=== PATIENT | male | born 1945 | race Caucasian/White ===

== ENCOUNTER → 2017-11-12 09:51 | Outpatient (CLI) | payer MEDICARE, SELFPAY ==
[2017-11-12 12:45] LABS: Amphetamine/Metha Screen,Urine Negative ng/mL (<1000); Barbiturates Screen,Urine Negative ng/mL (<200); Benzodiazepines Screen,Urine Negative ng/mL (200); Cannabinoid Screen,Urine Negative ng/mL (<50); Cocaine Screen,Urine Negative ng/g (<300); Methadone Screen,Urine Negative ng/mL (<300); Opiate Screen,Urine Positive ng/mL (<300); Phencyclidine Screen,Urine Negative ng/mL (<25)
[2017-11-21 16:10] LABS: Oxycodone (GC/MS) 2660 ng/mL (Cutoff=100)
[2017-11-21 17:25] LABS: Opiates Negative (Cutoff=100); Oxymorphone (GC/MS) 2400 ng/mL (Cutoff=100)
== END ==
PROVIDERS: PCP Internal Medicine; Visit Provider Anesthesiology
DX: Z79.899 Other long term (current) drug therapy (principal)
CPT/HCPCS: 80305; 80361; G0480

== ENCOUNTER → 2017-12-06 09:34 | Outpatient (POV) | payer MEDICARE, SELFPAY ==
[2017-12-06 09:44] VITALS: BP 174/79; PULSE 82; RESP 16; O2SAT 96; BMI 29.0
--- NOTE | 2017-12-06 10:11 | HMH.PAINSOAP ---
[facility] Pain Management SOAP Note Subjective:: She is a very pleasant 72-year-old white male who presents today to discuss the possibility of injections along with medication refills. Patient is having some right shoulder pain. He has had this in the past with good relief from and shoulder injections. He is also having some increased lumbar back pain with radiation into his left leg to the knee. Patient has had lumbar epidural steroid injection in the past with good relief for this. Patient rates his pain a 4 out of 10 today. Patient has had physical therapy for his back and shoulders and completed this. Patient is also medically managed on oxycodone 15 mg 1 p.o. 5 times a day as well as gabapentin 100 mg 1 p.o. 3 times daily. He states that he is having no side effects to either medication. He would also like to discuss the possibility of increasing his gabapentin at this time. Patient Kaspar #[id number] reviewed and appropriate. Patient's UDS in the past which was appropriate. ROS General: no recent weight change, no fever, no sleep disturbances Respiratory: no cough, no shortness of air, no recurring pulmonary infections Cardiovascular/Peripheral Vascular: No chest pain, No palpitations, no edema, no shortness of breath. Gastrointestinal: no incontinence, normal bowel movements reported Genitourinary: no incontinence Musculoskeletal: Lumbar back pain, shoulder pain bilaterally Psychiatric: normal mood/ affect, [denies depression], [denies anxiety] Neurological: [denies weakness in extremities], [denies balance issues] Objective:: Physical Exam General: Alert and oriented x3, no acute distress, pleasant and cooperative, [on room air] Lungs: Resps E/U, Symmetrical chest expansion Musculoskeletal: Flexion and extension of lumbar spine somewhat guarded secondary to pain, deep tendon reflexes normal, strength in upper and lower extremities [5/5], slightly antalgic gait noted Neurological: speech clear, shredder tender peat equal, no gross sensory deficits Assessment:: Degenerative disc disease of the lumbar spine, lumbar radiculopathy, degenerative joint disease of bilateral shoulders, Plan:: We will refill this patient's medication oxycodone 15 mg 1 p.o. 5 times daily. Also we will increase his gabapentin from 100 mg to 300 mg 1 p.o. 3 times daily. I discussed this with Dr. Dukes and has reviewed the chart and agrees with this plan. We will also ask for insurance approval of lumbar epidural steroid injection at L4-L5. I believe that this would be advantageous for the patient due to its efficacy in the past. Patient's Dot #[id number] reviewed and appropriate. His urine drug screen has been appropriate in the past we will continue to monitor. Patient has been prescribed a controlled substance after being counseled on the medication, medication safety, and possible side effects. DOT report has been obtained and reviewed prior to prescription and found to be appropriate. Opioid contract was reviewed and signed by the patient, and that they have agreed to all of the terms set forth by our compliance program. This note was dictated using voice recognition software and may contain omissions or errors.
--- NOTE | 2017-12-06 10:16 | P.CONS_ITS ---
[facility] Pain Management SOAP Note Subjective:: She is a very pleasant 72-year-old white male who presents today to discuss the possibility of injections along with medication refills. Patient is having some right shoulder pain. He has had this in the past with good relief from and shoulder injections. He is also having some increased lumbar back pain with radiation into his left leg to the knee. Patient has had lumbar epidural steroid injection in the past with good relief for this. Patient rates his pain a 4 out of 10 today. Patient has had physical therapy for his back and shoulders and completed this. Patient is also medically managed on oxycodone 15 mg 1 p.o. 5 times a day as well as gabapentin 100 mg 1 p.o. 3 times daily. He states that he is having no side effects to either medication. He would also like to discuss the possibility of increasing his gabapentin at this time. Patient Kaspar #[id number] reviewed and appropriate. Patient's UDS in the past which was appropriate. ROS General: no recent weight change, no fever, no sleep disturbances Respiratory: no cough, no shortness of air, no recurring pulmonary infections Cardiovascular/Peripheral Vascular: No chest pain, No palpitations, no edema, no shortness of breath. Gastrointestinal: no incontinence, normal bowel movements reported Genitourinary: no incontinence Musculoskeletal: Lumbar back pain, shoulder pain bilaterally Psychiatric: normal mood/ affect, [denies depression], [denies anxiety] Neurological: [denies weakness in extremities], [denies balance issues] Objective:: Physical Exam General: Alert and oriented x3, no acute distress, pleasant and cooperative, [ on room air] Lungs: Resps E/U, Symmetrical chest expansion Musculoskeletal: Flexion and extension of lumbar spine somewhat guarded secondary to pain, deep tendon reflexes normal, strength in upper and lower extremities [5/5], slightly antalgic gait noted Neurological: speech clear, 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 5 times daily. Also we will increase his gabapentin from 100 mg to 300 mg 1 p.o. 3 times daily. I discussed this with Dr. Dueks and has reviewed the chart and agrees with this plan. We will also ask for insurance approval of lumbar epidural steroid injection at L4-L5. I believe that this would be advantageous for the patient due to its efficacy in the past. Patient's Dot #[id number] reviewed and appropriate. His urine drug screen has been appropriate in the past we will continue to monitor. Patient has been prescribed a controlled substance after being counseled on the medication, medication safety, and possible side effects. DOT report has been obtained and reviewed prior to prescription and found to be appropriate. Opioid contract was reviewed and signed by the patient, and that they have agreed to all of the terms set forth by our compliance program. This note was dictated using voice recognition software and may contain omissions or errors.
--- NOTE | 2017-12-06 15:17 | PC.PHONENOTE ---
called in Rx for gabapentin 300mg TID with two refills to pt pharmacy per provider order
== END ==
PROVIDERS: Family Provider Internal Medicine; PCP Internal Medicine; Visit Provider Clinical Nurse Specialist Family Health
DX: M19.012 Primary osteoarthritis, left shoulder (principal); M19.011 Primary osteoarthritis, right shoulder; M54.16 Radiculopathy, lumbar region
CPT/HCPCS: 99212

== ENCOUNTER 2017-12-24 10:54 | Day surgery (SDC) | payer MEDICARE, SELFPAY ==
[2017-12-24 11:38] VITALS: BP 152/74; PULSE 44; TEMP 36.5; O2SAT 98; BMI 29.0
[2017-12-24 11:45] LABS: POC Glucose,Bedside 249 mg/dL (70-110)
--- NOTE | 2017-12-24 11:55 | HMH.PMPROC ---
- Procedure Date: 12/24/17 Time: 11:55 Anesthesiologist:: Isaac Dukes MD Complications:: None Pre-procedure Diagnosis:: Degenerative disc disease of lumbar spine with lumbar radiculopathy symptoms Post-procedure Diagnosis:: Same Indications for Procedure:: This patient is a pleasant 72-year-old white male who we are treating for low back pain with lumbar radiculopathy symptoms. He is also having some bilateral shoulder pain. Most of his pain is in the low back with radiation to the left leg. We will do a lumbar epidural steroid injection at L4-L5 today to see if this will give him some relief. Procedure Details:: Lumbar epidural steroid injection informed consent was obtained and the risk and benefits of the procedure was explained to the patient. The patient was taken to the procedure room. The patient was placed prone on the procedure table. The patient was prepped and draped in sterile fashion. C-arm fluoroscopy was used to view the lumbar spine. Skin and subcutaneous tissues were anesthetized using lidocaine. I placed an 18-gauge epidural needle and advanced into the L4-L5 interspace using fluoroscopic guidance and [id number] to air. After confirmation of needle placement in the epidural space with dye I injected 2 mL of lidocaine 1.5% with Depo-Medrol 80 mg. Patient tolerated the procedure well with no complications. Plan and Disposition:: Follow-up with this patient in 2 weeks. We will reevaluate his symptoms at that time.
[2017-12-24 11:56] VITALS: BP 167/89; PULSE 82; RESP 18
[2017-12-24 11:58] VITALS: BP 148/86; PULSE 83; RESP 18
--- NOTE | 2017-12-24 12:00 | P.PCN_ITS ---
- Procedure Date: 12/24/17 Time: 11:55 Anesthesiologist:: Isaac Dukes MD Complications:: None Pre-procedure Diagnosis:: Degenerative disc disease of lumbar spine with lumbar radiculopathy symptoms Post-procedure Diagnosis:: Same Indications for Procedure:: This patient is a pleasant 72-year-old white male who we are treating for low back pain with lumbar radiculopathy symptoms. He is also having some bilateral shoulder pain. Most of his pain is in the low back with radiation to the left leg. We will do a lumbar epidural steroid injection at L4-L5 today to see if this will give him some relief. Procedure Details:: Lumbar epidural steroid injection informed consent was obtained and the risk and benefits of the procedure was explained to the patient. The patient was taken to the procedure room. The patient was placed prone on the procedure table. The patient was prepped and draped in sterile fashion. C-arm fluoroscopy was used to view the lumbar spine. Skin and subcutaneous tissues were anesthetized using lidocaine. I placed an 18-gauge epidural needle and advanced into the L4-L5 interspace using fluoroscopic guidance and [id number] to air. After confirmation of needle placement in the epidural space with dye I injected 2 mL of lidocaine 1.5 % with Depo-Medrol 80 mg. Patient tolerated the procedure well with no complications. Plan and Disposition:: Follow-up with this patient in 2 weeks. We will reevaluate his symptoms at that time.
[2017-12-24 12:29] VITALS: BP 157/74; PULSE 80; RESP 18; TEMP 36.4; O2SAT 96
== END 2017-12-24 12:35 | disposition home or self-care (01) ==
PROVIDERS: Family Provider Internal Medicine; PCP Internal Medicine; Visit Provider Anesthesiology
DX: M51.16 Intervertebral disc disorders with radiculopathy, lumbar region (principal); Z79.899 Other long term (current) drug therapy
CPT/HCPCS: 62323; 82962; J1040; Q9966

== ENCOUNTER → 2018-01-10 11:05 | Outpatient (POV) | payer MEDICARE, SELFPAY ==
[2018-01-10 11:11] VITALS: BP 163/73; PULSE 83; RESP 18; TEMP 36.5; O2SAT 96; BMI 28.2
--- NOTE | 2018-01-10 11:33 | HMH.PAINSOAP ---
[facility] Pain Management SOAP Note Subjective:: This patient is a pleasant 72-year-old white male who presents today for follow-up after his most recent lumbar epidural steroid injection. Patient is having 90% relief of his symptoms at this time. Most pain today being in his bilateral shoulders. Patient does have injections in his shoulders however the pain relief does not last fpc. Patient is also being medically managed on [place] do not 15 mg 1 p.o. 5 times daily. Patient denies any side effects to this medication. We recently increased his gabapentin to 300 mg 3 times a day and he states that this is done very well for him. Patient states he is having increased pain and would like to discuss changing his medication regimen. Patient and I had a long discussion about his morphine equivalent. We will change his medication today to oxycodone 30 mg 1 tab p.o. 3 times daily. I will follow-up with him in a month and see how this is doing for him patient's DOT #[id number] reviewed and appropriate. Patient's urine drug screens appropriate in the past. Patient rates his pain a 7 out of 10 today. ROS General: no recent weight change, no fever, no sleep disturbances Respiratory: no cough, no shortness of air, no recurring pulmonary infections Cardiovascular/Peripheral Vascular: No chest pain, No palpitations, no edema, no shortness of breath. Gastrointestinal: no incontinence, normal bowel movements reported Genitourinary: no incontinence Musculoskeletal: Bilateral shoulder pain, back pain Psychiatric: normal mood/ affect, [denies depression], [denies anxiety] Neurological: [denies weakness in extremities], [denies balance issues] Objective:: Physical Exam General: Alert and oriented x3, no acute distress, pleasant and cooperative, [on room air] Lungs: Resps E/U, Symmetrical chest expansion, Eyes: PERRL Musculoskeletal: Flexion and extension of lumbar spine somewhat guarded secondary to pain, deep tendon reflexes normal, strength in upper and lower extremities [5/5], slightly antalgic gait noted, decreased range of motion bilateral shoulders secondary to pain. Negative drop arm test bilaterally Neurological: speech clear, psych sales specialist equal, no gross sensory deficits Assessment:: Osteoarthritis of bilateral shoulders, degenerative disc disease of the lumbar spine with lumbar radiculopathy Plan:: We will schedule the patient for bilateral intra-articular shoulder injections. Patient has done extremely well with this in the past. We will also change his medicine from oxycodone 15 mg 1 p.o. 5 times a day to oxycodone 30 mg 1 p.o. 3 times daily. Patient's Dot and urine drug screen have both been reviewed. Dr. Dukes is reviewed this chart and agrees with this plan of care. I will see him back in 1 month and reassess his symptoms at that. Patient has been instructed of potential side effects and has been instructed to call the office if he experiences any of them. This note was dictated using voice recognition software may contain errors or omissions
--- NOTE | 2018-01-10 11:36 | P.CONS_ITS ---
[facility] Pain Management SOAP Note Subjective:: This patient is a pleasant 72-year-old white male who presents today for follow- up after his most recent lumbar epidural steroid injection. Patient is having 90% relief of his symptoms at this time. Most pain today being in his bilateral shoulders. 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 Patient is also being medically managed on [place] do not 15 mg 1 p.o. 5 times daily. Patient denies any side effects to this medication. We recently increased his gabapentin to 300 mg 3 times a day and he states that this is done very well for him. Patient states he is having increased pain and would like to discuss changing his medication regimen. Patient and I had a long discussion about his morphine equivalent. We will change his medication today to oxycodone 30 mg 1 tab p.o. 3 times daily. I will follow-up with him in a month and see how this is doing for him patient's DOT #[id number] reviewed and appropriate. Patient's urine drug screens appropriate in the past. Patient rates his pain a 7 out of 10 today. ROS General: no recent weight change, no fever, no sleep disturbances Respiratory: no cough, no shortness of air, no recurring pulmonary infections Cardiovascular/Peripheral Vascular: No chest pain, No palpitations, no edema, no shortness of breath. Gastrointestinal: no incontinence, normal bowel movements reported Genitourinary: no incontinence Musculoskeletal: Bilateral shoulder pain, back pain Psychiatric: normal mood/ affect, [denies depression], [denies anxiety] Neurological: [denies weakness in extremities], [denies balance issues] Objective:: Physical Exam General: Alert and oriented x3, no acute distress, pleasant and cooperative, [ on room air] Lungs: Resps E/U, Symmetrical chest expansion, Eyes: PERRL Musculoskeletal: Flexion and extension of lumbar spine somewhat guarded secondary to pain, deep tendon reflexes normal, strength in upper and lower extremities [5/5], slightly antalgic gait noted, decreased range of motion bilateral shoulders secondary to pain. Negative drop arm test bilaterally Neurological: speech clear, zoning engineer equal, no gross sensory deficits Assessment:: Osteoarthritis of bilateral shoulders, degenerative disc disease of the lumbar spine with lumbar radiculopathy Plan:: We will schedule the patient for bilateral intra-articular shoulder injections. Patient has done extremely well with this in the past. We will also change his medicine from oxycodone 15 mg 1 p.o. 5 times a day to oxycodone 30 mg 1 p.o. 3 times daily. Patient's Dot and urine drug screen have both been reviewed. Dr. Dukes is reviewed this chart and agrees with this plan of care. I will see him back in 1 month and reassess his symptoms at that. Patient has been instructed of potential side effects and has been instructed to call the office if he experiences any of them. This note was dictated using voice recognition software may contain errors or omissions
== END ==
PROVIDERS: Family Provider Internal Medicine; PCP Internal Medicine; Visit Provider Clinical Nurse Specialist Family Health
DX: M19.011 Primary osteoarthritis, right shoulder (principal); M54.16 Radiculopathy, lumbar region; M19.012 Primary osteoarthritis, left shoulder
CPT/HCPCS: 99212

== ENCOUNTER 2018-01-12 14:53 | Day surgery (SDC) | payer MEDICARE, SELFPAY ==
[2018-01-12 15:38] VITALS: BP 166/76; PULSE 90; RESP 18; TEMP 36.8; O2SAT 93; BMI 28.2
--- NOTE | 2018-01-12 16:02 | HMH.PMPROC ---
- Procedure Date: 01/12/18 Time: 16:02 Anesthesiologist:: Isaac Dukes MD Complications:: None Pre-procedure Diagnosis:: Osteoarthritis of both shoulders with bilateral shoulder pain Post-procedure Diagnosis:: Same Indications for Procedure:: This patient is a 2-year-old white male who we are treating for low back with lumbar radiculopathy symptoms. He did well with previous lumbar epidural steroid injections with relief of his back pain and leg pain. He also has significant osteoarthritis of both shoulders with bilateral shoulder pain. We will do bilateral shoulder intra-articular injections today. His blood sugar is 301 today. We will decrease his steroid to 20 mg in each shoulder for a total of 40 mg. Procedure Details:: Procedure: Bilateral shoulder intra-articular injection and suprascapular nerve block Informed consent was obtained and the risk and benefits of the procedure was explained to the patient. Patient was taken to the procedure room. Both shoulders were prepped using ChloraPrep. A 25-gauge needle was used and we injected 10 mL bupivacaine 0.25% and Depo-Medrol 20 mg into each shoulder into the joint and into the area of the suprascapular nerve. The patient tolerated the procedure well with no complication. Plan and Disposition:: We will follow-up with him in 2 weeks. We will reevaluate his symptoms at that time.
[2018-01-12 16:06] VITALS: BP 154/85; PULSE 76; RESP 18
[2018-01-12 16:10] VITALS: BP 155/86; PULSE 82; RESP 18
[2018-01-12 16:41] VITALS: BP 133/68; PULSE 79; RESP 18; O2SAT 97
[2018-01-12 16:45] LABS: POC Glucose,Bedside 301 mg/dL (70-110)
== END 2018-01-12 16:08 | disposition home or self-care (01) ==
LOC: SC.PAINP 14:54
PROVIDERS: Family Provider Internal Medicine; PCP Internal Medicine; Visit Provider Anesthesiology
DX: M19.011 Primary osteoarthritis, right shoulder (principal); M19.012 Primary osteoarthritis, left shoulder; R73.9 Hyperglycemia, unspecified
CPT/HCPCS: 64450; 82962; J1030

== ENCOUNTER → 2018-01-31 10:10 | Outpatient (POV) | payer MEDICARE, SELFPAY ==
[2018-01-31 11:07] VITALS: BP 115/67; PULSE 66; RESP 20; BMI 28.2
--- NOTE | 2018-01-31 12:14 | HMH.PAINSOAP ---
[facility] Pain Management SOAP Note Subjective:: Patient is a pleasant 72-year-old white male who we are treating for low back pain with lumbar radiculopathy, bilateral osteoarthritis in the shoulders and knees. Patient has done well with shoulder injections in the past along with bilateral SI joint injections and lumbar epidural steroid injection. Patient is following up after bilateral injections in the shoulders. Patient states most of his pain is gone however he did lift suitcases with his right arm and flare up his right shoulder pain. Patient states most of his pain today is in his bilateral SI joints. Patient is interested in a SI joint injection. Patient is also due for medication refills. We have changed his medication to 30 mg 3 times daily however he said that his previous regimen was more effective. So we will change him back to oxycodone 50 mg 1 tab p.o. 5 times a day I discussed with him that if in the future we need to start increasing him there may be other options available such as intrathecal therapies. Patient's [facility] #[id number] reviewed and appropriate. Patient's UDS is appropriate in the Past. ROS General: no recent weight change, no fever, no sleep disturbances Respiratory: no cough, no shortness of air, no recurring pulmonary infections Cardiovascular/Peripheral Vascular: No chest pain, No palpitations, no edema, no shortness of breath. Gastrointestinal: no incontinence, normal bowel movements reported Genitourinary: no incontinence Musculoskeletal: Bilateral shoulder pain, back pain, bilateral SI joint pain, bilateral knee pain Psychiatric: normal mood/ affect, Neurological: [denies weakness in extremities], [denies balance issues] Objective:: Physical Exam General: Alert and oriented x3, no acute distress, pleasant and cooperative, [on room air] Lungs: Resps E/U, Symmetrical chest expansion, Eyes: PERRL Musculoskeletal: Flexion and extension of lumbar spine somewhat guarded secondary to pain, deep tendon reflexes normal, strength in upper and lower extremities [5/5], antalgic gait noted, extreme point tenderness over bilateral SI joints, positive Sayra's test bilaterally Neurological: speech clear, 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 Plan:: We will schedule bilateral SI joint injection with the patient. he has tried and failed physical therapy, anti-inflammatory therapy, medications. We will refill his oxycodone 15 milligrams 1 p.o. 5 times a day. I will give him 1 month prescription in order to determine if this is effective. Dr. Dukes has reviewed this chart and agrees with this plan of care. Patient's UDS and DOT appropriate. Patient has been prescribed a controlled substance after being counseled on the medication, medication safety, and possible side effects. DOT report has been obtained and reviewed prior to prescription and found to be appropriate. Opioid contract was reviewed and signed by the patient, and that they have agreed to all of the terms set forth by our compliance program. This note was dictated using voice recognition software and may contain errors or omissions
--- NOTE | 2018-01-31 12:17 | P.CONS_ITS ---
[facility] Pain Management SOAP Note Subjective:: Patient is a pleasant 72-year-old white male who we are treating for low back pain with lumbar radiculopathy, bilateral osteoarthritis in the shoulders and knees. Patient has done well with shoulder injections in the past along with bilateral SI joint injections and lumbar epidural steroid injection. Patient is following up after bilateral injections in the shoulders. Patient states most of his pain is gone however he did lift suitcases with his right arm and flare up his right shoulder pain. Patient states most of his pain today is in his bilateral SI joints. Patient is interested in a SI joint injection. Patient is also due for medication refills. We have changed his medication to 30 mg 3 times daily however he said that his previous regimen was more effective. So we will change him back to oxycodone 50 mg 1 tab p.o. 5 times a day I discussed with him that if in the future we need to start increasing him there may be other options available such as intrathecal therapies. Patient's [facility] #[id number] reviewed and appropriate. Patient's UDS is appropriate in the Past. ROS General: no recent weight change, no fever, no sleep disturbances Respiratory: no cough, no shortness of air, no recurring pulmonary infections Cardiovascular/Peripheral Vascular: No chest pain, No palpitations, no edema, no shortness of breath. Gastrointestinal: no incontinence, normal bowel movements reported Genitourinary: no incontinence Musculoskeletal: Bilateral shoulder pain, back pain, bilateral SI joint pain, bilateral knee pain Psychiatric: normal mood/ affect, Neurological: [denies weakness in extremities], [denies balance issues] Objective:: Physical Exam General: Alert and oriented x3, no acute distress, pleasant and cooperative, [ on room air] Lungs: Resps E/U, Symmetrical chest expansion, Eyes: PERRL Musculoskeletal: Flexion and extension of lumbar spine somewhat guarded secondary to pain, deep tendon reflexes normal, strength in upper and lower extremities [5/5], antalgic gait noted, extreme point tenderness over bilateral SI joints, positive Sayra's test bilaterally Neurological: 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 Plan:: We will schedule bilateral SI joint injection with the patient. he has tried and failed physical therapy, anti-inflammatory therapy, medications. We will refill his oxycodone 15 milligrams 1 p.o. 5 times a day. I will give him 1 month prescription in order to determine if this is effective. Dr. Dukes has reviewed this chart and agrees with this plan of care. Patient's UDS and DOT appropriate. Patient has been prescribed a controlled substance after being counseled on the medication, medication safety, and possible side effects. DOT report has been obtained and reviewed prior to prescription and found to be appropriate. Opioid contract was reviewed and signed by the patient, and that they have agreed to all of the terms set forth by our compliance program. This note was dictated using voice recognition software and may contain errors or omissions
[2018-01-31 13:48] LABS: Amphetamine/Metha Screen,Urine Negative ng/mL (<1000); Barbiturates Screen,Urine Negative ng/mL (<200); Benzodiazepines Screen,Urine Negative ng/mL (200); Cannabinoid Screen,Urine Negative ng/mL (<50); Cocaine Screen,Urine Negative ng/g (<300); Methadone Screen,Urine Negative ng/mL (<300); Opiate Screen,Urine Positive ng/mL (<300); Phencyclidine Screen,Urine Negative ng/mL (<25)
[2018-02-07 07:22] LABS: Oxycodone (GC/MS) 6688 ng/mL (Cutoff=100)
[2018-02-08 06:01] LABS: Opiates Negative (Cutoff=100); Oxymorphone (GC/MS) 5599 ng/mL (Cutoff=100)
== END ==
PROVIDERS: Family Provider Internal Medicine; PCP Internal Medicine; Visit Provider Clinical Nurse Specialist Family Health
DX: M19.012 Primary osteoarthritis, left shoulder (principal); M19.011 Primary osteoarthritis, right shoulder; M17.0 Bilateral primary osteoarthritis of knee; Z79.891 Long term (current) use of opiate analgesic; M54.16 Radiculopathy, lumbar region
CPT/HCPCS: 80305; 80361; 80365; 99212; G0480

== ENCOUNTER → 2018-03-07 14:19 | Outpatient (POV) | payer MEDICARE, SELFPAY ==
[2018-03-07 14:32] VITALS: BP 147/79; PULSE 72; RESP 20; O2SAT 96; BMI 27.9
--- NOTE | 2018-03-07 15:12 | HMH.PAINSOAP ---
[facility] Pain Management SOAP Note Subjective:: Patient is a pleasant 72-year-old white male who is presents today for follow-up after bilateral SI joint injections. Patient states he has 80% relief in his SI joint pain. Patient is currently being medically managed for degenerative disc disease of the lumbar spine with lumbar radiculopathy, sacroiliitis, osteoarthritis of bilateral shoulders. Patient is currently on oxycodone 15 mg 1 p.o. 5 times a day. Patient is interested in changing this prescription. He states that it does not last long enough for him. Patient's urine drug screens have been appropriate. Patient's DOT #[id number] reviewed and appropriate. Patient rates his pain a 5 out of 10 today. Mostly in his back today. ROS General: no recent weight change, no fever, no sleep disturbances Respiratory: no cough, no shortness of air, no recurring pulmonary infections Cardiovascular/Peripheral Vascular: No chest pain, No palpitations, no edema, no shortness of breath. Gastrointestinal: no incontinence, normal bowel movements reported Genitourinary: no incontinence Musculoskeletal: Back pain, bilateral shoulder pain, SI joint pain Psychiatric: normal mood/ affect Neurological: [denies weakness in extremities], [denies balance issues] Objective:: Physical Exam General: Alert and oriented x3, no acute distress, pleasant and cooperative, [on room air] Lungs: Resps E/U, Symmetrical chest expansion, Eyes: PERRL Musculoskeletal: Flexion and extension of lumbar spine somewhat guarded secondary to pain, deep tendon reflexes normal, strength in upper and lower extremities [5/5], slightly antalgic gait noted Neurological: speech clear, pest control chemical technician equal, no gross sensory deficits Assessment:: Degenerative disc disease of lumbar spine, lumbar radiculopathy, sacroiliitis, bilateral osteoarthritis in the shoulders Plan:: We will change the patient's medication oxycodone 20 mg 1 p.o. 4 times daily. Will give him 1 month worth of medication. Dot and urine drug screen both reviewed and appropriate. Dr. Dukes has reviewed this chart and agrees with this plan. I will follow-up with this patient in 2 months. Patient has been prescribed a controlled substance after being counseled on the medication, medication safety, and possible side effects. DOT report has been obtained and reviewed prior to prescription and found to be appropriate. Opioid contract was reviewed and signed by the patient, and that they have agreed to all of the terms set forth by our compliance program. This note was dictated using voice recognition software and may contain errors or omissions
--- NOTE | 2018-03-07 15:15 | P.CONS_ITS ---
[facility] Pain Management SOAP Note Subjective:: Patient is a pleasant 72-year-old white male who is presents today for follow- up after bilateral SI joint injections. Patient states he has 80% relief in his SI joint pain. Patient is currently being medically managed for degenerative disc disease of the lumbar spine with lumbar radiculopathy, sacroiliitis, osteoarthritis of bilateral shoulders. Patient is currently on oxycodone 15 mg 1 p.o. 5 times a day. Patient is interested in changing this prescription. He states that it does not last long enough for him. Patient's urine drug screens have been appropriate. Patient's ODT #[id number] reviewed and appropriate. Patient rates his pain a 5 out of 10 today. Mostly in his back today. ROS General: no recent weight change, no fever, no sleep disturbances Respiratory: no cough, no shortness of air, no recurring pulmonary infections Cardiovascular/Peripheral Vascular: No chest pain, No palpitations, no edema, no shortness of breath. Gastrointestinal: no incontinence, normal bowel movements reported Genitourinary: no incontinence Musculoskeletal: Back pain, bilateral shoulder pain, SI joint pain Psychiatric: normal mood/ affect Neurological: [denies weakness in extremities], [denies balance issues] Objective:: Physical Exam General: Alert and oriented x3, no acute distress, pleasant and cooperative, [ on room air] Lungs: Resps E/U, Symmetrical chest expansion, Eyes: PERRL Musculoskeletal: Flexion and extension of lumbar spine somewhat guarded secondary to pain, deep tendon reflexes normal, strength in upper and lower extremities [5/5], slightly antalgic gait noted Neurological: speech clear, garden consultant equal, no gross sensory deficits Assessment:: Degenerative disc disease of lumbar spine, lumbar radiculopathy, sacroiliitis, bilateral osteoarthritis in the shoulders Plan:: We will change the patient's medication oxycodone 20 mg 1 p.o. 4 times daily. Will give him 1 month worth of medication. Dot and urine drug screen both reviewed and appropriate. Dr. Dukes has reviewed this chart and agrees with this plan. I will follow-up with this patient in 2 months. Patient has been prescribed a controlled substance after being counseled on the medication, medication safety, and possible side effects. DOT report has been obtained and reviewed prior to prescription and found to be appropriate. Opioid contract was reviewed and signed by the patient, and that they have agreed to all of the terms set forth by our compliance program. This note was dictated using voice recognition software and may contain errors or omissions
== END ==
PROVIDERS: Family Provider Internal Medicine; PCP Internal Medicine; Visit Provider Clinical Nurse Specialist Family Health
DX: M19.012 Primary osteoarthritis, left shoulder (principal); M19.011 Primary osteoarthritis, right shoulder; M54.16 Radiculopathy, lumbar region
CPT/HCPCS: 99212

== ENCOUNTER → 2018-04-11 09:54 | Outpatient (POV) | payer MEDICARE, SELFPAY ==
[2018-04-11 10:00] VITALS: BP 157/69; PULSE 80; RESP 18; TEMP 36.6; O2SAT 95; BMI 26.6
--- NOTE | 2018-04-11 10:22 | P.CONS_ITS ---
[facility] Pain Management SOAP Note Subjective:: Patient is a pleasant 73-year-old white male who presents today for follow-up. Patient at his last visit was changed to oxycodone 20 mg 1 p.o. 4 times daily for pain secondary to degenerative disc disease of lumbar spine, lumbar radiculopathy, sacroiliitis bilateral osteoarthritis in the shoulders. Patient states this change is done very well for him. He denies any side effects the medication. Patient's morphine equivalent has dropped to 120. Patient [place] and urine drug screen both reviewed and appropriate. Patient's DOT # [id number] reviewed. Patient states that this decreases his pain 70-80%. Patient has had multiple injections in the past. Patient has good relief with these. Patient states he does not need any injections at this time. ROS General: no recent weight change, no fever, no sleep disturbances Respiratory: no cough, no shortness of air, no recurring pulmonary infections Cardiovascular/Peripheral Vascular: No chest pain, No palpitations, no edema, no shortness of breath. Gastrointestinal: no incontinence, normal bowel movements reported Genitourinary: no incontinence Musculoskeletal: Back pain, SI joint pain, shoulder pain Psychiatric: normal mood/ affect Neurological: [denies weakness in extremities], [denies balance issues] Objective:: Physical Exam General: Alert and oriented x3, no acute distress, pleasant and cooperative, [ on room air] Lungs: Resps E/U, Symmetrical chest expansion, Eyes: PERRL Musculoskeletal: Flexion and extension of lumbar spine somewhat guarded secondary to pain, deep tendon reflexes normal, strength in upper and lower extremities [5/5], slightly antalgic gait noted Neurological: speech clear, aircraft worker equal, no gross sensory deficits Assessment:: Degenerative disc disease of the lumbar spine, lumbar radiculopathy, sacroiliitis, bilateral osteoarthritis in the shoulders Plan:: We will refill the patient's medication oxycodone 20 mg 1 p.o. 4 times daily we will give him 2 months worth of medication. 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 Patient's Dot and urine drug screen both reviewed and appropriate. Dr. Dukes has reviewed this chart and agrees with this current plan of care. If the patient needs injections or anything prior to his next appointment he has been instructed to call the office. Patient has been prescribed a controlled substance after being counseled on the medication, medication safety, and possible side effects. DOT report has been obtained and reviewed prior to prescription and found to be appropriate. Opioid contract was reviewed and signed by the patient, and that they have agreed to all of the terms set forth by our compliance program. This note was dictated using voice recognition software and may contain errors or omissions
== END ==
PROVIDERS: Family Provider Internal Medicine; PCP Internal Medicine; Visit Provider Clinical Nurse Specialist Family Health
DX: M19.012 Primary osteoarthritis, left shoulder (principal); M19.011 Primary osteoarthritis, right shoulder; M54.16 Radiculopathy, lumbar region
CPT/HCPCS: 99212

== ENCOUNTER → 2018-04-27 14:16 | Outpatient (CLI) | payer MEDICARE, SELFPAY | PROVIDERS: PCP Internal Medicine; Visit Provider Internal Medicine | DX: G47.33 Obstructive sleep apnea (adult) (pediatric) (principal); R40.0 Somnolence; R06.83 Snoring; E66.9 Obesity, unspecified; G47.00 Insomnia, unspecified | CPT/HCPCS: G0399 ==

== ENCOUNTER → 2018-05-23 11:34 | Outpatient (POV) | payer MEDICARE, SELFPAY ==
--- NOTE | 2018-05-23 11:54 | HMH.PAINSOAP ---
[facility] Pain Management SOAP Note Subjective:: Patient is a pleasant 73-year-old white male who presents today for follow-up. Patient is doing well other than his low back pain. He rates his pain an 8 out of 10 today. Patient has had lumbar epidural steroid injections in the past with good relief. He states he gets up to 80% relief for several months. Patient would like to repeat this. Patient is not on any anticoagulation therapy. Patient does have pain going down both of his legs. Patient is diabetic. She does not need refills of his medication however he is currently being medically managed with oxycodone 20 mg 1 p.o. 4 times daily. ROS General: no recent weight change, no fever, no sleep disturbances Respiratory: no cough, no shortness of air, no recurring pulmonary infections Cardiovascular/Peripheral Vascular: No chest pain, No palpitations, no edema, no shortness of breath. Gastrointestinal: no incontinence, normal bowel movements reported Genitourinary: no incontinence Musculoskeletal: Back pain, leg pain Psychiatric: normal mood/ affect, [denies depression], [denies anxiety] Neurological: [denies weakness in extremities], [denies balance issues] Objective:: Physical Exam General: Alert and oriented x3, no acute distress, pleasant and cooperative, [on room air] Lungs: Resps E/U, Symmetrical chest expansion, Eyes: PERRL Musculoskeletal: Flexion and extension of lumbar spine somewhat guarded secondary to pain, deep tendon reflexes normal, strength in upper and lower extremities [5/5], slightly antalgic gait noted, positive straight leg raise test bilaterally at 30?. Neurological: speech clear, morning show producer equal, no gross sensory deficits Assessment:: Degenerative disc disease lumbar spine with lumbar radiculopathy symptoms Plan:: We will schedule L4-L5 lumbar epidural steroid injection for the patient this is been beneficial for him in the past. I will follow-up with the patient 2 weeks after his injection. Patient did not do medication refills today This note was dictated using voice recognition software and may contain errors or omissions
--- NOTE | 2018-05-23 11:57 | P.CONS_ITS ---
[facility] Pain Management SOAP Note Subjective:: Patient is a pleasant 73-year-old white male who presents today for follow-up. Patient is doing well other than his low back pain. He rates his pain an 8 out of 10 today. Patient has had lumbar epidural steroid injections in the past with good relief. He states he gets up to 80% relief for several months. Patient would like to repeat this. Patient is not on any anticoagulation therapy. Patient does have pain going down both of his legs. Patient is diabetic. She does not need refills of his medication however he is currently being medically managed with oxycodone 20 mg 1 p.o. 4 times daily. ROS General: no recent weight change, no fever, no sleep disturbances Respiratory: no cough, no shortness of air, no recurring pulmonary infections Cardiovascular/Peripheral Vascular: No chest pain, No palpitations, no edema, no shortness of breath. Gastrointestinal: no incontinence, normal bowel movements reported Genitourinary: no incontinence Musculoskeletal: Back pain, leg pain Psychiatric: normal mood/ affect, [denies depression], [denies anxiety] Neurological: [denies weakness in extremities], [denies balance issues] Objective:: Physical Exam General: Alert and oriented x3, no acute distress, pleasant and cooperative, [ on room air] Lungs: Resps E/U, Symmetrical chest expansion, Eyes: PERRL Musculoskeletal: Flexion and extension of lumbar spine somewhat guarded secondary to pain, deep tendon reflexes normal, strength in upper and lower extremities [5/5], slightly antalgic gait noted, positive straight leg raise test bilaterally at 30?. Neurological: speech clear, mall plant caretaker equal, no gross sensory deficits Assessment:: Degenerative disc disease lumbar spine with lumbar radiculopathy symptoms Plan:: We will schedule L4-L5 lumbar epidural steroid injection for the patient this is been beneficial for him in the past. I will follow-up with the patient 2 weeks after his injection. Patient did not do medication refills today This note was dictated using voice recognition software and may contain errors or omissions
[2018-05-23 11:59] VITALS: BP 114/78; PULSE 98; RESP 18; O2SAT 98; BMI 27.4
[2018-05-23 12:59] LABS: Amphetamine/Metha Screen,Urine Negative ng/mL (<1000); Barbiturates Screen,Urine Negative ng/mL (<200); Benzodiazepines Screen,Urine Negative ng/mL (<200); Cannabinoid Screen,Urine Negative ng/mL (<50); Cocaine Screen,Urine Negative ng/mL (<300); Methadone Screen,Urine Negative ng/mL (<300); Opiate Screen,Urine Positive ng/mL (<300); Phencyclidine Screen,Urine Negative ng/mL (<25)
[2018-05-29 19:07] LABS: Oxycodone (GC/MS) >3000 ng/mL (Cutoff=100)
[2018-05-30 05:31] LABS: Opiates Negative (Cutoff=100); Oxymorphone (GC/MS) >3000 ng/mL (Cutoff=100)
== END ==
PROVIDERS: Family Provider Internal Medicine; PCP Internal Medicine; Visit Provider Clinical Nurse Specialist Family Health
DX: M54.16 Radiculopathy, lumbar region (principal); Z79.899 Other long term (current) drug therapy
CPT/HCPCS: 80305; 80361; 80365; 99212; G0480

== ENCOUNTER → 2018-07-12 08:58 | Outpatient (POV) | payer MEDICARE, SELFPAY ==
[2018-07-12 09:35] VITALS: BP 138/80; PULSE 80; RESP 18; O2SAT 98; BMI 28.3
--- NOTE | 2018-07-12 09:47 | HMH.PAINSOAP ---
[facility] Pain Management SOAP Note Subjective:: Patient is a pleasant 73-year-old white male who presents today for follow-up after his lumbar epidural steroid injection. Patient is doing extremely rates his pain a 4 out of 10 today. Patient has been doing well with his oxycodone 20 mg 1 p.o. 4 times daily. Patient is currently on gabapentin 300 mg 1 p.o. 3 times daily however he states he is having some increased burning. Patient is only due one prescription. Patient has been doing well. Patient's DOT #[id number] reviewed and appropriate. Patient's urine drug screen has been appropriate in the past. ROS General: no recent weight change, no fever, no sleep disturbances Respiratory: no cough, no shortness of air, no recurring pulmonary infections Cardiovascular/Peripheral Vascular: No chest pain, No palpitations, no edema, no shortness of breath. Gastrointestinal: no incontinence, normal bowel movements reported Genitourinary: no incontinence Musculoskeletal: Back pain Psychiatric: normal mood/ affect Neurological: [denies weakness in extremities], [denies balance issues] Objective:: Physical Exam General: Alert and oriented x3, no acute distress, pleasant and cooperative, [on room air] Lungs: Resps E/U, Symmetrical chest expansion, Eyes: PERRL Musculoskeletal: Flexion and extension of lumbar spine somewhat guarded secondary to pain, deep tendon reflexes normal, strength in upper and lower extremities [5/5], [abnormal gait noted] Neurological: speech clear, cellulose insulation helper equal, no gross sensory deficits Assessment:: Degenerative disc disease lumbar spine with lumbar radiculopathy Plan:: We will refill the patient's oxycodone 20 mg 1 p.o. 4 times daily increase his gabapentin to 300 mg 1 p.o. 4 times daily. We will follow-up with the patient in [address] Dukes is reviewed this chart and agrees with this plan of care. Patient's been instructed to call the office if he has any issues prior to his next appointment. Patient has been prescribed a controlled substance after being counseled on the medication, medication safety, and possible side effects. DOT report has been obtained and reviewed prior to prescription and found to be appropriate. Opioid contract was reviewed and signed by the patient, and that they have agreed to all of the terms set forth by our compliance program. This note was dictated using voice recognition software and may contain errors or omissions
--- NOTE | 2018-07-12 09:51 | P.CONS_ITS ---
[facility] Pain Management SOAP Note Subjective:: Patient is a pleasant 73-year-old white male who presents today for follow-up after his lumbar epidural steroid injection. Patient is doing extremely rates his pain a 4 out of 10 today. Patient has been doing well with his oxycodone 20 mg 1 p.o. 4 times daily. Patient is currently on gabapentin 300 mg 1 p.o. 3 times daily however he states he is having some increased burning. Patient is only due one prescription. Patient has been doing well. Patient's DOT #[id number] reviewed and appropriate. Patient's urine drug screen has been appropriate in the past. ROS General: no recent weight change, no fever, no sleep disturbances Respiratory: no cough, no shortness of air, no recurring pulmonary infections Cardiovascular/Peripheral Vascular: No chest pain, No palpitations, no edema, no shortness of breath. Gastrointestinal: no incontinence, normal bowel movements reported Genitourinary: no incontinence Musculoskeletal: Back pain Psychiatric: normal mood/ affect Neurological: [denies weakness in extremities], [denies balance issues] Objective:: Physical Exam General: Alert and oriented x3, no acute distress, pleasant and cooperative, [on room air] Lungs: Resps E/U, Symmetrical chest expansion, Eyes: PERRL Musculoskeletal: Flexion and extension of lumbar spine somewhat guarded secondary to pain, deep tendon reflexes normal, strength in upper and lower extremities [5/5], [abnormal gait noted] Neurological: speech clear, furnace puncher equal, no gross sensory deficits Assessment:: Degenerative disc disease lumbar spine with lumbar radiculopathy Plan:: We will refill the patient's oxycodone 20 mg 1 p.o. 4 times daily increase his gabapentin to 300 mg 1 p.o. 4 times daily. We will follow-up with the patient in [address] Dukes is reviewed this chart and agrees with this plan of care. Patient's been instructed to call the office if he has any issues prior to his next appointment. Patient has been prescribed a controlled substance after being counseled on the medication, medication safety, and possible side effects. DOT report has been obtained and reviewed prior to prescription and found to be appropriate. Opioid contract was reviewed and signed by the patient, and that they have agreed to all of the terms set forth by our compliance program. This note was dictated using voice recognition software and may contain errors or omissions
== END ==
PROVIDERS: Family Provider Internal Medicine; PCP Internal Medicine; Visit Provider Clinical Nurse Specialist Family Health
DX: M51.16 Intervertebral disc disorders with radiculopathy, lumbar region (principal)
CPT/HCPCS: 99213

== ENCOUNTER → 2018-09-05 09:56 | Outpatient (POV) | payer MEDICARE, SELFPAY ==
--- NOTE | 2018-09-05 10:23 | HMH.PAINSOAP ---
[facility] Pain Management SOAP Note Subjective:: Patient is a pleasant 73-year-old white male who presents today for follow-up for medication refills. Patient is currently on oxycodone 20 million p.o. 4 times daily and is doing well with this regimen. Patient states most of his pain is his in his bilateral SI joints. Patient has had injections in the past with 80-90% relief up to 3 months. Patient would like to repeat this. Patient is also on gabapentin 300 p.o. 4 times daily. Patient's DOT [id number] reviewed and appropriate. ROS General: no recent weight change, no fever, no sleep disturbances Respiratory: no cough, no shortness of air, no recurring pulmonary infections Cardiovascular/Peripheral Vascular: No chest pain, No palpitations, no edema, no shortness of breath. Gastrointestinal: no incontinence, normal bowel movements reported Genitourinary: no incontinence Musculoskeletal: Bilateral SI joint pain Psychiatric: normal mood/ affect Neurological: [denies weakness in extremities], [denies balance issues] Objective:: Physical Exam General: Alert and oriented x3, no acute distress, pleasant and cooperative, [on room air] Lungs: Resps E/U, Symmetrical chest expansion, Eyes: PERRL Musculoskeletal: Flexion and extension of lumbar spine somewhat guarded secondary to pain, deep tendon reflexes normal, strength in upper and lower extremities [5/5], slightly antalgic gait noted, positive Sayra's test bilaterally Neurological: speech clear, 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 4 times daily and his gabapentin 300 mg 1 p.o. 4 times daily. We will follow-up with him in 3 months. Patient will receive 2 prescriptions today and can on in the interim. We will also schedule him bilateral SI joint intense given the efficacy of this in the past. Dr. Dukes is reviewed this chart and agrees with this plan of care. Patient has been prescribed a controlled substance after being counseled on the medication, medication safety, and possible side effects. DOT report has been obtained and reviewed prior to prescription and found to be appropriate. Opioid contract was reviewed and signed by the patient, and that they have agreed to all of the terms set forth by our compliance program. This note was dictated using voice recognition software and may contain errors or omissions
[2018-09-05 10:25] VITALS: BP 165/66; PULSE 84; RESP 18; O2SAT 98; BMI 28.2
--- NOTE | 2018-09-05 10:27 | P.CONS_ITS ---
[facility] Pain Management SOAP Note Subjective:: Patient is a pleasant 73-year-old white male who presents today for follow-up for medication refills. Patient is currently on oxycodone 20 million p.o. 4 times daily and is doing well with this regimen. Patient states most of his pain is his in his bilateral SI joints. Patient has had injections in the past with 80-90% relief up to 3 months. Patient would like to repeat this. Patient is also on gabapentin 300 p.o. 4 times daily. Patient's DOT [id number] reviewed and appropriate. ROS General: no recent weight change, no fever, no sleep disturbances Respiratory: no cough, no shortness of air, no recurring pulmonary infections Cardiovascular/Peripheral Vascular: No chest pain, No palpitations, no edema, no shortness of breath. Gastrointestinal: no incontinence, normal bowel movements reported Genitourinary: no incontinence Musculoskeletal: Bilateral SI joint pain Psychiatric: normal mood/ affect Neurological: [denies weakness in extremities], [denies balance issues] Objective:: Physical Exam General: Alert and oriented x3, no acute distress, pleasant and cooperative, [on room air] Lungs: Resps E/U, Symmetrical chest expansion, Eyes: PERRL Musculoskeletal: Flexion and extension of lumbar spine somewhat guarded secondary to pain, deep tendon reflexes normal, strength in upper and lower extremities [5/5], slightly antalgic gait noted, positive Sayra's test bilaterally Neurological: speech clear, crossword puzzle maker equal, no gross sensory deficits Assessment:: Sacroiliitis, degenerative disc disease lumbar spine with lumbar radiculopathy Plan:: We will refill the patient's oxycodone 20 mg 1 p.o. 4 times daily and his gabapentin 300 mg 1 p.o. 4 times daily. We will follow-up with him in 3 months. Patient will receive 2 prescriptions today and can on in the interim. We will also schedule him bilateral SI joint intense given the efficacy of this in the past. Dr. Dukes is reviewed this chart and agrees with this plan of care. Patient has been prescribed a controlled substance after being counseled on the medication, medication safety, and possible side effects. DOT report has been obtained and reviewed prior to prescription and found to be appropriate. Opioid contract was reviewed and signed by the patient, and that they have agreed to all of the terms set forth by our compliance program. This note was dictated using voice recognition software and may contain errors or omissions
== END ==
PROVIDERS: PCP Internal Medicine; Visit Provider Clinical Nurse Specialist Family Health
DX: M46.1 Sacroiliitis, not elsewhere classified (principal); M51.16 Intervertebral disc disorders with radiculopathy, lumbar region
CPT/HCPCS: 99213

== ENCOUNTER → 2018-10-04 09:47 | Outpatient (POV) | payer MEDICARE, SELFPAY ==
--- NOTE | 2018-10-04 09:59 | P.CONS_ITS ---
[facility] Pain Management SOAP Note Subjective:: Patient is a pleasant 73-year-old white male who presents today for follow-up after bilateral SI joint injections. Patient states that it helped him immensely rated his pain a 4 out of 10 today. Patient is currently medically managed with oxycodone 20 mg 1 p.o. 4 times daily and doing well with this. We will refill 1 month of this. Patient Janae reviewed the point. Urine drug screen has been appropriate. ROS General: no recent weight change, no fever, no sleep disturbances Respiratory: no cough, no shortness of air, no recurring pulmonary infections Cardiovascular/Peripheral Vascular: No chest pain, No palpitations, no edema, no shortness of breath. Gastrointestinal: no incontinence, normal bowel movements reported Genitourinary: no incontinence Musculoskeletal: Back pain, neck pain, shoulder pain at time Psychiatric: normal mood/ affect Neurological: [denies weakness in extremities], [denies balance issues] Objective:: Physical Exam General: Alert and oriented x3, no acute distress, pleasant and cooperative, [on room air] Lungs: Resps E/U, Symmetrical chest expansion, Eyes: PERRL Musculoskeletal: Flexion and extension of lumbar spine somewhat guarded secondary to pain, deep tendon reflexes normal, strength in upper and lower extremities [5/5], slightly antalgic gait noted Neurological: speech clear, modern and contemporary art curator equal, no gross sensory deficits Assessment:: 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 4 times daily we will see him back in 2 months and reassess his symptoms at that time. Patient's been instructed to call the office if he has any issues prior to his next appointment. Dr. Dukes is reviewed this chart and agrees with this plan of care. Patient has been prescribed a controlled substance after being counseled on the medication, medication safety, and possible side effects. DOT report has been obtained and reviewed prior to prescription and found to be appropriate. Opioid contract was reviewed and signed by the patient, and that they have agreed to all of the terms set forth by our compliance program. This note was dictated using voice recognition software and may contain errors or omissions
[2018-10-04 10:17] VITALS: BP 167/75; PULSE 77; RESP 18; O2SAT 98; BMI 27.5
[2018-10-04 10:57] LABS: Amphetamine/Metha Screen,Urine Negative ng/mL (<1000); Barbiturates Screen,Urine Negative ng/mL (<200); Benzodiazepines Screen,Urine Negative ng/mL (<200); Cannabinoid Screen,Urine Negative ng/mL (<50); Cocaine Screen,Urine Negative ng/mL (<300); Methadone Screen,Urine Negative ng/mL (<300); Opiate Screen,Urine Positive ng/mL (<300); Phencyclidine Screen,Urine Negative ng/mL (<25)
[2018-10-10 14:11] LABS: Oxycodone (GC/MS) >3000 ng/mL (Cutoff=100)
[2018-10-10 14:12] LABS: Opiates Negative (Cutoff=100); Oxymorphone (GC/MS) >3000 ng/mL (Cutoff=100)
== END ==
PROVIDERS: PCP Internal Medicine; Visit Provider Clinical Nurse Specialist Family Health
DX: M51.16 Intervertebral disc disorders with radiculopathy, lumbar region (principal); M46.1 Sacroiliitis, not elsewhere classified; Z79.899 Other long term (current) drug therapy
CPT/HCPCS: 80305; 80361; 80365; 99213; G0480

== ENCOUNTER → 2018-11-29 10:31 | Outpatient (POV) | payer MEDICARE, SELFPAY ==
[2018-11-29 10:45] VITALS: BP 130/59; PULSE 87; RESP 18; O2SAT 98; BMI 27.4
--- NOTE | 2018-11-29 10:55 | HMH.PAINSOAP ---
[facility] Pain Management SOAP Note Subjective:: Patient is a pleasant 73-year-old white male who presents today for medication refills. Patient states that he is having worsening back pain especially when he standing and walking. Patient is getting numbness down his legs. He has not had a recent MRI. I believe it would be beneficial for him. Patient is currently being medically managed with oxycodone 20 mg 1 p.o. 4 times daily. He is doing well. He denies side effects. Dot reviewed and appropriate. ROS General: no recent weight change, no fever, no sleep disturbances Respiratory: no cough, no shortness of air, no recurring pulmonary infections Cardiovascular/Peripheral Vascular: No chest pain, No palpitations, no edema, no shortness of breath. Gastrointestinal: no incontinence, normal bowel movements reported Genitourinary: no incontinence Musculoskeletal: Back pain, leg pain Psychiatric: normal mood/ affect Neurological: [denies weakness in extremities], [denies balance issues] Objective:: Physical Exam General: Alert and oriented x3, no acute distress, pleasant and cooperative, [on room air] Lungs: Resps E/U, Symmetrical chest expansion, Eyes: PERRL Musculoskeletal: Flexion and extension of lumbar spine somewhat guarded secondary to pain, deep tendon reflexes normal, strength in upper and lower extremities [5/5], [abnormal gait noted] Neurological: speech clear, policy services representative equal, no gross sensory deficits Assessment:: 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 I believe this would be beneficial he may be a mild candidate. We will refill his oxycodone 20 mg 1 p.o. 4 times daily and give him 2 months worth of medication. We will follow-up with him after his MRI. Patient has been prescribed a controlled substance after being counseled on the medication, medication safety, and possible side effects. DOT report has been obtained and reviewed prior to prescription and found to be appropriate. Opioid contract was reviewed and signed by the patient, and that they have agreed to all of the terms set forth by our compliance program. Dr. Dukes has reviewed this note and agrees with this plan of care. This note was dictated using voice recognition software and may contain errors or omissions
== END ==
PROVIDERS: PCP Internal Medicine; Visit Provider Clinical Nurse Specialist Family Health
DX: M51.36 Other intervertebral disc degeneration, lumbar region (principal); M48.061 Spinal stenosis, lumbar region without neurogenic claudication
CPT/HCPCS: 99213

== ENCOUNTER → 2018-12-08 14:28 | Outpatient (CLI) | payer MEDICARE, SELFPAY ==
--- NOTE | 2018-12-08 14:31 | MR_ITS ---
MR lumbar spine wo con, MR 3-d myelogram/MRCP HISTORY: Constant LBP worse on LT side. Tingling down LT X YRS. No trauma. No History Back surgery. ITS.REASON: WORSENING BACK PAIN ORDERING PHYSICIAN: Nicci Giron PATIENT AGE: 73 years Comparison: MRI 04-23-14 TECHNIQUE: Standard multiplanar multiecho sequences are performed without contrast. 3-D MIP and myelographic images are also rendered and reviewed FINDINGS: There is mild lower lumbar scoliosis convex left. The spinal cord ends at the L2-L3 level. T11-T12: Unremarkable. T12-L1: Unremarkable. L1-L2: Mild degenerative disc disease with bulging disc along facet and ligamentum flavum hypertrophy. L2-L3: Mild degenerative disc disease. L3-L4: Unremarkable. L4-5: Degenerative disc disease with anterolisthesis of L4 on L5 which is greater along the right aspect secondary to some clockwise rotation of L4 on L5. There is 10 mm anterolisthesis of L4 on right aspect and 5 mm centrally. There is moderate to severe narrowing of the right foramen at L4-L5. These findings are not significantly changed. L5-S1: Unremarkable. No extruded herniated disc or canal stenosis. Multiple small bilateral renal cysts. IMPRESSION: 1. L4-5: Degenerative disc disease with anterolisthesis of L4 on L5 which is greater along the right aspect secondary to some clockwise rotation of L4 on L5. There is 10 mm anterolisthesis of L4 on right aspect and 5 mm centrally. There is moderate to severe narrowing of the right foramen at L4-L5. These findings are not significantly changed 2. Mild degenerative disc disease at L1-L2 and L2-L3. 3. No disc herniation or canal stenosis. There is mild lumbar scoliosis convex left. Overall no significant change from 04/23/2014
== END ==
PROVIDERS: PCP Internal Medicine; Visit Provider Clinical Nurse Specialist Family Health
DX: M54.5 Low back pain (principal)
CPT/HCPCS: 72148; 76376

== ENCOUNTER → 2018-12-12 14:01 | Outpatient (POV) | payer MEDICARE, SELFPAY ==
[2018-12-12 14:12] VITALS: BP 149/89; PULSE 85; RESP 18; O2SAT 99; BMI 27.4
--- NOTE | 2018-12-12 15:03 | P.CONS_ITS ---
[facility] Pain Management SOAP Note Subjective:: Patient is a pleasant 73-year-old white male who presents today for MRI follow- up. Patient MRI has not changed significantly since last time he has had one. He is currently being medically managed with oxycodone 20 mg 1 p.o. 4 times daily. He denies side effects. He does not need refills today. Patient states that his shoulder on the right side is bothering him. He would like to set up for a right shoulder injection. He has had these in the past with up to 80% relief of his symptoms. ROS General: no recent weight change, no fever, no sleep disturbances Respiratory: no cough, no shortness of air, no recurring pulmonary infections Cardiovascular/Peripheral Vascular: No chest pain, No palpitations, no edema, no shortness of breath. Gastrointestinal: no incontinence, normal bowel movements reported Genitourinary: no incontinence Musculoskeletal: Back pain, right shoulder pain Psychiatric: normal mood/ affect Neurological: [denies weakness in extremities], [denies balance issues] Objective:: Physical Exam General: Alert and oriented x3, no acute distress, pleasant and cooperative, [on room air] Lungs: Resps E/U, Symmetrical chest expansion, Eyes: PERRL Musculoskeletal: Flexion and extension of lumbar spine somewhat guarded secondary to pain, deep tendon reflexes normal, strength in upper and lower extremities [5/5], antalgic gait noted, decreased range of motion right shoulder Neurological: speech clear, strategic planning analyst equal, no gross sensory deficits Assessment:: Degenerative disc disease lumbar spine with lumbar radiculopathy, lumbar spinal stenosis, right shoulder pain secondary to arthritis Plan:: We will set the patient up for right shoulder injection. Patient is not in any need of medication refills at this time. I will follow-up with the patient after his injection. Dr. Dukes has reviewed this note and agrees with this plan of care. This note was dictated using voice recognition software and may contain errors or omissions
== END ==
PROVIDERS: PCP Internal Medicine; Visit Provider Clinical Nurse Specialist Family Health
DX: M51.16 Intervertebral disc disorders with radiculopathy, lumbar region (principal); M48.061 Spinal stenosis, lumbar region without neurogenic claudication; M19.011 Primary osteoarthritis, right shoulder
CPT/HCPCS: 99213

== ENCOUNTER → 2019-01-03 12:01 | Outpatient (POV) | payer MEDICARE, SELFPAY ==
[2019-01-03 12:33] VITALS: BP 151/74; PULSE 75; RESP 18; O2SAT 96; BMI 27.4
--- NOTE | 2019-01-03 12:54 | HMH.PAINSOAP ---
[facility] Pain Management SOAP Note Subjective:: Patient is a very pleasant 73-year-old white male who presents today for medication refills and follow-up. Patient is currently being medically managed for pain secondary to degenerative disc disease, sacroiliitis, osteoarthritis. And lumbar spinal stenosis. Patient is currently being treated with oxycodone 20 mg 1 p.o. 4 times daily. He denies side effects. Patient states that he gets up to 80% relief with his medication. Dot and urine drug screens have been appropriate. Patient has been out of his medication for several days. Patient is in need of bilateral SI joint injections. He is gotten good relief with these from the past. Patient is continuing a home stretching program. ROS General: no recent weight change, no fever, no sleep disturbances Respiratory: no cough, no shortness of air, no recurring pulmonary infections Cardiovascular/Peripheral Vascular: No chest pain, No palpitations, no edema, no shortness of breath. Gastrointestinal: no incontinence, normal bowel movements reported Genitourinary: no incontinence Musculoskeletal: Back pain, SI joint pain Psychiatric: normal mood/ affect, Neurological: [denies weakness in extremities], [denies balance issues] Objective:: Physical Exam General: Alert and oriented x3, no acute distress, pleasant and cooperative, [on room air] Lungs: Resps E/U, Symmetrical chest expansion, Eyes: PERRL Musculoskeletal: Flexion and extension of lumbar spine somewhat guarded secondary to pain, deep tendon reflexes normal, strength in upper and lower extremities [5/5], [abnormal gait noted] positive Rell's test, positive thigh thrust test positive SI joint compression test bilaterally Neurological: speech clear, sports psychologist equal, no gross sensory deficits Assessment:: Degenerative disc disease lumbar spine with lumbar radiculopathy, lumbar spinal stenosis, shoulder pain secondary to arthritis, sacroiliitis Plan:: We will refill the patient's oxycodone 20 mg 1 p.o. 4 times daily and give him 2 months worth of medication. We will follow-up with the patient in 2 months reassess his symptoms at that time. Patient can picker / packer the third month in the interim. We will also set him up for bilateral SI joint injections given the efficacy of this in the past. Patient is been instructed to call the office if he has any issues prior to his next appointment. Patient has been prescribed a controlled substance after being counseled on the medication, medication safety, and possible side effects. DOT report has been obtained and reviewed prior to prescription and found to be appropriate. Opioid contract was reviewed and signed by the patient, and that they have agreed to all of the terms set forth by our compliance program. Dr. Dukes has reviewed this note and agrees with this plan of care. This note was dictated using voice recognition software and may contain errors or omissions
--- NOTE | 2019-01-03 12:57 | P.CONS_ITS ---
[facility] Pain Management SOAP Note Subjective:: Patient is a very pleasant 73-year-old white male who presents today for medication refills and follow-up. Patient is currently being medically managed for pain secondary to degenerative disc disease, sacroiliitis, osteoarthritis. And lumbar spinal stenosis. Patient is currently being treated with oxycodone 20 mg 1 p.o. 4 times daily. He denies side effects. Patient states that he gets up to 80% relief with his medication. Dot and urine drug screens have been appropriate. Patient has been out of his medication for several days. Patient is in need of bilateral SI joint injections. He is gotten good relief with these from the past. Patient is continuing a home stretching program. ROS General: no recent weight change, no fever, no sleep disturbances Respiratory: no cough, no shortness of air, no recurring pulmonary infections Cardiovascular/Peripheral Vascular: No chest pain, No palpitations, no edema, no shortness of breath. Gastrointestinal: no incontinence, normal bowel movements reported Genitourinary: no incontinence Musculoskeletal: Back pain, SI joint pain Psychiatric: normal mood/ affect, Neurological: [denies weakness in extremities], [denies balance issues] Objective:: Physical Exam General: Alert and oriented x3, no acute distress, pleasant and cooperative, [on room air] Lungs: Resps E/U, Symmetrical chest expansion, Eyes: PERRL Musculoskeletal: Flexion and extension of lumbar spine somewhat guarded secondary to pain, deep tendon reflexes normal, strength in upper and lower extremities [5/5], [abnormal gait noted] positive Rell's test, positive thigh thrust test positive SI joint compression test bilaterally Neurological: speech clear, automobile body worker equal, no gross sensory deficits Assessment:: Degenerative disc disease lumbar spine with lumbar radiculopathy, lumbar spinal stenosis, shoulder pain secondary to arthritis, sacroiliitis Plan:: We will refill the patient's oxycodone 20 mg 1 p.o. 4 times daily and give him 2 months worth of medication. We will follow-up with the patient in 2 months reassess his symptoms at that time. Patient can lease picker the third month in the interim. We will also set him up for bilateral SI joint injections given the efficacy of this in the past. Patient is been instructed to call the office if he has any issues prior to his next appointment. Patient has been prescribed a controlled substance after being counseled on the medication, medication safety, and possible side effects. DOT report has been obtained and reviewed prior to prescription and found to be appropriate. Opioid contract was reviewed and signed by the patient, and that they have agreed to all of the terms set forth by our compliance program. Dr. Dukes has reviewed this note and agrees with this plan of care. This note was dictated using voice recognition software and may contain errors or omissions
[2019-01-03 14:03] LABS: Amphetamine/Metha Screen,Urine Negative ng/mL (<1000); Barbiturates Screen,Urine Negative ng/mL (<200); Benzodiazepines Screen,Urine Negative ng/mL (<200); Cannabinoid Screen,Urine Negative ng/mL (<50); Cocaine Screen,Urine Negative ng/mL (<300); Methadone Screen,Urine Negative ng/mL (<300); Opiate Screen,Urine Positive ng/mL (<300); Phencyclidine Screen,Urine Negative ng/mL (<25)
[2019-01-08 15:08] LABS: Oxycodone (GC/MS) 1354 ng/mL (Cutoff=100)
[2019-01-09 08:25] LABS: Opiates Negative (Cutoff=100); Oxymorphone (GC/MS) 671 ng/mL (Cutoff=100)
== END ==
PROVIDERS: PCP Internal Medicine; Visit Provider Clinical Nurse Specialist Family Health
DX: Z79.899 Other long term (current) drug therapy (principal); M51.16 Intervertebral disc disorders with radiculopathy, lumbar region; M46.1 Sacroiliitis, not elsewhere classified; M48.061 Spinal stenosis, lumbar region without neurogenic claudication; M19.019 Primary osteoarthritis, unspecified shoulder
CPT/HCPCS: 80305; 80361; 80365; 99213; G0480

== ENCOUNTER → 2019-02-14 08:56 | Outpatient (POV) | payer MEDICARE, SELFPAY ==
[2019-02-14 09:14] VITALS: BP 136/70; PULSE 85; RESP 18; O2SAT 98; BMI 27.4
--- NOTE | 2019-02-14 14:17 | P.CONS_ITS ---
[facility] Pain Management SOAP Note Subjective:: he is a very pleasant 73-year-old white male who presents today for follow-up after his latest injection. Patient is just not having the same relief from injections as he has. He is also not getting the relief from his oral medications he has in the past. Patient is currently on oxycodone 20 mg 1 p.o. 4 times daily. Patient and I discussed weaning this and potentially doing an intrathecal pain pump. I do believe it would be the best thing for him. Patient rates his pain a 7 out of 10 today. Patient is having a lot of pain in his low back and legs. ROS General: no recent weight change, no fever, no sleep disturbances Respiratory: no cough, no shortness of air, no recurring pulmonary infections Cardiovascular/Peripheral Vascular: No chest pain, No palpitations, no edema, no shortness of breath. Gastrointestinal: no incontinence, normal bowel movements reported Genitourinary: no incontinence Musculoskeletal: Back pain, leg pain Psychiatric: normal mood/ affect Neurological: [denies weakness in extremities], [denies balance issues] Objective:: Physical Exam General: Alert and oriented x3, no acute distress, pleasant and cooperative, [on room air] Lungs: Resps E/U, Symmetrical chest expansion, Eyes: PERRL Musculoskeletal: Flexion and extension of lumbar spine somewhat guarded secondary to pain, deep tendon reflexes normal, strength in upper and lower extremities [5/5], slightly antalgic gait noted Neurological: speech clear, rugby union footballer equal, no gross sensory deficits Assessment:: Degenerative disc disease lumbar spine with lumbar radiculopathy, arthritis, sacral ileitis Plan:: We will start weaning the patient off we will work towards him getting an intrathecal pain pump trial. I believe it would be beneficial for him. Patient understands that he will have to be weaned off of his oral oxycodone and he will not have any after his implant. Dr. Dukes has reviewed this note and agrees with this plan of care. This note was dictated using voice recognition software and may contain errors or omissions
== END ==
PROVIDERS: PCP Internal Medicine; Visit Provider Clinical Nurse Specialist Family Health
DX: M51.16 Intervertebral disc disorders with radiculopathy, lumbar region (principal); M19.90 Unspecified osteoarthritis, unspecified site
CPT/HCPCS: 99212

== ENCOUNTER → 2019-04-03 11:13 | Outpatient (CLI) | payer MEDICARE, SELFPAY ==
[2019-04-03 13:00] LABS: Anion Gap 13.3 mEq/L (5-15); Blood Urea Nitrogen 19 mg/dL (7-18); Carbon Dioxide 30 mmol/L (21.0-32.0); Chloride 99 mmol/L (98-107); Estimated Glomerular Filt Rate 73 ml/min (>60); GFR (African American) 88 ML/MIN (>60); Glucose 297 mg/dL (74-106); Potassium 4.3 mmoL/L (3.5-5.1); Sodium 138 mmol/L (136-145)
[2019-04-03 13:11] LABS: Basophils % 0.6 % (0.1-2.0); Eosinophils # 0.1 K/mm3 (0.0-0.4); Eosinophils % 1.5 % (0.1-12.0); Hematocrit 40.9 % (42.0-52.0); Lymphocytes # 1.5 K/mm3 (0.7-4.5); Lymphocytes % 28.7 % (10-50); Mean Corpuscular HGB Conc 29.3 g/dL (31.8-35.4); Mean Corpuscular Hemoglobin 23.7 pg (27.0-31.2); Mean Corpuscular Volume 81.1 fl (80-94); Mean Platelet Volume 7.9 fl (7.4-10.4); Monocytes # 0.4 K/mm3 (0.1-1.0); Monocytes % 6.7 % (1.7-9.3); Neutrophils # 3.3 K/mm3 (1.8-7.8); Neutrophils % 62.5 % (37.0-80.0); Platelet Count 206 K/mm3 (142-424); Red Blood Count 5.04 M/mm3 (4.60-6.20); Red Cell Distribution Width 15.7 % (11.5-17.5); White Blood Count 5.2 K/mm3 (4.8-10.8)
== END ==
PROVIDERS: Visit Provider Anesthesiology
DX: Z01.818 Encounter for other preprocedural examination (principal)
CPT/HCPCS: 36415; 80048; 85025

== ENCOUNTER → 2019-04-11 14:34 | Outpatient (POV) | payer MEDICARE, SELFPAY ==
[2019-04-11 15:08] VITALS: BP 140/65; PULSE 94; RESP 18; O2SAT 93; BMI 27.4
--- NOTE | 2019-04-11 15:15 | HMH.PAINSOAP ---
[facility] Pain Management SOAP Note Subjective:: Patient is a very pleasant 73-year-old white male who presents today for follow-up after intrathecal pain pump placement. Patient says that he is doing well overall, stating pain in the legs is 100% better . He does rate his pain a 4 out of 10 to his incisional area. Otherwise the patient is doing well. He denies any side effects to the medication. ROS General: no recent weight change, no fever, no sleep disturbances Respiratory: no cough, no shortness of air, no recurring pulmonary infections Cardiovascular/Peripheral Vascular: No chest pain, No palpitations, no edema, no shortness of breath. Gastrointestinal: no incontinence, normal bowel movements reported Genitourinary: no incontinence Musculoskeletal: Back pain, bilateral foot pain Psychiatric: normal mood/ affect, [denies depression], [denies anxiety] Neurological: [denies weakness in extremities], [denies balance issues] Objective:: Physical Exam General: Alert and oriented x3, no acute distress, pleasant and cooperative, [on room air] Lungs: Resps E/U, Symmetrical chest expansion, Eyes: PERRL Musculoskeletal: Flexion and extension of lumbar spine somewhat guarded secondary to pain, deep tendon reflexes normal, strength in upper and lower extremities [5/5], [abnormal gait noted] Neurological: speech clear, swimming pool cleaner equal, no gross sensory deficits Assessment:: Degenerative disc disease lumbar spine with lumbar radiculopathy, arthritis Plan:: Wound VAC was removed today and tolerated well by the patient. Incision is well approximated, no redness, no drainage, no infection noted to site. Patient will take as needed ibuprofen and Tylenol for incisional pain. See the patient back in 2 weeks and reassess his symptoms at that time. He is been instructed to call the office if he has any concerns prior to the next appointment. Dr. Dukes has reviewed this note and agrees with this plan of care. This note was dictated using voice recognition software and may contain errors or omissions
--- NOTE | 2019-04-11 15:19 | P.CONS_ITS ---
[facility] Pain Management SOAP Note Subjective:: Patient is a very pleasant 73-year-old white male who presents today for follow- up after intrathecal pain pump placement. Patient says that he is doing well overall, stating pain in the legs is 100% better . He does rate his pain a 4 out of 10 to his incisional area. Otherwise the patient is doing well. He denies any side effects to the medication. ROS General: no recent weight change, no fever, no sleep disturbances Respiratory: no cough, no shortness of air, no recurring pulmonary infections Cardiovascular/Peripheral Vascular: No chest pain, No palpitations, no edema, no shortness of breath. Gastrointestinal: no incontinence, normal bowel movements reported Genitourinary: no incontinence Musculoskeletal: Back pain, bilateral foot pain Psychiatric: normal mood/ affect, [denies depression], [denies anxiety] Neurological: [denies weakness in extremities], [denies balance issues] Objective:: Physical Exam General: Alert and oriented x3, no acute distress, pleasant and cooperative, [on room air] Lungs: Resps E/U, Symmetrical chest expansion, Eyes: PERRL Musculoskeletal: Flexion and extension of lumbar spine somewhat guarded secondary to pain, deep tendon reflexes normal, strength in upper and lower extremities [5/5], [abnormal gait noted] Neurological: speech clear, enrollment consultant equal, no gross sensory deficits Assessment:: Degenerative disc disease lumbar spine with lumbar radiculopathy, arthritis Plan:: Wound VAC was removed today and tolerated well by the patient. Incision is well approximated, no redness, no drainage, no infection noted to site. Patient will take as needed ibuprofen and Tylenol for incisional pain. See the patient back in 2 weeks and reassess his symptoms at that time. He is been instructed to call the office if he has any concerns prior to the next appointment. Dr. Dukes has reviewed this note and agrees with this plan of care. This note was dictated using voice recognition software and may contain errors or omissions
== END ==
PROVIDERS: PCP Internal Medicine; Visit Provider Clinical Nurse Specialist Family Health
DX: M51.16 Intervertebral disc disorders with radiculopathy, lumbar region (principal); M19.90 Unspecified osteoarthritis, unspecified site
CPT/HCPCS: 99212

== ENCOUNTER → 2019-04-28 09:08 | Outpatient (POV) | payer MEDICARE, SELFPAY ==
[2019-04-28 10:00] VITALS: BP 145/75; PULSE 75; RESP 20; O2SAT 95; BMI 28.3
--- NOTE | 2019-04-28 10:11 | P.CONS_ITS ---
[facility] Pain Management SOAP Note Subjective:: This patient is a pleasant 74-year-old white male who has an intrathecal morphine pain pump in place. This pump was placed approximately 3 weeks ago. He is doing very well. His incisions have healed very nicely. The only complaint is that he has some diarrhea which may be due to the antibiotics. I told him to follow-up with his primary care physician to rule out C. difficile. Overall he is doing very well at this point. He is starting to be more active. Pain score is at 0-1 out of 10. He would like to try to wean off his gabapentin. He is taking this 4 times a day. I told him to wean 1 pill/week. He continues had intrathecal morphine at 0.5 mg/day. We will set up his PTC today at 0.05 mg up to 4 times a day. Objective:: Alert and oriented x3 no acute distress. Patient does have an antalgic gait. Motor strength of the lower extremities is 5/5. There is no gross sensory deficit. His incisions have healed very nicely. Assessment:: Degenerative disc disease of lumbar spine with lumbar radiculopathy symptoms Plan:: We will continue him with intrathecal morphine 0.5 mg/day. I told him to follow-up with his primary care provider regarding his diarrhea as he may have C. difficile from his postop antibiotic use. He was on Bactrim DS for 10 days. We will start his PTC today. He will have boluses available at 0.05 mg up to 4 times a day. He is doing very well. We will follow-up with him in 1 month. We will also follow-up on recommendations from his primary care physician regarding his diarrhea.
== END ==
PROVIDERS: PCP Internal Medicine; Visit Provider Anesthesiology
DX: M51.16 Intervertebral disc disorders with radiculopathy, lumbar region (principal)
CPT/HCPCS: 62368

== ENCOUNTER → 2019-05-22 09:38 | Outpatient (POV) | payer MEDICARE, SELFPAY ==
--- NOTE | 2019-05-22 09:48 | P.CONS_ITS ---
[facility] Pain Management SOAP Note Subjective:: Patient is a pleasant 74-year-old white male who presents today for follow-up after intrathecal pain pump adjustment. Patient is doing extremely well rating his pain a 1 out of 10 he denies any side effects and states this is much better than his medication that he was on previously. He is currently on intrathecal morphine infusion and 0.5 mg/day and he has a PTC he utilizes it at times at 0.05 mg up to 4 times a day. ROS General: no recent weight change, no fever, no sleep disturbances Respiratory: no cough, no shortness of air, no recurring pulmonary infections Cardiovascular/Peripheral Vascular: No chest pain, No palpitations, no edema, no shortness of breath. Gastrointestinal: no incontinence, normal bowel movements reported Genitourinary: no incontinence Musculoskeletal: Back pain, leg pain Psychiatric: normal mood/ affect Neurological: [denies weakness in extremities], [denies balance issues] Objective:: Physical Exam General: Alert and oriented x3, no acute distress, pleasant and cooperative, [on room air] Lungs: Resps E/U, Symmetrical chest expansion, Eyes: PERRL Musculoskeletal: Flexion and extension of lumbar spine somewhat guarded secondary to pain, deep tendon reflexes normal, strength in upper and lower extremities [5/5], [abnormal gait noted] Neurological: speech clear, cook italian style food equal, no gross sensory deficits Assessment:: Degenerative disc disease lumbar spine with lumbar radiculopathy symptoms Plan:: We will see him back at his next intrathecal pain pump refill and reprogram he is been instructed to call the office if he has any issues prior to his next kristy ointment. Dr. Dukes has reviewed this note and agrees with this plan of care. This note was dictated using voice recognition software and may contain errors or omissions Pain Management Hx Components *Have you ever received a pneumonia vaccine?: Yes *Have you received a flu vaccine this season?: Yes - *Social History *Occupational Status:: retired *Travel in the last 8 weeks: None
[2019-05-22 10:10] VITALS: BP 176/77; PULSE 82; RESP 18; O2SAT 98; BMI 25.8
== END ==
PROVIDERS: PCP Internal Medicine; Visit Provider Clinical Nurse Specialist Family Health
DX: M51.16 Intervertebral disc disorders with radiculopathy, lumbar region (principal)
CPT/HCPCS: 99212

== ENCOUNTER → 2019-06-22 09:54 | Outpatient (CLI) | payer MEDICARE, SELFPAY ==
--- NOTE | 2019-06-22 09:58 | XR_ITS ---
PROCEDURE: XR HIP RT 2-3V W/PELVIS CLINICAL INDICATION: RT LATERAL HIP PAIN COMPARISON: No exams were available for comparison FINDINGS: Minimal osteoarthritic changes are present involving the right hip. No fracture or dislocation. No lytic or blastic change. Prostate seed implants are noted. There is a pain pump along the right lower quadrant with intrathecal tubular extension at the L4-5 region. Generalized vascular calcification noted IMPRESSION: Minimal osteoarthritic change of the right hip Dictated by: Raul Harkins MD 06/22/2019 11:07 Electronically signed by Raul Harkins MD in [place] 06/22/2019 11:07
== END ==
PROVIDERS: PCP Internal Medicine; Visit Provider Internal Medicine
DX: M25.551 Pain in right hip (principal)
CPT/HCPCS: 73502

== ENCOUNTER 2019-10-26 07:47 | Day surgery (SDC) | payer MEDICARE, SELFPAY ==
[2019-10-26] VITALS (8 sets, daily range): BP systolic 94–160; BP diastolic 67–92; PULSE 63–93; RESP 18; TEMP 36.1–36.7; O2SAT 92–98; BMI 27.4
[2019-10-26 08:15] LABS: POC Glucose,Bedside 172 (70-110)
--- NOTE | 2019-10-26 08:17 | P.PN_ITS ---
[facility] Anesthesia Checklist - Patient Identification Patient Identification: Arm Band, Verbal (Name & ) - Structural Data Admitted From: Home Planned Operative Procedure/s: EGD/Colonoscopy Consent for Planned Operative Procedure(s) Verified: Yes Verified Documents: Surgical Consent, History and Physical - NPO Status Verified Time NPO: 00:00 - Chart Verification Results Verified: None - Additional verifications Fingerstick Blood Glucose: 167 Anesthesia Reactions: No Hx Blood Transfusions: No Blood Transfusion Reaction: No - Airway Assessment C-Spine Mobility Assessed: Yes TMJ Mobility Assessed: Yes Dentition: Edentulous (Dentures removed) - Neurological Assessment Level of Consciousness: Awake, Alert, Appropriate, Follows Commands Hx Seizures: No Numbness or tingling in extremities: No - Anesthesia Plan Anesthesia Risk discussed: Yes Anesthesia Plan: Verified ASA Class: III Anesthesia Type: MAC [facility] History I have reviewed the patient's past medical history: Yes Medical History: Reports:: Asthma, Cancer (Prostate CA), Chronic Obstructive Pulmonary Disease (COPD), Coronary Artery Disease, Diabetes Mellitus Type 2, Gastroesophageal Reflux Disease(GERD), Hyperlipidemia, Hypertension Denies:: Diabetes Mellitus Type 1, Internal Pacemaker, Lung Disease, MRSA, Seizures *Have you ever received a pneumonia vaccine?: Yes *Have you received a flu vaccine this season?: Yes Other Medical History: Reports: Arthritis. Denies: Blood Transfusion Reaction Comment:: MARCELLA Anesthesia experience/problems:: no complications Laterality Cases: Left: Total Knee Replacement Other Surgeries: Yes: CABG, Cholecystectomy, Other (Prostate Radiation, pain pump insertion). No: Pacemaker Amputation: No Fractures: No - *Social History Educational Level: Completed High School Smoking Status: Never smoker Tobacco Type: cigarettes # Packs/Day (cigarettes): 0 Alcohol Intake: never Substance Use Type: denies use *Occupational Status:: retired Housing: house Household Members: spouse *Travel in the last 8 weeks: None Family Hx:: Cancer, Coronary Artery Disease
--- NOTE | 2019-10-26 09:19 | HMH.SCOPE ---
- Procedure: Date: 10/26/19 Procedure Performed:: Esophagogastroduodenoscopy with biopsy Colonoscopy with polypectomy Indications:: Melena Screening colonoscopy Performing Provider:: Josr Arroyo MD Referring Provider:: . Sedation:: Monitored anesthesia care Procedure:: After informed consent was obtained the patient was taken to the endoscopy suite. Sedation ensued after the patient was transferred to the left lateral decubitus position. Pulse, blood pressure, and oxygen saturation were monitored throughout the procedure. The endoscope was advanced beyond the duodenal bulb. Retroflexion within the gastric lumen was accomplished. The gastroscope was carefully removed. Digital rectal exam revealed no significant abnormality. The colonoscope was placed in position. The entire colon was evaluated. The colonoscope was carefully removed and the patient was transferred to recovery in stable condition. Please see findings and specimens below for detail. 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 No sign of active bleeding or recent hemorrhage. Bowel preparation moderate to poor Fairly severe spasticity with lack of relaxation (particularly sigmoid) Sigmoid diverticulosis Polyps (see specimens) Specimens:: Biopsy of antrum Periappendiceal polyp Complex lobulated transverse colon polyp (snare) Polyp at 50 cm (snare) Polyp at 30 cm (snare) Recommendations:: May require therapy for isolated varix; however, with no sign of active or recent hemorrhage the risk of intervention deemed greater than the benefit currently. Repeat colonoscopy timing will be dependent upon pathology; however, fairly short-term reevaluation (6-12 months) warranted secondary to limited preparation and significant lack of relaxation. Consider barium enema for better evaluation of sigmoid colon (severe lack of relaxation). Complications:: No immediate Estimated blood obtained (mL): 1
[2019-10-26 09:52] LABS: Basophils % 0.5 % (0.1-2.0); Eosinophils # 0.1 K/mm3 (0.0-0.4); Eosinophils % 1.1 % (0.1-12.0); Hematocrit 35.6 % (42.0-52.0); Hemoglobin 11.2 g/dL (14.1-18.0); Lymphocytes # 1.3 K/mm3 (0.7-4.5); Lymphocytes % 28.4 % (10-50); Mean Corpuscular HGB Conc 31.5 g/dL (31.8-35.4); Mean Corpuscular Hemoglobin 27.4 pg (27.0-31.2); Mean Platelet Volume 9.7 fl (7.4-10.4); Monocytes # 0.3 K/mm3 (0.1-1.0); Monocytes % 6.5 % (1.7-9.3); Neutrophils # 2.8 K/mm3 (1.8-7.8); Neutrophils % 63.5 % (37.0-80.0); Platelet Count 194 K/mm3 (142-424); Red Blood Count 4.09 M/mm3 (4.60-6.20); Red Cell Distribution Width 14.7 % (11.5-17.5); White Blood Count 4.5 K/mm3 (4.8-10.8)
== END 2019-10-26 10:55 | disposition home or self-care (01) ==
LOC: OUTP 07:48
PROVIDERS: PCP Internal Medicine; Visit Provider Surgery
PROC: 0DJ08ZZ Inspection of Upper Intestinal Tract, Via Natural or Artificial Opening Endoscopic (ICD-10-PCS; CPT 43235; principal; 2019-10-26 09:00)
DX: Z12.11 Encounter for screening for malignant neoplasm of colon (principal); K29.90 Gastroduodenitis, unspecified, without bleeding; K57.30 Diverticulosis of large intestine without perforation or abscess without bleeding; K63.5 Polyp of colon; I85.00 Esophageal varices without bleeding; K58.9 Irritable bowel syndrome, unspecified
CPT/HCPCS: 43239; 45380; 45385; 36415; 82962; 85025; 88305

== ENCOUNTER → 2019-11-13 08:46 | Outpatient (CLI) | payer MEDICARE, SELFPAY ==
--- NOTE | 2019-11-13 08:55 | FL_ITS ---
PROCEDURE: FL UPPER GI SMALL BOWEL CLINICAL INDICATION: anemia Abdominal pain and bloating COMPARISON: No exams were available for comparison TECHNIQUE: FLUOROSCOPY TIME : 1 minutes and 59 seconds FINDINGS: Occupational Health Physician exam demonstrates mild amount of retained colonic feces. A pain is present with the generator over the right lower quadrant. Surgical clips right upper quadrant. There is a small hiatal hernia. No annular constricting lesions of the esophagus. There is some mild esophageal spasm stomach and duodenum have an unremarkable appearance. Unremarkable appearing small bowel. No obstructing lesions masses or mucosal abnormalities. IMPRESSION: Small 1. Small hiatal hernia with mild esophageal spasm 2. Otherwise negative upper GI and small-bowel follow-through Dictated by: Raul Harkins MD 11/13/2019 10:28 Electronically signed by Raul Harkins MD in [place] 11/13/2019 10:28
== END ==
PROVIDERS: PCP Internal Medicine; Visit Provider Surgery
DX: D12.6 Benign neoplasm of colon, unspecified (principal); D64.9 Anemia, unspecified
CPT/HCPCS: 74246; 74248

== ENCOUNTER → 2019-11-14 10:41 | Outpatient (CLI) | payer MEDICARE, SELFPAY ==
[2019-11-14 11:11] LABS: Hematocrit 37.6 % (42.0-52.0); Hemoglobin 11.5 g/dL (14.1-18.0)
== END ==
PROVIDERS: Visit Provider Surgery
DX: D64.9 Anemia, unspecified (principal)
CPT/HCPCS: 36415; 85014; 85018

== ENCOUNTER → 2019-12-12 08:50 | Outpatient (CLI) | payer MEDICARE, SELFPAY ==
--- NOTE | 2019-12-12 08:50 | FL_ITS ---
PROCEDURE: FL BARIUM ENEMA CLINICAL INDICATION: evaluation of sigmoid colon lack of relaxation COMPARISON: No exams were available for comparison FINDINGS: Fluoroscopy time: 2 minutes and 36 seconds Mold Design Engineer exam demonstrates and a pain pump with a reservoir in the right lower quadrant. The catheter tip is at the T12-L1 level. There are prostate implants present. The colon is visualized from rectum to cecum including filling of the appendix. There is a moderate amount of retained colonic feces. This does precludes a diagnosis of polyps. No annular constricting lesions are evident. No spasm was evident during the exam. There are few diverticula within the sigmoid colon. IMPRESSION: 1. Scant diverticulosis of the sigmoid colon. 2. Moderate amount of retained colonic feces precluding the diagnosis of polyps. No large fixed polypoid filling defects were apparent Dictated by: Raul Harkins MD 12/12/2019 16:41 Electronically signed by Raul Harkins MD in [place] 12/12/2019 16:41
== END ==
PROVIDERS: PCP Internal Medicine; Visit Provider Surgery
DX: Q43.8 Other specified congenital malformations of intestine (principal)
CPT/HCPCS: 74270

== ENCOUNTER → 2020-02-18 08:23 | Outpatient (CLI) | payer MEDICARE, SELFPAY ==
[2020-02-19 17:15] LABS: Covid-19 Nasal PCR Sendout Lex Not Detected
--- NOTE | 2020-02-19 17:42 | PC.NURSE ---
Notified PM manager lvn of negative COVID results. Attempted to reach patient by phone to give results, no answer, left message for pt to return call.
== END ==
PROVIDERS: PCP Internal Medicine; Visit Provider Anesthesiology
DX: Z03.818 Encounter for observation for suspected exposure to other biological agents ruled out (principal)
CPT/HCPCS: U0003

== ENCOUNTER 2020-02-20 12:44 | Day surgery (SDC) | payer MEDICARE, SELFPAY ==
[2020-02-20 13:02] VITALS: BP 127/56; PULSE 74; RESP 18; O2SAT 96; BMI 27.4
[2020-02-20 13:18] VITALS: BP 138/61; PULSE 62; RESP 18
[2020-02-20 13:19] VITALS: BP 140/62; PULSE 64; RESP 18; O2SAT 94
--- NOTE | 2020-02-20 13:23 | HMH.PMPROC ---
- Procedure Date: 02/20/20 Time: 13:24 Anesthesiologist:: Nicci Giron APRN Complications:: None Pre-procedure Diagnosis:: Degenerative disc disease lumbar spine with lumbar radiculopathy Post-procedure Diagnosis:: Same Indications for Procedure:: patient is a very pleasant 74-year-old white male who presents today for intrathecal pain pump refill and reprogram. He is currently 8.8 mg of morphine a day. He would like a slight increase he rates his pain today 6 out of 10. Denies any side effects to his medication. [facility] #[id number] reviewed and appropriate. Urine drug screens have been appropriate. Physical Exam General: Alert and oriented x3, no acute distress, pleasant and cooperative, [on room air] Lungs: Resps E/U, Symmetrical chest expansion, Eyes: PERRL Musculoskeletal: Flexion and extension of lumbar spine somewhat guarded secondary to pain, deep tendon reflexes normal, strength in upper and lower extremities [5/5], [abnormal gait noted] Neurological: speech clear, motel manager equal, no gross sensory deficits Procedure Details:: Informed consent was obtained and the risk and benefits of the procedure were explained to the patient. The patient was taken to the procedure room where noninvasive monitoring was placed including noninvasive blood pressure cuff and pulse oximeter. Patient's pump was interrogated. The area over the pump was cleansed with chlorhexidine as a cleansing solution. In sterile fashion the pump was accessed with a 22-gauge needle. Approximately 6 mL's were removed of the pump solution and discarded appropriately. The pump was then refilled with 20 mL's of morphine 7 mg/mL. The needle was withdrawn and a bandage was placed over the puncture site. The infusion rate was reprogrammed to increase to 1.1 mg/day. The patient tolerated the procedure well. Plan and Disposition:: We will see the patient back at his next medical pain pump refill and reprogram he has been instructed to call the office if he has any issues prior to his next appointment. Dr. Dukes has reviewed this note and agrees with this plan of care. This note was dictated using voice recognition software and may contain errors or omissions
[2020-02-20 13:26] VITALS: BP 134/59; PULSE 58; RESP 18; O2SAT 96
== END 2020-02-20 13:26 | disposition home or self-care (01) ==
LOC: SC.PAINP 12:44
PROVIDERS: PCP Internal Medicine; Visit Provider Clinical Nurse Specialist Family Health
DX: M51.16 Intervertebral disc disorders with radiculopathy, lumbar region (principal)
CPT/HCPCS: 62370

== ENCOUNTER → 2020-03-04 09:21 | Outpatient (POV) | payer MEDICARE, SELFPAY ==
[2020-03-04 09:38] VITALS: BP 154/82; PULSE 93; RESP 18; O2SAT 98; BMI 27.4
--- NOTE | 2020-03-04 09:51 | HMH.PAINSOAP ---
[facility] Pain Management SOAP Note Subjective:: Patient is a pleasant 74-year-old white male who presents today for consultation in regards to his bilateral hip pain. Patient has an intrathecal pain pump which is managing his back pains and doing well with that however he does have extreme tenderness over his bilateral hips. Patient rates his pain a 6 out of 10. Has had injections in the past with extremely good relief up to 80% for 5 months. Patient and I discussed repeating greater trochanteric bursa injections. He would like to move forward with that. ROS General: no recent weight change, no fever, no sleep disturbances Respiratory: no cough, no shortness of air, no recurring pulmonary infections Cardiovascular/Peripheral Vascular: No chest pain, No palpitations, no edema, no shortness of breath. Gastrointestinal: no new onset incontinence, normal bowel movements reported Genitourinary: no new onset incontinence Musculoskeletal: Bilateral hip pain Psychiatric: normal mood/ affect Neurological: [denies new onset weakness in extremities], [denies new onset balance issues] Objective:: Physical Exam General: Alert and oriented x3, no acute distress, pleasant and cooperative, [on room air] Lungs: Resps E/U, Symmetrical chest expansion, Eyes: PERRL Musculoskeletal: Flexion and extension of lumbar spine somewhat guarded secondary to pain, deep tendon reflexes normal, strength in upper and lower extremities [5/5], [abnormal gait noted] Neurological: speech clear, business department chair equal, no gross sensory deficits Assessment:: degenerative disc disease lumbar spine lumbar radiculopathy osteoarthritis bilateral hips, greater trochanteric bursitis Plan:: We will schedule patient for bilateral greater trochanteric bursa injections. He is been instructed to call the office if he has any issues prior to his next appointment. I will follow-up with him after his injections reassess his symptoms at that time. Dr. Dukes has reviewed this note and agrees with this plan of care. This note was dictated using voice recognition software and may contain errors or omissions [facility] History I have reviewed the patient's past medical history: Yes Medical History: Reports:: Asthma, Cancer (prostate), Chronic Obstructive Pulmonary Disease (COPD), Coronary Artery Disease, Diabetes Mellitus Type 1, Diabetes Mellitus Type 2, Gastroesophageal Reflux Disease(GERD), Hyperlipidemia, Hypertension Denies:: Internal Pacemaker, Lung Disease, MRSA, Seizures *Have you ever received a pneumonia vaccine?: Yes *Have you received a flu vaccine this season?: Yes Other Medical History: Reports: Arthritis. Denies: Blood Transfusion Reaction Other Surgeries: Yes: CABG, Cardiac Surgery, Cholecystectomy, Colonoscopy, Other. No: Pacemaker Amputation: No Fractures: No - *Social History Smoking Status: Never smoker Tobacco Type: cigarettes # Packs/Day (cigarettes): 0 Alcohol Intake: never Substance Use Type: denies use *Occupational Status:: other Housing: house Household Members: spouse *Travel in the last 8 weeks: None Family Hx:: Cancer, Coronary Artery Disease
== END ==
PROVIDERS: PCP Internal Medicine; Visit Provider Clinical Nurse Specialist Family Health
DX: M51.16 Intervertebral disc disorders with radiculopathy, lumbar region (principal); M16.0 Bilateral primary osteoarthritis of hip; M70.60 Trochanteric bursitis, unspecified hip
CPT/HCPCS: 99212

== ENCOUNTER 2020-03-08 14:10 | Day surgery (SDC) | payer MEDICARE, SELFPAY ==
[2020-03-08 14:23] VITALS: BP 143/76; PULSE 76; RESP 18; TEMP 36.7; O2SAT 95; BMI 27.4
[2020-03-08 14:57] VITALS: BP 132/85; BP 142/78; PULSE 85; PULSE 88; RESP 18; O2SAT 99
--- NOTE | 2020-03-08 15:00 | P.PCN_ITS ---
- Procedure Date: 03/08/20 Time: 15:00 Anesthesiologist:: Isaac Dukes MD Complications:: None Pre-procedure Diagnosis:: Bilateral trochanteric bursitis Post-procedure Diagnosis:: Same Indications for Procedure:: This patient is a pleasant 74-year-old white male who we are treating for bilateral hip pain. He is tender over both trochanteric bursa's. We will do bilateral trochanteric bursa injections under fluoroscopy today. Procedure Details:: My bilateral trochanteric bursa injection Informed consent was obtained and the risk and benefits of the procedure was explained to the patient. The patient was taken to the procedure room and placed prone on the procedure table. Both hips were prepped using ChloraPrep. The skin and subcutaneous tissues were anesthetized using lidocaine. A 22-gauge spinal needle was inserted and advanced into the greater trochanter on the left side. Needle placement was confirmed with dye. We then injected 5 mL bupiv acaine 0.25% Depo-Medrol 40 mg into the left trochanteric bursa. The same was done for the right side. A 22-gauge spinal needle was inserted and advanced into the greater trochanter on the right side. Needle placement was confirmed with dye. We then injected 5 mL bupivacaine 0.25% Depo-Medrol 40 mg into the right trochanteric bursa. Patient tolerated the procedure well with no complications. Plan and Disposition:: We will follow-up with him in 2 weeks. Will reevaluate symptoms at that time.
[2020-03-08 15:08] VITALS: BP 138/70; PULSE 66; RESP 18; O2SAT 95
== END 2020-03-08 15:09 | disposition home or self-care (01) ==
LOC: SC.PAINP 14:11
PROVIDERS: PCP Internal Medicine; Visit Provider Anesthesiology
DX: I10 Essential (primary) hypertension (principal); M70.61 Trochanteric bursitis, right hip; M70.62 Trochanteric bursitis, left hip; M51.16 Intervertebral disc disorders with radiculopathy, lumbar region; J45.909 Unspecified asthma, uncomplicated; Z85.46 Personal history of malignant neoplasm of prostate; J44.9 Chronic obstructive pulmonary disease, unspecified; I25.10 Atherosclerotic heart disease of native coronary artery without angina pectoris; K21.9 Gastro-esophageal reflux disease without esophagitis; E78.5 Hyperlipidemia, unspecified; Z80.9 Family history of malignant neoplasm, unspecified; Z82.49 Family history of ischemic heart disease and other diseases of the circulatory system
CPT/HCPCS: 20610; 77002; J1030; Q9966

== ENCOUNTER → 2020-04-01 10:04 | Outpatient (POV) | payer MEDICARE, SELFPAY ==
[2020-04-01 10:24] VITALS: BP 132/85; PULSE 65; RESP 18; O2SAT 98; BMI 27.4
--- NOTE | 2020-04-01 11:01 | HMH.PAINSOAP ---
[facility] Pain Management SOAP Note Subjective:: Patient is a pleasant 75-year-old white male who presents today for follow-up after bilateral trochanteric bursa injections. He is done extremely well stating that he is 80% better. Patient rates his pain a 3 out of 10 overall doing well. He does have an intrathecal pain pump. He is scheduled for a refill later on this month. ROS General: no recent weight change, no fever, no sleep disturbances Respiratory: no cough, no shortness of air, no recurring pulmonary infections Cardiovascular/Peripheral Vascular: No chest pain, No palpitations, no edema, no shortness of breath. Gastrointestinal: no new onset incontinence, normal bowel movements reported Genitourinary: no new onset incontinence Musculoskeletal: [Back pain, leg pain Psychiatric: normal mood/ affect Neurological: [denies new onset weakness in extremities], [denies new onset balance issues] Objective:: Physical Exam General: Alert and oriented x3, no acute distress, pleasant and cooperative, [on room air] Lungs: Resps E/U, Symmetrical chest expansion, Eyes: PERRL Musculoskeletal: Flexion and extension of lumbar spine somewhat guarded secondary to pain, deep tendon reflexes normal, strength in upper and lower extremities [5/5], [abnormal gait noted] Neurological: speech clear, physics technician equal, no gross sensory deficits Assessment:: Degenerative disc disease lumbar spine lumbar radiculopathy and bilateral hip pain Plan:: I will see the patient back at his next intrathecal pain pump refill and reprogram. He has been instructed to call the office if he has any issues prior to his next appointment. Dr. Dukes has reviewed this note and agrees with this plan of care. This note was dictated using voice recognition software and may contain errors or omissions [facility] History I have reviewed the patient's past medical history: Yes Medical History: Reports:: Asthma, Cancer (prostate), Chronic Obstructive Pulmonary Disease (COPD), Coronary Artery Disease, Diabetes Mellitus Type 1, Diabetes Mellitus Type 2, Gastroesophageal Reflux Disease(GERD), Hyperlipidemia, Hypertension Denies:: Internal Pacemaker, Lung Disease, MRSA, Seizures *Have you ever received a pneumonia vaccine?: Yes *Have you received a flu vaccine this season?: Yes Other Medical History: Reports: Arthritis. Denies: Blood Transfusion Reaction Other Surgeries: Yes: CABG, Cardiac Surgery, Cholecystectomy, Colonoscopy, Other. No: Pacemaker Amputation: No Fractures: No - *Social History Smoking Status: Never smoker Tobacco Type: cigarettes # Packs/Day (cigarettes): 0 Alcohol Intake: never Substance Use Type: denies use *Occupational Status:: other Housing: house Household Members: spouse *Travel in the last 8 weeks: None Family Hx:: Cancer, Coronary Artery Disease
== END ==
PROVIDERS: PCP Internal Medicine; Visit Provider Clinical Nurse Specialist Family Health
DX: M51.16 Intervertebral disc disorders with radiculopathy, lumbar region (principal); M70.61 Trochanteric bursitis, right hip; M70.62 Trochanteric bursitis, left hip
CPT/HCPCS: 99212

== ENCOUNTER 2020-05-13 14:31 | Day surgery (SDC) | payer MEDICARE, SELFPAY ==
[2020-05-13 14:59] VITALS: BP 144/69; PULSE 70; RESP 18; TEMP 36.7; O2SAT 95; BMI 27.4
[2020-05-13 15:30] VITALS: BP 152/78; PULSE 89; RESP 18; O2SAT 98
[2020-05-13 15:32] VITALS: BP 145/88; PULSE 89; RESP 18; O2SAT 98
--- NOTE | 2020-05-13 15:34 | P.PCN_ITS ---
- Procedure Date: 05/13/20 Time: 15:34 Anesthesiologist:: Radha Dent APRN Complications:: None Pre-procedure Diagnosis:: Degenerative disc disease lumbar spine with lumbar radiculopathy symptoms Post-procedure Diagnosis:: Same Indications for Procedure:: Patient is a pleasant 75-year-old white male who presents today for intrathecal pain pump refill and reprogram. He has been treated for low back pain with lumbar radiculopathy symptoms. Patient says he is having some increased low back and hip pain. He did undergo injections for which he did not get any relief. He rates his pain a 7 out of 10 today. Patient tested positive for THC on his last drug screen. He was informed that if he continues to test positive for THC we will need to wean him on his intrathecal therapy. He understands he cannot continue with recreational drugs with intrathecal therapy. Patient did express a desire for oral opiates, however, he is also been informed that we will not be providing any type of oral medications with his intrathecal pump. He is currently on morphine at 1.1 mg/day. He denies any side effects to the medication. Physical exam General: Alert and oriented x3, no acute distress, pleasant and cooperative, [on room air] Lungs: Respirations even and unlabored, symmetrical chest expansion Eyes: PERRL Musculoskeletal: Flexion and extension of lumbar spine somewhat guarded secondary to pain, deep tendon reflexes normal, strength in upper and lower extremities [5/5], [abnormal gait noted] Neurological: Speech clear, seismic interpreter equal, no gross sensory deficit Procedure Details:: Informed consent was obtained and the risk and benefits of the procedure were explained to the patient. The patient was taken to the procedure room where non invasive monitoring was placed including noninvasive blood pressure cuff and pulse oximeter. Patient's pump was interrogated. The area over the pump was cleansed with chlorhexidine as a cleansing solution. In sterile fashion the pump was accessed with a 22-gauge needle. Approximately 1 Mls of the pump solution was removed and discarded appropriately. The pump was then refilled with 20 mL's of morphine 7 mg/mL. The needle was withdrawn and a bandage was placed over the puncture site. The infusion rate was reprogrammed at morphine at 1.1 mg/day. The patient tolerated well with no complication. Plan and Disposition:: We will see the patient back at next intrathecal pain pump refill and reprogram. He has been instructed to contact clinic if he has any concerns for his next appointment. We will also order the patient Pennsaid cream for his continued low back pain and hip pain. The patient and I specifically discussed risk factors for COVID19. These risks include, but are not limited to age greater than 60, heart or lung disease, diabetes, immunosuppression, and travel. We also discussed NSAIDs may worsen COVID19 infection or symptoms. Patient should not use NSAIDs to treat COVID19 signs or symptoms. Patient was also informed that any type of corticosteroid of any form (oral or injection) will decrease the patient's immune system response and may increase the likelihood of COVID19 infection and symptoms[address]. Dukes has reviewed this note and agrees with this plan of care. This note was dictated using voice recognition software and make contain errors or omissions.
[2020-05-13 15:40] VITALS: BP 158/56; PULSE 66; RESP 20; O2SAT 95
== END 2020-05-13 15:41 | disposition home or self-care (01) ==
LOC: SC.PAINP 14:33
PROVIDERS: PCP Internal Medicine; Visit Provider Clinical Nurse Specialist Family Health
DX: M51.16 Intervertebral disc disorders with radiculopathy, lumbar region (principal); E78.5 Hyperlipidemia, unspecified; I10 Essential (primary) hypertension; J45.909 Unspecified asthma, uncomplicated; E11.9 Type 2 diabetes mellitus without complications; Z90.49 Acquired absence of other specified parts of digestive tract; Z79.82 Long term (current) use of aspirin; Z79.84 Long term (current) use of oral hypoglycemic drugs; Z79.4 Long term (current) use of insulin; Z79.899 Other long term (current) drug therapy; K21.9 Gastro-esophageal reflux disease without esophagitis; I25.10 Atherosclerotic heart disease of native coronary artery without angina pectoris
CPT/HCPCS: 95991

== ENCOUNTER → 2020-07-25 11:16 | Outpatient (POV) | payer MEDICARE, SELFPAY ==
[2020-07-25 11:27] VITALS: BP 144/77; PULSE 88; RESP 20; TEMP 36.6; O2SAT 97; BMI 27.4
--- NOTE | 2020-07-25 11:39 | HMH.PMPROC ---
- Procedure Date: 07/25/20 Time: 11:39 Anesthesiologist:: Radha Detn APRN Complications:: None Pre-procedure Diagnosis:: Degenerative disc disease lumbar spine with lumbar radiculopathy symptoms, low back pain, sacroiliitis Post-procedure Diagnosis:: Same Indications for Procedure:: Patient is a 75-year-old white male who presents today for intrathecal pain pump adjustment. He has been treated for chronic low back pain with lumbar radiculopathy symptoms. Patient is having some notable low back pain today that is radiating into his bilateral hips. He does undergo injective therapy every couple months for pain relief. He also has intrathecal pain pump with morphine at 1.1 mg/day. He denies any side effects to the medication. He would like an increase in his intrathecal therapy as well as scheduled for injections. Patient was noted to have a positive drug screen of THC at his last urine drug screen. He and I did discuss this today. Patient does use CBD oil with THC. I have advised him to change to CBD oil THC free. He is in agreement that he will do this. We will increase him today to see if he gets relief. He has notable tenderness over bilateral SI joints with a positive Perry, Sayra, distraction test. Patient rates his pain a 6 out of 10 today. His pain is worse with standing and walking and improves with sitting. Physical exam General: Alert and oriented x3, no acute distress, pleasant and cooperative, [on room air] Lungs: Respirations even and unlabored, symmetrical chest expansion Eyes: PERRL Musculoskeletal: Flexion and extension of lumbar spine somewhat guarded secondary to pain, deep tendon reflexes normal, strength in upper and lower extremities [5/5], [abnormal gait noted], positive [place]'s test, positive Sayra's test, positive distraction test Neurological: Speech clear, movie stunt performer equal, no gross sensory deficit Procedure Details:: Informed consent was obtained and the risk and benefits of the procedure were explained to the patient. Patient was taken to the procedure room where noninvasive monitoring was placed including noninvasive blood pressure cuff and pulse oximeter. Patient's pump was interrogated and was reprogrammed to morphine at 1.56 mg/day. The patient tolerated the procedure well with no complications. Plan and Disposition:: We will schedule the patient for bilateral SI joint injections. We will see him back in the clinic after his injections to reassess his symptoms. He has been instructed to contact clinic if he has any concerns before his next appointment. The patient and I specifically discussed risk factors for COVID19. These risks include, but are not limited to age greater than 60, heart or lung disease, diabetes, immunosuppression, and travel. We also discussed NSAIDs may worsen COVID19 infection or symptoms. Patient should not use NSAIDs to treat COVID19 signs or symptoms. Patient was also informed that any type of corticosteroid of any form (oral or injection) will decrease the patient's immune system response and may increase the likelihood of COVID19 infection and symptoms.
== END ==
PROVIDERS: PCP Internal Medicine; Visit Provider Clinical Nurse Specialist Family Health
DX: M51.16 Intervertebral disc disorders with radiculopathy, lumbar region (principal); M46.1 Sacroiliitis, not elsewhere classified
CPT/HCPCS: 62368

== ENCOUNTER 2020-07-26 10:36 | Day surgery (SDC) | payer MEDICARE, SELFPAY ==
[2020-07-26 10:47] VITALS: BP 135/61; PULSE 77; RESP 20; TEMP 35.9; O2SAT 94; BMI 26.6
[2020-07-26 11:12] VITALS: BP 125/85; BP 129/78; PULSE 88; PULSE 89; RESP 18; O2SAT 99
--- NOTE | 2020-07-26 11:15 | HMH.PMPROC ---
- Procedure Date: 07/26/20 Time: 11:15 Anesthesiologist:: Isaac Dukes MD Complications:: None Pre-procedure Diagnosis:: Sacroiliitis Post-procedure Diagnosis:: Same Indications for Procedure:: This patient is a pleasant 75-year-old white male who we have been treating for bilateral hip pain. He also has an intrathecal pain pump with morphine 0.1 0.1 mg/day. He does well with his pain pump. He is tender over both SI joints. Is positive SI joint compression test bilaterally. He has a positive Sayra's test bilaterally. He has a positive Perry test bilaterally. We will do bilateral SI joint injections today to help with his pain symptoms. Procedure Details:: B/L SI joint injection under fluoroscopy Informed consent was obtained and the risks and benefits of the procedure was explained to the patient. The patient was taken to the procedure room and placed prone on the procedure table. The patient was prepped using ChloraPrep. The skin and subcutaneous tissues overlying the SI joints were anesthetized using lidocaine. I placed a 22-gauge needle first in the left SI joint and second in the right SI joint. Needle placement was confirmed with dye. After this we injected 5 mL bupivacaine 0.25% and Depo-Medrol 40 mg into each SI joint. Patient tolerated the procedure well with no complication. Plan and Disposition:: We will follow-up with him in 2 weeks. Will reevaluate symptoms at that time.
[2020-07-26 11:26] VITALS: BP 130/52; PULSE 69; RESP 20; O2SAT 95
== END 2020-07-26 11:27 | disposition home or self-care (01) ==
LOC: SC.PAINP 10:38
PROVIDERS: PCP Internal Medicine; Visit Provider Anesthesiology
DX: M46.1 Sacroiliitis, not elsewhere classified (principal); I10 Essential (primary) hypertension; E11.9 Type 2 diabetes mellitus without complications; I25.10 Atherosclerotic heart disease of native coronary artery without angina pectoris; Z85.46 Personal history of malignant neoplasm of prostate
CPT/HCPCS: 27096; G0260; J1030; Q9966

== ENCOUNTER 2020-08-05 12:50 | Day surgery (SDC) | payer MEDICARE, SELFPAY ==
[2020-08-05 12:54] VITALS: BP 112/52; PULSE 70; RESP 20; TEMP 36.1; O2SAT 93; BMI 27.4
[2020-08-05 13:32] VITALS: BP 122/71; BP 123/74; PULSE 65; PULSE 69; RESP 18; O2SAT 95
--- NOTE | 2020-08-05 13:36 | P.PCN_ITS ---
- Procedure Date: 08/05/20 Time: 13:36 Anesthesiologist:: Nicci Giron APRN Complications:: None Pre-procedure Diagnosis:: Degenerative disc disease lumbar spine lumbar radiculopathy Post-procedure Diagnosis:: Same Indications for Procedure:: Patient is a very pleasant 75-year-old white male who presents today for intrathecal pain pump refill and reprogram. Patient has recently had SI joint injections which have significantly helped his pain. He rates his pain today 5 out of 10. Patient would like a slight increases in his intrathecal morphine infusion of 1.45 mg/day. He denies side effects to his medication. Chucho reviewed and appropriate. 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 The patient was taken to the procedure room where noninvasive monitoring was placed including noninvasive blood pressure cuff and pulse oximeter. Patient's pump was interrogated. The area over the pump was cleansed with chlorhexidine as a cleansing solution. In sterile fashion the pump was accessed with a 22-gauge needle. Approximately 5 mL's were removed of the pump solution and discarded appropriately. The pump was then refilled with 20 mL's of morphine 7 mg/mL. The needle was withdrawn and a bandage was placed over the puncture site. The infusion rate was reprogrammed to 1.7 mg/day. The patient tolerated the procedure well. Plan and Disposition:: The patient at his next in her thecal pain pump refill and reprogram he has been instructed to call the office if he has any issues prior to his next appointment. Dr. Dukes has reviewed this note and agrees with this plan of care. This note was dictated using voice recognition software and may contain errors or omissions
[2020-08-05 13:46] VITALS: BP 117/56; PULSE 55; RESP 20; O2SAT 93
== END 2020-08-05 13:47 | disposition home or self-care (01) ==
LOC: SC.PAINP 12:52
PROVIDERS: PCP Internal Medicine; Visit Provider Clinical Nurse Specialist Family Health
DX: Z45.1 Encounter for adjustment and management of infusion pump (principal); M51.16 Intervertebral disc disorders with radiculopathy, lumbar region; I25.10 Atherosclerotic heart disease of native coronary artery without angina pectoris; E78.5 Hyperlipidemia, unspecified; I10 Essential (primary) hypertension; J45.909 Unspecified asthma, uncomplicated; K21.9 Gastro-esophageal reflux disease without esophagitis; Z87.19 Personal history of other diseases of the digestive system; F41.9 Anxiety disorder, unspecified; F32.9 Major depressive disorder, single episode, unspecified; Z85.46 Personal history of malignant neoplasm of prostate; Z90.49 Acquired absence of other specified parts of digestive tract
CPT/HCPCS: 62370

== ENCOUNTER → 2020-09-10 09:37 | Outpatient (CLI) | payer MEDICARE, SELFPAY ==
--- NOTE | 2020-09-10 09:43 | XR_ITS ---
PROCEDURE: XR KNEE LT 3V CLINICAL INDICATION: FALL W/ LT KNEE INJURY AND LT LATERAL CHEST PAIN Posttraumatic pain COMPARISON: No exams were available for comparison FINDINGS: Prior total knee replacement with good alignment. No fracture or dislocation. There is some mild soft tissue swelling in the pre patellar region IMPRESSION: Status post total knee replacement, no acute finding Dictated by: Raul Harkins MD 09/10/2020 14:36 Raul Harkins MD in [place] 09/10/2020 14:36
--- NOTE | 2020-09-10 09:44 | XR_ITS ---
PROCEDURE: XR CHEST 2V CLINICAL HISTORY: FALL W/ LT KNEE INJURY AND LT LATERAL CHEST PAIN Chest pain COMPARISON: CR CXR1 CHEST-PORTABLE from 10/10/2013 CR CXR CHEST(2 VIEWS-NOT PORTABLE) from 09/10/2015 CR ABDACU ABD ACUTE(MUL VIEWS) from 02/22/2017 FINDINGS: Cardiomegaly without failure. Prior CABG. There is chronic increased density in the left lower lobe having a similar appearance on [address] 2415. The right lung is clear. No acute bony abnormalities. IMPRESSION: No acute findings. Dictated by: Raul Harkins MD 09/10/2020 14:35 Raul Harkins MD in [place] 09/10/2020 14:35
== END ==
PROVIDERS: PCP Internal Medicine; Visit Provider Internal Medicine
DX: R07.89 Other chest pain (principal); M25.562 Pain in left knee
CPT/HCPCS: 71046; 73562

== ENCOUNTER 2020-09-30 12:56 | Day surgery (SDC) | payer MEDICARE, SELFPAY ==
[2020-09-30 12:58] VITALS: BP 137/55; PULSE 65; RESP 18; TEMP 36.6; O2SAT 98; BMI 27.4
--- NOTE | 2020-09-30 13:14 | HMH.PMPROC ---
- Procedure Date: 09/30/20 Time: 13:25 Anesthesiologist:: Nicci Giron APRN Complications:: None Pre-procedure Diagnosis:: Degenerative disc disease lumbar spine lumbar radiculopathy Post-procedure Diagnosis:: Same Indications for Procedure:: Patient is a pleasant 75-year-old white male who presents today for intrathecal pain pump refill and reprogram. Patient rates his pain today 7 out of 10 he would like a slight increase in his intrathecal infusion he is currently going at 1.7 mg/day. He denies side effects to his medication. He is currently on morphine. Patient [facility] #[id number] reviewed and appropriate. Patient is also on gabapentin 300 mg 1 p.o. 4 times daily. Physical Exam General: Alert and oriented x3, no acute distress, pleasant and cooperative, [on room air] Lungs: Resps E/U, Symmetrical chest expansion, Eyes: PERRL Musculoskeletal: Flexion and extension of lumbar spine somewhat guarded secondary to pain, deep tendon reflexes normal, strength in upper and lower extremities [5/5], [abnormal gait noted] Neurological: speech clear, home manager equal, no gross sensory deficits Procedure Details:: Informed consent was obtained and the risk and benefits of the procedure were explained to the patient. The patient was taken to the procedure room where noninvasive monitoring was placed including noninvasive blood pressure cuff and pulse oximeter. Patient's pump was interrogated. The area over the pump was cleansed with chlorhexidine as a cleansing solution. In sterile fashion the pump was accessed with a 22-gauge needle. Approximately 6 mL's were removed of the pump solution and discarded appropriately. The pump was then refilled with 20 mL's of morphine 7 mg/mL. The needle was withdrawn and a bandage was placed over the puncture site. The infusion rate was reprogrammed to increase to 2 mg/day. The patient tolerated the procedure well. Plan and Disposition:: We will see the patient back at his next intrathecal pain pump refill and reprogram he has been instructed to call the office if he has any issues prior to his next appointment. Dr. Dukes has reviewed this note and agrees with this plan of care. This note was dictated using voice recognition software and may contain errors or omissions
[2020-09-30 13:20] VITALS: BP 119/50; PULSE 65; RESP 18
[2020-09-30 13:21] VITALS: BP 120/52; PULSE 80; RESP 18; O2SAT 93
[2020-09-30 13:30] VITALS: BP 148/57; PULSE 54; RESP 20; O2SAT 98
== END 2020-09-30 13:30 | disposition home or self-care (01) ==
LOC: SC.PAINP 12:57
PROVIDERS: PCP Internal Medicine; Visit Provider Clinical Nurse Specialist Family Health
DX: M51.16 Intervertebral disc disorders with radiculopathy, lumbar region (principal); Z45.1 Encounter for adjustment and management of infusion pump; J44.9 Chronic obstructive pulmonary disease, unspecified; K21.9 Gastro-esophageal reflux disease without esophagitis; Z85.46 Personal history of malignant neoplasm of prostate
CPT/HCPCS: 62370

== ENCOUNTER → 2020-10-08 08:57 | Outpatient (CLI) | payer MEDICARE, SELFPAY ==
--- NOTE | 2020-10-08 09:20 | CT_ITS ---
PROCEDURE: CT HEAD/BRAIN WO CON CLINICAL INDICATION: CONFUSION DELIRIUM COMPARISON: CT HDWO CT HEAD W/O CONTRAST from 03/24/2017 TECHNIQUE: Axial images obtained. All CT scans at the facility use one or more dose reduction, viz: automated exposure control, ma/kV adjustment per patient size (including targeted exams where dose is matched to indication, i.e. head), or iterative reconstruction technique. FINDINGS: No midline shift, mass effect, intracranial hemorrhage, hydrocephalus, or extra-axial fluid collection is evident. There is generalized atrophy with hypoattenuation of the periventricular white matter consistent with microangiopathic changes.. The calvarium has an unremarkable appearance. No mastoid effusion. No sinus air-fluid level. IMPRESSION: No acute intracranial finding Dictated by: Raul Harkins MD 10/08/2020 18:02 Raul Harkins MD in [place] 10/08/2020 18:02
[2020-10-08 10:55] VITALS: PULSE 55; PULSE 60
== END ==
PROVIDERS: PCP Internal Medicine; Visit Provider Internal Medicine Pulmonary Disease
DX: R41.0 Disorientation, unspecified (principal); R06.09 Other forms of dyspnea
CPT/HCPCS: 70450; 94060; 94618; 94640; 94727; 94729

== ENCOUNTER 2020-10-29 12:55 | Outpatient (RCR) | payer MEDICARE, SELFPAY | END 2021-01-29 09:42 | disposition home or self-care (01) | LOC: PT 12:55 | PROVIDERS: Visit Provider Internal Medicine Pulmonary Disease | DX: J44.9 Chronic obstructive pulmonary disease, unspecified (principal) | CPT/HCPCS: G0424 ==

== ENCOUNTER → 2020-11-18 11:31 | Outpatient (CLI) | payer MEDICARE, SELFPAY ==
[2020-11-18 12:24] LABS: ABG Base Excess 0.5 mmol/L (-2.4-2.3); ABG HCO3 26.2 mmhg (22.0-26.0); ABG Oxygen Saturation 93 % (90-100); ABG PCO2 48.6 mmhg (35.0-45.0); ABG PH 7.35 mmol/L (7.35-7.45); ABG PO2 72.7 mmhg (80-100); ABG TCO2 27.7 mmhg (23-27)
[2020-11-18 12:26] LABS: Allen's Test Acceptable; Oxygen ROOM AIR %; Source Left Radial
[2020-11-18 14:32] LABS: Folate 7.75 ng/mL
[2020-11-19 11:24] LABS: Rapid Plasma Reagin Ab Titer Non Reactive (NonRea<1:1)
[2020-11-25 18:09] LABS: Methylmalonic Acid 297 nmol/L (0-378)
[2020-12-21 21:52] LABS: Antinuclear Antibodies (ANA) NEGATIVE
== END ==
PROVIDERS: Visit Provider Specialist
DX: G93.40 Encephalopathy, unspecified (principal); R06.02 Shortness of breath; R41.3 Other amnesia; R94.2 Abnormal results of pulmonary function studies; G47.31 Primary central sleep apnea
CPT/HCPCS: 36415; 82131; 82746; 82803; 86038; 86225; 86235; 86592

== ENCOUNTER 2020-11-22 11:50 | Day surgery (SDC) | payer MEDICARE, SELFPAY ==
[2020-11-22 12:08] VITALS: BP 142/45; PULSE 65; RESP 18; TEMP 36.7; O2SAT 98; BMI 25.1
[2020-11-22 12:24] VITALS: BP 149/66; PULSE 76; RESP 18; O2SAT 98
[2020-11-22 12:31] VITALS: BP 148/67; PULSE 74; RESP 18; O2SAT 97
--- NOTE | 2020-11-22 12:39 | HMH.PMPROC ---
- Procedure Date: 11/22/20 Time: 12:39 Anesthesiologist:: Isaac Dukes MD Complications:: None Pre-procedure Diagnosis:: Degenerative disc disease of lumbar spine with lumbar radiculopathy symptoms Post-procedure Diagnosis:: Same Indications for Procedure:: The patient is a pleasant 75-year-old white male who we are treating for low back pain with lumbar radiculopathy symptoms. He has increasing low back pain with lumbar radicular symptoms. He is currently on a intrathecal morphine pain pump. He is currently going at 2 mg/day. We will refill his pump and decrease his infusion to 1.8 mg/day. He has had some confusion and we will decrease his pump to hopefully help with these symptoms. We are also changing concentration today. Chucho and drug screen are all appropriate Chucho [phone]. He does have an antalgic gait he is also using wheelchair. Motor strength of lower extremities is 5/5. There is no gross sensory deficit. Procedure Details:: Pain pump refill informed consent was obtained and the risks and benefits of the procedure was explained to the patient. The patient was taken to the procedure room. The pump was interrogated. The area over the pump was prepped using ChloraPrep. The pump was accessed with a 22-gauge needle. Approximately 5 mL's of the intrathecal solution was withdrawn and discarded. The pump was then refilled with 20 mL's of intrathecal morphine 10 mg per ml. The pump was interrogated and the infusion was decreased to 1.8 mg/day. PTC boluses remains at 0.05 mg up to 4 times a day. The patient tolerated the procedure well with no complication. Plan and Disposition:: We will follow-up with him in 2 weeks. Will reevaluate symptoms at that time.
[2020-11-22 12:41] VITALS: BP 149/61; PULSE 61; RESP 20; O2SAT 98
== END 2020-11-22 12:42 | disposition home or self-care (01) ==
LOC: SC.PAINP 11:51
PROVIDERS: PCP Internal Medicine; Visit Provider Anesthesiology
DX: M51.16 Intervertebral disc disorders with radiculopathy, lumbar region (principal); I10 Essential (primary) hypertension; E11.9 Type 2 diabetes mellitus without complications; N40.0 Benign prostatic hyperplasia without lower urinary tract symptoms; Z45.1 Encounter for adjustment and management of infusion pump; Z88.6 Allergy status to analgesic agent
CPT/HCPCS: 62370

== ENCOUNTER → 2020-12-14 11:04 | Outpatient (CLI) | payer MEDICARE, SELFPAY ==
[2020-12-14 12:34] LABS: Coronavirus 19 IgG Antibody Positive (Negative); Coronavirus 19 IgM Antibody Negative (Negative)
== END ==
PROVIDERS: Visit Provider Specialist
DX: Z01.818 Encounter for other preprocedural examination (principal); Z20.822 Contact with and (suspected) exposure to COVID-19; G47.33 Obstructive sleep apnea (adult) (pediatric)
CPT/HCPCS: 36415; 86328

== ENCOUNTER → 2020-12-16 20:18 | Outpatient (CLI) | payer MEDICARE, SELFPAY | PROVIDERS: PCP Internal Medicine; Visit Provider Specialist | DX: G47.33 Obstructive sleep apnea (adult) (pediatric) (principal) | CPT/HCPCS: 95811 ==

== ENCOUNTER → 2020-12-25 12:50 | Outpatient (CLI) | payer MEDICARE, SELFPAY ==
[2020-12-25 14:10] VITALS: PULSE 60; PULSE 66
== END ==
PROVIDERS: PCP Internal Medicine; Visit Provider Internal Medicine Pulmonary Disease
DX: R06.09 Other forms of dyspnea (principal)
CPT/HCPCS: 94060; 94640; 94726; 94729

== ENCOUNTER → 2021-01-21 09:02 | Outpatient (CLI) | payer MEDICARE, SELFPAY | PROVIDERS: PCP Internal Medicine; Visit Provider Nurse Practitioner Family | DX: J96.91 Respiratory failure, unspecified with hypoxia (principal) | CPT/HCPCS: 94618 ==

== ENCOUNTER 2021-02-10 14:18 | Day surgery (SDC) | payer MEDICARE, SELFPAY ==
[2021-02-10 14:24] VITALS: BP 156/81; PULSE 70; RESP 18; TEMP 36.6; O2SAT 98; BMI 27.4
--- NOTE | 2021-02-10 14:59 | P.PCN_ITS ---
- Procedure Date: 02/10/21 Time: 14:59 Anesthesiologist:: Nicci Giron APRN Complications:: None Pre-procedure Diagnosis:: Degenerative disc disease lumbar spine lumbar radiculopathy and back pain Post-procedure Diagnosis:: Same Indications for Procedure:: Patient is a very pleasant 75-year-old white male who we are treating for low back pain with lumbar radiculopathy currently has an intrathecal morphine pump going at 1.8 mg/day. Patient has had no issues with confusion or any side effects. Patient would like a slight increase in his pump today he is currently at 1.8 mg. [facility] #[id number] reviewed and appropriate. Procedure Details:: Informed consent was obtained and the risk and benefits of the procedure were explained to the patient. The patient was taken to the procedure room where noninvasive monitoring was placed including noninvasive blood pressure cuff and pulse oximeter. Patient's pump was interrogated. The area over the pump was cleansed with chlorhexidine as a cleansing solution. In sterile fashion the pump was accessed with a 22-gauge needle. Approximately 5 mL's were removed of the pump solution and discarded appropriately. The pump was then refilled with 20 mL's of morphine 10 mg/mL. The needle was withdrawn and a bandage was placed over the puncture site. The infusion rate was reprogrammed to 2 mg/day. The patient tolerated the procedure well. Plan and Disposition:: See the patient back at his next intrathecal pain pump refill and reprogram he has been instructed to call the office if he has any issues prior to his next appointment. Dr. Dukes has reviewed this note and agrees with this plan of care. This note was dictated using voice recognition software and may contain errors or omissions
[2021-02-10 15:21] VITALS: BP 145/67; PULSE 68; RESP 18; O2SAT 98
== END 2021-02-10 15:23 | disposition home or self-care (01) ==
LOC: SC.PAINP 14:19
PROVIDERS: PCP Internal Medicine; Visit Provider Clinical Nurse Specialist Family Health
DX: M51.16 Intervertebral disc disorders with radiculopathy, lumbar region (principal); Z45.1 Encounter for adjustment and management of infusion pump; J44.9 Chronic obstructive pulmonary disease, unspecified; K21.9 Gastro-esophageal reflux disease without esophagitis; E11.9 Type 2 diabetes mellitus without complications; M81.0 Age-related osteoporosis without current pathological fracture; F41.9 Anxiety disorder, unspecified; F03.90 Unspecified dementia, unspecified severity, without behavioral disturbance, psychotic disturbance, mood disturbance, and anxiety; I25.10 Atherosclerotic heart disease of native coronary artery without angina pectoris; I10 Essential (primary) hypertension; E78.5 Hyperlipidemia, unspecified; F32.9 Major depressive disorder, single episode, unspecified
CPT/HCPCS: 62370

== ENCOUNTER → 2021-02-19 08:12 | Outpatient (CLI) | payer MEDICARE, SELFPAY ==
[2021-02-18 14:13] LABS: Vitamin B12 248 pg/mL (239-931)
== END ==
PROVIDERS: Visit Provider Nurse Practitioner Family
DX: E53.8 Deficiency of other specified B group vitamins (principal); G31.84 Mild cognitive impairment of uncertain or unknown etiology
CPT/HCPCS: 36415; 82607

== ENCOUNTER → 2021-03-04 12:07 | Outpatient (CLI) | payer MEDICARE, SELFPAY ==
[2021-03-04 12:31] LABS: ABG Base Excess -2.6 mmol/L (-2.4-2.3); ABG Oxygen Saturation 93 % (90-100); ABG PCO2 42.4 mmhg (35.0-45.0); ABG PH 7.35 mmol/L (7.35-7.45); ABG PO2 75.6 mmhg (80-100); ABG TCO2 24.3 mmhg (23-27)
[2021-03-04 12:33] LABS: Allen's Test Acceptable; Oxygen RA %; Source Right Radial
== END ==
PROVIDERS: PCP Internal Medicine; Visit Provider Internal Medicine Pulmonary Disease
DX: J44.9 Chronic obstructive pulmonary disease, unspecified (principal)
CPT/HCPCS: 82803

== ENCOUNTER 2021-04-21 15:20 | Day surgery (SDC) | payer MEDICARE, SELFPAY ==
[2021-04-21 15:23] VITALS: BP 160/67; PULSE 64; RESP 18; TEMP 36.4; O2SAT 97; BMI 27.1
--- NOTE | 2021-04-21 15:33 | P.PCN_ITS ---
- Procedure Date: 04/21/21 Time: 15:33 Anesthesiologist:: Radha Dent APRN Complications:: None Pre-procedure Diagnosis:: Degenerative disc disease lumbar spine with lumbar radiculopathy symptoms, chronic back pain Post-procedure Diagnosis:: Same Indications for Procedure:: Patient is a 76-year-old white male who presents today for intrathecal pain pump refill and reprogram. He has been treated for degenerative disc disease lumbar spine with lumbar radiculopathy symptoms and chronic back pain. He is currently on intrathecal therapy of morphine at 2 mg/day. He would like an increase today. He rates his pain a 6 out of 10. We will increase him today to see if he gets relief. His drug screen and Chucho have been appropriate. 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 The patient was taken to the procedure room where noninvasive monitoring was placed including noninvasive blood pressure cuff and pulse oximeter. Patient's pump was interrogated. The area over the pump was cleansed with chlorhexidine as a cleansing solution. In sterile fashion the pump was accessed with a 22-gauge needle. Approximately 5 mls of the pump solution was removed and discarded appropriately. The pump was then refilled with 20 mL's of morphine 10 mg/mL. The needle was withdrawn and a bandage was placed over the puncture site. The infusion rate was reprogrammed at morphine at 2.35 mg/day. The patient tolerated well with no complication. Plan and Disposition:: We will plan to see the patient back at his next intrathecal refill. Patient has been instructed to contact the clinic with any concerns before the next appointment. Dr. Dukes has reviewed this note and agrees with this plan of care. This note was dictated using voice recognition software and make contain errors or omissions.
[2021-04-21 15:43] VITALS: BP 119/58; PULSE 64; RESP 18; O2SAT 94
[2021-04-21 15:48] VITALS: BP 119/58; PULSE 70; RESP 18; O2SAT 94
[2021-04-21 15:59] VITALS: BP 124/61; PULSE 64; RESP 20; O2SAT 97
== END 2021-04-21 16:01 | disposition home or self-care (01) ==
PROVIDERS: PCP Internal Medicine; Visit Provider Clinical Nurse Specialist Family Health
DX: M51.16 Intervertebral disc disorders with radiculopathy, lumbar region (principal); G89.29 Other chronic pain; Z45.1 Encounter for adjustment and management of infusion pump
CPT/HCPCS: 62370

== ENCOUNTER → 2021-05-28 15:14 | Outpatient (CLI) | payer MEDICARE, SELFPAY ==
--- NOTE | 2021-05-28 15:19 | XR_ITS ---
PROCEDURE: XR KNEE LT 3V CLINICAL INDICATION: LT KNEE INJURY 05/27/21, UNABLE TO BEAR WEIGHT COMPARISON: CR XR KNEE LT 3V from 09/10/2020 FINDINGS: Status post total left knee arthroplasty. Good alignment. No orthopedic complication parent. There is diffuse increased density in the suprapatellar region consistent knee joint effusion.. There are 2 different densities of the knee joint effusion with the more denser area posteriorly with a fluid fluid level consistent with hemarthrosis. There is generalized vascular calcification. Other findings:None. IMPRESSION: 1. No acute fracture. Status post knee replacement with good alignment. 2. Prominent knee joint effusion with fluid fluid level consistent with intra-articular hemarthrosis Dictated by: Raul Harkins MD 05/28/2021 15:59 Raul Harkins MD in [place] 05/28/2021 15:59
== END ==
PROVIDERS: PCP Internal Medicine; Visit Provider Internal Medicine
DX: S89.92XA Unspecified injury of left lower leg, initial encounter
CPT/HCPCS: 73562

== ENCOUNTER 2021-06-16 14:17 | Day surgery (SDC) | payer MEDICARE, SELFPAY ==
[2021-06-16 14:30] VITALS: BP 139/64; PULSE 80; RESP 20; TEMP 36.7; O2SAT 95; BMI 23.5
[2021-06-16 14:36] VITALS: BP 104/50; BP 140/70; PULSE 73; PULSE 79; RESP 18; O2SAT 94
--- NOTE | 2021-06-16 14:45 | P.PCN_ITS ---
- Procedure Date: 06/16/21 Time: 14:45 Anesthesiologist:: Radha Dent APRN Complications:: None Pre-procedure Diagnosis:: Disease lumbar spine with lumbar radiculopathy symptoms Post-procedure Diagnosis:: Same Indications for Procedure:: Patient is a pleasant 76-year-old white male who presents today for intrathecal pain pump refill and reprogram. Patient is being treated for degenerative disc disease lumbar spine with lumbar radiculopathy symptoms. Patient rates his pain an 8 out of 10 today. He says that he fell this week and hit his knee. He says he did undergo imaging to rule out any fractures. He does say that it was initially swollen with some residual edema at this time to the left knee. He was negative for fractures to the area. He does have morphine at 2.35 mg/day in his intrathecal pump which is working for him, but he would like an increase. He denies any side effects. Chucho and drug screen are appropriate. Physical exam General: Alert and oriented x3, no acute distress, pleasant and cooperative, [on room air] Lungs: Respirations even and unlabored, symmetrical chest expansion Eyes: PERRL Musculoskeletal: Flexion and extension of bar [spine] left lower extremity somewhat guarded secondary to pain, strength in upper and lower extremities [5/5], [antalgic gait noted] Neurological: Speech clear, [visual education director equal], no gross sensory deficit Procedure Details:: Informed consent was obtained and the risk and benefits of the procedure were explained to the patient. The patient was taken to the procedure room where noninvasive monitoring was placed including noninvasive blood pressure cuff and pulse oximeter. Patient's pump was interrogated. The area over the pump was cleansed with chlorhexidine as a cleansing solution. In sterile fashion the pump was accessed with a 22-gauge needle. Approximately 7 mls of the pump solution was removed and discarded appropriately. The pump was then refilled with 20 mL's of morphine 10 mg per ml. The needle was withdrawn and a bandage was placed over the puncture site. The infusion rate was reprogrammed at morphine 2.56 mg/day. The patient tolerated well with no complication. Plan and Disposition:: We will see the patient back in the clinic at the next intrathecal refill. Patient has been instructed to contact the clinic with any concerns before the next appointment. Dr. Dukes has reviewed this note and agrees with this plan of care. This note was dictated using voice recognition software and make contain errors or omissions.
[2021-06-16 14:52] VITALS: BP 141/56; PULSE 71; RESP 20; O2SAT 94
== END 2021-06-16 14:53 | disposition home or self-care (01) ==
LOC: SC.PAINP 14:17
PROVIDERS: PCP Internal Medicine; Visit Provider Clinical Nurse Specialist Family Health
DX: M51.16 Intervertebral disc disorders with radiculopathy, lumbar region (principal); Z45.1 Encounter for adjustment and management of infusion pump
CPT/HCPCS: 62370; J1040

== ENCOUNTER → 2021-07-09 09:54 | Outpatient (CLI) | payer MEDICARE, SELFPAY ==
[2021-07-09 11:01] LABS: Alanine Aminotransferase 15 U/L (12-78); Albumin Level 3.9 g/dl (3.5-5.0); Albumin/Globulin Ratio 1.6 (1.1-1.8); Alkaline Phosphatase 107 U/L (38-126); Anion Gap 14.4 mEq/L (5-15); Aspartate Amino Transferase 21 U/L (17-59); Bilirubin,Total 0.2 mg/dl (0.2-1.3); Blood Urea Nitrogen 25 mg/dl (9-20); Calcium 9.3 mg/dl (8.4-10.2); Carbon Dioxide 31 mmol/L (22.0-30.0); Chloride 99 mmol/L (98-107); Chol/HDL Ratio 3.2 (1-3.5); Cholesterol 132 mg/dl (140-200); Estimated Glomerular Filt Rate 72 ml/min (>60); GFR (African American) 87 ML/MIN (>60); Globulin 2.5 g/dL (1.3-3.2); Glucose 130 mg/dl (74-100); HDL Cholesterol 41 mg/dl (40-60); Potassium 4.4 mmoL/L (3.5-5.1); Sodium 140 mmol/L (136-145); Total Protein,Serum 6.4 g/dl (6.3-8.2); Triglycerides 142 mg/dl (30-150); VLDL Cholesterol 28 mg/dL (0-40)
[2021-07-09 11:14] LABS: Direct LDL Cholesterol 60.31 mg/dL (100-129)
[2021-07-09 11:34] LABS: Prostate Specific Ag, Diagnost < 0.064 ng/ml (0.0-4.0)
[2021-07-09 11:51] LABS: Hemoglobin A1C 10.2 % (4.0-6.0)
== END ==
PROVIDERS: Visit Provider Internal Medicine
DX: E11.59 Type 2 diabetes mellitus with other circulatory complications (principal); E78.5 Hyperlipidemia, unspecified; I10 Essential (primary) hypertension; J44.9 Chronic obstructive pulmonary disease, unspecified; Z85.46 Personal history of malignant neoplasm of prostate
CPT/HCPCS: 36415; 80053; 80061; 83036; 84153

== ENCOUNTER → 2021-07-18 20:29 | Outpatient (CLI) | payer MEDICARE, SELFPAY | PROVIDERS: Visit Provider Nurse Practitioner Family | DX: Z20.822 Contact with and (suspected) exposure to COVID-19 (principal) | CPT/HCPCS: C9803; U0003; U0005 ==

== ENCOUNTER 2021-08-11 13:22 | Day surgery (SDC) | payer MEDICARE, SELFPAY ==
[2021-08-11 13:41] VITALS: BP 130/45; PULSE 67; RESP 20; TEMP 36.5; O2SAT 96; BMI 25.8
[2021-08-11 14:08] VITALS: BP 123/52; PULSE 58; RESP 18; O2SAT 92
[2021-08-11 14:09] VITALS: BP 123/52; PULSE 57; RESP 18; O2SAT 93
--- NOTE | 2021-08-11 14:12 | HMH.PMPROC ---
- Procedure Date: 08/11/21 Time: 14:13 Anesthesiologist:: Radha Dent APRN Complications:: None Pre-procedure Diagnosis:: Degenerative disc disease lumbar spine with lumbar radiculopathy symptoms Post-procedure Diagnosis:: Same Indications for Procedure:: Patient is a 76-year-old white male who presents today for intrathecal pain pump refill and reprogram. Patient rates his pain a 4 out of 10 and is doing well with his intrathecal therapy at this time. He denies any side effects. He is currently on morphine at 2.56 mg/day. Chucho and drug screen are appropriate. He is doing well overall with his medicine and does not need any changes. Physical exam General: Alert and oriented x3, no acute distress, pleasant and cooperative Lungs: Respirations even and unlabored, symmetrical chest expansion Eyes: PERRL Musculoskeletal: Flexion and extension of lumbar [spine] somewhat guarded secondary to pain, [antalgic gait noted] Neurological: Speech clear, no gross sensory deficit Procedure Details:: Informed consent was obtained and the risk and benefits of the procedure were explained to the patient. The patient was taken to the procedure room where noninvasive monitoring was placed including noninvasive blood pressure cuff and pulse oximeter. Patient's pump was interrogated. The area over the pump was cleansed with chlorhexidine as a cleansing solution. In sterile fashion the pump was accessed with a 22-gauge needle. Approximately 1.5 mls of the pump solution was removed and discarded appropriately. The pump was then refilled with 20 mL's of morphine 15 mg per male. The needle was withdrawn and a bandage was placed over the puncture site. The infusion rate was reprogrammed at morphine at 2.56 mg/day. The patient tolerated well with no complication. Plan and Disposition:: We will see the patient back in the clinic at the next intrathecal refill. Patient has been instructed to contact the clinic with any concerns before the next appointment. Dr. Dukes has reviewed this note and agrees with this plan of care. This note was dictated using voice recognition software and make contain errors or omissions.
[2021-08-11 14:20] VITALS: BP 133/60; PULSE 61; RESP 20; O2SAT 96
== END 2021-08-11 14:20 | disposition home or self-care (01) ==
LOC: SC.PAINP 13:23
PROVIDERS: PCP Internal Medicine; Visit Provider Clinical Nurse Specialist Family Health
DX: M51.16 Intervertebral disc disorders with radiculopathy, lumbar region (principal); Z45.1 Encounter for adjustment and management of infusion pump; I50.9 Heart failure, unspecified; I25.10 Atherosclerotic heart disease of native coronary artery without angina pectoris; I73.9 Peripheral vascular disease, unspecified; E78.5 Hyperlipidemia, unspecified; I10 Essential (primary) hypertension; J44.9 Chronic obstructive pulmonary disease, unspecified; K21.9 Gastro-esophageal reflux disease without esophagitis; E11.9 Type 2 diabetes mellitus without complications; F32.9 Major depressive disorder, single episode, unspecified; F03.90 Unspecified dementia, unspecified severity, without behavioral disturbance, psychotic disturbance, mood disturbance, and anxiety
CPT/HCPCS: 62370

== ENCOUNTER → 2021-09-23 14:40 | Outpatient (CLI) | payer MEDICARE, SELFPAY ==
--- NOTE | 2021-09-23 14:46 | XR_ITS ---
PROCEDURE: XR SHOULDER LT MIN 2V CLINICAL INDICATION: S/P FALL,LT SHOULDER PAIN COMPARISON: CR SHOU3R [id number] VIEWS from 08/06/2016 CR SHOU3L [id number] VIEWS from 08/06/2016 FINDINGS: No fracture or dislocation. No lytic or blastic change. There is normal mineralization. The joint spaces are well-preserved. No significant degenerative/arthritic changes. No erosive changes evident. Other findings:None. IMPRESSION: No acute findings. Dictated by: Raul Harkins MD 09/23/2021 15:48 Raul Harkins MD in [place] 09/23/2021 15:48
== END ==
PROVIDERS: PCP Internal Medicine; Visit Provider Internal Medicine
DX: M25.512 Pain in left shoulder (principal)
CPT/HCPCS: 73030

== ENCOUNTER 2021-10-06 14:51 | Day surgery (SDC) | payer MEDICARE, SELFPAY ==
[2021-10-06 14:54] VITALS: BP 158/77; PULSE 66; RESP 18; TEMP 36.4; O2SAT 100; BMI 25.0
[2021-10-06 15:08] VITALS: BP 155/67; PULSE 68; RESP 18
[2021-10-06 15:15] VITALS: RESP 18; O2SAT 97
--- NOTE | 2021-10-06 15:22 | P.PCN_ITS ---
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 The patient is being treated for degenerative disc disease of the lumbar spine with lumbar radiculopathy symptoms. Patient is currently being managed with morphine 10 mg/mL at a rate of 2.56 mg/day. Patient denies any side effects from this medication. Patient also states that he fell a few days ago on his left shoulder. He is still complaining of pain on it today. His x-ray is negative for any fracture. We will also do give him intra-articular joint injection to his left shoulder. Patient rates pain a 8 out of 10. Drug screen is appropriate. Chucho [id number] has been reviewed and is appropriate. Physical exam General: Alert and oriented x3, no acute distress, pleasant and cooperative, [on room air] Lungs: Respirations even and unlabored, symmetrical chest expansion Eyes: PERRL Musculoskeletal: Flexion and extension of lumbar [spine] somewhat guarded secondary to pain; limited ROM of left shoulder Neurological: Speech clear, no gross sensory deficit Procedure Details:: Informed consent was obtained and the risk and benefits of the procedure were explained to the patient. The patient was taken to the procedure room where non invasive monitoring was placed including noninvasive blood pressure cuff and pulse oximeter. Patient's pump was interrogated. The area over the pump was cleansed with chlorhexidine as a cleansing solution. In sterile fashion the pump was accessed with a 22-gauge needle. Approximately [5.5] mls of the pump solution was removed and discarded appropriately. The pump was then refilled with 20 mL's of [morphine 15 mg/mL]. The needle was withdrawn and a bandage was placed over the puncture site. The infusion rate was reprogrammed and continued at morphine 2.56 mg/day. The patient tolerated well with no complication. Procedure was explained to the patient in detail, all questions were answered. Informed consent was obtained. We also obtained his blood sugar prior to the injection due to history of diabetes. The patient was positioned, the shoulder was draped appropriately. Anatomical landmarks were identified. The skin was prepped with ChloraPrep in the usual fashion. Using strict sterile technique, a 25-gauge 1-1/2 inch needle was inserted using the anterior, lateral, and posterior approach into the left shoulder joint space. After negative aspiration, 10 mL's of 0.25% Marcaine along with 1 mL's of Depo-Medrol 40 mg/mL was injected into the joint space. The needle was removed and a sterile bandage was applied. Patient noted [70%] improvement after the procedure. Patient tolerated the procedure well. Plan and Disposition:: Intraarticular injection of the left shoulder went well. We will see the patient back in the clinic at the next intrathecal refill. Patient has been instructed to contact the clinic with any concerns before the next appointment. Dr. Dukes has reviewed this note and agrees with this plan of care. This note was d ictated using voice recognition software and make contain errors or omissions.
[2021-10-06 15:24] LABS: POC Glucose,Bedside 124 (70-110)
[2021-10-06 15:30] VITALS: BP 185/80; PULSE 70; RESP 20; O2SAT 94
== END 2021-10-06 15:30 | disposition home or self-care (01) ==
LOC: SC.PAINP 14:52
PROVIDERS: PCP Internal Medicine; Visit Provider Clinical Nurse Specialist Family Health
DX: M51.16 Intervertebral disc disorders with radiculopathy, lumbar region (principal); M19.012 Primary osteoarthritis, left shoulder; Z45.1 Encounter for adjustment and management of infusion pump; E78.5 Hyperlipidemia, unspecified; I10 Essential (primary) hypertension; J44.9 Chronic obstructive pulmonary disease, unspecified; K21.9 Gastro-esophageal reflux disease without esophagitis; E11.9 Type 2 diabetes mellitus without complications; I73.9 Peripheral vascular disease, unspecified; I50.9 Heart failure, unspecified; Z95.5 Presence of coronary angioplasty implant and graft; Z88.8 Allergy status to other drugs, medicaments and biological substances
CPT/HCPCS: 20610; 82962; 95991; J1040

== ENCOUNTER → 2021-10-21 09:44 | Outpatient (CLI) | payer MEDICARE, SELFPAY ==
[2021-10-21 10:55] VITALS: PULSE 89; PULSE 90
== END ==
PROVIDERS: PCP Internal Medicine; Visit Provider Internal Medicine Pulmonary Disease
DX: R06.02 Shortness of breath (principal)
CPT/HCPCS: 94060; 94640; 94726; 94729

== ENCOUNTER 2021-12-17 13:00 | Outpatient (RCR) | payer MEDICARE, SELFPAY ==
--- NOTE | 2021-11-05 08:28 | HMH.OTOPEV ---
OT Inpatient Evaluation Rehab OT Outpatient Eval Start: 11/05/21 08:14 Freq: Status: Active Protocol: Document 11/04/21 03:55 RMALBARO (Rec: 11/05/21 08:28 [facility]ITAL[facility] [id number]) Electronically Signed By Simón Pretty OT 11/04/21 03:55 Outpatient Therapy Subjective History Subjective History Pt is a 76 year old male who reports to therapy for initial evaluation to left shoulder. Pt was accompanied by his . Pt reports on August, he fell on L shoulder while getting out of bed. He did not fx shoulder with this fall, but continued to have difficulty moving the joint. He wore a sling for ~3 weeks. At this time, pt has not had a MRI completed. Pt and report pt falls often . Within this past year patient has had 10-15 falls. Therapist recommends he see physical therapy for his decreased balance and frequent falls. Upon evaluation, pt does demonstrate with limited AROM and strength at left shoulder. He has most difficulty when moving arm in Abduction. Pt will continue to be seen twice a week in order to address all deficits. Chief Complaint Pain,Stiff,Weakness Symptom Type Ache,Throb,Sharp,Dull Symptoms Relieved By Rest/Positioning Symptoms Aggravated By Physical Activity,Lifting Prior Functional Limitations None Current Functional Limitations Reaching,Lifting,Housework, Sleeping Symptom Description Intermittent,Activity Dependent Level of pain today (0-10) 3 Pain scale - at its best (0-10) 0 Pain scale - at its worst (0-10) 8 Shoulder/Elbow Eval Shoulder Objective Measurements Shoulder ROM Left Shoulder Abduction Active Range of 70 degrees Motion (degrees) Shoulder Flexion Active Range of Motion 110 degrees (degrees) Query Text: Shoulder External Rotation Active Range 50 degrees of Motion (degrees) Shoulder Internal Rotation Active Range 30 degrees of Motion (degrees) Shoulder MMT Shoulder A
--- NOTE | 2021-12-02 14:43 | HMH.RHREAS ---
Rehab Reassessment Rehab OP Re-assessment Start: 12/02/21 13:55 Freq: Status: Active Protocol: Document 12/02/21 13:55 JUAN DANIEL (Rec: 12/02/21 14:43 RMANNEMARIEL [id number]) Electronically Signed By Simón Pretty OT 12/02/21 13:55 Rehab Re-assessment Subjective Subjective It just doesn't feel normal like it did before. Objective Objective Notes Pt continues to be seen twice a week in order to address L shoulder deficits. Each session, pt engages in AROM, AAROM, and strengthening exercises. Pt also receives gentle therapeutic stretching to left shoulder in all planes . Modalities are provided in order to decrease pain/ inflammation. Assessment Progress Assessment Progressing as Expected Assessment Notes Pt reports he feels his left shoulder is doing some better. He reports his worst pain at a 3/10 since starting therapy. However, pt reports he still has difficulty moving the arm above head. He also has a difficult time lifting anything with weight to it. Pt has not returned to the doctor since starting therapy. Pt also still reports grinding/popping in the shoulder. Curret AROM L shoulder Flex: 115 degrees Abd: 105 degrees ER: 75 degrees IR: 60 degrees Patient goals met [address], 4, and 5 Goals Not Met see below Revised Goals ST and 2 LT-5 Plan Plan Continue with OT plan of care at this time Pt recommends patient return to doctor for re-evalaution and possible order for MRI due to continued weakness and decreased AROM. Frequency of Therapy 2'xs a week Duration of therapy 4 more weeks Time and Billing Re-Eval Time 10 Re-Eval Billing Units
== END 2021-12-17 13:05 | disposition home or self-care (01) ==
LOC: OT 13:00
PROVIDERS: PCP Internal Medicine; Visit Provider Internal Medicine
DX: M25.512 Pain in left shoulder (principal)
CPT/HCPCS: 97010; 97014; 97110; 97140; 97164; 97166; G0283

== ENCOUNTER 2021-12-17 14:00 | Outpatient (RCR) | payer MEDICARE, SELFPAY | END 2021-12-17 14:05 | disposition home or self-care (01) | LOC: PT 14:00 | PROVIDERS: PCP Internal Medicine; Visit Provider Internal Medicine | DX: R26.89 Other abnormalities of gait and mobility (principal) | CPT/HCPCS: 97110; 97112; 97163 ==

== ENCOUNTER 2021-12-29 12:59 | Day surgery (SDC) | payer MEDICARE, SELFPAY ==
[2021-12-29 13:05] VITALS: BP 128/63; PULSE 57; RESP 20; TEMP 36.4; O2SAT 57; BMI 25.8
[2021-12-29 13:10] VITALS: BP 107/39; BP 134/47; PULSE 49; PULSE 61; RESP 20; O2SAT 95
[2021-12-29 13:22] VITALS: BP 114/40; PULSE 50; RESP 18; O2SAT 96
--- NOTE | 2021-12-29 13:38 | HMH.PMPROC ---
- Procedure Date: 12/29/21 Time: 13:38 Anesthesiologist:: Rell Trejo CRNA Complications:: None Pre-procedure Diagnosis:: Generative disc disease lumbar spine multilevels. With lumbar radiculopathy symptoms. Osteoarthritis left shoulder. Post-procedure Diagnosis:: Same Indications for Procedure:: Patient is a pleasant 76-year-old male who presents today for pain pump refill. We are treating the patient for degenerative disc disease lumbar spine multilevels with lumbar radiculopathy symptoms. Patient is currently being managed with morphine 10 mg/mL at 2.56 mg/day. He denies any side effects from the medication at this time. He also states this current rate seems to keep him with minimal pain. The patient's Chucho [id number] has been reviewed and is appropriate. Procedure Details:: Details of the procedure were explained to the patient. Risk and benefits were discussed. Patient was taken to the procedure room and placed in the prone position. The area over the pain pump was cleansed using chlorhexidine as a cleansing solution. 5 mL of medication was removed from the pump. The pump was then filled with morphine sulfate 15 mg/mL. The rate was continued at 2.56 mg/day. Patient tolerated procedure without difficulty. There were no complications. Plan and Disposition:: Patient will return to see us in 3 months for additional pain pump refill.
[2021-12-29 17:03] LABS: Amphetamine/Metha Screen,Urine Negative ng/ml (<1000); Barbiturates Screen,Urine Negative ng/ml (<200)
[2021-12-29 17:04] LABS: Benzodiazepines Screen,Urine Negative ng/ml (<200)
[2021-12-29 17:05] LABS: Cannabinoid Screen,Urine Negative ng/ml (<50); Cocaine Screen,Urine Negative ng/ml (<300)
[2021-12-29 17:06] LABS: Methadone Screen,Urine Negative ng/ml (<300)
[2021-12-29 17:07] LABS: Opiate Screen,Urine Positive ng/ml (<300); Phencyclidine Screen,Urine Negative ng/ml (<25)
[2022-01-14 11:13] LABS: Codeine Negative (Cutoff=100); Hydrocodone Negative (Cutoff=100); Hydromorphone Negative (Cutoff=100); Morphine Positive (.); Opiates Positive (.)
== END 2021-12-29 13:38 | disposition home or self-care (01) ==
LOC: SC.PAINP 13:00
PROVIDERS: PCP Internal Medicine; Visit Provider Nurse Anesthetist, Certified Registered
DX: M51.16 Intervertebral disc disorders with radiculopathy, lumbar region (principal); M19.012 Primary osteoarthritis, left shoulder; Z45.1 Encounter for adjustment and management of infusion pump
CPT/HCPCS: 80305; 80361; 80365; 95991; G0480

== ENCOUNTER → 2022-02-17 13:13 | Outpatient (CLI) | payer MEDICARE, SELFPAY ==
[2022-02-17 14:33] LABS: Microalbumin/Creatinine Ratio 72.8
[2022-02-17 14:35] LABS: Alanine Aminotransferase 19 U/L (12-78); Albumin Level 4.4 g/dl (3.5-5.0); Albumin/Globulin Ratio 1.9 (1.1-1.8); Alkaline Phosphatase 76 U/L (38-126); Anion Gap 14.5 mEq/L (5-15); Aspartate Amino Transferase 18 U/L (17-59); Bilirubin,Total 0.5 mg/dl (0.2-1.3); Blood Urea Nitrogen 37 mg/dl (9-20); Carbon Dioxide 34 mmol/L (22.0-30.0); Chloride 95 mmol/L (98-107); Cholesterol 129 mg/dl (140-200); Estimated Glomerular Filt Rate 72 ml/min (>60); GFR (African American) 87 ML/MIN (>60); Globulin 2.3 g/dL (1.3-3.2); Glucose 182 mg/dl (74-100); HDL Cholesterol 43 mg/dl (40-60); Potassium 4.5 mmoL/L (3.5-5.1); Sodium 139 mmol/L (136-145); Total Protein,Serum 6.7 g/dl (6.3-8.2); Triglycerides 88 mg/dl (30-150); VLDL Cholesterol 18 mg/dL (0-40)
[2022-02-17 14:45] LABS: Direct LDL Cholesterol 62.26 mg/dL (100-129)
[2022-02-17 15:01] LABS: Creatinine,Urine Random 45 mg/dL (Not Estab.)
[2022-02-17 16:55] LABS: Hemoglobin A1C 8.9 % (4.0-6.0)
== END ==
PROVIDERS: PCP Internal Medicine; Visit Provider Internal Medicine
DX: E11.59 Type 2 diabetes mellitus with other circulatory complications (principal); I25.10 Atherosclerotic heart disease of native coronary artery without angina pectoris; I10 Essential (primary) hypertension; E78.5 Hyperlipidemia, unspecified; J44.9 Chronic obstructive pulmonary disease, unspecified; Z79.4 Long term (current) use of insulin
CPT/HCPCS: 80053; 80061; 82043; 82570; 83036

== ENCOUNTER 2022-02-28 13:34 | Observation (INO) | payer MEDICARE, SELFPAY ==
[2022-02-28] VITALS (11 sets, daily range): BP systolic 101–120; BP diastolic 48–64; PULSE 58–90; RESP 14–21; TEMP 36.7–37; O2SAT 91–100; BMI 25.8; BMI 24.0
--- NOTE | 2022-02-28 13:48 | HMH.EDGENADL ---
ED Disposition Clinical Impression: Pneumonia Qualifiers: Pneumonia type: due to unspecified organism Laterality: bilateral Lung location: unspecified part of lung Qualified Code(s): J18.9 - Pneumonia, unspecified organism Disposition: Admitted As Inpatient Condition on Discharge: Good - Critical Care Critical Care Time: No Attestation: On 02/28/22, the high probability of a clinically significant, sudden or life threatening deterioration of the following system(s) required my full and direct attention, intervention and personal management. The time I documented below is in addition to time spent performing reported procedures but includes the following listed in this critical care notation. Medical Decision Making - Medical Records Medical records reviewed: Yes: I reviewed the patient's medical records. - Chucho Inquiry Pt receiving controlled substance: No Vital Signs: 02/28/22 13:35 02/28/22 13:45 02/28/22 14:30 Temperature 98.6 F Temperature Source Oral Pulse Rate 90 87 Pulse Rate [Left Radial] 88 Respiratory Rate 20 18 18 Blood Pressure 120/64 109/48 L Blood Pressure [Right Arm] 120/64 Blood Pressure Mean 80 72 Blood Pressure Mean [Right Arm] 82 Blood Pressure Source [Right Arm] Automatic Cuff Blood Pressure Position [Right Arm] Sitting 02 Sat by Pulse Oximetry 98 95 93 L Oxygen Delivery Method Room Air 02/28/22 15:00 02/28/22 15:15 02/28/22 16:00 Temperature Temperature Source Pulse Rate 70 74 58 L Pulse Rate [Left Radial] Respiratory Rate 15 17 21 Blood Pressure 103/53 L 110/58 L 112/57 L Blood Pressure [Right Arm] Blood Pressure Mean Blood Pressure Mean [Right Arm] Blood Pressure Source [Right Arm] Blood Pressure Position [Right Arm] 02 Sat by Pulse Oximetry 93 L 94 L 96 Oxygen Delivery Method 02/28/22 16:30 02/28/22 17:00 02/28/22 17:25 Temperature 98.6 F Temperature Source Oral Pulse Rate 70 72 72 Pulse Rate [Left Radial] Respiratory Rate 16 14 14 Blood Pressure 108/52 L 101/53 L 101/53 L Blood Pressure [Right Arm] Blood Pressure Mean Blood Pressure Mean [Right Arm] Blood Pressure Source [Right Arm] Blood Pressure Position [Right Arm] 02 Sat by Pulse Oximetry 100 100 Oxygen Delivery Method Room Air - Lab Data Lab Results 02/28/22 13:46: WBC 15.2 H, RBC 4.84, Hgb 12.1 L, Hct 37.5 L, MCV 77.6 L, MCH 25.0 L, MCHC 32.2, RDW 18.3 H, Plt Count 264, MPV 8.2, Neut % (Auto) 91.3 H, Lymph % (Auto) 4.7 L, Logan % (Auto) 3.5, Eos % (Auto) 0.1, Baso % (Auto) 0.3, Neut # (Auto) 13.9 H, Lymph # (Auto) 0.7, Logan # (Auto) 0.5, Eos # (Auto) 0.0, Baso # (Auto) 0.1, Total Counted 100, Neutrophils % (Manual) 93 H, Lymphocytes % (Manual) 7 L, Platelet Estimate Normal, Hypochromasia 2+, Microcytosis 1+ 02/28/22 13:46: Sodium 140, Potassium 3.6, Chloride 104, Carbon Dioxide 27, Anion Gap 12.6, BUN 25 H, Creatinine 1.10, Estimated GFR 65, Est GFR ( Amer) 78, Glucose 86, Calcium 9.0, Total Bilirubin 0.5, AST 26, ALT 20, Alkaline Phosphatase 74, Total Protein 6.5, Albumin 3.7, Globulin 2.8, Albumin/Globulin Ratio 1.3 02/28/22 13:46: Lactate 1.0 02/28/22 14:35: Urine Color Yellow, Urine Appearance Clear, Urine pH 5.5, Ur Specific [place] 1.015, Urine Protein Negative, Urine Glucose (UA) 2+, Urine Ketones Trace, Urine Blood Negative, Urine Nitrate Negative, Urine Bilirubin Negative, Urine Urobilinogen 0.2, Ur Leukocyte Esterase Negative, Urine RBC Occasional, Urine WBC 5-10, Ur Squamous Epith Cells 3-5, Urine Bacteria Trace 02/28/22 15:34: SARS-CoV-2 (PCR) Not detected, Influenza A Untype (PCR) Not detected, Influenza Type B (PCR) Not detected Result diagrams: 02/28/22 13:46 02/28/22 13:46 Orders (Tests/Meds): ED MEDICATIONS Generic Name Dose Route Start Last Admin Trade Name Freq PRN Reason Stop Dose Admin Acetaminophen 650 mg 02/28/22 17:57 Acetaminophen 325mg Tab PO 03/30/22 15:34 Q4HP PRN Fever or Mild Pa
[2022-02-28 14:00] LABS: Chloride 104 mmol/L (98-107); Potassium 3.6 mmoL/L (3.5-5.1); Sodium 140 mmol/L (136-145)
[2022-02-28 14:03] LABS: Alanine Aminotransferase 20 U/L (12-78); Albumin Level 3.7 g/dl (3.5-5.0); Albumin/Globulin Ratio 1.3 (1.1-1.8); Alkaline Phosphatase 74 U/L (38-126); Anion Gap 12.6 mEq/L (5-15); Aspartate Amino Transferase 26 U/L (17-59); Bilirubin,Total 0.5 mg/dl (0.2-1.3); Blood Urea Nitrogen 25 mg/dl (9-20); Carbon Dioxide 27 mmol/L (22.0-30.0); Estimated Glomerular Filt Rate 65 ml/min (>60); GFR (African American) 78 ML/MIN (>60); Globulin 2.8 g/dL (1.3-3.2); Total Protein,Serum 6.5 g/dl (6.3-8.2)
[2022-02-28 14:04] LABS: Basophils # 0.1 K/mm3 (0-0.2); Basophils % 0.3 % (0.1-2.0); Eosinophils % 0.1 % (0.1-12.0); Glucose 86 mg/dl (74-100); Hematocrit 37.5 % (42.0-52.0); Hemoglobin 12.1 g/dL (14.1-18.0); Lymphocytes # 0.7 K/mm3 (0.7-4.5); Lymphocytes % 4.7 % (10-50); Mean Corpuscular HGB Conc 32.2 g/dL (31.8-35.4); Mean Corpuscular Volume 77.6 fl (80-94); Mean Platelet Volume 8.2 fl (7.4-10.4); Monocytes # 0.5 K/mm3 (0.1-1.0); Monocytes % 3.5 % (1.7-9.3); Neutrophils # 13.9 K/mm3 (1.8-7.8); Neutrophils % 91.3 % (37.0-80.0); Platelet Count 264 K/mm3 (142-424); Red Blood Count 4.84 M/mm3 (4.60-6.20); Red Cell Distribution Width 18.3 % (11.5-17.5); White Blood Count 15.2 K/mm3 (4.8-10.8)
[2022-02-28 14:27] LABS: MANUAL DIFFERENTIAL MANUAL DIFFERENTIAL (MANUAL DIFF)
--- NOTE | 2022-02-28 14:42 | XR_ITS ---
PROCEDURE INFORMATION: Exam: XR Chest Exam date and time: 02/28/2022 2:49 PM Age: 76 years old Clinical indication: Other: Weakness; Additional info: Weakness, elev wbc TECHNIQUE: Imaging protocol: XR of the chest. Views: 1 view. COMPARISON: CR XR CHEST 2V 09/10/2020 10:16 AM FINDINGS: Airway: Patent Lungs: Low lung volumes causes crowding of the bronchovascular structures. Patchy and platelike airspace consolidations in the right lung base. Ground-glass consolidations in the left lung base. Remainder of the lungs are clear. Pleural spaces: No large pleural effusions or pneumothorax. Heart/Mediastinum: Cardiomediastinal silhouette is magnified due to technique. Vasculature: Calcified aortic knob. Bones/joints: Sternotomy wires and mediastinal surgical clips are present, consistent with previous coronary arterial bypass grafting. No acute skeletal abnormality or aggressive osseous lesion. IMPRESSION: Bilateral basal acute airspace disease, worse on the right. This is concerning for infectious pneumonia or atelectasis.
[2022-02-28 14:48] LABS: Hypochromasia 2+; Lymphocytes % 7 % (10-50); Microcytosis 1+; Neutrophils % 93 % (42-76); Platelet Estimate Normal; Total Cells Counted 100
--- NOTE | 2022-02-28 14:52 | PC.NURSE ---
xray in room
--- NOTE | 2022-02-28 15:26 | PC.NURSE ---
Service doctor paged.
[2022-02-28 15:39] LABS: Coronavirus 19, PCR Not Detected (NotDetected); Influenza A, PCR Not Detected (NotDetected); Influenza B, PCR Not Detected (NotDetected)
[2022-02-28 15:49] LABS: Microscopic, Urine URINE MICROSCOPIC (MICROSCOPIC)
[2022-02-28 15:56] LABS: Appearance,Urine CLEAR (Clear); Bilirubin,Urine Negative (Negative); Blood, Urine Negative (Negative); Color,Urine YELLOW (Yellow); Glucose,Urine (UA) 2+ (Negative); Ketones,Urine TRACE (Negative); Leukocyte Esterase,Urine Negative (Negative); Nitrate,Urine Negative (Negative); PH,Urine 5.5 (5.0-8.5); Protein,Urine Negative (Negative); Specific Gravity, Urine 1.015 (1.005-1.030); Urobilinogen,Urine 0.2 EU/dl (0.2)
[2022-02-28 16:04] LABS: Bacteria,Urine Trace /lpf; RBC,Urine Occasional #/hpf (0-3)
--- NOTE | 2022-02-28 17:03 | PC.NURSE ---
called report to oh mcelroy
[2022-02-28 21:42] LABS: POC Glucose,Bedside 87 (70-110)
[2022-03-01 04:00] VITALS: BP 93/55; PULSE 86; RESP 16; TEMP 37.1; O2SAT 91
--- NOTE | 2022-03-01 05:06 | PC.NURSE ---
No acute changes. Pt has not voiced any concerns to staff. Pt has been incontinent of his bladder. Brief in place. Pt has worn his bipap he brought from home during night. Able to make needs known to staff. Call light within reach.
[2022-03-01 05:10] VITALS: BMI 23.9
[2022-03-01 06:36] LABS: POC Glucose,Bedside 100 (70-110)
[2022-03-01 06:55] LABS: Basophils # 0.1 K/mm3 (0-0.2); Basophils % 0.9 % (0.1-2.0); Eosinophils # 0.1 K/mm3 (0.0-0.4); Eosinophils % 0.6 % (0.1-12.0); Lymphocytes # 0.8 K/mm3 (0.7-4.5); Lymphocytes % 9.8 % (10-50); Mean Corpuscular HGB Conc 32.6 g/dL (31.8-35.4); Mean Corpuscular Volume 76.6 fl (80-94); Mean Platelet Volume 8.7 fl (7.4-10.4); Monocytes # 0.4 K/mm3 (0.1-1.0); Monocytes % 4.3 % (1.7-9.3); Neutrophils # 7.2 K/mm3 (1.8-7.8); Neutrophils % 84.5 % (37.0-80.0); Platelet Count 224 K/mm3 (142-424); Red Blood Count 3.87 M/mm3 (4.60-6.20); Red Cell Distribution Width 18.5 % (11.5-17.5); White Blood Count 8.5 K/mm3 (4.8-10.8)
[2022-03-01 07:04] LABS: Hematocrit 29.7 % (42.0-52.0); Hemoglobin 9.7 g/dL (14.1-18.0)
[2022-03-01 07:05] LABS: Alanine Aminotransferase 15 U/L (12-78); Albumin Level 2.9 g/dl (3.5-5.0); Albumin/Globulin Ratio 1.3 (1.1-1.8); Alkaline Phosphatase 68 U/L (38-126); Aspartate Amino Transferase 23 U/L (17-59); Blood Urea Nitrogen 20 mg/dl (9-20); Calcium 7.9 mg/dl (8.4-10.2); Carbon Dioxide 25 mmol/L (22.0-30.0); Chloride 101 mmol/L (98-107); Creatinine Clearance Estimated 58 mL/min (50-200); Estimated Glomerular Filt Rate 82 ml/min (>60); GFR (African American) 99 ML/MIN (>60); Globulin 2.2 g/dL (1.3-3.2); Glucose 94 mg/dl (74-100); Magnesium 1.5 mg/dl (1.6-2.3); Sodium 133 mmol/L (136-145); Total Protein,Serum 5.1 g/dl (6.3-8.2)
[2022-03-01 07:10] LABS: Bilirubin,Total < 0.1 mg/dl (0.2-1.3)
[2022-03-01 08:00] VITALS: BP 109/47; PULSE 91; RESP 20; TEMP 37.4; O2SAT 91
--- NOTE | 2022-03-01 08:10 | P.CONPHA_ITS ---
[facility] Pharmacy VTE Monitoring - Patient Demographics Admission date: 02/28/22 Report Date: 03/01/22 Time: 08:10 Allergies/Adverse Reactions: Patient Allergies naproxen [NAPROXEN] Allergy (Unknown, Verified 10/29/21 11:02) NA-NAUSEA/VOMITING Height: 1.68 m Weight: 67.642 kg Patient Problems: Current Active Problems Pneumonia (Acute) - VTE Risk Labs: VTE Related Lab Results Hgb 9.7 g/dL (14.1-18.0) L D 03/01/22 06:00 Hct 29.7 % (42.0-52.0) L 03/01/22 06:00 Plt Count 224 K/mm3 (142-424) 03/01/22 06:00 BUN 20 mg/dl (9-20) 03/01/22 06:00 Creatinine 0.90 mg/dl (0.66-1.25) 03/01/22 06:00 Estimated Creat Clear 58 mL/min (50-200) 03/01/22 06:00 Was VTE Risk Assessment Performed: Yes VTE Score: 3 VTE Risk Level: Low Risk - Prophylaxis VTE Prophylaxis Ordered?: Yes Types of VTE Prophylaxis: TEDS Knee High Location of Applied Device: Bilateral Lower Extremeties
--- NOTE | 2022-03-01 08:27 | HMH.PHAINT ---
MEDICATION RECONCILIATION COMPLETED ON PATIENT USING EXTERNAL FILL HISTORY FROM PHARMACY AND OFFICE NOTE FROM PULMONOLOGY. -ALINA BRASWELLD
--- NOTE | 2022-03-01 08:37 | HMH.HP ---
*Admission Date: 02/28/22 *Chief complaint: Nausea/vomiting/weakness *History of present illness: 76-year-old white male who lives at home with his , who over the past 2 or 3 days has had some vague feelings of weakness, nausea and vomiting and malaise. He really does not remember much about the last couple of days but notes that he became very sick. Was brought to the emergency department. In the emergency department work-up revealed evidence of bilateral lower lobe pneumonia. He was placed on community-acquired pneumonia protocols with oxygen, macrolide and cephalosporin antibiotics and admitted to hospital. This morning on rounds he states that he feels much better. [facility] History Medical History: Reports:: Anxiety, Asthma, Congestive Heart Failure, Chronic Obstructive Pulmonary Disease (COPD), Coronary Artery Disease, Dementia, Depression, Diabetes Mellitus Type 2, Gastroesophageal Reflux Disease(GERD), Hiatal Hernia, Hyperlipidemia, Hypertension, Lung Disease, Kidney Stones, Osteoporosis, Peripheral Vascular Disease Denies:: Cancer, Diabetes Mellitus Type 1, Internal Pacemaker, MRSA, Seizures *Have you ever received a pneumonia vaccine?: Yes *Have you received a flu vaccine this season?: Yes Other Medical History: Reports: Arthritis, Cataracts, Osteoporosis, Other (hanna). Denies: Blood Transfusion Reaction Other Surgeries: Yes: CABG, Cancer Surgery, Cardiac Catheterization, Cardiac Surgery, Cholecystectomy, Colonoscopy, Open Heart Surgery, Other (pain pump implant). No: Pacemaker Amputation: No Fractures: No - *Social History Smoking Status: Former smoker Tobacco Type: cigarettes # Packs/Day (cigarettes): 0 Alcohol Intake: never Substance Use Type: denies use *Occupational Status:: retired Housing: house Household Members: spouse *Travel in the last 8 weeks: Inside the [facility] - Psychiatric History Pschychiatric History:: Reports:: Anxiety, Depression Family Hx:: Diabetes Review of Systems - Review of Systems Review of systems:: pertinent systems reviewed and negative unless documented below Meds Home Medications Medication Instructions Recorded Confirmed Type Aspirin [Aspirin 81mg EC Tab] 81 mg PO DAILY 12/24/17 02/28/22 History Atorvastatin Calcium [Atorvastatin 80 mg PO DAILY 12/24/17 02/28/22 History 80mg Tab] Gemfibrozil 600 mg PO BID 12/24/17 02/28/22 History Metformin HCl 1,000 mg PO BIDWMEAL 12/24/17 03/01/22 History Metoprolol Succinate 25 mg PO DAILY 12/24/17 02/28/22 History Tamsulosin HCl [Flomax] 0.4 mg PO DAILY 12/24/17 02/28/22 History duloxetine 60 mg capsule,delayed 60 mg PO DAILY 11/18/20 02/28/22 History release furosemide 40 mg tablet 40 mg PO DAILYP PRN tab 11/18/20 03/01/22 History insulin glargine U-300 conc 300 90 unit SQ DAILY ml 11/18/20 02/28/22 History unit/mL (1.5 mL) subcutaneous pen Tiotropium Br/Olodaterol HCl 2 puff IH DAILY 02/10/21 03/01/22 History [Stiolto Respimat] Memantine HCl 10 mg PO BID 04/21/21 02/28/22 History Morphine Sulfate 2.35 mg IT CONT 06/16/21 02/28/22 History Gabapentin [Neurontin 300mg 300 mg PO QID 12/29/21 03/01/22 History capsule] Albuterol Sulfate [Albuterol 1 puff IH QIDP PRN 02/28/22 03/01/22 History Sulfate Hfa] Meclizine HCl 25 mg PO TIDP PRN 03/01/22 03/01/22 History Allergies Allergy/AdvReac Type Severity Reaction Status Date / Time naproxen [NAPROXEN] Allergy Unknown NA-NAUSEA/V Verified 10/29/21 11:02 OMITING Exam Vital signs and Labs for Last 24 Hours: Temp Pulse Resp BP Pulse Ox 98.8 F 86 16 93/55 L 91 L 03/01/22 04:00 03/01/22 04:00 03/01/22 04:00 03/01/22 04:00 03/01/22 04:00 Laboratory Results - last 24 hr 02/28/22 13:46: WBC 15.2 H, RBC 4.84, Hgb 12.1 L, Hct 37.5 L, MCV 77.6 L, MCH 25.0 L, MCHC 32.2, RDW 18.3 H, Plt Count 264, MPV 8.2, Neut % (Auto) 91.3 H, Lymph % (Auto) 4.7 L, Carter % (Auto) 3.5, Eos % (Auto) 0.1, Baso % (Auto) 0.3, Neut # (Auto) 13.9 H, Lymph # (A
[2022-03-01 10:58] LABS: POC Glucose,Bedside 243 (70-110)
[2022-03-01 16:00] VITALS: BP 98/51; PULSE 99; RESP 20; TEMP 36.7; O2SAT 96
[2022-03-01 16:23] LABS: POC Glucose,Bedside 131 (70-110)
[2022-03-01 20:00] VITALS: BP 121/55; PULSE 66; RESP 16; TEMP 36.8; O2SAT 96
[2022-03-01 20:59] LABS: POC Glucose,Bedside 174 (70-110)
[2022-03-02 04:00] VITALS: BP 158/68; PULSE 79; RESP 17; TEMP 36.5; O2SAT 94
[2022-03-02 05:00] VITALS: BMI 23.9
[2022-03-02 05:18] LABS: ABG Base Excess 0.8 mmol/L (-2.4-2.3); ABG HCO3 25.9 mmhg (22.0-26.0); ABG Oxygen Saturation 93 % (90-100); ABG PCO2 44.3 mmhg (35.0-45.0); ABG PH 7.38 mmol/L (7.35-7.45); ABG TCO2 27.2 mmhg (23-27)
[2022-03-02 05:20] LABS: Allen's Test Acceptable; Oxygen 2L %; Source Right Radial
[2022-03-02 05:27] LABS: POC Glucose,Bedside 64 (70-110)
[2022-03-02 05:33] LABS: Basophils % 0.5 % (0.1-2.0); Eosinophils # 0.2 K/mm3 (0.0-0.4); Eosinophils % 2.8 % (0.1-12.0); Hematocrit 31.7 % (42.0-52.0); Hemoglobin 10.1 g/dL (14.1-18.0); Lymphocytes # 1.2 K/mm3 (0.7-4.5); Lymphocytes % 21.6 % (10-50); Mean Corpuscular HGB Conc 31.9 g/dL (31.8-35.4); Mean Corpuscular Volume 78.2 fl (80-94); Mean Platelet Volume 7.8 fl (7.4-10.4); Monocytes # 0.3 K/mm3 (0.1-1.0); Monocytes % 5.5 % (1.7-9.3); Neutrophils # 3.9 K/mm3 (1.8-7.8); Neutrophils % 69.6 % (37.0-80.0); Platelet Count 195 K/mm3 (142-424); Red Blood Count 4.05 M/mm3 (4.60-6.20); Red Cell Distribution Width 18.3 % (11.5-17.5); White Blood Count 5.5 K/mm3 (4.8-10.8)
[2022-03-02 05:49] LABS: Alanine Aminotransferase 19 U/L (12-78); Albumin Level 3.2 g/dl (3.5-5.0); Albumin/Globulin Ratio 1.2 (1.1-1.8); Alkaline Phosphatase 64 U/L (38-126); Aspartate Amino Transferase 28 U/L (17-59); Blood Urea Nitrogen 15 mg/dl (9-20); Carbon Dioxide 28 mmol/L (22.0-30.0); Chloride 107 mmol/L (98-107); Creatinine Clearance Estimated 58 mL/min (50-200); Estimated Glomerular Filt Rate 93 ml/min (>60); GFR (African American) 113 ML/MIN (>60); Globulin 2.6 g/dL (1.3-3.2); Sodium 140 mmol/L (136-145); Total Protein,Serum 5.8 g/dl (6.3-8.2)
[2022-03-02 05:51] LABS: Bilirubin,Total < 0.1 mg/dl (0.2-1.3); Glucose 64 mg/dl (74-100)
--- NOTE | 2022-03-02 06:34 | PC.NURSE ---
Ivette notified RN of pt change in mental status. On assessment, pt is mumbling and repeating words, talking in jibberish, trying to get out of bed, and being very inappropriate with staff. Pt is unable to say his correct name and birthday. Pt states he is seeing blue worms on the bed and continuously laughs. Blood pressure slightly elevated from baseline at 158/68 but otherwise vital signs show little change. Pt is able to follow commands. No signs of facial droop, extremity weakness, city assessor strength. Blood sugar checked and was 64. Pt was given a cup of juice, able to swallow well. Pt was helped to get comfortable in bed with bed alarm in place. notified. orders for ABG and order entry administrator labs. Orders read back, verified, and carried out. notified of results. No new orders at this time.
[2022-03-02 08:00] VITALS: BP 115/57; PULSE 78; RESP 16; TEMP 37; O2SAT 92
[2022-03-02 08:24] LABS: POC Glucose,Bedside 147 (70-110)
--- NOTE | 2022-03-02 09:03 | HMH.DCSUM ---
General - General Admission date:: 02/28/22 Discharge date: 03/02/22 HPI HPI: 76-year-old white male who lives at home with his , who over the past 2 or 3 days has had some vague feelings of weakness, nausea and vomiting and malaise. He really does not remember much about the last couple of days but notes that he became very sick. Was brought to the emergency department. In the emergency department work-up revealed evidence of bilateral lower lobe pneumonia. He was placed on community-acquired pneumonia protocols with oxygen, macrolide and cephalosporin antibiotics and admitted to hospital. This morning on rounds he states that he feels much better. Hospital Course Hospital Course: Patient was admitted, IV antibiotics for community-acquired pneumonia were given. Patient improved very nicely over the next 48 hours. He was able to sit up, do his own bathroom activities and have very minimal coughing. He did not cough up a significant of COPD and sample to be analyzed for culture. Blood cultures were negative. Leukocytosis improved. His electrolytes remained normal. This morning he was up in a chair, wished to go home, oxygen requirement had resolved, and he will be discharged home with antibiotics for community-acquired pneumonia. Given his weakness and hospitalization we will have PT and OT see him for home health evaluation. And he can follow-up with his regular physician this week. Please note that based on my [id number] evaluation of patient today he warrants home health evaluation for PT/OT/nursing care evaluation given his difficulty leaving home because of global weakness and recent hospitalization. Objective Vital signs: Temp Pulse Resp BP Pulse Ox 98.6 F 78 16 115/57 L 92 L 03/02/22 08:00 03/02/22 08:00 03/02/22 08:00 03/02/22 08:00 03/02/22 08:00 no acute distress - *Routine HEENT Exam Head: Present: normocephalic Eye: Present: EOMI, PERRL ENT: Present: mucous membranes moist - *Routine Neck Exam Present: supple - *Routine Respiratory Exam Present: rales Comments: Crackles in both bases, left slightly worse than right but improved over baseline from yesterday - *Routine Cardiovascular Exam Present: RRR - *Routine Abdominal Exam Present: soft, normoactive bowel sounds. Absent: tenderness - *Routine Extremities Exam Absent: cyanosis, clubbing, edema Comments: Old brawny skin changes but no active edema - *Routine Skin Exam Present: warm. Absent: rash - Detailed Eye Exam Eyelids: Bilateral normal inspection Results Labs on day of discharge: Labs from last 24 hours 03/02/22 03/02/22 03/02/22 08:16 05:22 05:22 WBC 5.5 D RBC 4.05 L Hgb 10.1 L Hct 31.7 L MCV 78.2 L MCH 25.0 L MCHC 31.9 RDW 18.3 H Plt Count 195 MPV 7.8 Neut % (Auto) 69.6 Lymph % (Auto) 21.6 [place] % (Auto) 5.5 Eos % (Auto) 2.8 Baso % (Auto) 0.5 Neut # (Auto) 3.9 Lymph # (Auto) 1.2 [place] # (Auto) 0.3 Eos # (Auto) 0.2 Baso # (Auto) 0.0 Specimen Source O2 % ABG pH ABG pCO2 ABG pO2 ABG HCO3 ABG Total CO2 ABG O2 Saturation ABG Base Excess Raul Test Sodium 140 Potassium 4.0 D Chloride 107 Carbon Dioxide 28 Anion Gap 9.0 BUN 15 Creatinine 0.80 Estimated Creat Clear 58 Estimated GFR 93 Est GFR ( Amer) 113 Glucose 64 L D POC Glucose 147 H Calcium 9.0 Total Bilirubin < 0.1 L AST 28 ALT 19 D Alkaline Phosphatase 64 Total Protein 5.8 L Albumin 3.2 L D Globulin 2.6 Albumin/Globulin Ratio 1.2 03/02/22 03/02/22 03/01/22 05:19 05:12 20:53 WBC RBC Hgb Hct MCV MCH MCHC RDW Plt Count MPV Neut % (Auto) Lymph % (Auto) [place] % (Auto) Eos % (Auto) Baso % (Auto) Neut # (Auto) Lymph # (Auto) [place] # (Auto) Eos # (Auto) Baso # (Auto)
--- NOTE | 2022-03-02 09:15 | HMH.PTEV ---
Physical Therapy Evaluation Rehab PT IP Evaluation Start: 03/02/22 09:07 Freq: ONCE Status: Active Protocol: Document 03/02/22 09:10 ERICFARNAZ (Rec: 03/02/22 09:14 [id number][facility] Subjective/History History History This is the initial IP PT evalaution for Montana Haynes. Pt is a 76 y/o male admitted to [facility] for pneumonia. Subjective Subjective Pt has no complaints Rehab PT IP Eval Objective Appearance Patient Behavior Appropriate,Cooperative Patient Orientation Person,Place,Birthday,Year Difficulty following instructions none Speech Pattern Clear,Appropriate Ambulation Patient Able to Ambulate Yes Ambulation Observation IP General Gait Pattern Observation No Deviations/Normal Ambulation Distance (feet) 75 Ambulation Assistive Device None Ambulation Ability Supervision/Stand by,Contact Guard/Hand Hold Balance Ability to Arise Able, uses arms to help Sitting Balance Steady, safe Standing Balance Narrow stance w/o support Dynamic Sitting Balance Ability Normal Dynamic Standing Balance Ability Good Transfers Chair Transfer Ability Independent Sit to Stand Chair Transfer Ability Independent Rehab PT IP prob,goals,plan Problems Date of Evaluation: 03/02/22 Rehab Potential Rehab Potential Innapropriate for Skilled Therapy Discharge Plan PT Discharge Plan Pt at baseline function. Safe to return home once medically stable. No skilled therapy needed at this time. G -code Required Yes Eval Complexity Eval Charge Codes 61031 - Low Complexity G Codes PT Current Status Mobility PT Current Status Modifier CJ-At least 20% but less than 40% impaired, limited or restricted PT Goal Status Mobility PT Goal Status Modifer CJ-At least 20% but less than 40% impaired, limited or restricted PHYSICIAN CERTIFICATION: I certify the specified therapy services for Montana Haynes are required, authorized, and reviewed every 30 days.
--- NOTE | 2022-03-02 09:38 | HMH.OTEV ---
OT Inpatient Evaluation Rehab OT IP Evaluation Start: 03/02/22 09:07 Freq: ONCE Status: Complete Protocol: Document 03/02/22 09:33 RANDYANGIE (Rec: 03/02/22 09:38 RAMÓNDIOGO [id number]) Rehab OT IP Assessment Subjective History 76-year-old white male who lives at home with his , who over the past 2 or 3 days has had some vague feelings of weakness, nausea and vomiting and malaise. He really does not remember much about the last couple of days but notes that he became very sick. Was brought to the emergency department. In the emergency department work-up revealed evidence of bilateral lower lobe pneumonia. He was placed on community-acquired pneumonia protocols with oxygen, macrolide and cephalosporin antibiotics and admitted to hospital. This morning on rounds he states that he feels much better. [facility] History Medical History: Reports:: Anxiety, Asthma, Congestive Heart Failure, Chronic Obstructive Pulmonary Disease (COPD), Coronary Artery Disease, Dementia, Depression, Diabetes Mellitus Type 2, Gastroesophageal Reflux Disease(GERD), Hiatal Hernia, Hyperlipidemia, Hypertension, Lung Disease, Kidney Stones, Osteoporosis, Peripheral Vascular Disease Patient lives in 2 story home with who is in good mental and physical health per patient. Patient ambulated with cane as needed at home. 1 -2 BRANDI home and 10-12 steps to get upstairs. Patient appears to be at baseline with needing hand held assistance for transfers and ambulation. Patient able to d/
--- NOTE | 2022-03-02 10:49 | SW/DCPLANNER ---
Addendum entered by Yari Mulligan 03/02/22 11:24: Radha rosenberg/ [facility] stated that services will begin Wednesday03/04/22. Original Note: I received an order for this patient for home health services (PT/OT/custodial). Patient and were present in room at time of my visit and has expressed an interest in [facility] home health services. Patient information/order has been faxed to [facility]. Patient will discharge home later today.
--- NOTE | 2022-03-04 15:01 | CARE MANAGER ---
Contacted patient's related to discharge from hospital. States he is feeling much better. He is taking medication as prescribed. They have follow up appt. with PCP next week. Denies any questions or concerns.
== END 2022-03-02 11:34 | disposition home health service (06) ==
LOC: ER 13:40 → 2ND 19:05
PROVIDERS: Internal Medicine Adolescent Medicine; Admitting Provider Internal Medicine Adolescent Medicine; Emergency Provider Emergency Medicine; PCP Internal Medicine; Visit Provider Internal Medicine Adolescent Medicine
DX: J18.9 Pneumonia, unspecified organism (principal); Z79.899 Other long term (current) drug therapy; Z79.4 Long term (current) use of insulin; I11.0 Hypertensive heart disease with heart failure; I50.9 Heart failure, unspecified; J44.9 Chronic obstructive pulmonary disease, unspecified; E11.9 Type 2 diabetes mellitus without complications; K21.9 Gastro-esophageal reflux disease without esophagitis; Z95.1 Presence of aortocoronary bypass graft; Z87.891 Personal history of nicotine dependence; E87.6 Hypokalemia; E83.51 Hypocalcemia; Z20.822 Contact with and (suspected) exposure to COVID-19
CPT/HCPCS: G0378; 36415; 71045; 80053; 81001; 82803; 82962; 83605; 83735; 85007; 85025; 87040; 93306; 96375; 97161; 97165; 99285; C9803; J0456; J0696; J2405; U0003; U0005

== ENCOUNTER 2022-03-23 13:18 | Day surgery (SDC) | payer MEDICARE, SELFPAY ==
[2022-03-23 13:50] VITALS: BP 128/63; PULSE 69; RESP 20; TEMP 36.6; O2SAT 94; BMI 23.8
[2022-03-23 14:00] VITALS: BP 129/66; BP 141/69; PULSE 90; RESP 18; O2SAT 97; O2SAT 98
--- NOTE | 2022-03-23 14:06 | P.PCN_ITS ---
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 The patient is being treated for degenerative disc disease of lumbar spine with lumbar radiculopathy symptoms, osteoarthritis of the left shoulder. Patient is currently being managed with morphine 15 mg/mL at a rate of 2.56 mg/day. Patient denies any side effects from this medication. Patient is stable on this dose. Patient is also being prescribed gabapentin 200 mg 4 times a day. Denies any side effect from this medication. Patient is wanting refills on this medication. Patient rates pain a 6 out of 10. Drug screen is appropriate. Chucho [id number] with an active morphine equivalent of 0 has been reviewed and is appropriate. Physical exam General: Alert and oriented x3, no acute distress, pleasant and cooperative Lungs: Respirations even and unlabored, symmetrical chest expansion Eyes: PERRL Musculoskeletal: Flexion and extension of lumbar [spine] somewhat guarded secondary to pain, [antalgic gait noted] Neurological: Speech clear, no gross sensory deficit Procedure Details:: Informed consent was obtained and the risk and benefits of the procedure were explained to the patient. The patient was taken to the procedure room where no ninvasive monitoring was placed including noninvasive blood pressure cuff and pulse oximeter. Patient's pump was interrogated. The area over the pump was cleansed with chlorhexidine as a cleansing solution. [Fluoroscopy was used to access the pump]. In sterile fashion the pump was accessed with a 22-gauge needle. Approximately 5.5 mls of the pump solution was removed and discarded appropriately. The pump was then refilled with 20 mL's of morphine 15 mg/mL. The needle was withdrawn and a bandage was placed over the puncture site. The infusion rate was reprogrammed and continued at morphine 2.56 mg/day. The patient tolerated well with no complication. Plan and Disposition:: We will continue the patient's gabapentin 300 mg 4 times a day. We will provide the patient with 3 months worth of refill. We will see the patient back in the clinic at the next intrathecal refill. Patient has been instructed to contact the clinic with any concerns before the next appointment. Dr. Dukes has reviewed this note and agrees with this plan of care. This note was dictated using voice recognition software and make contain errors or omissions.
[2022-03-23 14:08] VITALS: BP 135/69; PULSE 74; RESP 18; O2SAT 94
[2022-03-23 16:13] LABS: Amphetamine/Metha Screen,Urine Negative ng/ml (<1000)
[2022-03-23 16:14] LABS: Barbiturates Screen,Urine Negative ng/ml (<200); Benzodiazepines Screen,Urine Negative ng/ml (<200)
[2022-03-23 16:15] LABS: Cannabinoid Screen,Urine Negative ng/ml (<50); Cocaine Screen,Urine Negative ng/ml (<300)
[2022-03-23 16:16] LABS: Methadone Screen,Urine Negative ng/ml (<300)
[2022-03-23 16:17] LABS: Opiate Screen,Urine Positive ng/ml (<300); Phencyclidine Screen,Urine Negative ng/ml (<25)
[2022-04-08 09:13] LABS: Codeine Negative (Cutoff=100); Hydrocodone Negative (Cutoff=100); Hydromorphone Negative (Cutoff=100); Morphine Positive (.); Opiates Positive (.)
== END 2022-03-23 14:09 | disposition home or self-care (01) ==
LOC: SC.PAINP 13:19
PROVIDERS: PCP Internal Medicine; Visit Provider Student in an Organized Health Care Education/Training Program
DX: M51.16 Intervertebral disc disorders with radiculopathy, lumbar region (principal); M19.012 Primary osteoarthritis, left shoulder
CPT/HCPCS: 62370; 80305; 80361; 80365; G0480

== ENCOUNTER → 2022-05-06 15:19 | Outpatient (CLI) | payer MEDICARE, SELFPAY ==
--- NOTE | 2022-05-06 15:27 | XR_ITS ---
FINAL REPORT CLINICAL HISTORY: LT SHOULDER PAIN..fell 3 days ago FINDINGS: LEFT SHOULDER Three views demonstrate no acute fracture or dislocation. There is mild degenerative change. The visualized bony structures are well aligned. No soft tissue abnormality is seen. IMPRESSION: No acute process. Reviewed, Interpreted and Dictated by Mann Vieira III, MD Transcribed by Jemima Hinds Authenticated and [facility]
== END ==
PROVIDERS: PCP Internal Medicine; Visit Provider Internal Medicine
DX: M25.512 Pain in left shoulder (principal)
CPT/HCPCS: 73030

== ENCOUNTER 2022-05-15 13:36 | Emergency (ER) | payer MEDICARE, SELFPAY ==
[2022-05-15 13:53] VITALS: BP 134/73; PULSE 63; RESP 18; TEMP 36.6; O2SAT 96; BMI 26.9
--- NOTE | 2022-05-15 14:00 | HMH.EDUTC ---
[facility] Disposition Clinical Impression: Pneumonia Qualifiers: Pneumonia type: due to unspecified organism Laterality: bilateral Lung location: lower lobe of lung Qualified Code(s): J18.9 - Pneumonia, unspecified organism Disposition: Home, Self-Care Condition on Discharge: Good Instructions: Pneumonia-Adult, Ceftriaxone Injection Additional Instructions: Drink plenty of fluids. Take tylenol or ibuprofen for pain or fever. Take the medications as directed. Follow up with your regular doctor. GO TO THE ER FOR ANY WORSENING SYMPTOMS Quarantine until you know the results of your covid-19 test. Notify your school or workplace of your results and follow their instructions regarding return to work/school. Prescriptions: Amoxicillin/Potassium Clav [Amox-Clav 875-125 mg Tablet] 1 tab PO BID #20 tab Transmission Status: Received by [facility] Benzonatate [Benzonatate 100mg cap] 100 mg PO TIDP PRN #30 cap PRN Reason: Cough Transmission Status: Received by [facility] predniSONE [Deltasone 10mg tablet] 10 mg PO DAILY 9 Days #21 tab Transmission Status: Received by [facility] Azithromycin [Z-Luis 250mg Tab*] 250 mg PO UD DOSE PK #6 tab Transmission Status: Received by [facility] Referrals: Bryon Velazquez MD [Primary Care Provider] - Time of Disposition: 15:11 Medical Decision Making - Medical Records Medical records reviewed: No: I reviewed the patient's medical records. - Chucho Inquiry Pt receiving controlled substance: No Vital Signs: 05/15/22 13:53 05/15/22 15:12 Temperature 97.8 F 97.8 F Temperature Source Oral Pulse Rate 63 Pulse Rate [Left] 63 Respiratory Rate 18 18 Blood Pressure 134/73 Blood Pressure [Right Arm] 134/73 Blood Pressure Mean [Right Arm] 93 02 Sat by Pulse Oximetry 96 - Lab Data Lab Results 05/15/22 14:57: Chlamy pneumoniae PCR Not detected, Adenovirus (PCR) Not detected, B. pertussis DNA (PCR) Not detected, Coronavirus OC43 (PCR) Not detected, Coronavirus HKU1 (PCR) Not detected, Coronavirus 229E (PCR) Not detected, SARS-CoV-2 (PCR) Not detected, Coronavirus NL63 (PCR) Not detected, Human Metapneumovir PCR Not detected, Influenza A (H1) PCR Not detected, Influ A (H1N1/09) PCR Not detected, Influenza A (H3) PCR Not detected, Influenza Type A (PCR) Not detected, Influenza Type B (PCR) Not detected, M. pneumoniae (PCR) Not detected, Parainfluenza 1 (PCR) Not detected, Parainfluenza 2 (PCR) Not detected, Parainfluenza 3 (PCR) Not detected, Parainfluenza 4 (PCR) Not detected, RSV (PCR) Not detected, Entero/Rhino (PCR) Not detected Orders (Tests/Meds): ED MEDICATIONS Discontinued Medications Generic Name Dose Route Start Last Admin Trade Name Freq PRN Reason Stop Dose Admin Ceftriaxone Sodium 1 gm 05/15/22 15:05 05/15/22 15:06 Ceftriaxone 1gm Vial IM 05/15/22 15:06 1 gm ONCE ONE Administration Lidocaine HCl 0 ml 05/15/22 15:05 05/15/22 15:06 Lidocaine 1% 5ml Pf Vial IM 05/15/22 15:06 2 ml ONCE ONE Administration [facility] HPI - General Stated complaint: congestion Time Seen by Provider: 05/15/22 14:00 Mode of Arrival: Wheelchair Source of Information: Patient, Relative Limitations: No Limitations Description of Symptoms (Recalled from Triage Doc. by RN): patient comes in today with complaints of congestion. patient states that he is coughing up mucus. patient states symptoms began 3 days ago. HEENT Symptoms (Recalled from RN notes): No Resp Symptoms (Recalled from RN notes): Yes Skin Symptoms (Recalled from RN notes): No MS Symptoms (Recalled from RN notes): No Functional Status (Recalled from RN notes): n/a - History of Present Illness Provider Complaint: He states that for the past 3 days he has had worsening chest congestion and a productive cough. He has had a low grade fever at times. - Related Data Home Medications Medication Instruction
--- NOTE | 2022-05-15 14:08 | XR_ITS ---
PROCEDURE INFORMATION: Exam: XR Chest Exam date and time: 05/15/2022 2:28 PM Age: 77 years old Clinical indication: Cough; Additional info: Cough, congestion TECHNIQUE: Imaging protocol: Radiologic exam of the chest. Views: 2 views. COMPARISON: CR XR CHEST PORTABLE 02/28/2022 2:49 PM FINDINGS: Lungs: Mild opacities in both bases may represent atelectasis or pneumonia.. Pleural spaces: Unremarkable. No pleural effusion. No pneumothorax. Heart/Mediastinum: Unremarkable. No cardiomegaly. Bones/joints: Median sternotomy IMPRESSION: Mild opacities in both bases may represent atelectasis or pneumonia..
[2022-05-15 15:06] LABS: Adenovirus,PCR Not Detected (NotDetected); Bordetella Pertussis Not Detected (NotDetected); Chlamydophila Pneumoniae, PCR Not Detected (NotDetected); Coronavirus 19, PCR Not Detected (NotDetected); Coronavirus 229E Not Detected (NotDetected); Coronavirus NL63 Not Detected (NotDetected); Coronavirus OC43 Not Detected (NotDetected); Coronovirus HKU1,PCR Not Detected (NotDetected); Human Metapneumovirus Not Detected (NotDetected); Influenza A, PCR Not Detected (NotDetected); Influenza AH1, 2009 Not Detected (NotDetected); Influenza AH1, PCR Not Detected (NotDetected); Influenza AH3,PCR Not Detected (NotDetected); Influenza B, PCR Not Detected (NotDetected); Mycoplasma Pneumoniae, PCR Not Detected (NotDetected); Parainfluenza 1, PCR Not Detected (NotDetected); Parainfluenza 2, PCR Not Detected (NotDetected); Parainfluenza 3, PCR Not Detected (NotDetected); Parainfluenza 4, PCR Not Detected (NotDetected); Respiratory Syncytial Virus Not Detected (NotDetected); Rhinovirus/Enterovirus Not Detected (NotDetected)
[2022-05-15 15:12] VITALS: BP 134/73; PULSE 63; RESP 18; TEMP 36.6
== END 2022-05-15 15:18 | disposition home or self-care (01) ==
PROVIDERS: Emergency Provider Nurse Practitioner Family; PCP Internal Medicine
DX: J18.9 Pneumonia, unspecified organism (principal); Z20.822 Contact with and (suspected) exposure to COVID-19; I11.0 Hypertensive heart disease with heart failure; I50.9 Heart failure, unspecified; I25.10 Atherosclerotic heart disease of native coronary artery without angina pectoris; K21.9 Gastro-esophageal reflux disease without esophagitis; E78.5 Hyperlipidemia, unspecified; E11.9 Type 2 diabetes mellitus without complications; I73.9 Peripheral vascular disease, unspecified; M81.0 Age-related osteoporosis without current pathological fracture; M19.90 Unspecified osteoarthritis, unspecified site; H26.9 Unspecified cataract; J98.4 Other disorders of lung; F03.90 Unspecified dementia, unspecified severity, without behavioral disturbance, psychotic disturbance, mood disturbance, and anxiety; F32.A Depression, unspecified; F41.9 Anxiety disorder, unspecified; Z79.4 Long term (current) use of insulin; Z79.51 Long term (current) use of inhaled steroids; Z79.82 Long term (current) use of aspirin; Z79.84 Long term (current) use of oral hypoglycemic drugs; Z79.899 Other long term (current) drug therapy; Z88.6 Allergy status to analgesic agent; Z95.1 Presence of aortocoronary bypass graft; Z87.442 Personal history of urinary calculi; Z87.891 Personal history of nicotine dependence; Z83.3 Family history of diabetes mellitus
CPT/HCPCS: 71046; 87581; 87632; 87798; 96372; 99213; C9803; G0463; J0696; U0003; U0005

== ENCOUNTER → 2022-05-20 12:53 | Outpatient (CLI) | payer MEDICARE, SELFPAY ==
[2022-05-20 14:00] LABS: Anion Gap 13.6 mEq/L (5-15); Blood Urea Nitrogen 25 mg/dl (9-20); Calcium 9.4 mg/dl (8.4-10.2); Carbon Dioxide 30 mmol/L (22.0-30.0); Chloride 99 mmol/L (98-107); Estimated Glomerular Filt Rate 72 ml/min (>60); GFR (African American) 87 ML/MIN (>60); Glucose 185 mg/dl (74-100); Potassium 4.6 mmoL/L (3.5-5.1); Sodium 138 mmol/L (136-145)
[2022-05-20 14:04] LABS: Basophils % 0.4 % (0.1-2.0); Eosinophils # 0.1 K/mm3 (0.0-0.4); Eosinophils % 0.7 % (0.1-12.0); Hematocrit 34.4 % (42.0-52.0); Hemoglobin 10.5 g/dL (14.1-18.0); Lymphocytes # 1.2 K/mm3 (0.7-4.5); Lymphocytes % 17.5 % (10-50); Mean Corpuscular HGB Conc 30.6 g/dL (31.8-35.4); Mean Corpuscular Hemoglobin 25.2 pg (27.0-31.2); Mean Corpuscular Volume 82.5 fl (80-94); Mean Platelet Volume 8.9 fl (7.4-10.4); Monocytes # 0.3 K/mm3 (0.1-1.0); Monocytes % 4.4 % (1.7-9.3); Neutrophils # 5.3 K/mm3 (1.8-7.8); Neutrophils % 77.1 % (37.0-80.0); Platelet Count 274 K/mm3 (142-424); Red Blood Count 4.18 M/mm3 (4.60-6.20); Red Cell Distribution Width 17.9 % (11.5-17.5); White Blood Count 6.9 K/mm3 (4.8-10.8)
[2022-05-20 14:47] LABS: Hemoglobin A1C 7.7 % (4.0-6.0)
== END ==
PROVIDERS: PCP Internal Medicine; Visit Provider Internal Medicine
DX: E11.59 Type 2 diabetes mellitus with other circulatory complications (principal); I25.10 Atherosclerotic heart disease of native coronary artery without angina pectoris; J18.9 Pneumonia, unspecified organism; J44.9 Chronic obstructive pulmonary disease, unspecified; G30.9 Alzheimer's disease, unspecified; G47.33 Obstructive sleep apnea (adult) (pediatric); Z79.4 Long term (current) use of insulin
CPT/HCPCS: 80048; 83036; 85025

== ENCOUNTER → 2022-06-02 11:20 | Outpatient (CLI) | payer MEDICARE, SELFPAY ==
--- NOTE | 2022-06-02 11:25 | XR_ITS ---
FINAL REPORT CLINICAL HISTORY: FALL FINDINGS: Right shoulder Three views were obtained. There is no acute fracture or dislocation. The joint spaces appear normal. No soft tissue abnormality is identified. IMPRESSION: No acute process. Reviewed, Interpreted and Dictated by Mann Vieira III, MD Transcribed by Sarah Nguyễn Authenticated and [facility]
[2022-06-02 14:17] LABS: Reticulocyte % (Auto) 1.7 % (0.9-3.2)
[2022-06-02 14:36] LABS: Iron 44 ug/dL (49-181)
[2022-06-02 14:45] LABS: Total Iron Binding Capacity 425 ug/dL (261-462)
[2022-06-02 15:17] LABS: Vitamin B12 426 pg/mL (239-931)
[2022-06-04 15:24] LABS: Albumin 3.4 g/dL (2.9-4.4); Alpha-1-Globulin 0.3 g/dL (0.0-0.4); Alpha-2-Globulin 0.8 g/dL (0.4-1.0); Gamma Globulin 0.3 g/dL (0.4-1.8); Protein, Total 5.8 g/dL (6.0-8.5)
== END ==
PROVIDERS: PCP Internal Medicine; Visit Provider Internal Medicine
DX: M25.511 Pain in right shoulder (principal); R23.3 Spontaneous ecchymoses; W19.XXXA Unspecified fall, initial encounter
CPT/HCPCS: 73030; 82607; 83540; 83550; 84155; 84165; 85044

== ENCOUNTER → 2022-06-15 15:06 | Outpatient (CLI) | payer MEDICARE, SELFPAY ==
--- NOTE | 2022-06-15 15:10 | XR_ITS ---
FINAL REPORT CLINICAL HISTORY: FEVER,COUGH, -COVID TEST,COPD COMPARISON: May 15, 2022 FINDINGS: Cardiomegaly is noted. Postoperative changes are seen from median sternotomy. There are mild bibasilar opacities which may represent atelectasis or pneumonia. There is no pneumothorax. The bony thorax is intact. IMPRESSION: Mild bibasilar opacities which may represent atelectasis or pneumonia, overall improved. Reviewed, Interpreted and Dictated by Mann Vieira III, MD Transcribed by Jemima Hinds Authenticated and [facility]
== END ==
PROVIDERS: PCP Internal Medicine; Visit Provider Internal Medicine
DX: Z20.822 Contact with and (suspected) exposure to COVID-19 (principal); R50.9 Fever, unspecified; R05.9 Cough, unspecified; J44.9 Chronic obstructive pulmonary disease, unspecified
CPT/HCPCS: 71046

== ENCOUNTER 2022-06-16 10:18 | Day surgery (SDC) | payer MEDICARE, SELFPAY ==
[2022-06-16 10:29] VITALS: BP 143/83; BP 145/82; PULSE 55; PULSE 60; RESP 20; TEMP 36.7; O2SAT 92; O2SAT 95; BMI 24.2
[2022-06-16 10:43] VITALS: BP 138/55; PULSE 50; RESP 18
--- NOTE | 2022-06-16 10:43 | EXP.PAIN.PRO ---
Procedure Date: 06/16/22 Time: 10:43 Anesthesiologist:: Rell Trejo CRNA Complications:: None Pre-procedure Diagnosis:: Degenerative disc disease of lumbar spine with lumbar radiculopathy symptoms, osteoarthritis of the left shoulder Post-procedure Diagnosis:: Same Indications for Procedure:: Patient is a pleasant 77-year-old male who presents today for intrathecal pain pump refill. Patient is currently being treated for degenerative disc disease of lumbar spine with lumbar radiculopathy symptoms, osteoarthritis of the left shoulder. We are currently managing the patient with morphine 15 mg/mL at a rate of 2.56 mg/day. Patient denies any side effects from this medication. Patient states this medication is helping provide adequate pain relief. He is also managed with gabapentin 300 mg 4 times a day. Patient rates his pain today a 5 out of 10. His Chucho is [id number]. It has been reviewed and appropriate. Physical exam General: Alert and oriented x3, no acute distress, pleasant and cooperative on room air Lungs: Respirations even and unlabored, symmetrical chest expansion Eyes: PERRL Musculoskeletal: Flexion and extension of lumbar spine somewhat guarded secondary to pain, antalgic gait noted Neurologic: Speech clear no gross sensory deficit Procedure Details:: Informed consent was obtained and the risk and benefits of the procedure were explained to the patient. The patient was taken to the procedure room where noninvasive monitoring was placed including noninvasive blood pressure cuff and pulse oximeter. Patient's pump was interrogated. The area over the pump was cleansed with a chlorhexidine as a cleansing solution. In a sterile fashion the pump was accessed with a 22-gauge needle. From the interrogation of the system 5 mL was expected. Approximately 5.4 mL of the pump solution was removed and discarded appropriately. The pump was then refilled with 20 mL of morphine 15 mg/mL with a daily dose of 2.56 mg/day. The patient tolerated the procedure well with no complications. Plan and Disposition:: Patient was discharged with no complications. We will see the patient back at the next intrathecal refill. If the patient has any questions they have been instructed to contact the clinic. Dr. Dukes has reviewed this note and agrees with this plan of care. The note was dictated using voice recognition software and may contain errors and omissions.
[2022-06-16 10:45] VITALS: BP 139/56; PULSE 52; RESP 18; O2SAT 90
== END 2022-06-16 10:50 | disposition home or self-care (01) ==
LOC: SC.PAINP 10:18
PROVIDERS: PCP Internal Medicine; Visit Provider Nurse Anesthetist, Certified Registered
DX: M51.16 Intervertebral disc disorders with radiculopathy, lumbar region (principal); M19.012 Primary osteoarthritis, left shoulder
CPT/HCPCS: 95991

== ENCOUNTER 2022-06-22 15:12 | Emergency (ER) | payer MEDICARE, SELFPAY ==
--- NOTE | 2022-06-22 17:06 | EXP.UTC ---
Discharge Plan Disposition Patient Disposition: Home, Self-Care Condition: Good Prescriptions Prescriptions: New cephalexin [cephalexin] 500 mg capsule 500 mg PO Q6H 10 Days Qty: 40 0RF mupirocin 2 % ointment 1 applic topical TID 7 Days Qty: 22 5RF No Action duloxetine 60 mg capsule,delayed release(DR/EC) 60 mg PO DAILY furosemide 40 mg tablet 40 mg PO DAILYP PRN (Reason: Edema) memantine 10 mg tablet 10 mg PO BID 90 Days Qty: 180 3RF morphine 10 MG/ML solution 2.35 mg IT CONT Rx Instructions: medication delivered via intrathecal pain pump. concentration of medication is 10mg/ml, total volume of pump is 20ml. total daily dose is 2.35mg/day cefdinir 300 MG capsule 300 mg PO BID gabapentin 300 MG capsule 300 mg PO QID Qty: 120 2RF benzonatate 100 MG capsule 100 mg PO TIDP PRN (Reason: Cough) Qty: 30 0RF atorvastatin 80 MG tablet 80 mg PO DAILY aspirin 81 MG tablet,delayed release (DR/EC) 81 mg PO DAILY tamsulosin 0.4 MG capsule 0.4 mg PO DAILY gemfibrozil 600 MG tablet 600 mg PO BID metformin 1,000 MG tablet 1,000 mg PO BIDWMEAL metoprolol succinate 25 MG tablet extended release 24 hr 25 mg PO DAILY insulin glargine U-300 conc 300 unit/mL (1.5 mL) insulin pen 90 unit SQ DAILY tiotropium-olodaterol 4 GM mist 2 puff IH DAILY albuterol sulfate 8.5 GM HFA aerosol inhaler 1 puff IH QIDP PRN (Reason: shortness of breath or wheezing) meclizine 25 MG tablet 25 mg PO TIDP PRN (Reason: Dizziness) Referrals Follow up/Referrals: Bryon Velazquez MD [Primary Care Provider] - See instructions Activity Restrictions/Add. Instructions Additional Instructions/Restrictions: Keep the wound clean and dry. Keep a dressing on it you are going to be getting it dirty. Watch the for signs of infection, such as redness, swelling, drainage, fever. etc. Take tylenol for pain. Follow up with your regular doctor. GO TO THE ER FOR ANY WORSENING SYMPTOMS OR CONCERNS. Clinical Impressions Clinical Impression: Skin tear of left forearm without complication, Skin tear of left upper arm without complication Instructions Patient Instructions: DI for Avulsion Laceration (Not Requiring Sutures), Mupirocin Discharge ED Provider: Biju Saeed [facility] General Stated complaint: AO 06-22-22 1445 fell opened would Time Seen by Provider: 06/22/22 17:12 History of Present Illness Provider Complaint: He states that he fell this morning and hit his left forearm against the wall. He has 3 skin tears on his left fore arm. He denies any other complaints. His tetanus immunization is up to date. Related Data Home Medications Medication Instructions Recorded Confirmed aspirin 81 mg tablet,delayed 81 mg PO DAILY HEART HEALTH 12/24/17 06/16/22 release atorvastatin 80 mg tablet 80 mg PO DAILY Cholesterol 12/24/17 06/16/22 gemfibrozil 600 mg tablet 600 mg PO BID Cholesterol 12/24/17 06/16/22 metformin 1,000 mg tablet 1,000 mg PO BIDWMEAL Diabetes 12/24/17 06/16/22 metoprolol succinate 25 mg 25 mg PO DAILY Hypertension 12/24/17 06/16/22 tablet,extended release 24 hr tamsulosin 0.4 mg capsule 0.4 mg PO DAILY PROSTATE 12/24/17 06/16/22 duloxetine 60 mg capsule,delayed 60 mg PO DAILY Depression 11/18/20 06/16/22 release furosemide 40 mg tablet 40 mg PO DAILYP PRN Edema 11/18/20 06/16/22 insulin glargine U-300 conc 300 90 unit SQ DAILY Diabetes 11/18/20 06/16/22 unit/mL (1.5 mL) subcutaneous pen tiotropium 2.5 mcg-olodaterol 2.5 2 puff inhalation DAILY Breathing 02/10/21 06/16/22 mcg/actuation mist for inhalation problems morphine 10 mg/mL injection 2.35 mg IT CONT chronic pain 06/16/21 06/16/22 solution albuterol sulfate 90 mcg/actuation 1 puff inhalation QIDP PRN 02/28/22 06/16/22 aerosol inhaler shortness of breath or wheezing meclizine 25 mg tablet 25 mg PO TIDP PRN Dizziness 03/01/22
[2022-06-22 17:20] VITALS: BP 118/51; PULSE 57; RESP 18; TEMP 36.6; O2SAT 96; BMI 24.2
[2022-06-22 17:59] VITALS: BP 118/51; PULSE 57; RESP 18; TEMP 36.6
== END 2022-06-22 17:59 | disposition home or self-care (01) ==
PROVIDERS: Emergency Provider Nurse Practitioner Family; PCP Internal Medicine
DX: S51.812A Laceration without foreign body of left forearm, initial encounter (principal); W18.39XA Other fall on same level, initial encounter; Z79.82 Long term (current) use of aspirin; Z79.899 Other long term (current) drug therapy; Z79.4 Long term (current) use of insulin; Z88.6 Allergy status to analgesic agent; Z87.891 Personal history of nicotine dependence
CPT/HCPCS: 99212; G0463

== ENCOUNTER 2022-09-04 10:07 | Day surgery (SDC) | payer MEDICARE, SELFPAY ==
[2022-09-04 10:25] VITALS: BP 139/64; PULSE 81; RESP 18; TEMP 36.6; O2SAT 92; BMI 25.4
[2022-09-04 10:41] VITALS: BP 141/60; PULSE 50; RESP 18; O2SAT 98
[2022-09-04 10:42] VITALS: BP 141/60; PULSE 50; RESP 18; O2SAT 98
--- NOTE | 2022-09-04 10:48 | EXP.PAIN.PRO ---
Procedure Date: 09/04/22 Time: 10:44 Anesthesiologist:: Rell Trejo CRNA Complications:: None Pre-procedure Diagnosis:: Degenerative disc disease of lumbar spine with lumbar radiculopathy symptoms, osteoarthritis of the left shoulder Post-procedure Diagnosis:: Same Indications for Procedure:: Patient is a pleasant 77-year-old male who presents today for intrathecal pain pump refill and adjustment. We are currently treating the patient for degenerative disc disease of lumbar spine with lumbar radiculopathy symptoms, osteoarthritis left shoulder. Today the patient rates his pain a 3 out of 10. Patient denies any new trauma or injury. Patient denies any change to the location or type of pain he experiences. Patient is currently managed with morphine 15 mg/mL with a daily dose of 2.56 mg/day. Patient denies any side effects from this medication. He states this medication does adequately manage his pain symptoms. General: Alert and oriented x3, no acute distress, pleasant and cooperative Lungs: Respiration even unlabored, symmetrical chest expansion Eyes: PERRL Musculoskeletal: Flexion and extension of lumbar spine somewhat guarded secondary to pain, antalgic gait noted Neurological: Speech clear, no gross sensory deficit Procedure Details:: Informed consent was obtained and the risk and the benefits of the procedure were explained to the patient. The patient was taken to the procedure room where noninvasive monitoring such as a noninvasive blood pressure cuff and pulse oximeter was placed on the patient. The patient's pump was interrogated with 6.3 mL expected. The area over the patient's pump was cleansed with ChloraPrep as a cleansing solution. Using a 22-gauge needle and aseptic technique the pump was accessed with 6.2 mL of solution withdrawn and discarded appropriately. In the pump was filled with 20 mL of solution of morphine 15 mg/mL. The needle was withdrawn and a sterile bandage was placed over the site. The pump was then reinterrogated and continued at morphine 2.56 mg per day. Patient tolerated the procedure well with no complications. Plan and Disposition:: Patient was monitored in the clinic setting for short period following this procedure and discharged neurologically intact. Patient will follow-up at the next intrathecal pain pump refill date. Patient has been counseled to contact the office with any questions or concerns before the next intrathecal refill date. Dr. Dukes has read this note and agrees with this plan of care. This note was dictated using voice recognition software and may contain errors or omissions.
[2022-09-04 10:57] VITALS: BP 127/50; PULSE 77; RESP 20
== END 2022-09-04 10:58 | disposition home or self-care (01) ==
PROVIDERS: PCP Internal Medicine; Visit Provider Nurse Anesthetist, Certified Registered
DX: M51.16 Intervertebral disc disorders with radiculopathy, lumbar region (principal); M19.012 Primary osteoarthritis, left shoulder

== ENCOUNTER 2022-09-06 10:27 | Inpatient (IN) | payer MEDICARE, SELFPAY ==
[2022-09-06] VITALS (20 sets, daily range): BP systolic 75–152; BP diastolic 42–70; PULSE 48–92; RESP 16–24; TEMP 36.9–38.5; O2SAT 5–99; BMI 23.8; BMI 23.6
--- NOTE | 2022-09-06 11:25 | PC.NURSE ---
ED MD AT BEDSIDE FOR EVALUATION
--- NOTE | 2022-09-06 11:26 | XR_ITS ---
PROCEDURE INFORMATION: Exam: XR Chest Exam date and time: 09/06/2022 11:46 AM Age: 77 years old Clinical indication: Cough and fever; Additional info: Cough, fever TECHNIQUE: Imaging protocol: Radiologic exam of the chest. Views: 1 view. COMPARISON: CR XR CHEST 2V 06/15/2022 3:14 PM FINDINGS: Lungs: Hypoinflation with interstitial prominence, chronic granulomatous disease, and mild airspace disease. Pleural spaces: No significant pleural effusion. Heart/Mediastinum: No cardiomegaly. Bones/joints: Median sternotomy. Osteopenia and degenerative change. Soft tissues: Left-sided skin fold. IMPRESSION: Hypoinflation with interstitial prominence, chronic granulomatous disease, and mild airspace disease.
--- NOTE | 2022-09-06 11:31 | HMH.EDGENADL ---
Discharge Plan Disposition Patient Disposition: Admitted As Inpatient Condition: Serious Clinical Impressions Clinical Impression: Septic shock, Acute respiratory failure with hypoxia, CAP (community acquired pneumonia), AMS (altered mental status) Discharge ED Provider: Harvey Concepcion General Adult HPI General Chief complaint: Weakness Stated complaint: congestion Time Seen by Provider: 09/06/22 11:22 Mode of Arrival: EMS Limitations: No Limitations Description of Symptoms (Recalled from ER Triage Doc. by RN): BROUGHT IN VIA EMS FOR COUGH, CONGESTION AND LETHARGY PER DAUGHTER. FEVER 101.5 VIA EMS. PT PLACED ON O2 PER EMS. PT SAT 88% ON ROOM AIR History of Present Illness HPI narrative: Brought in by ambulance. History obtained from patient's . She states that he was doing fine until yesterday at bedtime, she says that he was somewhat out of it at that time. She says she told him she thought he was getting pneumonia again and he agreed. This morning she was unable to wake him up. Found to have a temperature of 101.5 by EMS. Hypoxia with O2 sat of 88% on room air, started on nasal cannula oxygen by EMS. reports that he had pneumonia in January and was admitted here. He has COPD and sleep apnea and uses BiPAP with oxygen at night. She says he did use it last night. He is a former smoker. He is a diabetic. Related Data Home Medications Medication Instructions Recorded Confirmed aspirin 81 mg tablet,delayed 81 mg PO DAILY HEART HEALTH 12/24/17 09/06/22 release atorvastatin 80 mg tablet 80 mg PO DAILY Cholesterol 12/24/17 09/06/22 gemfibrozil 600 mg tablet 600 mg PO BID Cholesterol 12/24/17 09/06/22 metformin 1,000 mg tablet 1,000 mg PO BIDWMEAL Diabetes 12/24/17 09/06/22 metoprolol succinate 25 mg 25 mg PO DAILY Hypertension 12/24/17 09/06/22 tablet,extended release 24 hr tamsulosin 0.4 mg capsule 0.4 mg PO DAILY PROSTATE 12/24/17 09/06/22 duloxetine 60 mg capsule,delayed 60 mg PO DAILY Depression 11/18/20 09/06/22 release furosemide 40 mg tablet 40 mg PO DAILYP PRN Edema 11/18/20 09/06/22 insulin glargine U-300 conc 300 90 unit SQ DAILY Diabetes 11/18/20 09/06/22 unit/mL (1.5 mL) subcutaneous pen morphine 10 mg/mL injection 2.35 mg IT CONT chronic pain 06/16/21 09/06/22 solution albuterol sulfate 90 mcg/actuation 1 puff inhalation QIDP PRN 02/28/22 09/06/22 aerosol inhaler shortness of breath or wheezing empagliflozin 25 mg tablet 25 mg PO DAILY Diabetes 09/04/22 09/06/22 (Jardiance) ferrous sulfate 325 mg (65 mg 325 mg PO DAILY Supplement 09/06/22 09/06/22 iron) tablet (FeroSul) lansoprazole 15 mg capsule,delayed 15 mg PO DAILY GERD 09/06/22 09/06/22 release tiotropium 2.5 mcg-olodaterol 2.5 2 inh inhalation DAILY COPD 09/06/22 09/06/22 mcg/actuation mist for inhalation (Stiolto Respimat) Previous Rx's Medication Instructions Recorded memantine 10 mg tablet 10 mg PO BID MEMORY 90 days #180 03/26/22 tabs gabapentin 300 mg capsule 300 mg PO QID nerve pain #120 caps 07/13/22 Allergies Allergy/AdvReac Type Severity Reaction Status Date / Time naproxen [NAPROXEN] Allergy Unknown NA-NAUSEA/V Verified 09/04/22 10:26 OMITING PFSH PFSH Medical History Congestive heart failure Diabetes mellitus, type 2 Emphysema/COPD Hyperlipidemia Hypertension Prostate cancer Surgical History H/O radical prostatectomy History of cholecystectomy History of knee replacement Family History Family history of diabetes mellitus type II Family history of myocardial infarction Social History Smoking Status: Former smoker second hand exposure: No alcohol intake: never substance use type: denies use current occupational status: other Travel in the last 8 weeks: None
--- NOTE | 2022-09-06 11:33 | PC.NURSE ---
RESPIRATORY AT BEDSIDE TO COLLECT ABG
--- NOTE | 2022-09-06 11:35 | PC.NURSE ---
XR AT BEDSIDE
--- NOTE | 2022-09-06 11:37 | CT_ITS ---
PROCEDURE INFORMATION: Exam: CT Head Without Contrast Exam date and time: 09/06/2022 12:39 PM Age: 77 years old Clinical indication: Altered mental status/memory loss; Confusion or disorientation; Additional info: AMS TECHNIQUE: Imaging protocol: Computed tomography of the head without contrast. Radiation optimization: All CT scans at this facility use at least one of these dose optimization techniques: automated exposure control; mA and/or kV adjustment per patient size (includes targeted exams where dose is matched to clinical indication); or iterative reconstruction. COMPARISON: CT HEAD/BRAIN WO CON 10/08/2020 9:33 AM FINDINGS: Brain: Symmetric prominence of the cortical sulci. Prominent small-vessel ischemic change including bilateral basal ganglia lacunar infarcts, several which were also present on the previous study. If an acute lacunar infarct is of clinical concern, MRI may be of benefit for further evaluation, as clinically indicated. Vascular and dural calcifications. No acute cortical infarct, mass effect, or intracranial hemorrhage Cerebral ventricles: Stable configuration of the ventricles. Paranasal sinuses: 14 mm polypoid lesion in the right maxillary sinus. Mastoid air cells: Partial opacification of right mastoid air cells, which was also present on the previous study. Bones/joints: No acute calvarial pathology. Soft tissues: Unremarkable soft tissues. IMPRESSION: Stable appearance of the brain with prominent small-vessel ischemic change.
[2022-09-06 11:38] LABS: Coronavirus 19, PCR Not Detected (NotDetected); Influenza A, PCR Not Detected (NotDetected); Influenza B, PCR Not Detected (NotDetected)
[2022-09-06 11:38] LABS: Microscopic, Urine URINE MICROSCOPIC (MICROSCOPIC)
[2022-09-06 11:43] LABS: Basophils # 0.1 K/mm3 (0-0.2); Basophils % 0.4 % (0.1-2.0); Chloride 101 mmol/L (98-107); Eosinophils % 0.1 % (0.1-12.0); Hematocrit 38.5 % (42.0-52.0); Hemoglobin 12.3 g/dL (14.1-18.0); Lymphocytes # 0.8 K/mm3 (0.7-4.5); Lymphocytes % 6.7 % (10-50); Mean Corpuscular HGB Conc 31.9 g/dL (31.8-35.4); Mean Corpuscular Hemoglobin 27.1 pg (27.0-31.2); Mean Corpuscular Volume 85.1 fl (80-94); Mean Platelet Volume 8.7 fl (7.4-10.4); Monocytes # 0.5 K/mm3 (0.1-1.0); Monocytes % 3.9 % (1.7-9.3); Neutrophils % 88.9 % (37.0-80.0); Platelet Count 201 K/mm3 (142-424); Potassium 3.9 mmoL/L (3.5-5.1); Red Blood Count 4.52 M/mm3 (4.60-6.20); Red Cell Distribution Width 18.9 % (11.5-17.5); Sodium 141 mmol/L (136-145); White Blood Count 12.4 K/mm3 (4.8-10.8)
[2022-09-06 11:44] LABS: Appearance,Urine CLEAR (Clear); Bilirubin,Urine Negative (Negative); Blood, Urine TRACE-I (Negative); Color,Urine YELLOW (Yellow); Glucose,Urine (UA) 3+ (Negative); Ketones,Urine Negative (Negative); Leukocyte Esterase,Urine Negative (Negative); Nitrate,Urine Negative (Negative); Protein,Urine TRACE (Negative); Specific Gravity, Urine 1.015 (1.005-1.030); Urobilinogen,Urine 0.2 EU/dl (0.2)
[2022-09-06 11:46] LABS: Alanine Aminotransferase 18 U/L (12-78); Albumin Level 3.9 g/dl (3.5-5.0); Albumin/Globulin Ratio 1.6 (1.1-1.8); Alkaline Phosphatase 101 U/L (38-126); Anion Gap 13.9 mEq/L (5-15); Aspartate Amino Transferase 26 U/L (17-59); Bilirubin,Total 0.3 mg/dl (0.2-1.3); Blood Urea Nitrogen 25 mg/dl (9-20); Calcium 9.6 mg/dl (8.4-10.2); Carbon Dioxide 30 mmol/L (22.0-30.0); Creatinine Clearance Estimated 47 mL/min (50-200); Estimated Glomerular Filt Rate 58 ml/min (>60); GFR (African American) 71 ML/MIN (>60); Globulin 2.5 g/dL (1.3-3.2); Glucose 157 mg/dl (74-100); Total Protein,Serum 6.4 g/dl (6.3-8.2)
[2022-09-06 11:48] LABS: Lactic Acid 1.5 mmol/L (0.7-2.1)
[2022-09-06 11:50] LABS: MANUAL DIFFERENTIAL MANUAL DIFFERENTIAL (MANUAL DIFF)
[2022-09-06 11:56] LABS: NT Pro Brain Natriuretic Pep. 1990 pg/mL (0-450)
[2022-09-06 11:59] LABS: Troponin I 0.03 ng/ml (0.00-0.034)
[2022-09-06 12:02] LABS: RBC,Urine Occasional #/hpf (0-3); WBC,Urine Occasional #/hpf (0-3)
--- NOTE | 2022-09-06 12:03 | ECG_ITS ---
APPROVED REPORT Exam: Resting ECG HR:67 bpm ECG Measurements Heart Rate 67 AXES IL 205 P 18 QRSd 95 QRS 51 QT 410 T 38 QTc 426 Conclusion SINUS RHYTHM WITH OCCASIONAL SUPRAVENTRICULAR PREMATURE COMPLEXES BORDERLINE ECG UNCONFIRMED REPORT Electronically signed by : Mitchel Briceno MD 09/06/2022 20:49:07
[2022-09-06 12:05] LABS: Eosinophils % 1 % (0-3); Hypochromasia 1+; Lymphocytes % 10 % (10-50); Monocytes % 2 % (2-9); Neutrophils % 86 % (42-76); Ovalocytes 1+; Platelet Estimate Normal; Total Cells Counted 100
--- NOTE | 2022-09-06 12:32 | PC.NURSE ---
PT TO CT AT THIS TIME VIA STRETCHER
--- NOTE | 2022-09-06 12:49 | PC.NURSE ---
PT RETURNED FROM CT
--- NOTE | 2022-09-06 12:54 | PC.NURSE ---
ROUNDED ON PT, SLEEPING SOUNDLY. AT BEDSIDE
--- NOTE | 2022-09-06 13:40 | PC.NURSE ---
DR. OVERTON AT BEDSIDE TO UPDATE ON POC
--- NOTE | 2022-09-06 13:56 | PC.NURSE ---
DR. OVERTON SPEAKING WITH DR. SUH
--- NOTE | 2022-09-06 14:09 | EXP.HP ---
History of Present Illness *Admission Date: 09/06/22 *Reason for visit:: Would not wake up, somnolent *History of present illness: 77-year-old male with history of MARCELLA, COPD, CHF, chronic pain (pain pump in place) who presented with his to the hospital via EMS as she reports he would not wake up this morning and she could not get him to respond to her. Unable to obtain history from patient. states that he has not been feeling well over the weekend with some minor chills, increased weakness yesterday and a mild cough. No increased oxygen requirement, confusion, lethargy yesterday. Denies any eben fever. Denies nausea, vomiting, shortness of breath. This morning when she went to wake him up he would not wake up or respond to her. Sleeps with a BiPAP every night and uses 2-1/2 L of oxygen, otherwise not oxygen dependent during the day. Garcia episode of pneumonia almost a year ago. On presentation patient was found to be hypotensive with an elevated white count and fever along with concern for pneumonia on x-ray. Hypotension did not respond to fluid resuscitation, initiated on Levophed drip in the ER. Medicine consulted for admission for septic shock. On evaluation, patient's map above 65 on Levophed drip. Remains bradycardic with heart rate in the 50s. Improved saturations in the high 90s. Upon palpating his abdomen he opened his eyes briefly and followed direction to cough after multiple prompts. adds that his symptoms began after having his pain pump refilled last Wednesday. He just seemed more weak per her report. Of note, patient sees cardiology. History of heart surgery. Echo obtained in February of this year with ejection fraction 55-60%. Septal translation consistent with prior cardiac surgery. Diastolic function is normal. [facility] Medical History Congestive heart failure Diabetes mellitus, type 2 Emphysema/COPD Hyperlipidemia Hypertension Prostate cancer Surgical History H/O radical prostatectomy History of cholecystectomy History of knee replacement Family History Family history of diabetes mellitus type II Family history of myocardial infarction Social History Smoking Status: Former smoker second hand exposure: No alcohol intake: never substance use type: denies use current occupational status: other Travel in the last 8 weeks: None household members: spouse housing: house current occupational exposures/hazards: No caffeine: Yes Review of Systems Review of Systems Review of systems (narrative): 14 point review of systems performed, pertinent positives and negatives as per HPI, obtained from Meds Home Medications and Allergies Home Medications Medication Instructions Recorded Confirmed Type aspirin 81 mg tablet,delayed 81 mg PO DAILY HEART HEALTH 12/24/17 09/06/22 History release atorvastatin 80 mg tablet 80 mg PO DAILY Cholesterol 12/24/17 09/06/22 History gemfibrozil 600 mg tablet 600 mg PO BID Cholesterol 12/24/17 09/06/22 History metformin 1,000 mg tablet 1,000 mg PO BIDWMEAL Diabetes 12/24/17 09/06/22 History metoprolol succinate 25 mg 25 mg PO DAILY Hypertension 12/24/17 09/06/22 History tablet,extended release 24 hr tamsulosin 0.4 mg capsule 0.4 mg PO DAILY PROSTATE 12/24/17 09/06/22 History duloxetine 60 mg capsule,delayed 60 mg PO DAILY Depression 11/18/20 09/06/22 History release furosemide 40 mg tablet 40 mg PO DAILYP PRN Edema 11/18/20 09/06/22 History insulin glargine U-300 conc 300 90 unit SQ DAILY Diabetes 11/18/20 09/06/22 History unit/mL (1.5 mL) subcutaneous pen morphine 10 mg/mL injection 2.35 mg IT CONT chronic pain 06/16/21 09/06/22 History solution albuterol sulfate 90 mcg/actuation 1 puff inhalation QIDP PRN 02/28/22 09/06/22 H
--- NOTE | 2022-09-06 14:29 | PC.NURSE ---
DR SUH AT BS
[2022-09-06 14:33] LABS: Hemoglobin A1C 7.3 % (4.0-6.0)
--- NOTE | 2022-09-06 14:35 | PC.NURSE ---
LEVOFED INCREASED TO 8MCG AT THIS TIME 84/42, REPEAT B/P 94/45
--- NOTE | 2022-09-06 14:42 | PC.NURSE ---
REPORT GIVEN TO NIKOLAI CHOPRA RN
--- NOTE | 2022-09-06 14:49 | HMH.PHAINT1 ---
Pharmacy Intervention Comments: MEdication reconciliation completed via external fill history, chart review, and patient interview. -Avril Torres, PharmD Candidate 2022
--- NOTE | 2022-09-06 15:08 | PC.NURSE ---
PT BEING TRANSPORTED UP FOR ADMISSION
--- NOTE | 2022-09-06 17:31 | EXP.SEPSISRE ---
[facility] Tissue Perfusion Eval Sepsis Re-Evaluation Performed: Yes Date Performed: 09/06/22 Time Performed: 15:10
[2022-09-06 18:10] LABS: POC Glucose,Bedside 113 (70-110)
--- NOTE | 2022-09-06 18:13 | PC.NURSE ---
lactated ringers bolus given but wont scan or document
--- NOTE | 2022-09-06 18:32 | PC.NURSE ---
Patient deep suctioned by RT once on floor. Patient responsive to touch but unable to stay awake and confused to place, situation, and time. FSBS 113, metformin not given as patient not able to stay awake and swallow. Insulin not given as parameters not met. Levophed drip weaned off as patient was awake and talking at 1800. VS stable and oxygen weaned to 3LNC. Patient still confused to time and situation but alert to self, able to drink, and follow commands. Fluid bolus started. No other needs at this time.
--- NOTE | 2022-09-06 20:58 | PC.NURSE ---
1999 sbp and map have been stable, levo on hold at this time
[2022-09-07] VITALS (14 sets, daily range): BP systolic 106–146; BP diastolic 44–78; PULSE 58–81; RESP 13–25; TEMP 36.8–37.4; O2SAT 91–97; BMI 25.4; BMI 25.3
--- NOTE | 2022-09-07 06:05 | PC.NURSE ---
fs this am was 47, notified DINAH Love, instructed to give D50 per order
[2022-09-07 06:28] LABS: Monocytes # 0.3 K/mm3 (0.1-1.0); Platelet Count 158 K/mm3 (142-424)
[2022-09-07 06:34] LABS: Alanine Aminotransferase 12 U/L (12-78); Albumin Level 3.2 g/dl (3.5-5.0); Albumin/Globulin Ratio 1.3 (1.1-1.8); Alkaline Phosphatase 81 U/L (38-126); Anion Gap 9.4 mEq/L (5-15); Aspartate Amino Transferase 24 U/L (17-59); Bilirubin,Total 0.3 mg/dl (0.2-1.3); Blood Urea Nitrogen 20 mg/dl (9-20); Calcium 8.9 mg/dl (8.4-10.2); Carbon Dioxide 28 mmol/L (22.0-30.0); Chloride 103 mmol/L (98-107); Creatinine Clearance Estimated 61 mL/min (50-200); Estimated Glomerular Filt Rate 72 ml/min (>60); GFR (African American) 87 ML/MIN (>60); Globulin 2.4 g/dL (1.3-3.2); Magnesium 1.5 mg/dl (1.6-2.3); Potassium 3.4 mmoL/L (3.5-5.1); Sodium 137 mmol/L (136-145); Total Protein,Serum 5.6 g/dl (6.3-8.2)
[2022-09-07 06:41] LABS: Basophils % 0.4 % (0.1-2.0); Eosinophils % 0.5 % (0.1-12.0); Hematocrit 32.9 % (42.0-52.0); Lymphocytes # 1.4 K/mm3 (0.7-4.5); Lymphocytes % 19.4 % (10-50); Mean Corpuscular Hemoglobin 27.2 pg (27.0-31.2); Mean Corpuscular Volume 85.1 fl (80-94); Mean Platelet Volume 8.8 fl (7.4-10.4); Monocytes % 3.7 % (1.7-9.3); Neutrophils # 5.3 K/mm3 (1.8-7.8); Neutrophils % 76.1 % (37.0-80.0); Red Blood Count 3.86 M/mm3 (4.60-6.20); Red Cell Distribution Width 18.9 % (11.5-17.5)
[2022-09-07 06:48] LABS: Glucose 44 mg/dl (74-100)
--- NOTE | 2022-09-07 06:53 | PC.NURSE ---
notified megha perez of critical glucose of 44 that lab called, RN had already treated low glucose and rechecked fs after D50 given and fs was 109, no new orders at this time
[2022-09-07 06:56] LABS: POC Glucose,Bedside 109 (70-110)
[2022-09-07 06:56] LABS: POC Glucose,Bedside 77 (70-110)
[2022-09-07 07:24] LABS: Hemoglobin 10.5 g/dL (14.1-18.0)
[2022-09-07 08:22] LABS: ABG Base Excess -0.5 mmol/L (-2.4-2.3); ABG HCO3 24.6 mmhg (22.0-26.0); ABG PCO2 42.2 mmhg (35.0-45.0); ABG PH 7.38 mmol/L (7.35-7.45); ABG PO2 53.5 mmhg (80-100); ABG TCO2 25.9 mmhg (23-27)
[2022-09-07 08:23] LABS: ABG Oxygen Saturation 86 % (90-100); Allen's Test ACCEPTABLE; Oxygen 2 LPM %; Source Left Radial
--- NOTE | 2022-09-07 11:56 | EXP.PULM.CON ---
History of Present Illness History of present illness: Mr. Haynes is a pleasant 77-year-old male Prior smoker greater than 45-[id number] smoker to following in pulmonary clinic for COPD on LABA-LAMA inhalers presented to the hospital with AMS and worsening hypoxic resp failure associated with cough and CXR showed pneumonia and pulmonary was called for further management. [facility] Medical History (Updated 09/07/22 @ 12:03 by Brittaney Suarez MD) Congestive heart failure Diabetes mellitus, type 2 Emphysema/COPD Hyperlipidemia Hypertension Pneumonia Prostate cancer Surgical History H/O radical prostatectomy History of cholecystectomy History of knee replacement Family History (Reviewed 09/06/22 @ 17: by Biju Lanier MD) Family history of diabetes mellitus type II Family history of myocardial infarction Social History Smoking Status: Former smoker second hand exposure: No alcohol intake: never substance use type: denies use current occupational status: other Travel in the last 8 weeks: None household members: spouse housing: house current occupational exposures/hazards: No caffeine: Yes Review of Systems Constitutional Constitutional: Reports anorexia, Reports body ache(s) and Reports fatigue Eyes Eyes: Denies eye discharge, Denies dry eyes, Denies irritation and Denies itchy eyes ENT Ears, Nose, Mouth, and Throat: Denies epistaxis, Denies facial pain, Denies lip swelling and Denies throat swelling *Cardiovascular Cardiovascular: Reports dyspnea and Reports dyspnea on exertion *Respiratory Respiratory: Reports chest congestion, Reports cough, Reports dyspnea, Reports dyspnea on exertion, Reports excessive phlegm production and Reports wheezing *Gastrointestinal Gastrointestinal: Denies abdominal pain, Denies belching and Denies cramping *Musculoskeletal Musculoskeletal: Reports back pain, Reports myalgias and Reports other (No small joint swelling or Pain) Psychiatric Psychiatric: Denies homicidal ideation and Denies suicidal ideation Endocrine Endocrine: Reports fatigue and Denies heat intolerance Hematologic/Lymphatic Hematologic/Lymphatic: Denies easy bleeding and Denies lymphadenopathy Allergic/Immunologic Allergic/Immunologic: Denies itchy eyes, Denies lip swelling, Denies throat swelling and Reports wheezing Pulmonology Exam Inpatient Vital signs and Labs for Last 24 Hours: Temp Pulse Resp BP Pulse Ox FiO2 98.3 F 60 22 123/67 97 32 09/07/22 04:00 09/07/22 10:00 09/07/22 10:00 09/07/22 10:00 09/07/22 10:00 09/06/22 20:30 Laboratory Results - last 24 hr 09/06/22 10:55: Total Counted 100, Neutrophils % (Manual) 86 H, Band Neutrophils % 1.0, Lymphocytes % (Manual) 10, Monocytes % (Manual) 2, Eosinophils % (Manual) 1, Platelet Estimate Normal, Hypochromasia 1+, Ovalocytes 1+ 09/06/22 10:55: Troponin I 0.03, NT-Pro-B Natriuret Pep 1990 H 09/06/22 10:55: Hemoglobin A1c 7.3 H 09/06/22 11:02: SARS-CoV-2 (PCR) Not detected, Influenza A Untype (PCR) Not detected, Influenza Type B (PCR) Not detected 09/06/22 11:12: Urine RBC Occasional, Urine WBC Occasional, Ur Squamous Epith Cells None, Urine Bacteria None 09/06/22 11:20: Specimen Source Left radial, O2 % 2 lpm, ABG pH 7.38, ABG pCO2 42.2, ABG pO2 53.5 L, ABG HCO3 24.6, ABG Total CO2 25.9, ABG O2 Saturation 86 L*, ABG Base Excess -0.5, Raul Test Acceptable 09/06/22 17:01: POC Glucose 113 H 09/06/22 21:41: POC Glucose 77 09/07/22 05:40: WBC 7.0 D, RBC 3.86 L, Hgb 10.5 L D, Hct 32.9 L, MCV 85.1, MCH 27.2, MCHC 32.0, RDW 18.9 H, Plt Count 158, MPV 8.8, Neut % (Auto) 76.1, Lymph % (Auto) 19.4, [place] % (Auto) 3.7, Eos % (Auto) 0.5, Baso % (Auto) 0.4, Neut # (Auto) 5.3, Lymph # (Auto) 1.4, [place] # (Auto) 0.3, Eos # (Auto) 0.0, Baso # (Auto) 0.0 09/07/22 05:40: Sodium 137, Potassium 3.4 L, Chloride 103, Carbon Dioxide 28, Anion Gap 9.4, BUN 20, Creat
--- NOTE | 2022-09-07 13:56 | EXP.ACUTE.PN ---
Subjective *Date: 09/07/22 *Time: 13:56 Interval history: Patient showed significant improvement since admission. Noted to have hypoglycemia overnight without any insulin. Tolerating breakfast. Stable on 2 L nasal cannula. Denies any chest pain, shortness of breath, nausea or vomiting. Having moderate cough. Afebrile and hemodynamically stable. Has been off of Levophed for over 12 hours. Medical Exam Vital signs and Labs for Last 24 Hours: Vital Signs Temp Pulse Pulse Resp BP BP Pulse Ox 09/07/22 11:58 98.4 F 66 16 128/71 96 09/07/22 10:00 60 22 123/67 97 09/07/22 08:00 95 09/07/22 08:00 71 22 118/65 95 09/07/22 07:45 69 95 09/07/22 04:00 73 09/07/22 06:00 63 17 112/47 L 94 L 09/07/22 04:00 98.3 F 09/07/22 04:00 71 13 108/44 L 94 L 09/07/22 00:00 68 09/06/22 20:00 60 09/07/22 02:00 74 13 118/48 L 93 L 09/06/22 22:00 57 L 22 140/47 L 98 09/07/22 00:00 75 25 H 106/46 L 94 L 09/07/22 00:00 96 09/07/22 00:00 99.3 F 09/06/22 20:00 62 17 106/45 L 93 L 09/06/22 20:00 100.7 F H 09/06/22 20:30 09/06/22 18:00 70 21 129/56 L 96 09/06/22 17:30 77 20 119/70 95 09/06/22 17:00 68 21 120/55 L 91 L 09/06/22 16:30 69 20 139/52 L 97 09/06/22 16:15 53 L 19 92/42 L 92 L 09/06/22 15:45 61 19 106/47 L 5 L 09/06/22 18:30 60 19 121/51 L 90 L 09/06/22 15:27 48 L 18 152/61 H 92 L 09/06/22 15:41 98.4 F 09/06/22 15:10 100.5 F H 70 18 121/58 L FiO2 09/07/22 11:58 09/07/22 10:00 09/07/22 08:00 09/07/22 08:00 09/07/22 07:45 09/07/22 04:00 09/07/22 06:00 09/07/22 04:00 09/07/22 04:00 09/07/22 00:00 09/06/22 20:00 09/07/22 02:00 09/06/22 22:00 09/07/22 00:00 09/07/22 00:00 09/07/22 00:00 09/06/22 20:00 09/06/22 20:00 09/06/22 20:30 32 09/06/22 18:00 09/06/22 17:30 09/06/22 17:00 09/06/22 16:30 09/06/22 16:15 09/06/22 15:45 09/06/22 18:30 09/06/22 15:27 09/06/22 15:41 09/06/22 15:10 Intake and Output 09/06/22 09/07/22 09/07/22 23:59 07:59 15:59 Intake Total 21.094 / 86.254 60 / 420 360 / 420 Output Total 175 / 1275 1100 / 1275 Balance 21.094 / -43.746 -115 / -855 -740 / -855 Intake: Intake, Oral Amount 60 / 420 360 / 420 Intake, Total IV Amount 21.094 / 26.254 Norepinephrine Bitartrate 8 mg 10 / 10 In Dextrose 5 % in Water 250 ml @ 2 MCG/MIN 3.87 mls/hr IV . Q24H [facility] Rx#:[id number] Output: Output, Urine Amount 175 / 1275 1100 / 1275 Other: Number of Unmeasured Voids 0 0 0 Weight 71.753 kg Patient Weight 09/07/22 23:59 Weight 71.753 kg Laboratory Results - last 24 hr 09/06/22 10:55: Hemoglobin A1c 7.3 H 09/06/22 11:20: Specimen Source Left radial, O2 % 2 lpm, ABG pH 7.38, ABG pCO2 42.2, ABG pO2 53.5 L, ABG HCO3 24.6, ABG Total CO2 25.9, ABG O2 Saturation 86 L*, ABG Base Excess -0.5, Raul Test Acceptable 09/06/22 17:01: POC Glucose 113 H 09/06/22 21:41: POC Glucose 77 09/07/22 05:40: WBC 7.0 D, RBC 3.86 L, Hgb 10.5 L D, Hct 32.9 L, MCV 85.1, MCH 27.2, MCHC 32.0, RDW 18.9 H, Plt Count 158, MPV 8.8, Neut % (Auto) 76.1, Lymph % (Auto) 19.4, [place] % (Auto) 3.7, Eos % (Auto) 0.5, Baso % (Auto) 0.4, Neut # (Auto) 5.3, Lymph # (Auto) 1.4, [place] # (Auto) 0.3, Eos # (Auto) 0.0, Baso # (Auto) 0.0 09/07/22 05:40: Sodium 137, Potassium 3.4 L, Chloride 103, Carbon Dioxide 28, Anion Gap 9.4, BUN 20, Creatinine 1.00, Estimated Creat Clear 61, Estimated GFR 72, Est GFR ( Amer) 87 D, Glucose 44 L D, Calcium 8.9, Magnesium 1.5 L, Total Bilirubin 0.3, AST 24, ALT 12 D, Alkaline Phosphatase 81, Total Protein 5.6 L, Albumin 3.2 L D, Globulin 2.4, Albumin/Globulin Ratio 1.3 09/07/22 06:50: POC Glucose 109 I & O for Labs for Last 24 Hours: Intake & Output 09/04/22 09/05/22 09/06/22 09/07/22 23
[2022-09-08] VITALS (9 sets, daily range): BP systolic 136–152; BP diastolic 61–85; PULSE 60–88; RESP 16–18; TEMP 36.9–37.1; O2SAT 91–96; BMI 24.5
[2022-09-08 00:03] LABS: POC Glucose,Bedside 145 (70-110)
--- NOTE | 2022-09-08 05:00 | PC.NURSE ---
pt awake watching tv most of night, stated he could not sleep, pt was alert and oriented to name, place, , year this am, pt voiding without difficulty, telemtry reveals nsr, pt on room air most of night with 02 sats 92-93%, no acute distress, vss, no other issues or concerns at this time.
[2022-09-08 06:15] LABS: Anion Gap 14.7 mEq/L (5-15); Blood Urea Nitrogen 16 mg/dl (9-20); Calcium 9.3 mg/dl (8.4-10.2); Carbon Dioxide 29 mmol/L (22.0-30.0); Chloride 101 mmol/L (98-107); Creatinine Clearance Estimated 59 mL/min (50-200); Estimated Glomerular Filt Rate 72 ml/min (>60); GFR (African American) 87 ML/MIN (>60); Glucose 77 mg/dl (74-100); Potassium 3.7 mmoL/L (3.5-5.1); Sodium 141 mmol/L (136-145)
[2022-09-08 06:20] LABS: Basophils % 0.5 % (0.1-2.0); Eosinophils % 0.7 % (0.1-12.0); Hematocrit 33.4 % (42.0-52.0); Hemoglobin 10.8 g/dL (14.1-18.0); Lymphocytes # 1.2 K/mm3 (0.7-4.5); Lymphocytes % 26.7 % (10-50); Mean Corpuscular HGB Conc 32.4 g/dL (31.8-35.4); Mean Corpuscular Hemoglobin 27.2 pg (27.0-31.2); Mean Platelet Volume 8.1 fl (7.4-10.4); Monocytes # 0.3 K/mm3 (0.1-1.0); Monocytes % 5.9 % (1.7-9.3); Neutrophils # 2.9 K/mm3 (1.8-7.8); Neutrophils % 66.3 % (37.0-80.0); Platelet Count 158 K/mm3 (142-424); Red Blood Count 3.98 M/mm3 (4.60-6.20); Red Cell Distribution Width 18.7 % (11.5-17.5); White Blood Count 4.3 K/mm3 (4.8-10.8)
[2022-09-08 08:11] LABS: Hemoglobin A1C 7.1 % (4.0-6.0)
--- NOTE | 2022-09-08 09:50 | HMH.OTEV ---
OT Inpatient Evaluation Rehab OT IP Evaluation Start: 09/08/22 08:14 Freq: ONCE Status: Complete Protocol: [facility] 09[facility]08/22 09:44 [facility] (Rec: 09/08/22 09:50 [facility] [id number]) Rehab OT IP Assessment Subjective History Pt oriented x 4 on arrival. Pt agreeable to engage in therapy evaluation. Pt's present and supportive. Pt was admitted via ED on due to being non-responsive possibly from low blood sugar . Prior to being in the hospital, pt lived at home with his . is normally with patient 10/05. Pt claims he was independent with dressing, bathing, and feeding. However, he was dependent upon his for completion of all IADLs. Pt does use a cane during ambulation. Pt has a past medical history of: Congestive heart failure Diabetes mellitus, type 2 Emphysema/COPD Hyperlipidemia Hypertension Prostate cancer Subjective I feel much better today. Objective Patient Orientation Person,Place,Birthday Upper Extremity Gross ROM WFL Bed Mobility bed mobility-scooting,bed mobility - supine/sit,bed mobility - rolling Assist Level Supervision/Stand by Transfer Training Sit/Stand Transfer Assist Level Supervision/Stand by Chair Transfer Ability Supervision/Stand by Chair Transfer Technique Sit to/from Ambulatory Chair Transfer Assistive Devices Straight Cane Lower Body Dressing Ability Standby Assistance Performing Toilet Hygiene Ability Standby Assistance Overall Commode/Toilet Transfer Ability Standby Assistance Commode/Toilet Transfer Technique Sit to/from Ambulatory Rehab OT IP prob,goals,plan Problems Date of Evaluation: 09/08/22 Rehab Potential Rehab Potential Innapropriate for Skilled Therapy Discharge Plan OT Discharge Plan Pt is going to be discharged home today with . He is safe to return home with wifes
--- NOTE | 2022-09-08 10:03 | HMH.PTEV ---
Physical Therapy Evaluation Rehab PT IP Evaluation Start: 09/08/22 08:12 Freq: ONCE Status: Active Protocol: Document 09/08/22 10:00 HEMANT (Rec: 09/08/22 10:02 [facility]EM[facility] Desktop) Subjective/History History History 77-year-old male with history of MARCELLA, COPD, CHF, chronic pain (pain pump in place) who presented with his to the hospital via EMS as she reports he would not wake up this morning and she could not get him to respond to her. Unable to obtain history from patient. states that he has not been feeling well over the weekend with some minor chills, increased weakness yesterday and a mild cough. No increased oxygen requirement, confusion, lethargy yesterday. Denies any eben fever. Denies nausea, vomiting, shortness of breath. This morning when she went to wake him up he would not wake up or respond to her. Sleeps with a BiPAP every night and uses 2-1/2 L of oxygen, otherwise not oxygen dependent during the day. Garcia episode of pneumonia almost a year ago. On presentation patient was found to be hypotensive with an elevated white count and fever along with concern for pneumonia on x-ray. Hypotension did not respond to fluid resuscitation, initiated on Levophed drip in the ER. Medicine consulted for admission for septic shock . Copied from H&P Subjective Subjective Pt has no complaints - alert in bed upon entering room Rehab PT IP Eval Objective Appearance Patient Behavior Appropriate,Cooperative Patient Orientation Place,Name,Birthday,Year, Situation Difficulty following instructions none Speech Pattern
--- NOTE | 2022-09-08 10:11 | EXP.PULM.PN ---
Subjective *Date: 09/08/22 *Time: 12:08 Interval history: No acute respiratory vents overnight. Patient admits continued improvement in his respiratory symptoms. Pulmonology Exam Inpatient Vital signs and Labs for Last 24 Hours: Temp Pulse Resp BP Pulse Ox FiO2 98.8 F 76 18 136/61 92 L 32 09/08/22 08:00 09/08/22 08:00 09/08/22 08:00 09/08/22 08:00 09/08/22 08:00 09/06/22 20:30 Laboratory Results - last 24 hr 09/07/22 17:30: POC Glucose 145 H 09/08/22 05:22: WBC 4.3 L D, RBC 3.98 L, Hgb 10.8 L, Hct 33.4 L, MCV 84.0, MCH 27.2, MCHC 32.4, RDW 18.7 H, Plt Count 158, MPV 8.1, Neut % (Auto) 66.3, Lymph % (Auto) 26.7, [place] % (Auto) 5.9, Eos % (Auto) 0.7, Baso % (Auto) 0.5, Neut # (Auto) 2.9, Lymph # (Auto) 1.2, [place] # (Auto) 0.3, Eos # (Auto) 0.0, Baso # (Auto) 0.0 09/08/22 05:22: Sodium 141, Potassium 3.7, Chloride 101, Carbon Dioxide 29, Anion Gap 14.7, BUN 16, Creatinine 1.00, Estimated Creat Clear 59, Estimated GFR 72, Est GFR ( Amer) 87, Glucose 77 D, Calcium 9.3 09/08/22 05:22: Hemoglobin A1c 7.1 H I & O for Labs for Last 24 Hours: Intake & Output 09/05/22 09/06/22 09/07/22 09/08/22 23:59 23:59 23:59 23:59 Intake Total 26.254 / 86.254 420 / 420 420 / 420 Output Total 130 / 130 3600 / 3600 1375 / 1375 Balance -103.746 / -43.746 -3180 / -3180 -955 / -955 Weight 146 lb 8 oz 157 lb 10.088 oz 152 lb 7 oz Microbiology Reports for the Last 24 Hours: Microbiology 09/06/22 19:50 Sputum - Expectorated Sputum Gram Stain - Final 09/06/22 19:50 Sputum - Expectorated Sputum Sputum Culture - Preliminary Gram Negative Rods Constitutional: Present no acute distress Head: Present normocephalic and atraumatic ENT: Present normal exam, normal oropharynx and mucous membranes moist Neck: Present normal inspection and full ROM Respiratory: Present able to speak in complete sentences; Absent respiratory distress, wheezes or crackles Cardiac: Present S1/S2, Tachycardia and radial pulses present GI: Present soft and distention; Absent tenderness or guarding Skin: Present intact; Absent cyanosis or jaundice Neuro: Present alert, awake and oriented x 3 Extremities: Present normal inspection; Absent clubbing or cyanosis Psychiatric: Present normal affect and cooperative Assessment and Plan *Assessment and plan (1) Pneumonia: Status: Acute Qualifiers: Laterality: right Lung location: lower lobe of lung Pneumonia type: due to unspecified organism Qualified Code(s): J18.9 - Pneumonia, unspecified organism Category: Medical Code(s): J18.9 - Pneumonia, unspecified organism Plan #Right lower lobe pneumonia: 87-year-old history of COPD on dual inhaler therapy. Present with altered mentation. Chest x-ray showed right lower lobe pneumonia. Sputum: Showing gram-negative rods moderate growth. On 3 L This morning. Mild respiratory distress chest clear to auscultation for predominant right lower lobe rhonchi. Initiated on ceftriaxone and azithromycin. Leukocytosis improving. ABG on admission did not show any hypercarbic respiratory failure. Showed hypoxic respiratory failure. Blood glucose on admission 44. Other derangements including hypokalemia and hypomagnesemia, managed by primary team. Plan: -Continue levofloxacin to complete a total of 5-day course. -Continue DuoNebs every 6 scheduled. Can be discharged home inhaler therapy which include Stiolto. Please arrange nebulization machine upon discharge #Thank you for involving pulmonary in this patient care. F/U 3-4 weeks post discharge.
--- NOTE | 2022-09-08 13:14 | EXP.DC.SUM ---
General Admission date:: 09/06/22 Discharge date: 09/08/22 HPI HPI HPI: 77-year-old male with history of MARCELLA, COPD, CHF, chronic pain (pain pump in place) who presented with his to the hospital via EMS as she reports he would not wake up this morning and she could not get him to respond to her. Unable to obtain history from patient. states that he has not been feeling well over the weekend with some minor chills, increased weakness yesterday and a mild cough. No increased oxygen requirement, confusion, lethargy yesterday. Denies any eben fever. Denies nausea, vomiting, shortness of breath. This morning when she went to wake him up he would not wake up or respond to her. Sleeps with a BiPAP every night and uses 2-1/2 L of oxygen, otherwise not oxygen dependent during the day. Garcia episode of pneumonia almost a year ago. On presentation patient was found to be hypotensive with an elevated white count and fever along with concern for pneumonia on x-ray. Hypotension did not respond to fluid resuscitation, initiated on Levophed drip in the ER. Medicine consulted for admission for septic shock. On evaluation, patient's map above 65 on Levophed drip. Remains bradycardic with heart rate in the 50s. Improved saturations in the high 90s. Upon palpating his abdomen he opened his eyes briefly and followed direction to cough after multiple prompts. adds that his symptoms began after having his pain pump refilled last Wednesday. He just seemed more weak per her report. Of note, patient sees cardiology. History of heart surgery. Echo obtained in February of this year with ejection fraction 55-60%. Septal translation consistent with prior cardiac surgery. Diastolic function is normal. Hospital Course Hospital Course Hospital Course: Patient was admitted to medicine service for septic shock. Given 30 cc/kg bolus and then started on Levophed after remained hypotensive. Started on empiric antibiotics Ceftriaxone and azithromycin for community-acquired pneumonia given leukocytosis with left shift and fever with pneumonia of RLL. Pulmonology was consulted ABG showed hypoxic respiratory failure patient was started on BiPAP. Blood glucose on admission was 44 with other derangements including hypokalemia and hypomagnesemia. Electrolyte and glucose abnormalities were corrected. Patient had rapid clinical improvement and was transitioned to p.o. antibiotics. Patient states that he takes 90 units of Lantus as needed. It is believed that this was causing his hypoglycemia. Had episode of hypoglycemia without insulin. A1c returned 7.1. Due to risk of hypoglycemia and acceptable glucose control while inpatient, his injectable insulins were held until close follow-up with primary care physician could be obtained. Primary care evaluation scheduled for 09/09/2022. Patient was discharged with p.o. antibiotics Exam Data for Last 24 hours Vital signs and Labs for Last 24 Hours: Temp Pulse Resp BP Pulse Ox FiO2 98.4 F 60 17 148/85 H 96 32 09/08/22 11:45 09/08/22 11:45 09/08/22 11:45 09/08/22 11:45 09/08/22 11:45 09/06/22 20:30 Laboratory Results - last 24 hr 09/07/22 17:30: POC Glucose 145 H 09/08/22 05:22: WBC 4.3 L D, RBC 3.98 L, Hgb 10.8 L, Hct 33.4 L, MCV 84.0, MCH 27.2, MCHC 32.4, RDW 18.7 H, Plt Count 158, MPV 8.1, Neut % (Auto) 66.3, Lymph % (Auto) 26.7, [place] % (Auto) 5.9, Eos % (Auto) 0.7, Baso % (Auto) 0.5, Neut # (Auto) 2.9, Lymph # (Auto) 1.2, [place] # (Auto) 0.3, Eos # (Auto) 0.0, Baso # (Auto) 0.0 09/08/22 05:22: Sodium 141, Potassium 3.7, Chloride 101, Carbon Dioxide 29, Anion Gap 14.7, BUN 16, Creatinine 1.00, Estimated Creat Clear 59, Estimated GFR 72, Est GFR ( Amer) 87, Glucose 77 D, Calcium 9.3 09/08/22 05:22: Hemoglobin A1c 7.1 H I & O for Last 24 hours: Intake & Output 09/05/22 09/06/22 09/07/22 09/08/22 23:59 23:59 23:59 23:59 Intake Total 26.254 / 86.254 420 / 420 420 / 420 Output Total
--- NOTE | 2022-09-08 13:16 | CARE MANAGER ---
Patient discharging home today with services. Patient Choice signed for [facility] . Orders faxed.
--- NOTE | 2022-09-08 13:41 | P.CONPHA_ITS ---
Pharmacy Intervention Comments: Discharge counseling completed at bedside with patient and . Discussed new medication (levofloxacin), continued medications, and discontinued medications (insulin glargine). Overviewed indication for levofloxacin (pneumonia) and possible side effects/mitigation strategies. Patient verbalizes his un derstanding and has no questions or concerns at this time.
--- NOTE | 2022-09-08 15:15 | PC.NURSE ---
WAITING ON PTS FOR DC
[2022-09-08 21:38] LABS: POC Glucose,Bedside 85 (70-110)
--- NOTE | 2022-09-09 15:57 | CARE MANAGER ---
Left message for follow-up phone interview. No answer.
== END 2022-09-08 16:40 | disposition home or self-care (01) | DRG 871 ==
LOC: ER 14:00 → 2ND 14:21
PROVIDERS: Internal Medicine Adolescent Medicine; Nurse Practitioner Family; Admitting Provider Student in an Organized Health Care Education/Training Program; Emergency Provider Emergency Medicine; PCP Internal Medicine; Visit Provider Student in an Organized Health Care Education/Training Program
DX: A41.9 Sepsis, unspecified organism (principal); J15.0 Pneumonia due to Klebsiella pneumoniae; J96.01 Acute respiratory failure with hypoxia; R65.21 Severe sepsis with septic shock; J43.9 Emphysema, unspecified; I10 Essential (primary) hypertension; Z85.46 Personal history of malignant neoplasm of prostate; G89.29 Other chronic pain; E11.649 Type 2 diabetes mellitus with hypoglycemia without coma; Z79.4 Long term (current) use of insulin; E87.6 Hypokalemia; E83.42 Hypomagnesemia
CPT/HCPCS: 36415; 51702; 70450; 71045; 80048; 80053; 81001; 82803; 82962; 83036; 83605; 83735; 83880; 84484; 85007; 85025; 87040; 87070; 87077; 87186; 87205; 93005; 94640; 94760; 97161; 97166; 99291; C9803; J0456; J0696; U0003; U0005

== ENCOUNTER → 2022-09-29 13:36 | Outpatient (CLI) | payer MEDICARE, SELFPAY ==
[2022-09-29 13:55] LABS: ABG Base Excess 3.8 mmol/L (-2.4-2.3); ABG HCO3 29.3 mmhg (22.0-26.0); ABG Oxygen Saturation 86 % (90-100); ABG PH 7.36 mmol/L (7.35-7.45); ABG PO2 57.7 mmhg (80-100); ABG TCO2 30.9 mmhg (23-27)
[2022-09-29 14:01] LABS: Allen's Test Acceptable; Oxygen room air %; Source Right Brachial
[2022-09-29 14:02] LABS: ABG PCO2 53.5 mmhg (35.0-45.0)
== END ==
PROVIDERS: PCP Internal Medicine; Visit Provider Internal Medicine Pulmonary Disease
DX: J44.9 Chronic obstructive pulmonary disease, unspecified (principal)
CPT/HCPCS: 82803

== ENCOUNTER → 2022-10-19 06:55 | Outpatient (CLI) | payer MEDICARE, SELFPAY ==
--- NOTE | 2022-10-19 | CA_ITS ---
APPROVED REPORT Exam: Pharmacologic Technologist: Evita Forbes Ht: 5 ft 4 in Wt: 154 lbs BSA: 1.75 m2 Indications: Abnormal ekg Medical History Medications: Aspirin,,,,, Metoprolol,,,,, Metformin,,,,, Ferrous sulfate,,,,, Atorvastatin,,,,, TAMSULOSIN,,,,, Albuterol,,,,, DulOXETINE,,,,, Tiotropium [place],,,,, JaRDiance,,,,, Potassium,,,,, MeMAtine,,,,, Stress Test Details Test: LEXISCAN HR Resting HR: 66 bpm Max Heart Rate (APMHR): 141.929761 bpm Max HR Achieved: 76 bpm Target HR (85% APMHR): 119.740124 bpm % of APMHR: 53.90 Recovery HR: 66 bpm BP Resting BP: 145.0/62.0 mmHg Max BP: 145.0/62.0 mmHg ECG Clinical Exercise duration: 04:00 min Highest Stage Achieved: Exercise capacity: 1.0 METs Stress ECG Conclusion Symptoms: none Arrhythmias/Ectopy: PAC, PVC ST-T Changes: < 1.[address] changes Test Summary REST . . . . . . . Resting REST 13:00 . . 66 . 145/ 62 . . Stage 1 . . . . . . . Myoview Injected Stage 1 01:00 . . 58 . . . . Stage 2 01:00 . . 73 . 124/ 61 . . Stage 3 01:00 . . 68 . 132/ 61 . . Stage 4 01:00 . . 70 . 128/ 57 . Stop exercise at 04:00 RECOVERY 01:00 . . 67 . 136/ 62 . . RECOVERY 01:01 . . 69 . 136/ 62 . . Electronically signed by : Aamir Goff MD 10/20/2022 06:53:34
--- NOTE | 2022-10-19 06:56 | NM_ITS ---
APPROVED REPORT Exam: Nuclear Stress Test Indication: Abnormal EKG, CAD, CABG, HTN, DM, High cholesterol, Family history Patient Location: Outpatient Stress Tech: Evita Forbes [place] Tech:Jacqueline Raymond, ARRT, RT (R)(N) Ht: 5 ft 5 in Wt: 150 lbs HR: 66 bpm BP: 145/62 mmHg BSA: 1.75 m2 TID: 1.05 BMI: 24.9 History: Abnormal EKG, CAD, CABG, HTN, DM, High cholesterol, Family history Procedure: Patient received a 0.4 mg of intravenous Lexiscan, resting heart rate 66 bpm, resting blood pressure 145/62 mmHg, with Lexiscan maximum heart rate achived was 76 bpm which is Less than 85 % of the maximum predicted heart rate and blood pressure was 145/62 mmHg. With Lexiscan, patient denied any complaint of chest pain. Electrocardiogram Resting electrocardiogram shows sinus rhythm nonspecific ST-T changes, with Lexiscan there is less than 1.[address] segment depression noted from the baseline EKG. The EKG portion of the Lexiscan is nondiagnostic. Cardiac Stress and Resting SPECT Images: Cardiac Stress and Resting SPECT images were obtained using technetium 99m Myoview 31.6 mCi stress and 9.80 mCi at rest. Patient unable to lay on stomach for prone images. Gated SPECT for analysis of segmental wall motion and calculation of the ejection fraction also done. Cardiac stress and rest SPECT may show reversible ischemia involving the inferior wall, computer derived ejection fraction is 48% with no regional wall motion abnormality, right ventricle is mildly enlarged with normal contractility. Conclusion: 1. The EKG portion of the Lexiscan is nondiagnostic. 2. Scintigraphic evidence of reversible ischemia involving the inferior wall, computer derived ejection fraction of 48% with no regional wall motion abnormality, right ventricle is mildly enlarged with normal contractility. 3. Abnormal Lexiscan Myoview study. Electronically signed by : Aamir Goff MD 10/20/2022 06:57:46
--- NOTE | 2022-10-19 08:25 | HMH.ITSHM ---
Current Home Medications as stated by this patient Montana Haynes or customer operations representative. []TAMSULOSIN POTASSIUM METOPROLOL MEMANTINE LEVOFLOXACIN LANSOPRAZOLE GEMFIBROZIL GABAPENTIN FUROSEMIDE IRON DULOXETINE ATORVASTATIN ASA ALBUTEROL JARDIANCE
== END ==
PROVIDERS: PCP Internal Medicine; Visit Provider Internal Medicine
DX: I25.10 Atherosclerotic heart disease of native coronary artery without angina pectoris (principal); I50.9 Heart failure, unspecified; R42 Dizziness and giddiness; R94.31 Abnormal electrocardiogram [ECG] [EKG]; Z95.1 Presence of aortocoronary bypass graft; R06.09 Other forms of dyspnea
CPT/HCPCS: 78452; 93017; 93270; 94762; A9502; J2785

== ENCOUNTER 2022-10-19 16:15 | Emergency (ER) | payer MEDICARE, SELFPAY ==
--- NOTE | 2022-10-19 17:39 | PC.NURSE ---
I went over to [facility] to see patient, it was stated that he was very lethargic and sleepy. Upon talking to Daughter, she stated that he had a chemical stress test this morning. Pt was tired and seemed slow due meds given for stress test. Daughter said he seems to be perkier now and thought he was ok, pt was able to answer all questions and wished to go home. Daughter signed AMA refusal and stated if anything changed she would bring him back.Checked his vital signs.
[2022-10-19 18:23] VITALS: BP 0/0; PULSE 0; RESP 0; TEMP -17.7; TEMP 0
== END 2022-10-19 18:24 | disposition left against medical advice (07) ==
PROVIDERS: Emergency Provider Nurse Practitioner; PCP Internal Medicine
DX: Z53.21 Procedure and treatment not carried out due to patient leaving prior to being seen by health care provider (principal)

== ENCOUNTER 2022-11-04 08:51 | Day surgery (SDC) | payer MEDICARE, SELFPAY ==
[2022-11-04] VITALS (19 sets, daily range): BP systolic 95–173; BP diastolic 46–80; PULSE 56–71; RESP 18–94; O2SAT 92–100; BMI 17.9
--- NOTE | 2022-11-04 07:07 | IR_ITS ---
APPROVED REPORT Patient Location: Outpatient PROCEDURES Left heart catheterization Left ventriculogram Selective coronary angiogram Left internal mammary angiography Selective engagement of the saphenous vein graft to the diagonal artery Selective engagement of the saphenous vein graft to the circumflex artery Selective engagement of the saphenous vein graft to the right coronary INDICATION Coronary artery disease, History of coronary bypass surgery, Abnormal Myoview Informed consent was obtained prior to the procedure. COMPLICATIONS None Estimated Blood Loss: Less than 10 ml TECHNIQUE One percent lidocaine used to anesthetize the right groin. The right femoral artery was accessed via the Seldinger technique and a 5 Irish sheath was placed in the right femoral artery. A JL 4, JR4 catheter were used to perform left heart catheterization, left ventriculogram selective coronary angiography as well as selective engagement of the 3 vein grafts and the left internal mammary artery. At the end of the procedure the patient was transferred to the postop holding area in stable condition for sheath removal. ANGIOGRAPHIC RESULTS The left main artery Normal The left anterior descending artery Proximally occluded The circumflex artery Proximally occluded The right coronary artery Proximally occluded The ARMIJO ventriculogram reveals Ejection fraction 50% with inferior wall hypokinesis The left ventricular end-diastolic pressure 10 mmHg CHAMBERS to LAD patent Saphenous vein graft to diagonal artery patent Saphenous to circumflex artery occluded Saphenous to right coronary occluded IMPRESSION Coronary disease as described above Preserved ejection fraction with regional wall motion abnormality Normal left ventricular NaSal pressure PLAN 1. Standard medical therapy for ischemic heart disease Electronically signed by : Alan Saab MD 11/04/2022 14:52:38
[2022-11-04 09:21] LABS: Basophils # 0.1 K/mm3 (0-0.2); Basophils % 0.9 % (0.1-2.0); Eosinophils # 0.1 K/mm3 (0.0-0.4); Hemoglobin 12.6 g/dL (14.1-18.0); Lymphocytes # 1.7 K/mm3 (0.7-4.5); Lymphocytes % 31.6 % (10-50); Mean Corpuscular HGB Conc 31.6 g/dL (31.8-35.4); Mean Corpuscular Volume 88.7 fl (80-94); Mean Platelet Volume 8.5 fl (7.4-10.4); Monocytes # 0.3 K/mm3 (0.1-1.0); Monocytes % 4.7 % (1.7-9.3); Neutrophils # 3.3 K/mm3 (1.8-7.8); Neutrophils % 60.8 % (37.0-80.0); Platelet Count 201 K/mm3 (142-424); Red Blood Count 4.51 M/mm3 (4.60-6.20); Red Cell Distribution Width 16.1 % (11.5-17.5); White Blood Count 5.4 K/mm3 (4.8-10.8)
[2022-11-04 09:48] LABS: Chloride 106 mmol/L (98-107); Sodium 144 mmol/L (136-145)
[2022-11-04 09:51] LABS: Blood Urea Nitrogen 20 mg/dl (9-20); Carbon Dioxide 31 mmol/L (22.0-30.0); Creatinine Clearance Estimated 47 mL/min (50-200); Estimated Glomerular Filt Rate 58 ml/min (>60); GFR (African American) 71 ML/MIN (>60)
[2022-11-04 09:52] LABS: Calcium 9.4 mg/dl (8.4-10.2); Glucose 176 mg/dl (74-100)
--- NOTE | 2022-11-04 10:19 | ECG_ITS ---
APPROVED REPORT Exam: Resting ECG HR:67 bpm ECG Measurements Heart Rate 67 AXES CA 206 P 75 QRSd 91 QRS 28 QT 414 T 14 QTc 430 Conclusion SINUS RHYTHM WITH SINUS ARRHYTHMIA NORMAL ECG UNCONFIRMED REPORT Electronically signed by : Mitchel Briceno MD 11/04/2022 21:32:10
== END 2022-11-04 15:24 | disposition home or self-care (01) ==
PROVIDERS: PCP Internal Medicine; Visit Provider Internal Medicine
DX: I25.10 Atherosclerotic heart disease of native coronary artery without angina pectoris (principal); I50.32 Chronic diastolic (congestive) heart failure; R94.31 Abnormal electrocardiogram [ECG] [EKG]; R94.39 Abnormal result of other cardiovascular function study; Z95.1 Presence of aortocoronary bypass graft; I11.0 Hypertensive heart disease with heart failure; Z79.84 Long term (current) use of oral hypoglycemic drugs
CPT/HCPCS: 36415; 80048; 85025; 93005; 93459; 99152; C1725; C1769; C1894; J1644; Q9967

== ENCOUNTER 2022-11-24 09:25 | Day surgery (SDC) | payer MEDICARE, SELFPAY ==
[2022-11-24 09:35] VITALS: BP 150/72; PULSE 85; RESP 18; TEMP 36.7; O2SAT 91; BMI 23.8
[2022-11-24 09:44] VITALS: RESP 18; O2SAT 96
[2022-11-24 09:45] VITALS: BP 158/77; PULSE 70; RESP 18; O2SAT 96
[2022-11-24 09:54] VITALS: BP 143/66; PULSE 84; RESP 18; O2SAT 93
--- NOTE | 2022-11-24 10:25 | P.PCN_ITS ---
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 Lumbar radiculopathy. Bilateral sacroiliitis. Post-procedure Diagnosis:: Same. Indications for Procedure:: This patient is a very pleasant 77-year-old male that comes our clinic today for intrathecal pain pump interrogation refill. He is doing very well with his current pump settings. We are currently managing him with morphine sulfate 15 mg/mL at 2.56 mg/day patient also has PTC dose at 0.05 mg per bolus. Patient complains today of severe low back pain off the midline bilaterally. Patient suffered a fall recently onto his back and buttocks. Upon examination he has extreme point tenderness over the bilateral sacroiliac joints. He has positive Sayra's test. Positive bilateral sacroiliac joint compression test. I discussed in detail with him and his regarding bilateral sacroiliac joint injections today. They wish to proceed. Procedure Details:: Details of the procedure explained the patient. The patient taken to procedure room placed in the prone position. The area over the pump was cleaned using chlorhexidine as a cleansing solution. The pump was accessed with ease using fluoroscopy guidance with a 22-gauge inch and half needle. 4.5 mL of solution was withdrawn and discarded appropriately. The pump was then filled with morphine sulfate 15 mg/mL. The pump rate was continued at 2.56 mg/day. However, the PTC dose was increased to 0.2 mg per dose. Procedure: Bilateral sacroiliac joint injections under fluoroscopy Informed consent was obtained and the risks and benefits of the procedure were explained to the patient.~ The patient was taken to the procedure room and noninvasive monitors were placed including a noninvasive blood pressure cuff and pulse oximeter.~ The patient was placed prone on the procedure table. Both hips were cleansed using Betadine as a cleansing solution. C-arm fluoroscopy was used to view the right sacroiliac joint.~ The skin and subcutaneous tissues were anesthetized using lidocaine 1.5% and a 25-gauge needle.~ After this, a 22-gauge spinal needle was inserted under fluoroscopic guidance into the inferior aspect of the right sacroiliac joint.~ Omnipaque dye was injected and good spread was seen throughout the joint.~ After this, approximately 5 mL of bupivacaine, 0.25% and Depo-Medrol, 40 mg was incrementally injected into the right sacroiliac joint. We then moved to the left sacroiliac joint.~ The skin and subcutaneous tissues were anesthetized using lidocaine 1.5% and a 25-gauge needle.~ After this, a 22- gauge spinal needle was inserted under fluoroscopic guidance into the inferior aspect of the left sacroiliac joint.~ Omnipaque dye was injected and good spread was seen throughout the joint. After this, approximately 5 mL of bupivacaine, 0.25% and Depo-Medrol, 40 mg was incrementally injected into the left sacroiliac joint.~ The patient tolerated the procedure well with no complications. The patient was observed in the Pain Clinic and then was discharged home neurologically intact. Plan and Disposition:: Patient was discharged without incident.
== END 2022-11-24 09:54 | disposition home or self-care (01) ==
LOC: SC.PAINP 09:26
PROVIDERS: PCP Internal Medicine; Visit Provider Nurse Anesthetist, Certified Registered
DX: M51.16 Intervertebral disc disorders with radiculopathy, lumbar region (principal); M46.1 Sacroiliitis, not elsewhere classified
CPT/HCPCS: 27096; G0260; J1030

== ENCOUNTER 2022-12-21 10:28 | Inpatient (IN) | payer MEDICARE, SELFPAY ==
[2022-12-21] VITALS (26 sets, daily range): BP systolic 77–138; BP diastolic 41–81; PULSE 65–110; RESP 18–35; TEMP 36.6–40.3; O2SAT 93–100; BMI 21.5; BMI 23.5; BMI 24.7
--- NOTE | 2022-12-21 10:32 | XR_ITS ---
FINAL REPORT CLINICAL HISTORY: dyspnea COMPARISON: 11/15/2020 FINDINGS: A single portable view of the chest was obtained. The patient is status post median sternotomy. The heart size and pulmonary vascularity are within normal limits. The mediastinum is within normal limits. No acute pulmonary abnormality is identified. The bony thorax is intact. IMPRESSION: No active cardiopulmonary disease. Reviewed, Interpreted and Dictated by Mann Vieira III, MD Transcribed by Farnaz Tavera Authenticated and [facility]
--- NOTE | 2022-12-21 10:32 | HMH.EDGENADL ---
Discharge Plan Disposition Patient Disposition: Admitted As Inpatient Prescriptions Prescriptions: No Action duloxetine 60 mg capsule,delayed release(DR/EC) 60 mg PO DAILY furosemide 40 mg tablet 40 mg PO DAILYP PRN (Reason: Edema) memantine 10 mg tablet 10 mg PO BID 90 Days Qty: 180 3RF morphine 10 MG/ML solution 2.35 mg intrathecal CONT Rx Instructions: medication delivered via intrathecal pain pump. concentration of medication is 10mg/ml, total volume of pump is 20ml. total daily dose is 2.35mg/day Jardiance 25 mg tablet 25 mg PO DAILY gabapentin 300 MG capsule 300 mg PO QID Qty: 120 2RF ferrous sulfate [FeroSul] 325 mg (65 mg iron) tablet 325 mg PO DAILY Stiolto Respimat 2.5-2.5 mcg/actuation mist 2 inh INHALATION DAILY atorvastatin 80 MG tablet 80 mg PO DAILY aspirin 81 MG tablet,delayed release (DR/EC) 81 mg PO DAILY tamsulosin 0.4 MG capsule 0.4 mg PO DAILY gemfibrozil 600 MG tablet 600 mg PO BID metoprolol succinate 25 MG tablet extended release 24 hr 25 mg PO DAILY cyanocobalamin (vitamin B-12) 1,000 mcg tablet 1,000 mcg PO DAILY metformin 1,000 mg tablet 1,000 mg PO BID Clinical Impressions Clinical Impression: Severe sepsis, Pneumonia, Respiratory failure with hypoxia, Encephalopathy acute Discharge ED Provider: Ines Garcia General Adult HPI General Chief complaint: Shortness of Breath/Dyspnea Stated complaint: lethargic Time Seen by Provider: 12/21/22 10:32 History of Present Illness HPI narrative: Patient is a 77-year-old man brought in by EMS for altered mental status hypoxia and fever. Had a presentation in August of last year with similar symptoms and was diagnosed at that time with septic shock was on pressors given IV antibiotics and rapidly improved transition to oral antibiotics in the hospital. I was from chart review. Patient's clinical status currently severely limits any exam as he is obtunded. EMS states that called 911 due to patient's increased work of breathing fever and altered mental status. She has not yet arrived in the emergency department for further history. Remainder of history from patient is unable to be obtained due to clinical status. EMS states patient was hemodynamically stable with normal blood pressure but was tachycardic and febrile in route no further interventions were provided by them. Related Data Home Medications Medication Instructions Recorded Confirmed aspirin 81 mg tablet,delayed 81 mg PO DAILY HEART HEALTH 12/24/17 12/21/22 release atorvastatin 80 mg tablet 80 mg PO DAILY Cholesterol 12/24/17 12/21/22 gemfibrozil 600 mg tablet 600 mg PO BID Cholesterol 12/24/17 12/21/22 metoprolol succinate 25 mg 25 mg PO DAILY Hypertension 12/24/17 12/21/22 tablet,extended release 24 hr tamsulosin 0.4 mg capsule 0.4 mg PO DAILY PROSTATE 12/24/17 12/21/22 duloxetine 60 mg capsule,delayed 60 mg PO DAILY Depression 11/18/20 12/21/22 release furosemide 40 mg tablet 40 mg PO DAILYP PRN Edema 11/18/20 12/21/22 morphine 10 mg/mL injection 2.35 mg intrathecal CONT chronic 06/16/21 12/21/22 solution pain empagliflozin 25 mg tablet 25 mg PO DAILY Diabetes 09/04/22 12/21/22 (Jardiance) ferrous sulfate 325 mg (65 mg 325 mg PO DAILY Supplement 09/06/22 12/21/22 iron) tablet (FeroSul) tiotropium 2.5 mcg-olodaterol 2.5 2 inh inhalation DAILY COPD 09/06/22 12/21/22 mcg/actuation mist for inhalation (Stiolto Respimat) cyanocobalamin (vitamin B-12) 1,000 mcg PO DAILY Supplement 12/21/22 12/21/22 1,000 mcg tablet metformin 1,000 mg tablet 1,000 mg PO BID Diabetes 12/21/22 12/21/22 Previous Rx's Medication Instructions Recorded memantine 10 mg tablet 10 mg PO BID MEMORY 90 days #180 03/26/22 tabs gabapentin 300 mg capsule 300 mg PO QID nerve pain #120 caps 10/29/22 Allergies Allergy/AdvReac Type Severity Reaction Status Date / Time napr
--- NOTE | 2022-12-21 10:33 | ECG_ITS ---
APPROVED REPORT Exam: Resting ECG HR:114 bpm ECG Measurements Heart Rate 114 AXES IN 156 P -13 QRSd 97 QRS 74 QT 300 T -15 QTc 368 Conclusion SINUS TACHYCARDIA Left atrial abnormality NONSPECIFIC ST & T-WAVE ABNORMALITY ABNORMAL ECG UNCONFIRMED REPORT Electronically signed by : Mitchel Briceno MD 12/21/2022 21:01:31
--- NOTE | 2022-12-21 10:39 | CT_ITS ---
FINAL REPORT CLINICAL HISTORY: AMS FINDINGS: Axial images of the head were obtained without contrast. Coronal reformatted images were also obtained. This study was performed with techniques to keep radiation doses as low as reasonably achievable (ALARA). Individualized dose reduction techniques using automated exposure control or adjustment of mA and/or kV according to the patient''s size were employed. There is generalized age appropriate atrophy. There are moderate chronic changes. There is severe several chronic lacunar infarcts. There is no evidence of intracranial hemorrhage or mass. The ventricular size is within normal limits. There is no evidence of shift of the midline structures. No skull abnormality is seen on the bone window images. IMPRESSION: No acute intracranial abnormality. Chronic changes as above. Reviewed, Interpreted and Dictated by Mann Vieira III, MD Transcribed by Farnaz Tavera Authenticated and . [facility]
--- NOTE | 2022-12-21 10:42 | PC.NURSE ---
rad at BS for portable xray
[2022-12-21 10:43] LABS: Coronavirus 19, PCR Not Detected (NotDetected); Influenza A, PCR Not Detected (NotDetected); Influenza B, PCR Not Detected (NotDetected)
--- NOTE | 2022-12-21 10:46 | PC.NURSE ---
notified RT of vbg order
[2022-12-21 10:49] LABS: Basophils # 0.1 K/mm3 (0-0.2); Basophils % 0.5 % (0.1-2.0); Eosinophils % 0.2 % (0.1-12.0); Hematocrit 40.2 % (42.0-52.0); Hemoglobin 13.5 g/dL (14.1-18.0); Lymphocytes # 1.1 K/mm3 (0.7-4.5); Lymphocytes % 8.9 % (10-50); Mean Corpuscular HGB Conc 33.7 g/dL (31.8-35.4); Mean Corpuscular Volume 86.1 fl (80-94); Mean Platelet Volume 8.7 fl (7.4-10.4); Monocytes # 0.5 K/mm3 (0.1-1.0); Monocytes % 3.5 % (1.7-9.3); Neutrophils # 11.2 K/mm3 (1.8-7.8); Neutrophils % 86.8 % (37.0-80.0); Platelet Count 265 K/mm3 (142-424); Red Blood Count 4.66 M/mm3 (4.60-6.20); Red Cell Distribution Width 15.5 % (11.5-17.5); White Blood Count 12.9 K/mm3 (4.8-10.8)
[2022-12-21 10:49] LABS: Microscopic, Urine URINE MICROSCOPIC (MICROSCOPIC)
--- NOTE | 2022-12-21 10:51 | HMH.ITSTN ---
went to get patient for head CT his condition is worse wants to hold on CT -- will call when ready
--- NOTE | 2022-12-21 10:52 | PC.NURSE ---
pt at BS, ER MD to BS speaking to pts
[2022-12-21 10:53] LABS: Appearance,Urine CLEAR (Clear); Blood, Urine 1+ (Negative); Color,Urine YELLOW (Yellow); Glucose,Urine (UA) 3+ (Negative); Ketones,Urine 3+ (Negative); Leukocyte Esterase,Urine Negative (Negative); Nitrate,Urine Negative (Negative); PH,Urine 5.5 (5.0-8.5); Protein,Urine Negative (Negative); Specific Gravity, Urine 1.015 (1.005-1.030); Urobilinogen,Urine 0.2 EU/dl (0.2)
[2022-12-21 10:54] LABS: Chloride 100 mmol/L (98-107); Potassium 3.5 mmoL/L (3.5-5.1); Sodium 140 mmol/L (136-145)
[2022-12-21 10:55] LABS: MANUAL DIFFERENTIAL MANUAL DIFFERENTIAL (MANUAL DIFF)
[2022-12-21 10:57] LABS: Alanine Aminotransferase 18 U/L (12-78); Albumin Level 4.5 g/dl (3.5-5.0); Albumin/Globulin Ratio 1.6 (1.1-1.8); Alkaline Phosphatase 132 U/L (38-126); Anion Gap 25.5 mEq/L (5-15); Aspartate Amino Transferase 23 U/L (17-59); Bilirubin,Total 0.6 mg/dl (0.2-1.3); Blood Urea Nitrogen 29 mg/dl (9-20); Calcium 9.6 mg/dl (8.4-10.2); Carbon Dioxide 18 mmol/L (22.0-30.0); Creatinine Clearance Estimated 38 mL/min (50-200); Estimated Glomerular Filt Rate 45 ml/min (>60); GFR (African American) 55 ML/MIN (>60); Globulin 2.8 g/dL (1.3-3.2); Glucose 218 mg/dl (74-100); Lactic Acid 0.9 mmol/L (0.7-2.1); Total Protein,Serum 7.3 g/dl (6.3-8.2)
[2022-12-21 10:59] LABS: VBG Base Excess -7.6 mmol/L (-2.4-2.3); VBG HCO3 17.2 mmol/L (23-30); VBG Oxygen Saturation 96.8 % (50-70); VBG PCO2 28.1 mmol/L (35-51); VBG PO2 143.9 mmol/L (28-40)
[2022-12-21 11:01] LABS: Bilirubin,Urine 1+ (Negative)
--- NOTE | 2022-12-21 11:05 | PC.NURSE ---
Dr Garcia speaking with Hospitalist
[2022-12-21 11:06] LABS: Bacteria,Urine Trace /lpf; RBC,Urine Occasional #/hpf (0-3); Squamous Epithelial Cell,Urine Occasional #/hpf (0-5)
--- NOTE | 2022-12-21 11:29 | HMH.PHAINT1 ---
Pharmacy Intervention Comments: MEDICATION RECONCILIATION COMPLETED ON PATIENT USING EXTERNAL FILL HISTORY FROM PHARMACY AND DOT REPORT. -BABATUNDE CHANEL, ALINAD
--- NOTE | 2022-12-21 11:46 | PC.NURSE ---
pt return from CT
[2022-12-21 12:11] LABS: Lymphocytes % 13 % (10-50); Monocytes % 2 % (2-9); Neutrophils % 85 % (42-76); Platelet Estimate Normal; RBC Morphology Normal; Total Cells Counted 100
--- NOTE | 2022-12-21 12:11 | PC.NURSE ---
at BS, towel roll placed under pts head for comfort, pt neck was hyperextended. Pt not verbally responsive, did not respond to care. states no needs at this time.
--- NOTE | 2022-12-21 12:16 | PC.NURSE ---
Dr Garcia speaking with hospitalist
--- NOTE | 2022-12-21 12:19 | PC.NURSE ---
notified ER MD of pt bp, ER MD gave verbal order for 2nd L of LR IVF at wide open rate
--- NOTE | 2022-12-21 12:35 | PC.NURSE ---
report called to marcus gunn RN on second floor at this time.
--- NOTE | 2022-12-21 14:01 | PC.NURSE ---
Dr. Recinos notified of persistent hypotension, stated he would come and check pt
[2022-12-21 14:03] LABS: Troponin I 0.12 ng/ml (0.00-0.034)
--- NOTE | 2022-12-21 14:55 | CT_ITS ---
FINAL REPORT TECHNIQUE: Axial images were obtained from the lung apex to the mid abdomen by computed tomography. Coronal and sagittal reformatted images were obtained. This study was performed with techniques to keep radiation doses as low as reasonably achievable, (ALARA). Individualized dose reduction techniques using automated exposure control or adjustment of mA and/or kV according to the patient''s size were employed. CLINICAL HISTORY: Dyspnea, acute respiratory failure FINDINGS: Postoperative changes are seen from median sternotomy. There are small distal and hilar nodes without evidence of adenopathy. No axillary mass or adenopathy is identified. A peripherally calcified 5 cm mass is seen in the right cardiophrenic angle. This appears to be tubular on the coronal images and could represent a peripherally calcified aneurysm or dilated graft. Bilateral lower lobe opacities are seen, favor atelectasis over pneumonia. There is a calcified granuloma in the right upper lobe. Limited images of the upper abdomen reveal postoperative changes from cholecystectomy. There are bilateral renal masses, some of which likely represent cysts. There is a 15 mm mass at the posterior aspect of the right kidney that is not definitely a simple cyst. Several nonobstructing right renal stones are seen measuring up to 5 mm. IMPRESSION: Bilateral lower lobe pulmonary opacities, favor atelectasis over pneumonia. 5 cm right cardiophrenic angle mass of uncertain etiology but may represent an aneurysm or dilated graft. A follow-up study with IV contrast is recommended for further evaluation. 15 mm posterior right renal mass does not appear to be a simple cyst but may represent a mildly complicated cyst. This also could be further evaluated at the time of follow-up postcontrast CT. Nonobstructing right renal stones. Authenticated and ERN
--- NOTE | 2022-12-21 15:18 | EXP.HP ---
History of Present Illness *Admission Date: 12/21/22 *Reason for visit:: Chief complaint: Somnolence *History of present illness: This is a 77-year-old male that presents to [facility] emergency department accompanied by his Nini of 40 years for an acute onset illness over the last 24 hours. She reports last night he was feeling weak. He went to bed. This morning she had trouble arousing him and he would not wake up. She brought him to the emergency department for evaluation. She reported that he complained of chills last night. There was no associated nausea, vomiting or diarrhea. She has not identified any cough or trouble breathing throughout the week. His past medical history significant for COPD on home O2 2 L, MARCELLA with home NIPPV, coronary artery disease with left heart cath October 2022, diabetes, degenerative disc disease of the lumbar spine, HFpEF with EF 55%, prostate cancer with seed implants and previous lacunar CVAs. In the ED he is tachycardic, tachypneic and requiring nonrebreather to maintain appropriate oxygen saturations. His temperature is 104.5. His most recent blood pressure 77/42. His laboratory studies personally interpreted identify a white blood cell count 12.9, hemoglobin 13.5, lactic acid 0.9, sodium 140, potassium 3.5, CO2 18, anion gap 26, BUN 29, creatinine 1.5 and normal LFTs. His venous blood gas pH is 7.4. His urinalysis identifies no significant abnormalities. Chest x-ray identifies no acute infiltrates. A CT of the head identifies chronic lacunar strokes with no acute disease. Urine and blood cultures have been sent. His GCS=6. [facility] Medical History Abnormal electrocardiogram [ECG] [EKG] Abnormal PFT CHF (congestive heart failure) Congestive heart failure COPD (chronic obstructive pulmonary disease) Coronary artery disease Diabetes mellitus, type 2 Dizziness Dyspnea on exertion Emphysema/COPD History of sleep apnea Hyperlipidemia Hypertension Obstructive sleep apnea Pneumonia Prostate cancer Pulmonary emphysema Restrictive lung disease Shortness of breath Stopped smoking with greater than 30 pack year history Surgical History H/O radical prostatectomy History of cholecystectomy History of coronary artery bypass graft x 1 History of knee replacement S/P CABG x 4 Family History Other Cancer Coronary artery disease Family history of diabetes mellitus type II Family history of myocardial infarction Social History Smoking Status: Former smoker second hand exposure: No alcohol intake: never substance use type: denies use current occupational status: other Travel in the last 8 weeks: None household members: spouse housing: house current occupational exposures/hazards: No caffeine: Yes Review of Systems Review of Systems Review of systems:: unable to obtain Review of systems (narrative): Somnolent/altered mental status Meds Home Medications and Allergies Home Medications Medication Instructions Recorded Confirmed Type aspirin 81 mg tablet,delayed 81 mg PO DAILY HEART HEALTH 12/24/17 12/21/22 History release atorvastatin 80 mg tablet 80 mg PO DAILY Cholesterol 12/24/17 12/21/22 History gemfibrozil 600 mg tablet 600 mg PO BID Cholesterol 12/24/17 12/21/22 History metoprolol succinate 25 mg 25 mg PO DAILY Hypertension 12/24/17 12/21/22 History tablet,extended release 24 hr tamsulosin 0.4 mg capsule 0.4 mg PO DAILY PROSTATE 12/24/17 12/21/22 History duloxetine 60 mg capsule,delayed 60 mg PO DAILY Depression 11/18/20 12/21/22 History release furosemide 40 mg tablet 40 mg PO DAILYP PRN Edema 11/18/20 12/21/22 History morphine 10 mg/mL injection 2.35 mg intrathecal CONT chronic 06/16/21 12/21/22 History solution pain memantine 10 mg tablet 10 mg PO BID MEMORY 90
[2022-12-21 15:47] LABS: Microscopic,Cath URINE MICROSCOPIC (MICROSCOPIC)
[2022-12-21 15:52] LABS: Appearance,Urine/Cath CLEAR (Clear); Blood, Urine/Cath TRACE-I (Negative); Color,Urine/Cath YELLOW (Yellow); Glucose,Urine/Cath (UA) 3+ (Negative); Ketones,Urine/Cath 3+ (Negative); Leukocyte Esterase,Cath Negative (Negative); Nitrate,Cath Negative (Negative); PH,Urine/Cath 5.5 (5.0-8.5); Protein,Urine/Cath Negative (Negative); Urobilinogen,Cath 0.2 EU/dl (0.2)
[2022-12-21 15:56] LABS: Bilirubin,Cath 1+ (Negative)
[2022-12-21 16:07] LABS: Bacteria,Urine/Cath TRACE /lpf; Squamous Epithelial Ur./Cath Occasional #/hpf (0-5); WBC,Urine/Cath Occasional #/hpf (0-3)
[2022-12-21 17:00] LABS: POC Glucose,Bedside 201 (70-110)
[2022-12-21 17:17] LABS: Adenovirus,PCR Not Detected (NotDetected); Bordetella Pertussis Not Detected (NotDetected); Chlamydophila Pneumoniae, PCR Not Detected (NotDetected); Coronavirus 19, PCR Not Detected (NotDetected); Coronavirus 229E Not Detected (NotDetected); Coronavirus NL63 Not Detected (NotDetected); Coronavirus OC43 Not Detected (NotDetected); Coronovirus HKU1,PCR Not Detected (NotDetected); Human Metapneumovirus Not Detected (NotDetected); Influenza A, PCR Not Detected (NotDetected); Influenza AH1, 2009 Not Detected (NotDetected); Influenza AH1, PCR Not Detected (NotDetected); Influenza AH3,PCR Not Detected (NotDetected); Influenza B, PCR Not Detected (NotDetected); Mycoplasma Pneumoniae, PCR Not Detected (NotDetected); Parainfluenza 1, PCR Not Detected (NotDetected); Parainfluenza 2, PCR Not Detected (NotDetected); Parainfluenza 3, PCR Not Detected (NotDetected); Parainfluenza 4, PCR Not Detected (NotDetected); Respiratory Syncytial Virus Not Detected (NotDetected); Rhinovirus/Enterovirus Not Detected (NotDetected)
[2022-12-21 18:16] LABS: Glucose,CSF 130 mg/dl (40-70)
[2022-12-21 18:59] LABS: Appearance,CSF Clear (Clear); Volume,CSF 8 mL
[2022-12-21 19:18] LABS: Troponin I 0.09 ng/ml (0.00-0.034)
[2022-12-21 19:57] LABS: White Blood Cell,CSF 6 cells/uL (0-5)
[2022-12-21 20:20] LABS: Red Blood Cell,CSF 132 cells/uL (0)
--- NOTE | 2022-12-21 20:30 | PC.NURSE ---
BP 113/58, MAP 76. Levo gtt titrated down to 3mcg/min.
[2022-12-21 20:59] LABS: Mononuclear WBCs,CSF 0 %; Polynuclear WBCs,CSF 0 %
[2022-12-21 21:20] LABS: Chloride 104 mmol/L (98-107); Sodium 140 mmol/L (136-145)
[2022-12-21 21:23] LABS: Blood Urea Nitrogen 31 mg/dl (9-20); Carbon Dioxide 22 mmol/L (22.0-30.0); Creatinine Clearance Estimated 49 mL/min (50-200); Estimated Glomerular Filt Rate 65 ml/min (>60); GFR (African American) 78 ML/MIN (>60)
[2022-12-21 21:24] LABS: Calcium 8.3 mg/dl (8.4-10.2); Glucose 172 mg/dl (74-100)
[2022-12-21 21:35] LABS: Troponin I 0.08 ng/ml (0.00-0.034)
--- NOTE | 2022-12-21 21:45 | PC.NURSE ---
BP 119/65, MAP 83. Levo gtt titrated down to 2 mcg/min.
[2022-12-21 21:55] LABS: Magnesium 1.7 mg/dl (1.6-2.3)
[2022-12-21 22:06] LABS: POC Glucose,Bedside 194 (70-110)
--- NOTE | 2022-12-21 23:05 | PC.NURSE ---
BP 129/81, MAP 97. Levo gtt titrated down to 0.5 mcg/min.
--- NOTE | 2022-12-21 23:30 | PC.NURSE ---
BP 113/59. Levo gtt put on standby at this time.
[2022-12-22] VITALS (24 sets, daily range): BP systolic 91–126; BP diastolic 46–68; PULSE 70–97; RESP 14–24; TEMP 36.4–37.1; O2SAT 90–100; BMI 25.2
--- NOTE | 2022-12-22 01:47 | ECG_ITS ---
APPROVED REPORT Exam: Resting ECG HR:93 bpm ECG Measurements Heart Rate 93 AXES GA 168 P 1 QRSd 99 QRS 59 QT 356 T 4 QTc 407 Conclusion SINUS RHYTHM WITH SINUS ARRHYTHMIA NONSPECIFIC T-WAVE ABNORMALITY BORDERLINE ECG UNCONFIRMED REPORT Electronically signed by : Mitchel Briceno MD 12/22/2022 19:17:05
--- NOTE | 2022-12-22 02:18 | PC.NURSE ---
0139 Pt woke from sleep with impending doom stating he felt SOA, nauseous, and hurting all over. On assessment pt is diaphoretic and pale looking but much more alert then he had been, VSS. ANTHROPOLOGIST PHYSICAL notified and came to bedside. EKG performed - NSR with sinus arrhythmia. Zofran administered for pt nausea. Pt now states he is feeling better. is at bedside.
[2022-12-22 05:58] LABS: POC Glucose,Bedside 211 (70-110)
[2022-12-22 06:08] LABS: Basophils % 0.3 % (0.1-2.0); Eosinophils # 0.1 K/mm3 (0.0-0.4); Eosinophils % 0.8 % (0.1-12.0); Hematocrit 30.9 % (42.0-52.0); Lymphocytes # 0.8 K/mm3 (0.7-4.5); Lymphocytes % 12.6 % (10-50); Mean Corpuscular Hemoglobin 29.5 pg (27.0-31.2); Mean Corpuscular Volume 89.3 fl (80-94); Mean Platelet Volume 8.1 fl (7.4-10.4); Monocytes # 0.2 K/mm3 (0.1-1.0); Neutrophils % 83.3 % (37.0-80.0); Platelet Count 197 K/mm3 (142-424); Red Blood Count 3.47 M/mm3 (4.60-6.20); Red Cell Distribution Width 15.4 % (11.5-17.5)
[2022-12-22 06:20] LABS: Alanine Aminotransferase 13 U/L (12-78); Albumin Level 3.3 g/dl (3.5-5.0); Albumin/Globulin Ratio 1.7 (1.1-1.8); Alkaline Phosphatase 81 U/L (38-126); Aspartate Amino Transferase 25 U/L (17-59); Bilirubin,Total 0.4 mg/dl (0.2-1.3); Blood Urea Nitrogen 31 mg/dl (9-20); Calcium 8.1 mg/dl (8.4-10.2); Carbon Dioxide 20 mmol/L (22.0-30.0); Chloride 105 mmol/L (98-107); Creatinine Clearance Estimated 55 mL/min (50-200); Estimated Glomerular Filt Rate 72 ml/min (>60); GFR (African American) 87 ML/MIN (>60); Glucose 202 mg/dl (74-100); Magnesium 1.6 mg/dl (1.6-2.3); Phosphorous 3.6 mg/dl (2.5-4.5); Sodium 137 mmol/L (136-145); Total Protein,Serum 5.3 g/dl (6.3-8.2)
[2022-12-22 06:23] LABS: Hemoglobin 10.2 g/dL (14.1-18.0)
[2022-12-22 06:24] LABS: Anion Gap 15.6 mEq/L (5-15); Potassium 3.6 mmoL/L (3.5-5.1)
[2022-12-22 06:28] LABS: NT Pro Brain Natriuretic Pep. 2450 pg/mL (0-450)
[2022-12-22 06:29] LABS: C-Reactive Protein 79.5 mg/L (0-4); Prothrombin Time 11.8 seconds (10.1-12.5)
[2022-12-22 06:35] LABS: Procalcitonin 1.76 ng/mL (0.0-2.0)
[2022-12-22 06:49] LABS: Erythrocyte Sedimentation Rate 67 mm/hr (0-20)
--- NOTE | 2022-12-22 07:57 | EXP.ACUTE.PN ---
Subjective *Date: 12/22/22 *Time: 12:30 Interval history: Patient doing much better this morning. Alert and oriented x4. Knows who he is, where he is, why he is at the hospital. Denies any confusion, focal weakness, chest pain or shortness of breath. Denies any nausea or vomiting. pleased as patient appears back to normal. Afebrile and hemodynamically stable. Medical Exam Vital signs and Labs for Last 24 Hours: Vital Signs Temp Pulse Pulse Pulse Resp BP BP 12/22/22 07:00 86 14 95/49 L 12/22/22 05:45 89 12/22/22 05:45 85 12/22/22 05:45 12/22/22 06:00 92 H 18 91/47 L 12/22/22 05:00 82 22 97/46 L 12/22/22 04:00 90 12/22/22 04:00 12/22/22 04:00 89 15 101/57 L 12/22/22 04:00 98.7 F 12/22/22 03:00 95 H 22 94/50 L 12/22/22 00:00 80 12/21/22 20:00 90 12/22/22 02:00 89 20 108/64 L 12/22/22 01:00 97 H 24 108/58 L 12/22/22 00:00 88 14 99/62 L 12/22/22 00:00 84 19 95/54 L 12/21/22 23:50 98.6 F 12/21/22 23:21 78 12/21/22 23:21 79 12/21/22 23:00 83 20 129/81 12/21/22 22:00 79 24 112/59 L 12/21/22 21:00 79 22 110/51 L 12/21/22 20:00 12/21/22 20:00 74 24 108/56 L 12/21/22 19:32 97.8 F 12/21/22 19:00 65 20 105/53 L 12/21/22 16:07 76 12/21/22 18:00 76 20 114/56 L 12/21/22 18:16 70 12/21/22 18:16 74 12/21/22 18:16 12/21/22 17:00 71 18 93/49 L 12/21/22 16:00 73 22 93/43 L 12/21/22 15:00 76 22 81/41 L 12/21/22 13:45 82 12/21/22 13:26 98.2 F 82 25 H 77/42 L 12/21/22 13:04 104.5 F H 99 H 32 H 100/47 L 12/21/22 12:20 95 H 30 H 90/49 L 12/21/22 12:13 101 H 32 H 92/46 L 12/21/22 11:50 98 H 24 102/48 L 12/21/22 11:20 100 H 24 100/50 L 12/21/22 11:15 101 H 35 H 12/21/22 11:10 104/50 L 12/21/22 11:00 106 H 34 H 114/53 L 12/21/22 10:45 105 H 32 H 110/53 L 12/21/22 11:06 104.2 F H 110 H 35 H 138/67 Pulse Ox FiO2 12/22/22 07:00 94 L 12/22/22 05:45 12/22/22 05:45 12/22/22 05:45 96 12/22/22 06:00 94 L 12/22/22 05:00 99 12/22/22 04:00 12/22/22 04:00 100 12/22/22 04:00 100 12/22/22 04:00 12/22/22 03:00 99 12/22/22 00:00 12/21/22 20:00 12/22/22 02:00 97 12/22/22 01:00 98 12/22/22 00:00 99 12/22/22 00:00 90 L 12/21/22 23:50 12/21/22 23:21 12/21/22 23:21 12/21/22 23:00 100 12/21/22 22:00 100 12/21/22 21:00 100 12/21/22 20:00 100 12/21/22 20:00 100 12/21/22 19:32 12/21/22 19:00 100 12/21/22 16:07 12/21/22 18:00 99 12/21/22 18:16 12/21/22 18:16 12/21/22 18:16 100 100 12/21/22 17:00 100 12/21/22 16:00 100 12/21/22 15:00 99 12/21/22 13:45 100 12/21/22 13:26 99 12/21/22 13:04 12/21/22 12:20 100 12/21/22 12:13 99 12/21/22 11:50 98 12/21/22 11:20 97 12/21/22 11:15 97 12/21/22 11:10 12/21/22 11:00 97 12/21/22 10:45 95 12/21/22 11:06 93 L Intake and Output 12/21/22 12/21/22 12/22/22 15:59 23:59 07:59 Intake Total 0 / 0 0 / 2190 Output Total 1000 / 1000 300 / 300 Balance -1000 / -1000 1890 / 1890 Intake: Intake, Oral Amount 0 / 0 Intake, Total IV Amount 0 / 2189 0.9 % Sodium Chloride 1,000 ml 423 / 423 @ 125 mls/hr IV .Q8H LIN Rx#: [id number] 0.9 % Sodium Chloride 1,000 ml 1000 / 1000 @ 150 mls/hr IV .Q6H40M LIN Rx# :[id number] Ampicillin Sodium 2 gm In 0.9 % 200 / 200 Sodium Chloride 100 ml @ 200 mls/hr IV Q4H LIN Rx#:[id number] Ceftriaxone Sodium 2 gm In 0.9 200 / 200 % Sodium Chloride 100 ml @ 200 mls/hr IV Q12H LIN Rx#: [id number] KCl 10mEq/100ml 100 ml @ 100 300 / 300 mls/hr IV Q1H LIN Rx#:[id number]
--- NOTE | 2022-12-22 09:15 | CT_ITS ---
FINAL REPORT TECHNIQUE: Axial CT images of the chest were obtained with contrast. Coronal reformatted images were also obtained. This study was performed with techniques to keep radiation doses as low as reasonably achievable, (ALARA). Individualized dose reduction techniques using automated exposure control or adjustment of mA and/or KV according to the patient's size were employed. CLINICAL HISTORY: aneurysm vs anomalous costophrenic angle mass? COMPARISON: 12/21/2022 FINDINGS: There is no evidence of mediastinal or hilar mass or adenopathy. No axillary mass or adenopathy is identified. There is evidence of prior median sternotomy. There is a tubular nonenhancing structure in the right cardiophrenic angle and adjacent to the right heart border. This is favored to represent thrombosed aneurysm/thrombosed graft over other mass. On lung window images, there is bilateral lower lobe atelectasis. No localized pulmonary inflammatory process is identified. Limited images of the upper abdomen reveal no mass or localized inflammatory process. 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 Bilateral lower lobe atelectasis. Reviewed, Interpreted and Dictated by Mann Vieira III, MD Transcribed by Tequila High Authenticated and [facility]
--- NOTE | 2022-12-22 09:30 | CT_ITS ---
FINAL REPORT TECHNIQUE: Axial CT images of the abdomen and pelvis were obtained after the administration of IV contrast. Coronal reformatted images were also obtained and reviewed.This study was performed with techniques to keep radiation doses as low as reasonably achievable (ALARA). Individualized dose reduction techniques using automated exposure control or adjustment of mA and/or kV according to the patient's size were employed. CLINICAL HISTORY: RIGHT KIDNEY MASS, KIDNEY DELAYS COMPARISON: none FINDINGS: CT OF THE ABDOMEN AND PELVIS WITH CONTRAST Abdomen: The lung bases are clear. The heart is normal in size. The liver has an unremarkable appearance, without evidence of mass or biliary ductal dilatation. Post cholecystectomy. The spleen is unremarkable. No adrenal mass is present. The pancreas has an unremarkable appearance. There are bilateral renal cysts. There is a posterior right renal mass measuring 15 mm with appearance consistent with a mildly complicated cyst. This does not show evidence of contrast enhancement. There is a 6 mm nonobstructing right renal stone and a less than 3 mm nonobstructing right renal stone. There is ectasia of the abdominal aorta measuring 31 mm. There are moderate vascular calcifications. There is no free fluid or adenopathy. No mass or abnormal fluid collection is seen. There is a moderate to large amount of retained stool. Pelvis: The appendix is not well-visualized. There is a catheter present in the bladder. No inflammatory process is seen. There is no evidence of mass or adenopathy. There is no evidence of bowel obstruction. There are multiple prostate seed implants. There are bilateral inguinal hernias containing fat. There are moderate T12 and L1 compression fractures of uncertain age. IMPRESSION: 15 mm right upper pole renal mass with characteristics consistent with mildly complicated cyst. T12 and L1 compression fractures of uncertain age. If indicated, MRI can further evaluate. Reviewed, Interpreted and Dictated by Mann Vieira III, MD Transcribed by Tequila High Authenticated and . [facility]
--- NOTE | 2022-12-22 09:36 | EXP.PULM.CON ---
History of Present Illness History of present illness: Mr. Haynes is a 77-year-old male prior smoker greater than [id number] smoker is following in pulmonary clinic for COPD, MARCELLA on NIV at home last seen in the pulmonary clinic in September 2020 to present to the hospital with altered mentation and was eventually admitted and patient CT chest showed bilateral lower lobe airspace disease and pulmonary was consulted for further evaluation For acute on chronic hypoxic respiratory failure. [facility] Disclaimer: The information contained in this section may have been updated after the patient was seen, as this information can be updated by other users. Medical History Abnormal electrocardiogram [ECG] [EKG] Abnormal PFT CHF (congestive heart failure) Congestive heart failure COPD (chronic obstructive pulmonary disease) Coronary artery disease Diabetes mellitus, type 2 Dizziness Dyspnea on exertion Emphysema/COPD History of sleep apnea Hyperlipidemia Hypertension Obstructive sleep apnea Pneumonia Pneumonia Prostate cancer Pulmonary emphysema Restrictive lung disease Shortness of breath Stopped smoking with greater than 30 pack year history Surgical History H/O radical prostatectomy History of cholecystectomy History of coronary artery bypass graft x 1 History of knee replacement S/P CABG x 4 Family History Other Cancer Coronary artery disease Family history of diabetes mellitus type II Family history of myocardial infarction Social History Smoking Status: Former smoker second hand exposure: No alcohol intake: never substance use type: denies use current occupational status: other Travel in the last 8 weeks: None household members: spouse housing: house current occupational exposures/hazards: No caffeine: Yes Review of Systems Constitutional Constitutional: Reports anorexia, Reports body ache(s) and Reports fatigue Eyes Eyes: Denies eye discharge, Denies dry eyes, Denies irritation and Denies itchy eyes ENT Ears, Nose, Mouth, and Throat: Denies epistaxis, Denies facial pain, Denies lip swelling and Denies throat swelling *Cardiovascular Cardiovascular: Reports dyspnea and Reports dyspnea on exertion *Respiratory Respiratory: Reports chest congestion, Reports cough, Reports dyspnea, Reports dyspnea on exertion, Denies excessive phlegm production and Reports wheezing *Gastrointestinal Gastrointestinal: Denies abdominal pain, Denies belching and Denies cramping *Musculoskeletal Musculoskeletal: Reports back pain, Reports myalgias and Reports other (No small joint swelling or Pain) Psychiatric Psychiatric: Denies homicidal ideation and Denies suicidal ideation Endocrine Endocrine: Reports fatigue and Denies heat intolerance Hematologic/Lymphatic Hematologic/Lymphatic: Denies easy bleeding and Denies lymphadenopathy Allergic/Immunologic Allergic/Immunologic: Denies itchy eyes, Denies lip swelling, Denies throat swelling and Reports wheezing Pulmonology Exam Inpatient Vital signs and Labs for Last 24 Hours: Temp Pulse Resp BP Pulse Ox FiO2 98.6 F 83 16 93/51 L 96 100 12/22/22 08:00 12/22/22 08:00 12/22/22 08:00 12/22/22 08:00 12/22/22 08:00 12/21/22 18:16 Laboratory Results - last 24 hr 12/21/22 10:30: WBC 12.9 H, RBC 4.66, Hgb 13.5 L, Hct 40.2 L, MCV 86.1, MCH 29.0, MCHC 33.7, RDW 15.5, Plt Count 265, MPV 8.7, Neut % (Auto) 86.8 H, Lymph % (Auto) 8.9 L, Branch % (Auto) 3.5, Eos % (Auto) 0.2, Baso % (Auto) 0.5, Neut # (Auto) 11.2 H, Lymph # (Auto) 1.1, Branch # (Auto) 0.5, Eos # (Auto) 0.0, Baso # (Auto) 0.1, Total Counted 100, Neutrophils % (Manual) 85 H, Lymphocytes % (Manual) 13, Monocytes % (Manual) 2, Platelet Estimate Normal, RBC Morphology Normal 12/21/22 10:30: Sodium 140, Potassium 3.5, Chloride 100, Carbon Dioxide 18 L, Anion
[2022-12-22 09:46] LABS: POC Glucose,Bedside 171 (70-110)
--- NOTE | 2022-12-22 09:54 | EXP.PHA.CONS ---
Pharmacy Consult Date: 12/22/22 Time: 09:54 Referring provider: DR. TREVIÑO Reason for Consult:: VANCOMYCIN DOSING Allergies Allergy/AdvReac Type Severity Reaction Status Date / Time naproxen [NAPROXEN] Allergy Unknown NA-NAUSEA/V Verified 12/21/22 13:47 OMITING Home Medications Medication Instructions Recorded Confirmed Type aspirin 81 mg tablet,delayed 81 mg PO DAILY HEART HEALTH 12/24/17 12/21/22 History release atorvastatin 80 mg tablet 80 mg PO DAILY Cholesterol 12/24/17 12/21/22 History gemfibrozil 600 mg tablet 600 mg PO BID Cholesterol 12/24/17 12/21/22 History metoprolol succinate 25 mg 25 mg PO DAILY Hypertension 12/24/17 12/21/22 History tablet,extended release 24 hr tamsulosin 0.4 mg capsule 0.4 mg PO DAILY PROSTATE 12/24/17 12/21/22 History duloxetine 60 mg capsule,delayed 60 mg PO DAILY Depression 11/18/20 12/21/22 History release furosemide 40 mg tablet 40 mg PO DAILYP PRN Edema 11/18/20 12/21/22 History morphine 10 mg/mL injection 2.35 mg intrathecal CONT chronic 06/16/21 12/21/22 History solution pain memantine 10 mg tablet 10 mg PO BID MEMORY 90 days #180 03/26/22 12/21/22 Rx tabs empagliflozin 25 mg tablet 25 mg PO DAILY Diabetes 09/04/22 12/21/22 History (Jardiance) ferrous sulfate 325 mg (65 mg 325 mg PO DAILY Supplement 09/06/22 12/21/22 History iron) tablet (FeroSul) tiotropium 2.5 mcg-olodaterol 2.5 2 inh inhalation DAILY COPD 09/06/22 12/21/22 History mcg/actuation mist for inhalation (Stiolto Respimat) gabapentin 300 mg capsule 300 mg PO QID nerve pain #120 caps 10/29/22 12/21/22 Rx cyanocobalamin (vitamin B-12) 1,000 mcg PO DAILY Supplement 12/21/22 12/21/22 History 1,000 mcg tablet metformin 1,000 mg tablet 1,000 mg PO BID Diabetes 12/21/22 12/21/22 History New Prescriptions to Start Prescriptions: Height: 1.6 m Weight: 64.524 kg Laboratory Results:: Laboratory Results - last 24 hr 12/21/22 10:30: WBC 12.9 H, RBC 4.66, Hgb 13.5 L, Hct 40.2 L, MCV 86.1, MCH 29.0, MCHC 33.7, RDW 15.5, Plt Count 265, MPV 8.7, Neut % (Auto) 86.8 H, Lymph % (Auto) 8.9 L, [place] % (Auto) 3.5, Eos % (Auto) 0.2, Baso % (Auto) 0.5, Neut # (Auto) 11.2 H, Lymph # (Auto) 1.1, [place] # (Auto) 0.5, Eos # (Auto) 0.0, Baso # (Auto) 0.1, Total Counted 100, Neutrophils % (Manual) 85 H, Lymphocytes % (Manual) 13, Monocytes % (Manual) 2, Platelet Estimate Normal, RBC Morphology Normal 12/21/22 10:30: Sodium 140, Potassium 3.5, Chloride 100, Carbon Dioxide 18 L, Anion Gap 25.5 H, BUN 29 H, Creatinine 1.50 H, Estimated Creat Clear 38, Estimated GFR 45 L, Est GFR ( Amer) 55 L, Glucose 218 H, Calcium 9.6, Total Bilirubin 0.6, AST 23, ALT 18, Alkaline Phosphatase 132 H, Troponin I 0.10 H, Total Protein 7.3 D, Albumin 4.5, Globulin 2.8, Albumin/Globulin Ratio 1.6 12/21/22 10:30: Lactate 0.9 12/21/22 10:30: SARS-CoV-2 (PCR) Not detected, Influenza A Untype (PCR) Not detected, Influenza Type B (PCR) Not detected 12/21/22 10:47: VBG pH 7.40, VBG pCO2 28.1 L, VBG pO2 143.9 H, VBG HCO3 17.2 L, VBG Total CO2 18.0 L, VBG O2 Saturation 96.8 H, VBG Base Excess -7.6 L 12/21/22 10:48: Urine Color Yellow, Urine Appearance Clear, Urine pH 5.5, Ur Specific [place] 1.015, Urine Protein Negative, Urine Glucose (UA) 3+, Urine Ketones 3+, Urine Blood 1+, Urine Nitrate Negative, Urine Bilirubin 1+ A, Urine Urobilinogen 0.2, Ur Leukocyte Esterase Negative, Urine RBC Occasional, Urine WBC None, Ur Squamous Epith Cells Occasional, Urine Bacteria Trace 12/21/22 13:30: Troponin I 0.12 H 12/21/22 15:30: Urine Color Yellow, Urine Appearance Clear, Urine pH 5.5, Ur Specific [place] 1.020, Urine Protein Negative, Urine Glucose (UA) 3+, Urine Ketones 3+, Urine Blood Trace-i, Urine Nitrate Negative, Urine Bilirubin 1+ A, Urine Urobilinogen 0.2, Ur Leukocyte Esterase Negative, Urine RBC 3-5, Urine WBC Occasional, Ur Squamous Epith Cells Occasional, Urine Bacteria Trace 12/21/22 16:25: Chlamy pneumoniae PCR Not detected, Adenovirus (PCR) Not
--- NOTE | 2022-12-22 11:31 | HMH.SLDYSPHA ---
Speech & Language Evaluation Speech/Language Dysphagia Evaluation Start: 12/22/22 11:18 Freq: ONCE Status: Active Protocol: Document 12/22/22 11:18 PRASANTH (Rec: 12/22/22 11:31 [email or web address] [id number]) Dysphagia Assess/Goals/Plan Assessment Date of Evaluation: 12/22/22 Evaluation Type Initial Certification Assessment/Problems Pt was assessed using CSE per MD order following aspiration concerns. Does Patient Qualify for Service No Qualify/Failure Comment Based on CSE results and clinical observation, swallowing and mastication WFL . Skilled speech therapy services are not warranted at this time. Recommendations PHYSICIAN CERTIFICATION: The specified therapy services are required, authorized, and reviewed every 30 days. Diet Recommendations Normal Liquid Type Recommendations Normal/Thin SL Swallow Guidelines Standard Aspiration Prec. Dysphagia Swallow Precautions/Strategies Sitting Upright (90 deg),No Straw,Liquids from Cup,Small Bites and Sips,Alternate Liquids/Solids Plan Pt/Guardian verbally ack understanding Yes of dx/prognosis/goals G -code Required No Education Instructions provided Discussed CSE results, diet recommendations, and aspiration precautions with family, pt, nursing, and care management all of which expressed understanding. 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 This is a 77- year-old male that presents to [facility] emergency department accompanied by his Nini of 40 years for an acute onset illness over the last 24 hours. She reports last night he was feeling weak. He went to bed. This morning she had trouble arousing him and he would not wake up. She brought him to the emergency department for evaluation.
[2022-12-22 17:06] LABS: POC Glucose,Bedside 150 (70-110)
--- NOTE | 2022-12-22 18:34 | PC.NURSE ---
Pt is currently up to chair . A&O x3. He is currently sitting up in the chair. Family in room. Pt O2 titrated to 1.5L O2 NC. O2 sats upper 90s. Pt continues to have crackles to mio bases. Fluids DC per MD. VSS. Levophed has remained off t/o shift. Pt denies any pain. Call light within reach. Safety measures in place.
[2022-12-22 21:41] LABS: POC Glucose,Bedside 189 (70-110)
[2022-12-23] VITALS (14 sets, daily range): BP systolic 101–127; BP diastolic 49–76; PULSE 65–90; RESP 16–20; TEMP 36.8–36.9; O2SAT 93–99; BMI 25.6
--- NOTE | 2022-12-23 00:08 | PC.NURSE ---
pt requested bipap to be taken off and nasal cannula be put back on, pt stated not the same kind as I wear at home, this one is too big, I can't stand anything on my face like that ; 1.5LNC placed on pt, pt's oxygen saturation 99%
[2022-12-23 03:48] LABS: POC Glucose,Bedside 147 (70-110)
[2022-12-23 06:38] LABS: Basophils % 0.5 % (0.1-2.0); Chloride 105 mmol/L (98-107); Eosinophils # 0.1 K/mm3 (0.0-0.4); Eosinophils % 1.1 % (0.1-12.0); Hematocrit 31.7 % (42.0-52.0); Hemoglobin 10.3 g/dL (14.1-18.0); Lymphocytes # 1.4 K/mm3 (0.7-4.5); Lymphocytes % 25.3 % (10-50); Mean Corpuscular HGB Conc 32.3 g/dL (31.8-35.4); Mean Corpuscular Hemoglobin 29.3 pg (27.0-31.2); Mean Corpuscular Volume 90.5 fl (80-94); Mean Platelet Volume 8.6 fl (7.4-10.4); Monocytes # 0.3 K/mm3 (0.1-1.0); Neutrophils # 3.7 K/mm3 (1.8-7.8); Neutrophils % 68.2 % (37.0-80.0); Platelet Count 197 K/mm3 (142-424); Red Blood Count 3.51 M/mm3 (4.60-6.20); Red Cell Distribution Width 15.5 % (11.5-17.5); White Blood Count 5.4 K/mm3 (4.8-10.8)
[2022-12-23 06:40] LABS: Alanine Aminotransferase 15 U/L (12-78); Albumin/Globulin Ratio 1.4 (1.1-1.8); Alkaline Phosphatase 81 U/L (38-126); Aspartate Amino Transferase 26 U/L (17-59); Bilirubin,Total 0.3 mg/dl (0.2-1.3); Blood Urea Nitrogen 21 mg/dl (9-20); Calcium 8.3 mg/dl (8.4-10.2); Carbon Dioxide 27 mmol/L (22.0-30.0); Creatinine Clearance Estimated 56 mL/min (50-200); Estimated Glomerular Filt Rate 81 ml/min (>60); GFR (African American) 98 ML/MIN (>60); Globulin 2.1 g/dL (1.3-3.2); Glucose 180 mg/dl (74-100); Magnesium 1.9 mg/dl (1.6-2.3); Potassium 3.2 mmoL/L (3.5-5.1); Total Protein,Serum 5.1 g/dl (6.3-8.2)
[2022-12-23 07:02] LABS: Anion Gap 7.2 mEq/L (5-15); Sodium 136 mmol/L (136-145)
--- NOTE | 2022-12-23 11:32 | EXP.DC.SUM ---
General Admission date:: 12/21/22 Discharge date: 12/23/22 HPI HPI HPI: This is a 77-year-old male that presents to [facility] emergency department accompanied by his Nini of 40 years for an acute onset illness over the last 24 hours. She reports last night he was feeling weak. He went to bed. This morning she had trouble arousing him and he would not wake up. She brought him to the emergency department for evaluation. She reported that he complained of chills last night. There was no associated nausea, vomiting or diarrhea. She has not identified any cough or trouble breathing throughout the week. His past medical history significant for COPD on home O2 2 L, MARCELLA with home NIPPV, coronary artery disease with left heart cath October 2022, diabetes, degenerative disc disease of the lumbar spine, HFpEF with EF 55%, prostate cancer with seed implants and previous lacunar CVAs. In the ED he is tachycardic, tachypneic and requiring nonrebreather to maintain appropriate oxygen saturations. His temperature is 104.5. His most recent blood pressure 77/42. His laboratory studies personally interpreted identify a white blood cell count 12.9, hemoglobin 13.5, lactic acid 0.9, sodium 140, potassium 3.5, CO2 18, anion gap 26, BUN 29, creatinine 1.5 and normal LFTs. His venous blood gas pH is 7.4. His urinalysis identifies no significant abnormalities. Chest x-ray identifies no acute infiltrates. A CT of the head identifies chronic lacunar strokes with no acute disease. Urine and blood cultures have been sent. His GCS=6. Hospital Course Hospital Course Hospital Course: This is a 77-year-old male that presents to [facility] emergency department accompanied by his .? She provides a history for his somnolent state.? She reports 24 hours previously he was his normal self. ? Broad-spectrum antibiotics initiated.? Patient work-up for meningitis started.? Initially in severe sepsis on arrival.? Showed significant improvement in mentation within 24 hours of admission. Back to baseline mentation. Antibiotics de-escalated. At this time differential for confusion includes medication side effect, TIA, pneumonia. Would benefit from further evaluation as an outpatient with pain management to evaluate function of pump, and neurology as he is already established with both of these services. Adjustments made to medications before discharge to decrease risk of somnolence. Stable for discharge home. Problems addressed as follows: Severe sepsis with septic shock, resolved Encephalopathy, resolved Initial presentation with confusion and meeting criteria for severe sepsis. Started on broad-spectrum antibiotics with work-up for meningitis. CSF with only 6 white cells and marginally elevated protein in the 80s. Glucose elevated but appropriate given serum glucose levels. Negative stain and no growth at 48 hours. Given rapid improvement clinically, low concern for meningitis as etiology. Chest imaging concerning for pneumonia versus atelectasis. Transitioned to levofloxacin to complete 5-day course of fluoroquinolones. Stable oxygen requirement. Encephalopathy at this time thought to be secondary to possible medication side effect, pneumonia, TIA. Would benefit from further evaluation with pain management to evaluate pump and residual to verify accurate functioning. Decreased memantine and gabapentin doses as these were held during admission and have side effects of somnolence. Patient has done well without them during admission. Recommend further evaluation in the outpatient setting by neurology given patient's history of sleep disordered breathing and old lacunar infarcts. Nothing acute on CT head on admission. No focal neurologic deficits. Medically stable for discharge home. Close follow-up in the outpatient setting. Acute on chronic hypoxic respiratory failure COPD on home oxygen 2.5 liters MARCELLA on home NIPPV Pulmonolo
[2022-12-23 11:58] LABS: POC Glucose,Bedside 153 (70-110)
--- NOTE | 2022-12-23 12:50 | HMH.PHAINT1 ---
Pharmacy Intervention Comments: Discussed discharge medications with patient and patient's . Both verbalized understanding and had no questions at this time.
--- NOTE | 2022-12-23 13:01 | EXP.PULM.PN ---
Subjective *Date: 12/23/22 *Time: 13:01 Interval history: No acute respiratory vents overnight. Denies any new respiratory complaints. Continues to remain on 1 to 2 L nasal cannula Pulmonology Exam Inpatient Vital signs and Labs for Last 24 Hours: Temp Pulse Resp BP Pulse Ox FiO2 98.3 F 78 20 117/66 95 100 12/23/22 11:39 12/23/22 11:06 12/23/22 10:00 12/23/22 10:00 12/23/22 11:06 12/21/22 18:16 Laboratory Results - last 24 hr 12/22/22 16:58: POC Glucose 150 H 12/22/22 21:34: POC Glucose 189 H 12/23/22 03:42: POC Glucose 147 H 12/23/22 05:40: WBC 5.4, RBC 3.51 L, Hgb 10.3 L, Hct 31.7 L, MCV 90.5, MCH 29.3, MCHC 32.3, RDW 15.5, Plt Count 197, MPV 8.6, Neut % (Auto) 68.2, Lymph % (Auto) 25.3, Menard % (Auto) 5.0, Eos % (Auto) 1.1, Baso % (Auto) 0.5, Neut # (Auto) 3.7, Lymph # (Auto) 1.4, Menard # (Auto) 0.3, Eos # (Auto) 0.1, Baso # (Auto) 0.0 12/23/22 05:40: Sodium 136, Potassium 3.2 L, Chloride 105, Carbon Dioxide 27, Anion Gap 7.2, BUN 21 H D, Creatinine 0.90, Estimated Creat Clear 56, Estimated GFR 81, Est GFR ( Amer) 98, Glucose 180 H, Calcium 8.3 L, Magnesium 1.9 D, Total Bilirubin 0.3, AST 26, ALT 15, Alkaline Phosphatase 81, Total Protein 5.1 L, Albumin 3.0 L, Globulin 2.1, Albumin/Globulin Ratio 1.4 12/23/22 11:40: POC Glucose 153 H I & O for Labs for Last 24 Hours: Intake & Output 12/20/22 12/21/22 12/22/22 12/23/22 23:59 23:59 23:59 23:59 Intake Total 0 / 0 3756 / 3862 346 / 346 Output Total 1000 / 1000 1500 / 1500 2475 / 2475 Balance -1000 / -1000 2256 / 2362 -2129 / -2129 Weight 139 lb 7 oz 142 lb 3.876 oz 144 lb 7 oz Microbiology Reports for the Last 24 Hours: Microbiology 12/21/22 10:39 Urine,Catheterized Urine Culture - Final NO GROWTH AFTER 48 HOURS 12/21/22 10:30 Blood Blood Culture - Preliminary NO GROWTH AFTER 48 HOURS 12/21/22 10:30 Blood Blood Culture - Preliminary NO GROWTH AFTER 48 HOURS 12/22/22 17:05 Sputum - Expectorated Sputum Gram Stain - Final 12/21/22 17:40 Cerebral Spinal Fluid Gram Stain - Final 12/21/22 17:40 Cerebral Spinal Fluid CSF Culture - Preliminary NO GROWTH AFTER 24 HOURS Constitutional: Present mild distress Head: Present normocephalic and atraumatic ENT: Present normal exam, normal oropharynx and mucous membranes moist Neck: Present normal inspection and full ROM Respiratory: Present rhonchi, diminished air movement and able to speak in complete sentences; Absent respiratory distress, wheezes or crackles Cardiac: Present S1/S2, Tachycardia and radial pulses present GI: Present soft and distention; Absent tenderness or guarding Skin: Present intact; Absent cyanosis or jaundice Neuro: Present alert, awake and oriented x 3 Extremities: Present normal inspection; Absent clubbing or cyanosis Psychiatric: Present normal affect and cooperative Assessment and Plan *Assessment and plan (1) Pneumonia: Status: Acute Category: Medical Code(s): J18.9 - Pneumonia, unspecified organism Plan Mr. Haynes is a 77-year-old male prior smoker greater than [id number] smoker is following in pulmonary clinic for COPD, MARCELLA on NIV at home last seen in the pulmonary clinic in September 2020 to present to the hospital with altered mentation and was eventually admitted and patient CT chest showed bilateral lower lobe airspace disease and pulmonary was consulted for further evaluation For acute on chronic hypoxic respiratory failure. No evidence of leukocytosis from this morning. Chest x-ray from admission no acute pulmonary emphysema clinical month stable at baseline. ABG from admission did not show any evidence of hypoxic/hypercarbic respiratory failure. Lactate within normal limits. CT chest without contrast from admission motion artifact, mild bilateral groundglass opacities with possible lower lobe atelectasis/airspace dise
--- NOTE | 2022-12-24 15:21 | CARE MANAGER ---
Patient's called back and stated he is doing well. His throat is sore, but feels better. They are aware of follow up appointments and no new medications to last picker. Deny questions or concerns. SYDNIE Lopez
[2022-12-26 09:17] LABS: Enterovirus,CSF PCR Negative (Negative)
== END 2022-12-23 13:35 | disposition home or self-care (01) | DRG 871 ==
LOC: ER 11:06 → 2ND 13:21
PROVIDERS: Internal Medicine Adolescent Medicine; Nurse Practitioner Family; Admitting Provider Family Medicine; Emergency Provider Student in an Organized Health Care Education/Training Program; PCP Internal Medicine; Visit Provider Family Medicine
DX: A41.9 Sepsis, unspecified organism (principal); I50.33 Acute on chronic diastolic (congestive) heart failure; J18.9 Pneumonia, unspecified organism; R65.21 Severe sepsis with septic shock; J96.21 Acute and chronic respiratory failure with hypoxia; G93.40 Encephalopathy, unspecified; N17.9 Acute kidney failure, unspecified; J44.9 Chronic obstructive pulmonary disease, unspecified; G47.33 Obstructive sleep apnea (adult) (pediatric); I11.0 Hypertensive heart disease with heart failure; I25.10 Atherosclerotic heart disease of native coronary artery without angina pectoris; E11.9 Type 2 diabetes mellitus without complications; Z99.81 Dependence on supplemental oxygen; Z86.73 Personal history of transient ischemic attack (TIA), and cerebral infarction without residual deficits; Z95.1 Presence of aortocoronary bypass graft; Z85.46 Personal history of malignant neoplasm of prostate
CPT/HCPCS: 36415; 70450; 71045; 71250; 71260; 74177; 80048; 80053; 81001; 82803; 82945; 82962; 83605; 83735; 83880; 84100; 84145; 84155; 84484; 85007; 85025; 85610; 85651; 86140; 87040; 87070; 87077; 87086; 87186; 87205; 87498; 87581; 87632; 87798; 89051; 92610; 93005; 94640; 94760; 99291; C9803; J0290; J0456; J0696; J1956; J2405; J2543; J3370; Q9967; U0003; U0005

== ENCOUNTER → 2022-12-24 09:29 | Outpatient (POV) | payer MEDICARE, SELFPAY ==
--- NOTE | 2022-12-24 09:58 | EXP.PAIN.PRO ---
Procedure Date: 12/24/22 Time: 09:58 Anesthesiologist:: Mary Pitts APRN Complications:: None Pre-procedure Diagnosis:: Degenerative disc disease of lumbar spine multilevels with lumbar radiculopathy symptoms, bilateral sacroiliitis Post-procedure Diagnosis:: Same Indications for Procedure:: Patient is a pleasant 77-year-old male who presents today for follow-up of recent hospitalization at [facility]. The patient is being treated for degenerative disc disease of lumbar spine multilevels with lumbar radiculopathy symptoms. Patient is currently being managed with morphine 15 mg/mL with a daily dose of 2.56 mg/day. Patient denies any side effects from this medication. He states that recently he started coming under the weather and went to the ER and was hospitalized for a combination of COPD exacerbation, hypertension and possible encephalitis. Patient states that during this time the physician did question whether or not it was related to his pump medications. Patient does present today with his at our visit and states that they do not believe it has anything to do with his pump medication. Patient states that they did recommend that he came down on his gabapentin to 2 tablets/day and they also decreased another medication he was taking. Patient does state that he is feeling better today following his previous illness however he is having worsening pain symptoms. Patient rates pain a 9 out of 10. He does describe this as an aching, throbbing sensation that is worse with increased activity. Drug screen is appropriate. Chucho has been reviewed and is appropriate. Physical exam General: Alert and oriented x3, no acute distress, pleasant and cooperative Lungs: Respirations even and unlabored, symmetrical chest expansion Eyes: PERRL Musculoskeletal: Flexion and extension of lumbar [spine] somewhat guarded secondary to pain, [antalgic gait noted] Neurological: Speech clear, no gross sensory deficit Procedure Details:: Informed consent was obtained and the risk and benefits of the procedure were explained to the patient. Patient was taken to the procedure room where noninvasive monitoring was placed including noninvasive blood pressure cuff and pulse oximeter. Patient's pump was interrogated and was reprogrammed to morphine 2.8 mg/day. The patient tolerated the procedure well with no complications. Plan and Disposition:: I have discussed with the patient and his that over the last year we have not made any adjustments to his intrathecal medications along with every refill he has not had any fluid discrepancies. I do believe his recent hospitalization was unrelated to his pump medications. I have discussed with the patient and his that he can come down to gabapentin 300 mg twice daily however he may have additional pain symptoms and I would like to see him more frequently due to this. Patient is currently taking gabapentin 300 mg 3 times daily. Patient will return to clinic in 2 weeks for reevaluation of symptoms and plan of care. Patient has been instructed to contact the clinic with any concerns before the next appointment. Dr. Dukes has reviewed this note and agrees with this plan of care. This note was dictated using voice recognition software and make contain errors or omissions. -- It Is medically necessary for this patient to continue to have their intrathecal pump refilled at regular intervals. This patient had an intrathecal pain pump implanted after meeting criteria of chronic intractable pain for greater than 3 months and failing conservative treatments. Patient has committed and been compliant to the treatment plan and all planned follow up care. Since implantation of the intrathecal pain pump, the patient has had decreased pain and been more functional. Oral medications have been reduced including intake of oral opioids. Patient continues to do well with intrathecal therapy with decrease in pain symptoms a
[2022-12-24 10:07] VITALS: BP 146/68; PULSE 99; RESP 20; BMI 25.4
== END | disposition home or self-care (01) ==
PROVIDERS: PCP Internal Medicine; Visit Provider Nurse Practitioner Family
DX: Z45.1 Encounter for adjustment and management of infusion pump (principal); M51.16 Intervertebral disc disorders with radiculopathy, lumbar region; M46.1 Sacroiliitis, not elsewhere classified
CPT/HCPCS: 62368

== ENCOUNTER 2023-02-12 11:01 | Day surgery (SDC) | payer MEDICARE, SELFPAY ==
[2023-02-12 11:15] VITALS: BP 118/55; PULSE 84; RESP 18; O2SAT 98; BMI 25.4
[2023-02-12 11:26] VITALS: BP 136/77; PULSE 84; RESP 18; O2SAT 95
[2023-02-12 11:28] VITALS: BP 136/77; PULSE 84; RESP 18; O2SAT 95
--- NOTE | 2023-02-12 11:29 | EXP.PAIN.PRO ---
Procedure Date: 02/12/23 Time: 11:29 Anesthesiologist:: Isaac Dukes MD Complications:: None Pre-procedure Diagnosis:: Degenerative disc disease of lumbar spine multilevels with lumbar radiculopathy symptoms, bilateral sacroiliitis Post-procedure Diagnosis:: Same Indications for Procedure:: Patient is a pleasant 77-year-old male who presents today for intrathecal refill and reprogram. We are currently treating the patient for degenerative disc disease of lumbar spine multilevels with lumbar radiculopathy symptoms, bilateral sacroiliitis. Today he rates his pain a 6 out of 10. Patient denies any new trauma or injury. Patient denies any change to the location or type of pain he experiences. Patient is currently managed with intrathecal morphine 15 mg/mL with a daily dose of 2.8 milligrams per day. Patient denies any side effects from this medication. He does state that this medication does well for his pain symptoms. He is not requesting an adjustment at today's visit. His Chucho has been reviewed and is appropriate. Physical exam General: Alert and oriented x3, no acute distress, pleasant and cooperative Lungs: Respirations even and unlabored, symmetrical chest expansion Eyes: PERRL Musculoskeletal: Flexion and extension of lumbar [spine] somewhat guarded secondary to pain, [antalgic gait noted] Neurological: Speech clear, no gross sensory deficit Procedure Details:: Patient was taken to the procedure room via wheelchair and placed in a sitting position on the exam room table. Noninvasive monitoring was placed on the patient including a noninvasive blood pressure cuff and pulse oximeter. His pump was then interrogated with 4.6 mL of solution expected. The area over the pump was cleansed with ChloraPrep as a cleansing solution and using a sterile 25-gauge needle the pump was accessed. Approximately 5.1 mL of solution was withdrawn and discarded appropriately. The pump was then refilled with 20 mL of morphine 15 mg/mL. Needle was withdrawn and a Band-Aid applied. The pump was then reinterrogated and continued at 2.8 mg/day. Patient tolerated the procedure well with no complications. Plan and Disposition:: Patient was monitored in the clinic setting for short period of time following this procedure and discharged neurologically intact. Patient will return to clinic for his next intrathecal refill and reprogram date. Patient has been counseled to contact our office with any questions or concerns before his next appointment date. This note was dictated using voice recognition software and may contain errors or omissions. Dr. Dukes has read this note and agrees with this plan of care.
[2023-02-12 11:37] VITALS: BP 110/60; PULSE 80; RESP 18; O2SAT 95
== END 2023-02-12 11:39 | disposition home or self-care (01) ==
PROVIDERS: PCP Internal Medicine; Visit Provider Nurse Anesthetist, Certified Registered
DX: Z45.1 Encounter for adjustment and management of infusion pump (principal); M51.16 Intervertebral disc disorders with radiculopathy, lumbar region; M46.1 Sacroiliitis, not elsewhere classified
CPT/HCPCS: 95991

== ENCOUNTER → 2023-02-17 11:50 | Outpatient (CLI) | payer MEDICARE, SELFPAY ==
[2023-02-17 12:37] LABS: Basophils % 0.1 % (0.1-2.0); Eosinophils # 0.2 K/mm3 (0.0-0.4); Hematocrit 37.7 % (42.0-52.0); Lymphocytes # 1.3 K/mm3 (0.7-4.5); Lymphocytes % 26.2 % (10-50); Mean Corpuscular HGB Conc 31.9 g/dL (31.8-35.4); Mean Corpuscular Hemoglobin 28.7 pg (27.0-31.2); Mean Corpuscular Volume 89.9 fl (80-94); Mean Platelet Volume 8.7 fl (7.4-10.4); Monocytes # 0.3 K/mm3 (0.1-1.0); Monocytes % 5.2 % (1.7-9.3); Neutrophils # 3.3 K/mm3 (1.8-7.8); Neutrophils % 65.5 % (37.0-80.0); Platelet Count 208 K/mm3 (142-424); Red Blood Count 4.19 M/mm3 (4.60-6.20); Red Cell Distribution Width 14.8 % (11.5-17.5)
[2023-02-17 12:50] LABS: Chloride 95 mmol/L (98-107)
[2023-02-17 12:51] LABS: Potassium 4.3 mmoL/L (3.5-5.1); Sodium 138 mmol/L (136-145)
[2023-02-17 12:53] LABS: Alanine Aminotransferase 16 U/L (12-78); Aspartate Amino Transferase 19 U/L (17-59); Blood Urea Nitrogen 21 mg/dl (9-20); Estimated Glomerular Filt Rate 93 ml/min (>60); GFR (African American) 113 ML/MIN (>60)
[2023-02-17 12:54] LABS: Albumin Level 3.9 g/dl (3.5-5.0); Albumin/Globulin Ratio 1.9 (1.1-1.8); Alkaline Phosphatase 100 U/L (38-126); Anion Gap 18.3 mEq/L (5-15); Bilirubin,Total 0.3 mg/dl (0.2-1.3); Calcium 9.4 mg/dl (8.4-10.2); Carbon Dioxide 29 mmol/L (22.0-30.0); Chol/HDL Ratio 2.6 (1-3.5); Cholesterol 108 mg/dl (140-200); Globulin 2.1 g/dL (1.3-3.2); Glucose 201 mg/dl (74-100); HDL Cholesterol 41 mg/dl (40-60); Triglycerides 116 mg/dl (30-150); VLDL Cholesterol 23 mg/dL (0-40)
[2023-02-17 13:06] LABS: Direct LDL Cholesterol 55.95 mg/dL (100-129)
[2023-02-17 13:09] LABS: Microalbumin/Creatinine Ratio 47.3
[2023-02-17 13:10] LABS: Creatinine,Urine Random 45 mg/dL (Not Estab.)
[2023-02-17 13:17] LABS: Hemoglobin A1C 7.9 % (4.0-6.0)
== END ==
PROVIDERS: PCP Internal Medicine; Visit Provider Internal Medicine
DX: E11.59 Type 2 diabetes mellitus with other circulatory complications (principal); I10 Essential (primary) hypertension; E78.5 Hyperlipidemia, unspecified; Z79.84 Long term (current) use of oral hypoglycemic drugs
CPT/HCPCS: 80053; 80061; 82043; 82570; 83036; 85025

== ENCOUNTER 2023-02-18 12:51 | Emergency (ER) | payer MEDICARE, SELFPAY ==
[2023-02-18] VITALS (8 sets, daily range): BP systolic 117–133; BP diastolic 65–71; PULSE 78–97; RESP 16–20; TEMP 36.8–37.7; O2SAT 87–97; BMI 23.8
--- NOTE | 2023-02-18 13:07 | CT_ITS ---
FINAL REPORT CLINICAL HISTORY: [facility] COMPARISON: 12/21/2022 FINDINGS: Axial images of the head were obtained without contrast. Coronal reformatted images were also obtained. This study was performed with techniques to keep radiation doses as low as reasonably achievable (ALARA). Individualized dose reduction techniques using automated exposure control or adjustment of mA and/or kV according to the patient's size were employed. There is moderate atrophy and proportional ventriculomegaly Periventricular low-attenuation areas are seen consistent with chronic ischemic changes. There is no evidence of intracranial hemorrhage, mass-effect, or edema. There is no evidence of acute infarct. There is no evidence of shift of the midline structures. No skull abnormality is seen on the bone window images. The paranasal sinuses are well aerated. IMPRESSION: Atrophy and periventricular chronic ischemic changes. No acute intracranial abnormality identified. Reviewed, Interpreted and Dictated by Solo Jennings MD Transcribed by Sarah Nguyễn Authenticated and [facility]
--- NOTE | 2023-02-18 13:07 | XR_ITS ---
FINAL REPORT CLINICAL HISTORY: [facility] COMPARISON: 12/21/2022 FINDINGS: SINGLE-VIEW CHEST The heart size is normal. The patient is status post median sternotomy. There are chronic changes at the bases. The lungs are otherwise clear. There is no pneumothorax. IMPRESSION: No acute cardiopulmonary process. Reviewed, Interpreted and Dictated by Solo Jennings MD Transcribed by Sarah Nguyễn Authenticated and [facility]
--- NOTE | 2023-02-18 13:12 | PC.NURSE ---
pt to radiology
[2023-02-18 13:22] LABS: Basophils % 0.2 % (0.1-2.0); Eosinophils # 0.2 K/mm3 (0.0-0.4); Eosinophils % 1.4 % (0.1-12.0); Hematocrit 40.1 % (42.0-52.0); Hemoglobin 12.8 g/dL (14.1-18.0); Lymphocytes # 1.1 K/mm3 (0.7-4.5); Lymphocytes % 9.9 % (10-50); Mean Corpuscular Hemoglobin 28.7 pg (27.0-31.2); Mean Corpuscular Volume 89.9 fl (80-94); Mean Platelet Volume 7.5 fl (7.4-10.4); Monocytes # 0.5 K/mm3 (0.1-1.0); Monocytes % 4.2 % (1.7-9.3); Neutrophils % 84.3 % (37.0-80.0); Platelet Count 192 K/mm3 (142-424); Red Blood Count 4.47 M/mm3 (4.60-6.20); Red Cell Distribution Width 14.8 % (11.5-17.5); White Blood Count 10.7 K/mm3 (4.8-10.8)
--- NOTE | 2023-02-18 13:22 | HMH.EDGENADL ---
Discharge Plan Disposition Patient Disposition: Home, Self-Care Prescriptions Prescriptions: New doxycycline hyclate 100 mg capsule 100 mg PO BID Qty: 14 0RF No Action duloxetine 60 mg capsule,delayed release(DR/EC) 60 mg PO DAILY furosemide 40 mg tablet 40 mg PO DAILYP PRN (Reason: Edema) morphine 10 MG/ML solution 2.35 mg intrathecal CONT Rx Instructions: medication delivered via intrathecal pain pump. concentration of medication is 10mg/ml, total volume of pump is 20ml. total daily dose is 2.35mg/day Jardiance 25 mg tablet 25 mg PO DAILY ferrous sulfate [FeroSul] 325 mg (65 mg iron) tablet 325 mg PO DAILY Stiolto Respimat 2.5-2.5 mcg/actuation mist 2 inh INHALATION DAILY atorvastatin 80 MG tablet 80 mg PO DAILY aspirin 81 MG tablet,delayed release (DR/EC) 81 mg PO DAILY tamsulosin 0.4 MG capsule 0.4 mg PO DAILY gemfibrozil 600 MG tablet 600 mg PO BID metoprolol succinate 25 MG tablet extended release 24 hr 25 mg PO DAILY cyanocobalamin (vitamin B-12) 1,000 mcg tablet 1,000 mcg PO DAILY metformin 1,000 mg tablet 1,000 mg PO BID gabapentin 300 MG capsule 300 mg PO BID Qty: 120 2RF memantine 10 mg tablet 10 mg PO DAILY 90 Days Qty: 180 3RF Referrals Follow up/Referrals: Bryon Velazquez MD [Primary Care Provider] - See instructions Activity Restrictions/Add. Instructions Additional Instructions/Restrictions: Return the emergency department for difficulty breathing cough fever or any other concerns within the next 8 hours otherwise follow-up with your primary care physician within the next few days Clinical Impressions Clinical Impression: Pneumonia Instructions Patient Instructions: DI for Altered Mental Status Discharge ED Provider: James James General Adult HPI General Chief complaint: Altered Mental Status Stated complaint: AMS, Fever Time Seen by Provider: 02/18/23 13:00 Mode of Arrival: Wheelchair Source of Information: Patient and Spouse Limitations: Altered Mental Status Description of Symptoms (Recalled from ER Triage Doc. by RN): pt to ed c/o ams. per at the bedside, pt urinated on himself this morning without knowing, has became increasingly weaker than baseline and has had a fever off and on today. pt denies any pain. History of Present Illness HPI narrative: 77-year-old male presents with altered mental status. Apparently he has been confused per daughter. He urinated on himself this morning and has been generally weak. Has subjective fever as well. She said last time he developed sepsis and she wanted to bring him in earlier for evaluation this time. He is not a great historian at baseline Related Data Home Medications Medication Instructions Recorded Confirmed aspirin 81 mg tablet,delayed 81 mg PO DAILY HEART HEALTH 12/24/17 02/12/23 release atorvastatin 80 mg tablet 80 mg PO DAILY Cholesterol 12/24/17 02/12/23 gemfibrozil 600 mg tablet 600 mg PO BID Cholesterol 12/24/17 02/12/23 metoprolol succinate 25 mg 25 mg PO DAILY Hypertension 12/24/17 02/12/23 tablet,extended release 24 hr tamsulosin 0.4 mg capsule 0.4 mg PO DAILY PROSTATE 12/24/17 02/12/23 duloxetine 60 mg capsule,delayed 60 mg PO DAILY Depression 11/18/20 02/12/23 release furosemide 40 mg tablet 40 mg PO DAILYP PRN Edema 11/18/20 02/12/23 morphine 10 mg/mL injection 2.35 mg intrathecal CONT chronic 06/16/21 02/12/23 solution pain empagliflozin 25 mg tablet 25 mg PO DAILY Diabetes 09/04/22 02/12/23 (Jardiance) ferrous sulfate 325 mg (65 mg 325 mg PO DAILY Supplement 09/06/22 02/12/23 iron) tablet (FeroSul) tiotropium 2.5 mcg-olodaterol 2.5 2 inh inhalation DAILY COPD 09/06/22 02/12/23 mcg/actuation mist for inhalation (Stiolto Respimat) cyanocobalamin (vitamin B-12) 1,000 mcg PO DAILY Supplement 12/21/22 02/12/23 1,000 mcg tablet metformin 1,000 mg tablet 1,000 mg PO BID Diabetes
[2023-02-18 13:27] LABS: Chloride 92 mmol/L (98-107); Potassium 3.8 mmoL/L (3.5-5.1); Sodium 138 mmol/L (136-145)
[2023-02-18 13:29] LABS: Blood Urea Nitrogen 23 mg/dl (9-20); Creatinine Clearance Estimated 49 mL/min (50-200); Estimated Glomerular Filt Rate 65 ml/min (>60); GFR (African American) 78 ML/MIN (>60)
[2023-02-18 13:30] LABS: Alanine Aminotransferase 18 U/L (12-78); Albumin Level 4.5 g/dl (3.5-5.0); Albumin/Globulin Ratio 1.7 (1.1-1.8); Alkaline Phosphatase 103 U/L (38-126); Anion Gap 17.8 mEq/L (5-15); Aspartate Amino Transferase 22 U/L (17-59); Bilirubin,Total 0.6 mg/dl (0.2-1.3); Calcium 9.6 mg/dl (8.4-10.2); Carbon Dioxide 32 mmol/L (22.0-30.0); Globulin 2.7 g/dL (1.3-3.2); Glucose 194 mg/dl (74-100); Magnesium 1.4 mg/dl (1.6-2.3); Total Protein,Serum 7.2 g/dl (6.3-8.2)
[2023-02-18 13:40] LABS: NT Pro Brain Natriuretic Pep. 489 pg/mL (0-450)
[2023-02-18 13:42] LABS: Troponin I < 0.01 ng/ml (0.00-0.034)
--- NOTE | 2023-02-18 13:44 | ECG_ITS ---
APPROVED REPORT Exam: Resting ECG HR:89 bpm ECG Measurements Heart Rate 89 AXES OH 175 P 1 QRSd 96 QRS 61 QT 347 T 22 QTc 394 Conclusion SINUS RHYTHM NONSPECIFIC T-WAVE ABNORMALITY BORDERLINE ECG UNCONFIRMED REPORT Electronically signed by : Mitchel Briceno MD 02/18/2023 21:20:53
--- NOTE | 2023-02-18 13:50 | PC.NURSE ---
rounded on pt no complaints at this time, family at bs
--- NOTE | 2023-02-18 14:22 | PC.NURSE ---
PT aware that we need UA, urinal at BS. No other needs at this time, SO at BS
--- NOTE | 2023-02-18 14:43 | PC.NURSE ---
Rounded on patient, still unable to void at this time. Urinal at BS. Family at BS. Call light within reach
[2023-02-18 15:18] LABS: Strep Scrn Group A (Rapid) Negative (Negative)
[2023-02-18 15:42] LABS: Microscopic, Urine URINE MICROSCOPIC (MICROSCOPIC)
[2023-02-18 15:49] LABS: Appearance,Urine CLEAR (Clear); Bilirubin,Urine Negative (Negative); Blood, Urine Negative (Negative); Color,Urine YELLOW (Yellow); Glucose,Urine (UA) 3+ (Negative); Ketones,Urine Negative (Negative); Leukocyte Esterase,Urine Negative (Negative); Nitrate,Urine Negative (Negative); Protein,Urine Negative (Negative); Urobilinogen,Urine 0.2 EU/dl (0.2)
[2023-02-18 16:18] LABS: Bacteria,Urine Trace /lpf; Squamous Epithelial Cell,Urine Occasional #/hpf (0-5)
--- NOTE | 2023-02-18 16:31 | PC.NURSE ---
rounded on pt asked for a pepsi, Sophia gave one, call light at bs
== END 2023-02-18 17:04 | disposition home or self-care (01) ==
PROVIDERS: Emergency Provider Emergency Medicine; PCP Internal Medicine
DX: R41.82 Altered mental status, unspecified (principal); J18.9 Pneumonia, unspecified organism
CPT/HCPCS: 70450; 71045; 80053; 81001; 83735; 83880; 84484; 85025; 87430; 93005; 96365; 99285; J3475

== ENCOUNTER → 2023-03-03 07:51 | Outpatient (CLI) | payer MEDICARE, SELFPAY ==
--- NOTE | 2023-03-03 07:55 | FL_ITS ---
FINAL REPORT CLINICAL HISTORY: TROUBLE SWALLOWING, ft 2:25 FINDINGS: UPPER GI EXAM HISTORY: Difficulty swallowing. PROCEDURE: The patient ingested barium. Effervescent crystals were also administered. Spot and overhead films were obtained. FINDINGS: No esophageal stricture is identified. A 13 mm barium tablet passes through the esophagus and into the stomach without delay. There is a small sliding-type hiatal hernia. There is no gastroesophageal reflux. Marked esophageal dysmotility was demonstrated during the exam. There are nonspecific prominent rugal folds with debris within the stomach and duodenum. Duodenum is otherwise unremarkable. FLUOROSCOPY TIME: 2 minutes 25 seconds. 25 images were obtained. IMPRESSION: Small sliding-type hiatal hernia with marked esophageal dysmotility. Nonspecific prominent rugal folds of the stomach with debris in the stomach and duodenum. Clinical correlation recommended. Films reviewed , interpreted and dictated by Dr. Vieira. Transcribed by Ralf Kwan PA-C. Reviewed, Interpreted and Dictated by Mann Vieira III, MD Transcribed by CONSTANTINE Hanson Authenticated and [facility]
== END ==
PROVIDERS: PCP Internal Medicine; Visit Provider Internal Medicine
DX: R13.10 Dysphagia, unspecified (principal)
CPT/HCPCS: 74220; 74240; 74246

== ENCOUNTER → 2023-03-29 10:45 | Outpatient (CLI) | payer MEDICARE, SELFPAY ==
--- NOTE | 2023-03-29 10:49 | FL_ITS ---
FINAL REPORT CLINICAL HISTORY: 2.23 fluoro time abn ugi, dysmotility of esophagus FINDINGS: MODIFIED BARIUM SWALLOW History: Dysphagia FINDINGS: Fluoroscopy was provided for the speech pathologist to evaluate the swallowing mechanism. The patient was given several different consistencies of barium while the swallow was visualized fluoroscopically. The report of the speech pathologist should be consulted prior to making dietary decisions. FLUOROSCOPY TIME: 2.23 minutes IMPRESSION: Modified barium swallow under fluoroscopic guidance. Please see the report of the speech pathologist for Dietary recommendations. Reviewed, Interpreted and Dictated by Mann Vieira III, MD Transcribed by CONSTANTINE Cast Authenticated and [facility]
--- NOTE | 2023-03-29 14:34 | HMH.SLMBS2 ---
Speech & Language Evaluation Speech/Language Mod Barium Swallow Start: 03/29/23 14:18 Freq: once Status: Complete Protocol: Document 03/29/23 14:18 PRASANTH (Rec: 03/29/23 14:34 [facility] [id number] General Information General Current Food Consistancy Regular,Thin Liquids Dentition Upper & Lower Dentures Oxygen Status Room Air Patient Orientation Person,Place,Time,Situation Ability to Follow Directions Good Communication Ability No Impairment MBS Recommendations Diet Dietary Recommendations Regular,Thin Liquids Treatment/Strategies Strategy/Precaution Recommend Sitting Upright (90 deg), Double Swallow,No Straw,Small Bites and Sips,Alternate Liquids/Solids Mod Barium Swallow Impressions Summary and Impressions Oral Phase Impression Moderate Impairment Oral Phase Summary Moderately impaired oral phase . Mr. Haynes exhibited prolonged and inadequate mastication of both mechanical soft and regular textures. Premature spillage to the vallecular space with solid consistencies 2' oral holding, limited tongue control during oral transit, and delayed swallow. No significant oral residue was noted outside of trace residue on BOT. Pharyngeal Phase Impression Mild Impairment Pharyngeal Phase Summary Mildly impaired pharyngeal phase. Aspiration x1 with a straw sip of thin liquid. The majority of the material was cleared upon completed of the pharyngeal, but a minimal amount did deepen and fall below the vocal folds. Aspiration occurred during the swallow. Penetration 2' reduced hyolaryngeal elevation and excursion and premature spillage. Pt was not sensate to aspiration, however was able to clear when prompted to clear throat & cough. Minimal vallecular residue with all trials during the swallow 2' delayed initiation of the swallow, trapping material in
== END ==
PROVIDERS: PCP Internal Medicine; Visit Provider Internal Medicine
DX: K22.4 Dyskinesia of esophagus (principal); R93.3 Abnormal findings on diagnostic imaging of other parts of digestive tract
CPT/HCPCS: 70371; 92611

== ENCOUNTER 2023-04-13 12:57 | Day surgery (SDC) | payer MEDICARE, SELFPAY ==
[2023-04-13 13:14] VITALS: BP 134/93; PULSE 87; RESP 18; TEMP 36.1; O2SAT 91; BMI 24.4
[2023-04-13 13:30] VITALS: BP 131/92; PULSE 89; RESP 18; O2SAT 97
[2023-04-13 13:34] VITALS: BP 131/92; PULSE 89; RESP 18; O2SAT 97
[2023-04-13 13:40] VITALS: BP 140/58; PULSE 85; RESP 18; O2SAT 90
--- NOTE | 2023-04-13 13:40 | EXP.PAIN.PRO ---
Procedure Date: 04/13/23 Time: 13:30 Anesthesiologist:: Rell Trejo CRNA Complications:: None Pre-procedure Diagnosis:: Degenerative lumbar spine multilevels. Lumbar radiculopathy. Post-procedure Diagnosis:: Same Indications for Procedure:: Is a very pleasant 78-year-old male who comes our clinic today for intrathecal pain pump interrogation and refill. Patient currently being managed with morphine sulfate 15 mg/mL at 2.8 mg today. He is doing very well with his current treatment. He does not complain of any side effects or complications regarding intrathecal pain pump management. Procedure Details:: Details of procedure explained the patient. The patient taken procedure room placed in sitting position. The area with pump was cleansed using chlorhexidine as a cleansing solution. The pump was accessed with ease using a 22-gauge inch and half needle. 8 mL of solution was withdrawn discarded appropriately. The pump was then filled incrementally with morphine sulfate 15 mg/mL. Patient tolerated procedure without difficulty. There are no complications. Plan and Disposition:: Patient was discharged without incident.
== END 2023-04-13 13:40 | disposition home or self-care (01) ==
PROVIDERS: PCP Internal Medicine; Visit Provider Nurse Anesthetist, Certified Registered
DX: M51.16 Intervertebral disc disorders with radiculopathy, lumbar region (principal)
CPT/HCPCS: 95991

== ENCOUNTER 2023-06-09 14:13 | Emergency (ER) | payer MEDICARE, SELFPAY ==
[2023-06-09] VITALS (15 sets, daily range): BP systolic 118–139; BP diastolic 58–73; PULSE 67–92; RESP 16–20; TEMP 36.6–37.9; O2SAT 90–97; BMI 24.2
--- NOTE | 2023-06-09 14:16 | ECG_ITS ---
APPROVED REPORT Exam: Resting ECG HR:92 bpm ECG Measurements Heart Rate 92 AXES RI 180 P -6 QRSd 95 QRS 37 QT 349 T -17 QTc 398 Conclusion SINUS RHYTHM NONSPECIFIC T-WAVE ABNORMALITY BORDERLINE ECG UNCONFIRMED REPORT Electronically signed by : Mitchel Briceno MD 06/10/2023 06:41:41
--- NOTE | 2023-06-09 14:41 | PC.NURSE ---
pt received a warm blanket at bs
[2023-06-09 15:03] LABS: Basophils % 0.2 % (0.1-2.0); Eosinophils # 0.1 K/mm3 (0.0-0.4); Eosinophils % 1.1 % (0.1-12.0); Hematocrit 40.4 % (42.0-52.0); Hemoglobin 12.9 g/dL (14.1-18.0); Lymphocytes # 1.2 K/mm3 (0.7-4.5); Lymphocytes % 12.3 % (10-50); Mean Corpuscular HGB Conc 31.9 g/dL (31.8-35.4); Mean Corpuscular Hemoglobin 28.4 pg (27.0-31.2); Mean Corpuscular Volume 88.8 fl (80-94); Mean Platelet Volume 8.2 fl (7.4-10.4); Monocytes # 0.5 K/mm3 (0.1-1.0); Monocytes % 4.6 % (1.7-9.3); Neutrophils # 8.2 K/mm3 (1.8-7.8); Neutrophils % 81.8 % (37.0-80.0); Platelet Count 226 K/mm3 (142-424); Red Blood Count 4.56 M/mm3 (4.60-6.20); Red Cell Distribution Width 14.7 % (11.5-17.5)
[2023-06-09 15:07] LABS: Alanine Aminotransferase 20 U/L (12-78); Albumin Level 4.7 g/dl (3.5-5.0); Albumin/Globulin Ratio 1.4 (1.1-1.8); Alkaline Phosphatase 135 U/L (38-126); Anion Gap 18.6 mEq/L (5-15); Aspartate Amino Transferase 27 U/L (17-59); Bilirubin,Total 0.6 mg/dl (0.2-1.3); Blood Urea Nitrogen 30 mg/dl (9-20); Calcium 10.1 mg/dl (8.4-10.2); Carbon Dioxide 28 mmol/L (22.0-30.0); Chloride 101 mmol/L (98-107); Creatinine Clearance Estimated 52 mL/min (50-200); Estimated Glomerular Filt Rate 64 ml/min (>60); GFR (African American) 78 ML/MIN (>60); Globulin 3.3 g/dL (1.3-3.2); Glucose 179 mg/dl (74-100); Potassium 3.6 mmoL/L (3.5-5.1); Sodium 144 mmol/L (136-145)
--- NOTE | 2023-06-09 15:12 | XR_ITS ---
FINAL REPORT CLINICAL HISTORY: chronic soa, frequent falls COMPARISON: 12/21/2022 FINDINGS: SINGLE-VIEW CHEST There is mild cardiomegaly. The patient is status post median sternotomy. The lungs are clear. There is no pneumothorax. IMPRESSION: No acute cardiopulmonary process. Reviewed, Interpreted and Dictated by Solo Jennings MD Transcribed by Sarah Nguyễn Authenticated and [facility]
--- NOTE | 2023-06-09 15:12 | CT_ITS ---
FINAL REPORT TECHNIQUE: multiple axial CT images were performed from the foramen magnum to the vertex without enhancement. This study was performed with techniques to keep radiation doses as low as reasonably achievable (ALARA). Individualized dose reduction techniques using automated exposure control or adjustment of mA and/or kV according to the patient's size were employed. CLINICAL HISTORY: frequent falls hitting head COMPARISON: 02/18/2023 FINDINGS: The ventricles are enlarged. There is moderate atrophy. There is fairly extensive decreased attenuation throughout the deep white matter consistent with chronic ischemia. There is no evidence of hemorrhage. No masses are identified. No extra-axial fluid is seen. The paranasal sinuses are well aerated. IMPRESSION: Moderate atrophy and extensive changes of chronic microvascular ischemia. Reviewed, Interpreted and Dictated by Solo Jennings MD Transcribed by Sarah Nguyễn Authenticated and [facility]
--- NOTE | 2023-06-09 15:12 | CA_ITS ---
APPROVED REPORT EXAM: Comprehensive 2D, Doppler, and color-flow Echocardiogram Clinical Assoc: Yenifer Ford CRT Ht: 5 ft 6 in Wt: 150lbs BSA: 1.77 BP: 119/60 mmHg Indications: WEAKNESS, SYNCOPE Congestive Heart Failure, Diabetes, CAD, Hyperlipidemia, CABGX 1. CABG X 4, PROSTATE CA, MARCELLA 2D Dimensions LVOT 1.90 cm (M/F) 1.5-2.5 LA Volume 20.40 mL LA Volume Index 11.30 mL/m2 (M/F) 16-34 M-Mode Dimensions RVDd 3.10 cm (0.9-2.6) LA Diam 2.97 cm (1.9-4.0) LVDd 3.71 cm (3.5-5.7) Ao Diam 4.41 cm (2.0-3.7) LVDs 2.09 cm (3.5-5.7) IVSd 1.36 cm (0.6-1.1) PWd 0.52 cm (0.6-1.1) EF (Teich) 75.70% FS 43.70% EDV (Teich) 58.50 mL TAPSE 0.68 (<1.7) ESV (Teich) 14.20 mL LV Diastology E Decel Time 257.00 (160-240 msec) E/A Ratio 0.84 MED E' 7.00 (< 7 cm/sec) MED A' 7.60 cm/s E'/MED E' Ratio 13.63 (>14) LAT E' 8.10 (<10 cm/sec) LAT A' 14.10 cm/s E/LAT E' Ratio 11.78 (>14) Aortic Valve AO Peak GR. 8.70 mmHg Mitral Valve MV E Max Kvng. 95.00 (40-130 cm/s) MV A Velocity 114.00 (40-130 cm/s) E/A Ratio 0.84 MV Decel. Time 257.00 (160-240 ms) MV PHT 75.00 ms Pulmonary Valve PV Peak Velocity 58.00 (50-150 cm/s) Tricuspid Valve TR P. Velocity 232.00 cm/s RAP Estimate 10.00 mmHg RVSP 31.50 mmHg Left Ventricle The left ventricle is normal size. The left ventricular systolic function is normal. The left ventricular ejection fraction is within the normal range. There is proximal septal thickening present. The septum appears asynchronous. There are no regional wall motion abnormalities. The left ventricular diastolic function is normal. LVEF is 55-60%. Right Ventricle The right ventricle is normal size. The right ventricular systolic function is normal. Atria The left atrium size is normal. The right atrium size is normal. There is no Doppler evidence of interatrial shunt. Aortic Valve The aortic valve is mildly thickened. There is no aortic valvular stenosis. Trace aortic regurgitation. Mitral Valve There is mild mitral annular calcification. The mitral valve appears mildly thickened. No evidence of mitral valve stenosis. Trace mitral regurgitation. Tricuspid Valve The tricuspid valve leaflets are thin and pliable. Trace tricuspid regurgitation. RVSP is 20-25 mmHg. Pulmonic Valve The pulmonary valve is normal in structure. Trace pulmonic regurgitation. Great Vessels The aortic root is normal in size. The ascending aorta is normal in size. IVC is normal in size and collapses >50% with inspiration. Pericardium There is no pericardial effusion. Conclusion Normal biventricular systolic function. No significant valvular stenosis or regurgitation. Electronically signed by : Coral Oscar, 06/09/2023 22:09:15
--- NOTE | 2023-06-09 15:13 | XR_ITS ---
FINAL REPORT CLINICAL HISTORY: frequent falls, bruising R posterios hip FINDINGS: Pelvis A single view was obtained. There is no acute fracture or dislocation. The joint spaces appear normal. No soft tissue abnormality is identified. Radiation seed implants are seen in the prostate. There is an infusion pump in the right hemidiaphragm. IMPRESSION: No acute process. Reviewed, Interpreted and Dictated by Solo Jennings MD Transcribed by Sarah Nguyễn Authenticated and [facility]
--- NOTE | 2023-06-09 15:15 | HMH.EDGENADL ---
Discharge Plan Disposition Patient Disposition: Home, Self-Care Condition: Fair Prescriptions Prescriptions: No Action duloxetine 60 mg capsule,delayed release(DR/EC) 60 mg PO DAILY furosemide 40 mg tablet 40 mg PO DAILYP PRN (Reason: Edema) morphine 10 MG/ML solution 2.35 mg intrathecal CONT Rx Instructions: medication delivered via intrathecal pain pump. concentration of medication is 10mg/ml, total volume of pump is 20ml. total daily dose is 2.35mg/day Jardiance 25 mg tablet 25 mg PO DAILY ferrous sulfate [FeroSul] 325 mg (65 mg iron) tablet 325 mg PO DAILY Stiolto Respimat 2.5-2.5 mcg/actuation mist 2 inh INHALATION DAILY atorvastatin 80 MG tablet 80 mg PO DAILY aspirin 81 MG tablet,delayed release (DR/EC) 81 mg PO DAILY tamsulosin 0.4 MG capsule 0.4 mg PO DAILY gemfibrozil 600 MG tablet 600 mg PO BID metoprolol succinate 25 MG tablet extended release 24 hr 25 mg PO DAILY cyanocobalamin (vitamin B-12) 1,000 mcg tablet 1,000 mcg PO DAILY metformin 1,000 mg tablet 1,000 mg PO BID memantine 10 mg tablet 10 mg PO DAILY 90 Days Qty: 180 3RF doxycycline hyclate 100 mg capsule 100 mg PO BID gabapentin 300 mg capsule 300 mg PO QID Qty: 120 0RF gabapentin 300 mg capsule 300 mg PO QID Qty: 120 2RF Referrals Follow up/Referrals: Bryon Velazquez MD [Primary Care Provider] - See instructions Activity Restrictions/Add. Instructions Additional Instructions/Restrictions: At this time is felt you are safe to be discharged home. If new or worsening symptoms please do not hesitate to return the emergency department. Please follow-up with your family doctor as soon as you are able. Please follow-up with cardiology for formal read of your echo. Clinical Impressions Clinical Impression: Weakness Discharge ED Provider: Mahendra Juarez General Adult HPI General Chief complaint: Weakness Stated complaint: Weakness Time Seen by Provider: 06/09/23 15:01 Mode of Arrival: EMS Source of Information: Patient Limitations: No Limitations Description of Symptoms (Recalled from ER Triage Doc. by RN): pt to ed c/o increased weakness, ams x2 days. History of Present Illness HPI narrative: Patient is an 78-year-old male with past medical history of COPD on nocturnal O2, coronary artery bypass graft, CHF, intermittently insulin-dependent diabetes, hyperlipidemia who presents emergency department for evaluation of generalized weakness. Patient has chronic back pain with a morphine pump. History is obtained by patient and at bedside. Over the last week patient has had increasing falls with ambulating for which she gets around with a cane at baseline. Most recent fall was while he was on his way to use the restroom he fell onto his right hip. Due to weakness over the last 48 hours they present here for continued evaluation. Patient has chronic cough at baseline but no significant acute worsening. He complains that he has increased thirst. states that he is intermittently said inappropriate things out of context over the last 24 hours and is concerned for urinary tract infection. Denies chest pain, abdominal pain, hip pain, other acute complaints at this time. Related Data Home Medications Medication Instructions Recorded Confirmed aspirin 81 mg tablet,delayed 81 mg PO DAILY HEART HEALTH 12/24/17 04/13/23 release atorvastatin 80 mg tablet 80 mg PO DAILY Cholesterol 12/24/17 04/13/23 gemfibrozil 600 mg tablet 600 mg PO BID Cholesterol 12/24/17 04/13/23 metoprolol succinate 25 mg 25 mg PO DAILY Hypertension 12/24/17 04/13/23 tablet,extended release 24 hr tamsulosin 0.4 mg capsule 0.4 mg PO DAILY PROSTATE 12/24/17 04/13/23 duloxetine 60 mg capsule,delayed 60 mg PO DAILY Depression 11/18/20 04/13/23 release furosemide 40 mg tablet 40 mg PO DAILYP PRN Edema 11/18/20 04/13/23 morphine 10 mg/mL injection 2.
[2023-06-09 15:28] LABS: VBG Base Excess -0.1 mmol/L (-2.4-2.3); VBG Oxygen Saturation 95.4 % (50-70); VBG PCO2 51.1 mmol/L (35-51); VBG PH 7.32 mmol/L (7.31-7.41); VBG PO2 119.8 mmol/L (28-40); VBG Total CO2 27.5 mmol/L (23-27)
[2023-06-09 15:43] LABS: Magnesium 1.5 mg/dl (1.6-2.3)
[2023-06-09 15:43] LABS: Coronavirus 19, PCR Not Detected (NotDetected); Influenza A, PCR Not Detected (NotDetected); Influenza B, PCR Not Detected (NotDetected)
[2023-06-09 15:56] LABS: Troponin I < 0.01 ng/ml (0.00-0.034)
--- NOTE | 2023-06-09 16:23 | PC.NURSE ---
Vidal and myself did a bed change and brief change on pt was also placed in a gown , at bs
--- NOTE | 2023-06-09 17:34 | PC.NURSE ---
pt resting in bed nothing else needed at this time, at bs
--- NOTE | 2023-06-09 18:59 | PC.NURSE ---
SPOKE WITH RESAW TAILER EF ABOVE 55% OFFICIAL READ WILL BE DONE TOMORROW
--- NOTE | 2023-06-09 19:15 | PC.NURSE ---
pt resting in bed at speaking with
[2023-06-09 19:27] LABS: Microscopic, Urine URINE MICROSCOPIC (MICROSCOPIC)
[2023-06-09 20:02] LABS: Appearance,Urine CLEAR (Clear); Bilirubin,Urine Negative (Negative); Blood, Urine Negative (Negative); Color,Urine YELLOW (Yellow); Glucose,Urine (UA) 3+ (Negative); Ketones,Urine TRACE (Negative); Leukocyte Esterase,Urine Negative (Negative); Nitrate,Urine Negative (Negative); Protein,Urine Negative (Negative); Urobilinogen,Urine 0.2 EU/dl (0.2)
[2023-06-09 20:11] LABS: WBC,Urine Occasional #/hpf (0-3)
[2023-06-09 20:55] LABS: Strep Scrn Group A (Rapid) Negative (Negative)
== END 2023-06-09 22:10 | disposition home or self-care (01) ==
PROVIDERS: Emergency Provider Emergency Medicine; PCP Internal Medicine
DX: R53.1 Weakness (principal); R29.6 Repeated falls; J44.9 Chronic obstructive pulmonary disease, unspecified; I11.0 Hypertensive heart disease with heart failure; I50.9 Heart failure, unspecified; E78.5 Hyperlipidemia, unspecified; E11.9 Type 2 diabetes mellitus without complications; G47.33 Obstructive sleep apnea (adult) (pediatric); Z87.891 Personal history of nicotine dependence; W18.30XA Fall on same level, unspecified, initial encounter; Z79.84 Long term (current) use of oral hypoglycemic drugs
CPT/HCPCS: 70450; 71045; 72170; 80053; 81001; 82803; 83735; 84484; 85025; 87430; 87636; 93005; 93306; 96361; 96374; 99285; J3475

== ENCOUNTER 2023-06-22 11:03 | Day surgery (SDC) | payer MEDICARE, SELFPAY ==
[2023-06-22 11:14] VITALS: BP 163/80; PULSE 85; RESP 18; TEMP 36.6; O2SAT 98; BMI 29.7
[2023-06-22 11:38] VITALS: BP 150/79; PULSE 93; RESP 18; O2SAT 96
[2023-06-22 11:40] VITALS: BP 150/79; PULSE 93; RESP 18; O2SAT 96
[2023-06-22 11:50] VITALS: BP 124/85; PULSE 78; RESP 20
--- NOTE | 2023-06-22 11:59 | EXP.PAIN.PRO ---
Procedure Date: 06/22/23 Time: 11:35 Anesthesiologist:: Rell Trejo CRNA Complications:: None Pre-procedure Diagnosis:: Degenerative disc lumbar spine multilevels. Lumbar radiculopathy. Lumbar postlaminectomy syndrome. Post-procedure Diagnosis:: Same. Indications for Procedure:: Patient is a very pleasant 78-year-old male that comes our clinic today for intrathecal pain pump interrogation refill. Patient currently being managed with morphine sulfate 15 mg/mL at 2.8 mg/day. Patient does not complain of any side effects or complications regarding the intrathecal pain pump management. Procedure Details:: Details of the procedure explained to the patient. Patient taken to procedure room placed in the sitting position. The area of the pump was cleansed using chlorhexidine as a cleansing solution. The pump was interrogated. The pump was accessed with ease using a 22-gauge inch and half needle. 6.2 mL of solution was withdrawn and discarded appropriately. The pump was then filled incrementally with 20 cc of solution containing morphine sulfate 15 mg/mL. Patient tolerated procedure without difficulty. No complications. Plan and Disposition:: Patient was discharged without incident.
== END 2023-06-22 11:51 | disposition home or self-care (01) ==
LOC: SC.PAINP 11:03
PROVIDERS: PCP Internal Medicine; Visit Provider Nurse Anesthetist, Certified Registered
DX: M51.16 Intervertebral disc disorders with radiculopathy, lumbar region (principal); M96.1 Postlaminectomy syndrome, not elsewhere classified; Z97.8 Presence of other specified devices
CPT/HCPCS: 95991

== ENCOUNTER 2023-06-30 18:42 | Emergency (ER) | payer MEDICARE, SELFPAY ==
[2023-06-30 18:50] VITALS: BP 107/57; PULSE 82; RESP 18; TEMP 36.8; O2SAT 93; BMI 24.4
--- NOTE | 2023-06-30 19:02 | EXP.UTC ---
Discharge Plan Disposition Patient Disposition: Home, Self-Care Condition: Good Prescriptions Prescriptions: New cephalexin 500 mg capsule 500 mg PO QID Qty: 40 0RF No Action duloxetine 60 mg capsule,delayed release(DR/EC) 60 mg PO DAILY furosemide 40 mg tablet 40 mg PO DAILYP PRN (Reason: Edema) potassium chloride 10 mEq capsule, extended release 10 meq PO PRN morphine 10 MG/ML solution 2.35 mg intrathecal CONT Rx Instructions: medication delivered via intrathecal pain pump. concentration of medication is 10mg/ml, total volume of pump is 20ml. total daily dose is 2.35mg/day Jardiance 25 mg tablet 25 mg PO DAILY ferrous sulfate [FeroSul] 325 mg (65 mg iron) tablet 325 mg PO DAILY Stiolto Respimat 2.5-2.5 mcg/actuation mist 2 inh INHALATION DAILY atorvastatin 80 MG tablet 80 mg PO DAILY aspirin 81 MG tablet,delayed release (DR/EC) 81 mg PO DAILY tamsulosin 0.4 MG capsule 0.4 mg PO DAILY gemfibrozil 600 MG tablet 600 mg PO BID metoprolol succinate 25 MG tablet extended release 24 hr 25 mg PO DAILY cyanocobalamin (vitamin B-12) 1,000 mcg tablet 1,000 mcg PO DAILY metformin 1,000 mg tablet 1,000 mg PO BID memantine 10 mg tablet 10 mg PO DAILY 90 Days Qty: 180 3RF gabapentin 300 mg capsule 300 mg PO QID Referrals Follow up/Referrals: Bryon Velazquez MD [Primary Care Provider] - See instructions Tyshawn Pitts DO [Staff Physician] - See instructions Activity Restrictions/Add. Instructions Additional Instructions/Restrictions: Rest the extremity, apply ice for 15 minutes as tolerated three or four times per day, Elevate the extremity as tolerated while you are resting. Follow up with Dr. Pitts (orthopedics). I put in a referral but you need to call his office and schedule an appointment. PLEASE CALL HIS OFFICE IN THE MORNING TO GET AN APPOINTMENT TO BE SEEN THERE. HIS OFFICE PHONE NUMBER WILL BE ON THIS PAPERWORK. Follow up with your regular doctor. GO TO THE ER FOR ANY WORSENING SYMPTOMS Clinical Impressions Clinical Impression: Fracture of distal end of right ulna, Skin tear Instructions Patient Instructions: Forearm Fracture, DI for Forearm Fracture, How to Take Care of Your Splint Discharge ED Provider: Biju Saeed [facility] HPI General Stated complaint: AO 06-30 fall Right arm injury Time Seen by Provider: 06/30/23 19:02 History of Present Illness Provider Complaint: He states that he fell out of bed yesterday. Since then he has had right wrist and forearm pain and swelling. He denies any other injury. Related Data Home Medications Medication Instructions Recorded Confirmed aspirin 81 mg tablet,delayed 81 mg PO DAILY HEART HEALTH 12/24/17 06/29/23 release atorvastatin 80 mg tablet 80 mg PO DAILY Cholesterol 12/24/17 06/29/23 gemfibrozil 600 mg tablet 600 mg PO BID Cholesterol 12/24/17 06/29/23 metoprolol succinate 25 mg 25 mg PO DAILY Hypertension 12/24/17 06/29/23 tablet,extended release 24 hr tamsulosin 0.4 mg capsule 0.4 mg PO DAILY PROSTATE 12/24/17 06/29/23 duloxetine 60 mg capsule,delayed 60 mg PO DAILY Depression 11/18/20 06/29/23 release furosemide 40 mg tablet 40 mg PO DAILYP PRN Edema 11/18/20 06/29/23 morphine 10 mg/mL injection 2.35 mg intrathecal CONT chronic 06/16/21 06/29/23 solution pain empagliflozin 25 mg tablet 25 mg PO DAILY Diabetes 09/04/22 06/29/23 (Jardiance) ferrous sulfate 325 mg (65 mg 325 mg PO DAILY Supplement 09/06/22 06/29/23 iron) tablet (FeroSul) tiotropium 2.5 mcg-olodaterol 2.5 2 inh inhalation DAILY COPD 09/06/22 06/29/23 mcg/actuation mist for inhalation (Stiolto Respimat) cyanocobalamin (vitamin B-12) 1,000 mcg PO DAILY Supplement 12/21/22 06/29/23 1,000 mcg tablet metformin 1,000 mg tablet 1,000 mg PO BID Diabetes 12/21/22 06/29/23 gabapentin 300 mg capsule 300 mg PO QID Pain 06/22/23 06/29/23 potassium chlorid
--- NOTE | 2023-06-30 19:06 | XR_ITS ---
PROCEDURE INFORMATION: Exam: XR Right Wrist Exam date and time: 06/30/2023 7:21 PM Age: 78 years old Clinical indication: Injury or trauma; Fall; Blunt trauma (contusions or hematomas); Wrist; Right TECHNIQUE: Imaging protocol: Radiologic exam of the right wrist. Views: 3 or more views. COMPARISON: CR XR HAND RT MIN 3V 06/30/2023 7:19 PM FINDINGS: Bones/joints: Mildly displaced oblique fracture of the distal metadiaphyseal region of the ulna. Severe degenerative change at the STT joint. Moderate degenerative change at the 1st carpometacarpal joint. Chondrocalcinosis distal to the ulna. Osteopenia. Soft tissues: Normal. IMPRESSION: Mildly displaced oblique fracture of the distal metadiaphyseal region of the ulna.
--- NOTE | 2023-06-30 19:06 | XR_ITS ---
PROCEDURE INFORMATION: Exam: XR Right Elbow Exam date and time: 06/30/2023 7:26 PM Age: 78 years old Clinical indication: Injury or trauma; Fall; Blunt trauma (contusions or hematomas); Elbow; Right TECHNIQUE: Imaging protocol: Radiologic exam of the right elbow. Views: 3 or more views. COMPARISON: CR XR FOREARM RT 2V 06/30/2023 7:23 PM FINDINGS: Bones/joints: No fracture or dislocation. Osteopenia. Enthesophyte formation at the lateral humeral epicondyle. Soft tissues: Normal. IMPRESSION: No acute findings.
--- NOTE | 2023-06-30 19:06 | XR_ITS ---
PROCEDURE INFORMATION: Exam: XR Right Forearm Exam date and time: 06/30/2023 7:23 PM Age: 78 years old Clinical indication: Injury or trauma; Fall; Blunt trauma (contusions or hematomas); Arm, lower; Right TECHNIQUE: Imaging protocol: Radiologic exam of the right forearm. Views: 2 views. COMPARISON: CR XR WRIST RT MIN 3V 06/30/2023 7:21 PM FINDINGS: Bones/joints: Mildly displaced oblique fracture of the distal metadiaphyseal region of the ulna. Well-defined cortical lucency in the mid diaphysis of the radius. Osteopenia. Enthesophyte formation at the lateral humeral epicondyle. Soft tissues: Normal. IMPRESSION: 1. Mildly displaced oblique fracture of the distal metadiaphyseal region of the ulna. 2. Small lucent lesion in the mid diaphysis of the radius could be seen in the setting of metabolic abnormalities, infection, or metastatic disease.
--- NOTE | 2023-06-30 19:06 | XR_ITS ---
PROCEDURE INFORMATION: Exam: XR Right Hand Exam date and time: 06/30/2023 7:19 PM Age: 78 years old Clinical indication: Injury or trauma; Fall; Blunt trauma (contusions or hematomas); Hand; Right TECHNIQUE: Imaging protocol: Radiologic exam of the right hand. Views: 3 or more views. COMPARISON: No relevant prior studies available. FINDINGS: Bones/joints: No fracture or dislocation. Severe degenerative changes at the STT joint, 1st, 2nd, and 3rd metacarpophalangeal joints. Moderate degenerative changes at the 1st carpometacarpal joint and 2nd and 3rd DIP joints. Osteopenia. Mild chondrocalcinosis at the ulnocarpal and 5th metacarpophalangeal joints. Soft tissues: Normal. IMPRESSION: No fracture in the right hand.
[2023-06-30 20:39] VITALS: BP 107/57; PULSE 82; RESP 18; TEMP 36.8; O2SAT 93
== END 2023-06-30 20:15 | disposition home or self-care (01) ==
PROVIDERS: Emergency Provider Nurse Practitioner Family; PCP Internal Medicine
DX: S52.231A Displaced oblique fracture of shaft of right ulna, initial encounter for closed fracture (principal); S61.501A Unspecified open wound of right wrist, initial encounter; J44.9 Chronic obstructive pulmonary disease, unspecified; I11.0 Hypertensive heart disease with heart failure; I50.9 Heart failure, unspecified; E11.9 Type 2 diabetes mellitus without complications; I25.10 Atherosclerotic heart disease of native coronary artery without angina pectoris; E78.5 Hyperlipidemia, unspecified; G47.33 Obstructive sleep apnea (adult) (pediatric); Z79.84 Long term (current) use of oral hypoglycemic drugs; Z87.891 Personal history of nicotine dependence; W06.XXXA Fall from bed, initial encounter
CPT/HCPCS: 73080; 73090; 73110; 73130; 99212; 99214; G0463

== ENCOUNTER → 2023-07-05 12:26 | Outpatient (CLI) | payer MEDICARE, SELFPAY | PROVIDERS: PCP Internal Medicine; Visit Provider Specialist | DX: R41.3 Other amnesia (principal); I67.2 Cerebral atherosclerosis; Z86.73 Personal history of transient ischemic attack (TIA), and cerebral infarction without residual deficits; M21.371 Foot drop, right foot; E11.40 Type 2 diabetes mellitus with diabetic neuropathy, unspecified | CPT/HCPCS: 95813 ==

== ENCOUNTER → 2023-07-12 12:59 | Outpatient (CLI) | payer MEDICARE, SELFPAY ==
--- NOTE | 2023-07-12 14:00 | PC.NURSE ---
PFT completed without incident, Albuterol 0.083% given via HHN, per protocol, Pt tolerated tx well. 6 Minute Walk Test not attempted, Pt has a broken arm and is currently seated in a wheel chair. Pt states he has falls very frequently, since he is unable to use his cane due to broken arm does not want to risk falling while walking.
== END ==
PROVIDERS: PCP Internal Medicine; Visit Provider Internal Medicine Pulmonary Disease
DX: R06.02 Shortness of breath (principal); F17.210 Nicotine dependence, cigarettes, uncomplicated
CPT/HCPCS: 94060; 94726; 94729

== ENCOUNTER 2023-07-27 11:33 | Emergency (ER) | payer MEDICARE, SELFPAY ==
[2023-07-27 11:33] VITALS: BP 134/83; PULSE 79; RESP 18; TEMP 36.7; O2SAT 94; BMI 27.4
--- NOTE | 2023-07-27 11:46 | ECG_ITS ---
APPROVED REPORT Exam: Resting ECG HR:76 bpm ECG Measurements Heart Rate 76 AXES IA 215 P 50 QRSd 98 QRS 60 QT 368 T -10 QTc 398 Conclusion SINUS RHYTHM WITH FIRST DEGREE AV BLOCK WITH FREQUENT SUPRAVENTRICULAR PREMATURE COMPLEXES IN A BIGEMINAL PATTERN ABNORMAL QRS-T ANGLE [QRS-T AXIS DIFFERENCE > 60] ABNORMAL ECG UNCONFIRMED REPORT Electronically signed by : Mitchel Briceno MD 07/31/2023 11:10:26
--- NOTE | 2023-07-27 11:53 | CT_ITS ---
FINAL REPORT CLINICAL HISTORY: fall injury COMPARISON: None FINDINGS: Axial CT images of the cervical spine were obtained without contrast. Sagittal and coronal reformatted images were also obtained. This study was performed with techniques to keep radiation doses as low as reasonably achievable (ALARA). Individualized dose reduction techniques using automated exposure control or adjustment of mA and/or kV according to the patient's size were employed. There is moderate and severe degenerative change in the cervical spine, with multilevel disc osteophyte complex present. There is no evidence of fracture or dislocation. There is mild retrolisthesis of C4 on C5 and C5 on C6. There is multilevel neural foraminal narrowing noted bilaterally. There is opacification of multiple right mastoid air cells identified. There is no evidence of canal stenosis. No paraspinous soft tissue abnormality is seen. Limited images of the upper thorax are unremarkable. IMPRESSION: Degenerative change in the cervical spine as described above, but no evidence of acute fracture is identified. Reviewed, Interpreted and Dictated by Mann Vieira III, MD Transcribed by Yue Miller Authenticated and [facility]
--- NOTE | 2023-07-27 11:53 | CT_ITS ---
FINAL REPORT TECHNIQUE: Axial CT images of the face were obtained without contrast. Coronal and sagittal reformatted images were also obtained. This study was performed with techniques to keep radiation doses as low as reasonably achievable, (ALARA). Individualized dose reduction techniques using automated exposure control or adjustment of mA and/or kV according to the patient's size were employed. CLINICAL HISTORY: fall injury, small lac above left eye COMPARISON: None FINDINGS: There is a fracture of the anterior, lateral and inferior chappell of the left frontal sinus. There is 3 mm of inferior displacement of the fragment at the superior orbital rim, and intraorbital air is present in the superior portion of the orbit. There is also intraorbital air in the left frontal sinus and into subcutaneous hematomas. The globes are intact. There is a retention cyst or polyp in the right maxillary sinus which produces mild bony erosion posteriorly. No soft tissue mass is seen. IMPRESSION: Fractures through the left frontal sinus and superior orbital rim as described above, with air-hemorrhage levels in the left frontal sinus. The globes are intact. Retention cyst or polyp in the right maxillary sinus which produces mild posterior bony erosion. Reviewed, Interpreted and Dictated by Mann Vieira III, MD Transcribed by Yue Miller Authenticated and [facility]
--- NOTE | 2023-07-27 11:53 | CT_ITS ---
FINAL REPORT CLINICAL HISTORY: fall head injury COMPARISON: 06/09/2023 FINDINGS: Axial images of the head were obtained without contrast. Coronal and sagittal reformatted images were also obtained. This study was performed with techniques to keep radiation doses as low as reasonably achievable (ALARA). Individualized dose reduction techniques using automated exposure control or adjustment of mA and/or kV according to the patient's size were employed. There is generalized age appropriate atrophy. There is hemorrhage in the lateral and the third ventricles, with the epicenter in the right lateral ventricle. The ventricular size is within normal limits. There is no evidence of shift of the midline structures. There is a fracture of the anterolateral wall of the left frontal sinus, with hemorrhage into the left frontal sinus. There is an associated left frontal scalp hematoma. IMPRESSION: Hemorrhage in the lateral and third ventricles as described above. The results were called to [facility] emergency room, spoke with Dr. Garcia, 07/27/2023 at 1:45 PM. Fracture in the anterior and lateral wall of the left frontal sinus with hemorrhage into the sinus. An associated left frontal scalp hematoma is present as well. Reviewed, Interpreted and Dictated by Mann Vieira III, MD Transcribed by Yue Miller Authenticated and [facility]
--- NOTE | 2023-07-27 11:54 | HMH.EDGENADL ---
Discharge Plan Disposition Patient Disposition: Home, Self-Care Prescriptions Prescriptions: New amoxicillin-pot clavulanate 875-125 mg tablet 1 tab PO BID 7 Days Qty: 14 0RF No Action duloxetine 60 mg capsule,delayed release(DR/EC) 60 mg PO DAILY furosemide 40 mg tablet 40 mg PO DAILYP PRN (Reason: Edema) potassium chloride 10 mEq capsule, extended release 10 meq PO PRN morphine 10 MG/ML solution 2.35 mg intrathecal CONT Rx Instructions: medication delivered via intrathecal pain pump. concentration of medication is 10mg/ml, total volume of pump is 20ml. total daily dose is 2.35mg/day Jardiance 25 mg tablet 25 mg PO DAILY ferrous sulfate [FeroSul] 325 mg (65 mg iron) tablet 325 mg PO DAILY Stiolto Respimat 2.5-2.5 mcg/actuation mist 2 inh INHALATION DAILY cephalexin 500 mg capsule 500 mg PO QID Qty: 40 0RF atorvastatin 80 MG tablet 80 mg PO DAILY aspirin 81 MG tablet,delayed release (DR/EC) 81 mg PO DAILY tamsulosin 0.4 MG capsule 0.4 mg PO DAILY gemfibrozil 600 MG tablet 600 mg PO BID metoprolol succinate 25 MG tablet extended release 24 hr 25 mg PO DAILY cyanocobalamin (vitamin B-12) 1,000 mcg tablet 1,000 mcg PO DAILY metformin 1,000 mg tablet 1,000 mg PO BID memantine 10 mg tablet 10 mg PO DAILY 90 Days Qty: 180 3RF gabapentin 300 mg capsule 300 mg PO QID Referrals Follow up/Referrals: Bryon Velazuqez MD [Primary Care Provider] - See instructions Activity Restrictions/Add. Instructions Additional Instructions/Restrictions: Follow-up with oral maxillofacial surgery as instructed upon discharge. Return with any worsening of mental status. Please make sure that you are not blowing your nose or bearing down significantly. Return with any spreading redness or pus coming from the wound the sutures should absorb themselves within 5 to 7 days. Clinical Impressions Clinical Impression: Fracture of frontal sinus, Fracture of temporal bone, Fracture of orbital wall, Forehead laceration, Concussion Discharge ED Provider: Ines Garcia General Adult HPI General Chief complaint: Fall Stated complaint: Fall Time Seen by Provider: 07/27/23 11:47 Mode of Arrival: EMS Source of Information: Patient and EMS Limitations: No Limitations Description of Symptoms (Recalled from ER Triage Doc. by RN): Per EMS patient was getting ready for a doctor's appointment when he went to the refrigerator and fell face foward. States that his glasses were embedded in the left side of his face. Per family patient did loss conciousness. Patient is alert and oriented with intermitten confusion. History of Present Illness HPI narrative: Patient is an 78-year-old male history is obtained from him and his is at the bedside. He has a history of dementia he is supposed to normally walk with a walker and a cane and he was with neither today and had a mechanical fall almost certainly according to his this has been falling regularly lately. He is not on any anticoagulation but does take a daily aspirin. Had an injury to the left lateral side of his forehead and orbital rim location with some significant bleeding and was brought in by EMS. He was unconscious when his first found him but he woke up very quickly has been answering questions appropriately but has had some repetitive questioning. He denies any current symptoms at the moment. Related Data Home Medications Medication Instructions Recorded Confirmed aspirin 81 mg tablet,delayed 81 mg PO DAILY HEART HEALTH 12/24/17 07/12/23 release atorvastatin 80 mg tablet 80 mg PO DAILY Cholesterol 12/24/17 07/12/23 gemfibrozil 600 mg tablet 600 mg PO BID Cholesterol 12/24/17 07/12/23 metoprolol succinate 25 mg 25 mg PO DAILY Hypertension 12/24/17 07/12/23 tablet,extended release 24 hr tamsulosin 0.4 mg capsule 0.4 mg PO DAILY PROSTATE 12/24/17 07/12/23 duloxeti
[2023-07-27 12:03] VITALS: BP 122/56; PULSE 78; O2SAT 93
[2023-07-27 12:30] VITALS: BP 118/62; PULSE 71; O2SAT 92
--- NOTE | 2023-07-27 12:54 | PC.NURSE ---
Roderick Called [facility] for them to power share images
[2023-07-27 13:02] VITALS: BP 119/59; PULSE 75; O2SAT 90
--- NOTE | 2023-07-27 13:03 | PC.NURSE ---
Calling [facility] transfer per
--- NOTE | 2023-07-27 13:25 | PC.NURSE ---
is speaking with md Woodall
--- NOTE | 2023-07-27 13:30 | PC.NURSE ---
Spoke with Sally Forbes at with facial surgery to give more information for pt follow up. She stated they would follow up with the pt this week to schedule his appointment
--- NOTE | 2023-07-27 13:58 | PC.NURSE ---
calling [facility] again per
--- NOTE | 2023-07-27 14:01 | PC.NURSE ---
[facility] transferred center states it pretty busy would call back but didn't have and [employer] back
--- NOTE | 2023-07-27 14:05 | PC.NURSE ---
Dr. Garcia speaking with [employer].
--- NOTE | 2023-07-27 14:15 | PC.NURSE ---
Report called to Ishmael at [facility].
--- NOTE | 2023-07-27 14:34 | PC.NURSE ---
[facility] notified of transfer.
[2023-07-27 15:13] VITALS: BP 139/68; PULSE 78; RESP 18; TEMP 36.7; O2SAT 94
== END 2023-07-27 15:14 | disposition other institution (70) ==
PROVIDERS: Emergency Provider Student in an Organized Health Care Education/Training Program; PCP Internal Medicine
DX: S06.369A Traumatic hemorrhage of cerebrum, unspecified, with loss of consciousness of unspecified duration, initial encounter (principal); S02.19XA Other fracture of base of skull, initial encounter for closed fracture; S02.85XA Fracture of orbit, unspecified, initial encounter for closed fracture; S01.01XA Laceration without foreign body of scalp, initial encounter; R94.31 Abnormal electrocardiogram [ECG] [EKG]; J44.9 Chronic obstructive pulmonary disease, unspecified; I11.0 Hypertensive heart disease with heart failure; I50.9 Heart failure, unspecified; I25.10 Atherosclerotic heart disease of native coronary artery without angina pectoris; E11.9 Type 2 diabetes mellitus without complications; E78.5 Hyperlipidemia, unspecified; G47.33 Obstructive sleep apnea (adult) (pediatric); Z87.891 Personal history of nicotine dependence; Z79.84 Long term (current) use of oral hypoglycemic drugs; W19.XXXA Unspecified fall, initial encounter
CPT/HCPCS: 12002; 70450; 70486; 72125; 93005; 96374; 99285; J0690